=== PATIENT | female | born 1930 | race Caucasian/White ===

== ENCOUNTER 2016-06-03 11:42 | Inpatient (IN) | payer MEDICARE, BC ==
[~2016-06-03] VITALS: Ht 165.1 cm; Wt 68.9 kg
[~2016-06-03 11:42] MED LIST: CALC500T7 PO; CEPH500C2 PO; CHOL400T PO; ENOX40DI SQ; GABA-338 PO; HYDR-4072 PO; HYDR2TAB56 PO; HYDR2TAB7 PO; INSU100V SQ; LISI10TA7 PO; METF500T4 PO; METO10TA3 PO; OMEP40CA52 PO; TRAM50TA4 PO
--- OUTSIDE RECORDS SUMMARY | 2016-06-03 11:51 | XMS REPORT | Continuity of Care Document ---
Author Author [facility] Organization [facility] Address Unknown Phone Unavailable Support Name Relationship Address Phone KELLIE PATEL Caregiver [address] [place] [address] Unavailable BHAVNA MCALLISTER MD Caregiver [address] [place] [address] Unavailable BHAVNA MCALLISTER MD Caregiver [address] [place] [address] Unavailable ELGIN ROBERT (DPOA) Next Of Kin [address] [place] [address] Insurance Providers Guarantor Toro Robert Address [address] [place] [address] Email DENIED 05-18-16 Payer [employer] Plan 65 Policy Number [id number] Subscriber's Name Toro Robert Relationship 18 Self Group Number [id number] Payer Medicare Policy Number [id number] Subscriber's Name Toro Robert Relationship 18 Self Advance Directives Directive Response Recorded Date/Time Ordered Resuscitation Status Full Code 05/18/16 6:03pm Resuscitation Documents on File No 05/18/16 6:27pm DPOA for Healthcare Only Y Son 05/19/16 3:54pm Living Will Yes 05/18/16 6:27pm Problems Active Problems Medical Problem Onset Date Status Allergic rhinitis Unknown Anemia Unknown Acute Basal cell carcinoma Unknown Chronic Cardiac dysrhythmia Unknown Chronic Chronic kidney disease Unknown Chronic pain Unknown Chronic DJD (degenerative joint disease) Unknown Chronic Debility Unknown Acute Diabetes mellitus ~05/2016 Chronic Displaced fracture of right femoral neck Unknown Resolved GERD (gastroesophageal reflux disease) Unknown Chronic HTN (hypertension) Unknown Chronic Hypercholesteremia Unknown Lumbar disc herniation Unknown Chronic Osteopenia Unknown Chronic Peptic ulcer disease Unknown Chronic Pseudoarthrosis Unknown Chronic UTI (urinary tract infection) Unknown Resolved Urinary retention Unknown Chronic Past Problems Medical Problem Onset Date Ankle pain Unknown Fall Unknown Hip pain Unknown Medications Current Home Medications Medication Dose Units Route Directions Days Qty Instructions Start Date Calcium Carbonate (Tums) 200 Mg Tab.chew 500 Mg Oral Four Times Daily as needed for Heartburn 30 05/18/16 Cephalexin 500 Mg Capsule 500 Mg Oral Q8h @ 0100/0900/1700 for Uti 1 Days 3 Capsule 05/18/16 Cholecalciferol (Delta D3) 400 Unit Tablet 400 Unit Oral Three Times A Day for Hip Fracture 28 Tablet 05/18/16 Enoxaparin Sodium (Lovenox) 40 Mg/0.4 Ml Inj 40 Mg Sub-Q Every 24 Hours for Dvt Prophylaxis 28 Days 05/18/16 Gabapentin 300 Mg Capsule 300 Mg Oral Three Times A Day 05/14/16 Hydrocodone/Acetaminophen (Hydrocodon-Acetaminoph 7.5-325) 7.5-325 Tablet 1-2 Tab Oral Every 6 Hours as needed for Pain 28 Tablet 05/18/16 Hydromorphone Hcl 2 Mg Tablet 2 Mg Oral Daily 05/14/16 Hydromorphone Hcl (Dilaudid) 2 Mg Tablet 4 Mg Oral Bedtime Insulin Lispro (Humalog) 100 Unit/Ml Inj 0 Unit Sub-Q Sliding Scale as needed for Hyperglycemia 21 05/18/16 Lisinopril 10 Mg Tablet 10 Mg Oral Daily 05/14/16 Metformin Hcl 500 Mg Tablet 500 Mg Oral Give With Breakfast 30 Days 30 Tablet Take one tablet, by mouth, one time a day with breakfast. 05/18/16 Metoclopramide Hcl 10 Mg Tablet 10 Mg Oral Twice A Day BEFORE LUNCH & SUPPER 05/14/16 Omeprazole 40 Mg Capsule.dr [place] Cap Oral Daily 05/15/16 Tramadol Hcl 50 Mg Tablet 50 Mg Oral Q6h/0300,0900,1500,2100 as needed for Pain 05/14/16 Past Home Medications Medication Directions Ordered Status Ibuprofen 200 Mg Tablet, 2 Tab Oral Every 4 Hours as needed for Pain Discontinued Social History Social History Problem Response Recorded Date/Time Onset Date Status Reason for Hospitalization femur fracture 05/20/2016 1:18pm Not Applicable Not Applicable Hx Alcohol Use No 05/14/2016 10:37pm Not Applicable Not Applicable Has the pt used tobacco in the last 12 months No 05/18/2016 6:34pm Not Applicable Not Applicable Query Response Start Date Stop Date Smoking Status Never smoker Hospital Discharge Instructions Instructions: Care Instructions: Reason for Hospitalization: femur fracture I was in the hospital because (patient own words): Fell, had surgery Discharge Diet: ada Discharge Activity: bed rest Follow Up Appointments: going to outpatient. Pending Lab / Results: No Pending Lab Patient Instructions: going to outpatient surgery care for elevated troponin Wound/Incision Care: na Durable Medical Equipment: na Pain Management/Treatment: dilaudid and ultram. Expected Signs/Symptoms: to be followed by hospitalist. Notify Physician If: na During Business Hours:: Please call the physician's office at After Business Hours:: Please call [phone] and have the lidding machine operator page the physician. Condition at time of discharge: Fair Plan of Care Discharge Date 05/20/16 1:28pm Disposition 02 TO [facility] Prescriptions See Medication Section Care Plan and Goals See Discharge Instructions Section Functional Status Query Response Date Recorded Mobility Status Ambulatory w/assist May 20, 2016 1:18pm Assistive Devices miguelina walker May 20, 2016 1:18pm Activity Limitations Weakness Pain May 20, 2016 1:18pm Feeding Ability Independent May 20, 2016 1:18pm Toileting Ability Assist May 18, 2016 4:20pm Grooming Ability Assist May 20, 2016 1:18pm Dressing Ability Assist May 20, 2016 1:18pm Driving Ability Dependent May 20, 2016 1:18pm Housework Ability Dependent May 20, 2016 1:18pm Meal Preparation Ability Dependent May 20, 2016 1:18pm Stair Climbing Ability Dependent May 20, 2016 1:18pm Ability to complete ADL's impeded by Impaired Mobility May 20, 2016 1:18pm Cognitive/Perceptual Impairments None May 20, 2016 1:18pm Preferred Method of Learning Reading Listening May 18, 2016 4:20pm Allergies, Adverse Reactions, Alerts Allergen Type Severity Reaction Status Last Updated Sulfa (Sulfonamide Antibiotics) Allergy Unknown Active 05/14/16 Iodine Allergy Unknown Active 05/14/16 Morphine Allergy Unknown Active 05/14/16 Clindamycin Allergy Intermediate RASH Active 05/18/16 Clavulanate Allergy Intermediate DIZZINESS Active 05/17/16 Amoxicillin Adverse Reaction Intermediate PALPITATION Active 05/17/16 Immunizations Query Response on File Recorded Date/Time Hx Influenza Vaccination No 05/18/16 6:34pm Hx Pneumococcal Vaccination Y 2016 05/18/16 6:34pm Hx Influenza Vaccination No 05/18/16 6:34pm Vital Signs Acute Vital Signs Vital Response Date/Time Temperature (Fahrenheit) 98.3 deg F (96.8 - 99.1) 05/20/2016 7:10am Temperature (Calculated Celsius) 36.98104 degrees C (36.0 - 37.3) 05/20/2016 7:10am Temperature Source Oral 05/18/2016 4:04pm Pulse Rate (adult) 104 bpm (60 - 100) 05/20/2016 10:15am Respiratory Rate 18 breaths/min (10 - 20) 05/20/2016 10:15am O2 Sat by Pulse Oximetry 90 % (90 - 100) 05/20/2016 7:10am Oxygen Delivery Method Room Air 05/18/2016 4:04pm Oxygen Delivery Method Room Air 05/20/2016 7:10am Oxygen Flow Rate 1.00 L/min 05/18/2016 7:45am Blood Pressure 126/66 mm Hg 05/20/2016 7:10am Blood Pressure Source Automatic Cuff 05/20/2016 7:10am Height (Feet) 5 feet 05/20/2016 12:26pm Height (Inches) 5.00 inches 05/20/2016 12:26pm Weight (Kilograms) 78.300 kg 05/18/2016 4:20pm Body Mass Index (BMI) 28.7 05/18/2016 4:20pm Results Laboratory Results Test Name Result Units Flags Reference Collection Date/Time Result Date/ Time Comments Neutrophils % (Manual) 87.0 % H 33-66 05/16/2016 4:09am 05/16/2016 6: 23am Lymphocytes % (Manual) 13.0 % L 23-45 05/16/2016 4:09am 05/16/2016 6: 23am Absolute Neutrophils (Manual) 9.7 T/MM3 H 1.8-7.7 05/16/2016 4:09am 07/2016 6:23am Lymphocytes # (Manual) 1.4 T/MM3 1-4.8 05/16/2016 4:09am 05/16/2016 6: 23am Red Cell Morphology Comment NORMAL 05/16/2016 4:09am 05/16/2016 6: 23am HD-Aab-X-Type Natriuretic Peptide 762 PG/ML H 0-175 05/14/2016 8:33pm 9:54pm Rule in cut points: <50 years old=450; 50-75 years old=900; >75 years old=1800; When utilizing ProBNP rule-in cut points, adjustment for impaired renal function is typically not required. Thyroid Stimulating Hormone (TSH) 5.55 MIU/L H 0.47-4.68 05/16/2016 4: 09am 05/16/2016 5:52am Hemoglobin A1c 8.3 % H 6.1-7.9 05/15/2016 10:31am 05/15/2016 10:56am < 6.0 NON-DIABETIC RANGE 6.1-7.9 [employer] TARGET RANGE >8.0 ACTION SUGGESTED Urine Collection Type CLEANCATCH-MIDSTREAM 05/14/2016 10:57pm 05/14 11:01pm Urine Color YELLOW YELLOW 05/14/2016 10:57pm 05/14/2016 11:01pm Urine Turbidity SL CLOUDY CLEAR 05/14/2016 10:57pm 05/14/2016 11: 01pm Urine Specific [place] 1.010 L 1.015-1.025 05/14/2016 10:57pm 2016 11:01pm Urine pH 6.5 5.0-8.0 05/14/2016 10:57pm 05/14/2016 11:01pm Urine Leukocyte Esterase 3+ A NEGATIVE 05/14/2016 10:57pm 05/14/2016 11:01pm Urine Nitrite NEGATIVE NEGATIVE 05/14/2016 10:57pm 05/14/2016 11: 01pm Urine Protein NEGATIVE NEGATIVE 05/14/2016 10:57pm 05/14/2016 11: 01pm Urine Glucose (UA) NEGATIVE NEGATIVE 05/14/2016 10:57pm 05/14/2016 11 :01pm Urine Ketones NEGATIVE NEGATIVE 05/14/2016 10:57pm 05/14/2016 11: 01pm Urine Urobilinogen 0.2 EU/DL NORMAL 05/14/2016 10:57pm 05/14/2016 11: 01pm Urine Bilirubin NEGATIVE NEGATIVE 05/14/2016 10:57pm 05/14/2016 11: 01pm Urine Blood TRACE-INTACT A NEGATIVE 05/14/2016 10:57pm 05/14/2016 11: 01pm Urine WBC 30-50 /HPF H 0-5 05/14/2016 10:57pm 05/14/2016 11:09pm Urine WBC Clumps FEW 05/14/2016 10:57pm 05/14/2016 11:09pm Urine RBC 1-3 /HPF 0-3 05/14/2016 10:57pm 05/14/2016 11:09pm Urine Squamous Epithelial Cells 10-20 05/14/2016 10:57pm 2016 11:09pm Urine Bacteria 3+ H NEGATIVE 05/14/2016 10:57pm 05/14/2016 11:09pm Urine Amorphous Urates MANY 05/14/2016 10:57pm 05/14/2016 11:09pm Urine Culture Indicated CULT REFLEXED &SETUP 05/14/2016 10:57pm 05/2016 11:09pm White Blood Count 10.9 T/MM3 4.5-11.0 05/20/2016 12:30pm 05/20/2016 12: 49pm Red Blood Count 3.56 M/MM3 L 4.00-5.20 05/20/2016 12:30pm 05/20/2016 12: 49pm Hemoglobin 9.9 GM/DL D L 12-16 05/20/2016 12:30pm 05/20/2016 12:49pm Hematocrit 33.1 % L 36-46 05/20/2016 12:30pm 05/20/2016 12:49pm Mean Corpuscular Volume 93.0 UM3 80-100 05/20/2016 12:30pm 05/20/2016 12:49pm Mean Corpuscular Hemoglobin 27.8 UUG 26-34 05/20/2016 12:30pm 2016 12:49pm Mean Corpuscular Hemoglobin Concent 29.9 GM/DL L 31-37 05/20/2016 12: 30pm 05/20/2016 12:49pm RDW Standard Deviation 48.4 FL 36.9-50.2 05/20/2016 12:30pm 05/20/2016 12:49pm Platelet Count 188 T/MM3 D 130-400 05/20/2016 12:30pm 05/20/2016 12:49pm Mean Platelet Volume 13.1 UM3 H 9.4-12.4 05/20/2016 12:30pm 05/20/2016 12:49pm Neutrophils (%) (Auto) 77.4 % H 33-66 05/20/2016 12:30pm 05/20/2016 12: 49pm Lymphocytes (%) (Auto) 12.4 % L 23-45 05/20/2016 12:30pm 05/20/2016 12: 49pm Monocytes (%) (Auto) 6.0 % 0-9.0 05/20/2016 12:30pm 05/20/2016 12:49pm Eosinophils (%) (Auto) 3.5 % 0-4 05/20/2016 12:30pm 05/20/2016 12:49pm Basophils (%) (Auto) 0.5 % 0-2 05/20/2016 12:30pm 05/20/2016 12:49pm Immature Granulocyte % (Auto) 0.2 % 0.0-0.5 05/20/2016 12:30pm 2016 12:49pm Absolute Neutrophils (auto) 8.5 T/MM3 H 1.8-7.7 05/20/2016 12:30pm 05/20 12:49pm Absolute Lymphocytes (auto) 1.4 T/MM3 1-4.8 05/20/2016 12:30pm 2016 12:49pm Absolute Monocytes (auto) 0.7 T/MM3 0-0.8 05/20/2016 12:30pm 2016 12:49pm Absolute Eosinophils (auto) 0.4 T/MM3 0-0.5 05/20/2016 12:30pm 2016 12:49pm Absolute Basophils (auto) 0.1 T/MM3 0-0.2 05/20/2016 12:30pm 2016 12:49pm Absolute Immature Granulocyte (auto 0.02 T/MM3 0.00-0.03 05/20/2016 12: 30pm 05/20/2016 12:49pm Prothromb Time International Ratio 1.13 H 0.76-1.04 05/20/2016 10:36am 05/20/2016 12:28pm THERAPUTIC RANGE=2.00-3.00 FOR ANTI-THROMBOSIS THERAPUTIC RANGE=2.50-3.50 FOR IMPLANTED VALVE Icterus Index < 2 0-7 05/20/2016 10:36am 05/20/2016 12:34pm Chemistry Specimen Hemolysis < 15 0-25 05/20/2016 12:30pm 05/20/2016 1:08pm 0-25: Specimen Exhibited No Hemolysis. Turbidity < 20 0-20 05/20/2016 10:36am 05/20/2016 12:34pm Sodium Level 137 MEQ/L 134-144 05/20/2016 10:3605/20/2016 12:34pm Potassium Level 3.6 MEQ/L 3.6-5 05/20/2016 10:3605/20/2016 12:34pm Chloride Level 99 MEQ/L 98-107 05/20/2016 10:3605/20/2016 12:34pm Carbon Dioxide Level 27 MEQ/L 22-30 05/20/2016 10:3605/20/2016 12: 34pm Anion Gap 11 MEQ/L 5-15 05/20/2016 10:3605/20/2016 12:34pm Blood Urea Nitrogen 14.0 MG/DL 7-17 05/20/2016 10:3605/20/2016 12: 34pm Creatinine 0.8 MG/DL 0.7-1.2 05/20/2016 10:3605/20/2016 12:34pm BUN/Creatinine Ratio 18 RATIO 6-26 05/20/2016 10:3605/20/2016 12: 34pm Glomerular Filtration Rate Calc 69 05/20/2016 10:3605/20/2016 12 :34pm Glucose Level 172 MG/DL H 65-110 05/20/2016 10:3605/20/2016 12:34pm Calculated Osmolality 269 MOSM/KG 261-280 05/20/2016 10:362016 12:34pm Calcium Level 8.8 MG/DL 8.4-10.2 05/20/2016 10:3605/20/2016 12:34pm Total Bilirubin 0.50 MG/DL 0.20-1.30 05/20/2016 10:3605/20/2016 12: 34pm Alkaline Phosphatase 112 U/L 38-126 05/20/2016 10:3605/20/2016 12: 34pm Total Protein 5.7 G/DL L 6.3-8.2 05/20/2016 10:3605/20/2016 12:34pm Albumin 3.1 G/DL L 3.5-5.0 05/20/2016 10:3605/20/2016 12:34pm Globulin 2.6 G/DL 2.4-3.6 05/20/2016 10:3605/20/2016 12:34pm Albumin/Globulin Ratio 1.2 RATIO 1.1-2.2 05/20/2016 10:36am 05/20/2016 12:34pm Aspartate Amino Transf (AST/SGOT) 48 U/L H 14-36 05/20/2016 10:36am 11/2016 12:34pm Alanine Aminotransferase (ALT/SGPT) 25 U/L 9-52 05/20/2016 10:36am 11/2016 12:34pm Troponin I 0.189 ng/ml H 0-0.12 05/20/2016 12:30pm 05/20/2016 1:08pm Troponin values greater than 0.120 ng/ml are considered a critical value. Troponin values with a difference of 55% increase from orginal troponin value represent a true biological DELTA value. (%increase Calc=Orginal Troponin value, divided by subsequent Troponin value, multiplied by 100) Glucometer 168 mg/dL H 65-110 05/20/2016 11:16am 05/20/2016 11:24am Microbiology Results Procedure Source Organism/Result Collection Date/Time Result Date/Time Result Status Urine Culture Urine, Clean Catch-Midstream DIPHTHEROID BACILLUS 05/14/2016 11:10pm 05/17/2016 7:29am Final GRAM POSITIVE CESARIO 05/14/2016 11:10pm 05/17/2016 7:29am Final Name: TORO ROBERT Unit #: [id number] : 1930 Sex: F DISCHARGE SUMMARY Admit Date: 05/18/16 Report #: [id number] [facility] General Date Date DATE: 05/20/16 TIME: 13:12 Attending Physician Bhavna Mcallister MD Admitting Physician Bhavna Mcallister MD Consulting Physician Rocky Lopez MD Admitting Diagnosis femur fracture. Discharge Diagnosis elevated troponin Laboratory Laboratory Tests Test 05/19/16 06:14 05/19/16 07:16 05/19/16 10:53 05/19/16 17:34 Glucometer 178mg/dL (65-110) 190mg/dL (65-110) 147mg/dL (65-110) White Blood Count 9.2T/MM3 (4.5-11.0) Red Blood Count 3.26M/MM3 (4.00-5.20) Hemoglobin 8.9GM/DL (12-16) Hematocrit 30.1% (36-46) Mean Corpuscular Volume 92.3UM3 (80-100) Mean Corpuscular Hemoglobin 27.3UUG (26-34) Mean Corpuscular Hemoglobin Concent 29.6GM/DL (31-37) RDW Standard Deviation 46.9FL (36.9-50.2) Platelet Count 139T/MM3 (130-400) Mean Platelet Volume 12.3UM3 (9.4-12.4) Immature Granulocyte % (Auto) 0.1% (0.0-0.5) Neutrophils (%) (Auto) 74.0% (33-66) Lymphocytes (%) (Auto) 13.2% (23-45) Monocytes (%) (Auto) 8.9% (0-9.0) Eosinophils (%) (Auto) 3.4% (0-4) Basophils (%) (Auto) 0.4% (0-2) Absolute Immature Granulocyte (auto 0.01T/MM3 (0.00-0.03) Absolute Neutrophils (auto) 6.8T/MM3 (1.8-7.7) Absolute Lymphocytes (auto) 1.2T/MM3 (1-4.8) Absolute Monocytes (auto) 0.8T/MM3 (0-0.8) Absolute Eosinophils (auto) 0.3T/MM3 (0-0.5) Absolute Basophils (auto) 0.0T/MM3 (0-0.2) Turbidity < 20 (0-20) Sodium Level 138MEQ/L (134-144) Potassium Level 3.7MEQ/L (3.6-5) Chloride Level 105MEQ/L (98-107) Carbon Dioxide Level 27MEQ/L (22-30) Anion Gap 6MEQ/L (5-15) Blood Urea Nitrogen 12.0MG/DL (7-17) Creatinine 0.8MG/DL (0.7-1.2) Glomerular Filtration Rate Calc 69 BUN/Creatinine Ratio 15RATIO (6-26) Glucose Level 154MG/DL (65-110) Calculated Osmolality 269MOSM/KG (261-280) Calcium Level 8.8MG/DL (8.4-10.2) Icterus Index < 2 (0-7) Chemistry Specimen Hemolysis < 15 (0-25) Test 05/19/16 21:49 05/20/16 05:44 05/20/16 10:36 05/20/16 11:16 Glucometer 236mg/dL (65-110) 154mg/dL (65-110) 168mg/dL (65-110) Prothromb Time International Ratio 1.13 (0.76-1.04) Turbidity < 20 (0-20) Sodium Level 137MEQ/L (134-144) Potassium Level 3.6MEQ/L (3.6-5) Chloride Level 99MEQ/L (98-107) Carbon Dioxide Level 27MEQ/L (22-30) Anion Gap 11MEQ/L (5-15) Blood Urea Nitrogen 14.0MG/DL (7-17) Creatinine 0.8MG/DL (0.7-1.2) Glomerular Filtration Rate Calc 69 BUN/Creatinine Ratio 18RATIO (6-26) Glucose Level 172MG/DL (65-110) Calculated Osmolality 269MOSM/KG (261-280) Calcium Level 8.8MG/DL (8.4-10.2) Total Bilirubin 0.50MG/DL (0.20-1.30) Icterus Index < 2 (0-7) Aspartate Amino Transf (AST/SGOT) 48U/L (14-36) Alanine Aminotransferase (ALT/SGPT) 25U/L (9-52) Alkaline Phosphatase 112U/L (38-126) Troponin I 0.188ng/ml (0-0.12) Total Protein 5.7G/DL (6.3-8.2) Albumin 3.1G/DL (3.5-5.0) Globulin 2.6G/DL (2.4-3.6) Albumin/Globulin Ratio 1.2RATIO (1.1-2.2) Chemistry Specimen Hemolysis < 15 (0-25) Test 05/20/16 12:30 White Blood Count 10.9T/MM3 (4.5-11.0) Red Blood Count 3.56M/MM3 (4.00-5.20) Hemoglobin 9.9GM/DL (12-16) Hematocrit 33.1% (36-46) Mean Corpuscular Volume 93.0UM3 (80-100) Mean Corpuscular Hemoglobin 27.8UUG (26-34) Mean Corpuscular Hemoglobin Concent 29.9GM/DL (31-37) RDW Standard Deviation 48.4FL (36.9-50.2) Platelet Count 188T/MM3 (130-400) Mean Platelet Volume 13.1UM3 (9.4-12.4) Immature Granulocyte % (Auto) 0.2% (0.0-0.5) Neutrophils (%) (Auto) 77.4% (33-66) Lymphocytes (%) (Auto) 12.4% (23-45) Monocytes (%) (Auto) 6.0% (0-9.0) Eosinophils (%) (Auto) 3.5% (0-4) Basophils (%) (Auto) 0.5% (0-2) Absolute Immature Granulocyte (auto 0.02T/MM3 (0.00-0.03) Absolute Neutrophils (auto) 8.5T/MM3 (1.8-7.7) Absolute Lymphocytes (auto) 1.4T/MM3 (1-4.8) Absolute Monocytes (auto) 0.7T/MM3 (0-0.8) Absolute Eosinophils (auto) 0.4T/MM3 (0-0.5) Absolute Basophils (auto) 0.1T/MM3 (0-0.2) Troponin I 0.189ng/ml (0-0.12) Chemistry Specimen Hemolysis < 15 (0-25) History of Present Illness 85-year-old female presents to IRU with right femur fracture. Patient was admitted on May 15 for surgical repair after fall. Once in the hospital, she was diagnosed with UTI as well as newly diagnosed diabetes type 2. While in the hospital she's been very cooperative with treating her diabetes and educating herself about it. She is currently watching diet and taking oral medications as well as on a sliding scale. Treated for the UTI and is currently on oral Keflex. Patient has worked well with physical therapy, is determined to return to preadmitted status , and be independent. Hospital Course Admitted to IRU for strengthening post femur fx. However, she has had indigestion and abd pain despite antacid and reglan. Troponin drawn and returned elevated. Cardiology recommending urgent heart cath based on concurrent ekg changes. Problems: (1) UTI (urinary tract infection) Status: Resolved (2) Displaced fracture of right femoral neck Status: Resolved DVT Prophylaxis: SCD'S Code Status Full Code Home Meds Active Scripts Metformin HCl (Metformin HCl) 500 Mg Tablet, 500 MG PO WB for 30 Days, #30 TAB Take one tablet, by mouth, one time a day with breakfast. Prov:RAMOS PERSON MD 05/18/16 Insulin Lispro (Humalog) 100 Unit/Ml Inj, 0 UNIT SQ SS Y for hyperglycemia, #21 Prov:RAMOS PERSON MD 05/18/16 Cholecalciferol (Delta D3) 400 Unit Tablet, 400 UNIT PO TID for hip fracture, # 28 TAB Prov:RAMOS PERSON MD 05/18/16 Calcium Carbonate (Tums) 200 Mg Tab.chew, 500 MG PO QID Y for heartburn, #30 Prov:RAMOS PERSON MD 05/18/16 Hydrocodone/Acetaminophen (Hydrocodon-Acetaminoph 7.5-325) 7.5-325 Tablet, 1-2 TAB PO Q6H Y for PAIN, #28 TAB Prov:RAMOS PERSON MD 05/18/16 Enoxaparin Sodium (Lovenox) 40 Mg/0.4 Ml Inj, 40 MG SQ Q24H for DVT prophylaxis for 28 Days Prov:RAMOS PERSON MD 05/18/16 Cephalexin (Cephalexin) 500 Mg Capsule, 500 MG PO Q8HR for UTI for 1 Day, #3 CAP Prov:RAMOS PERSON MD 05/18/16 Reported Medications Omeprazole (Omeprazole) 40 Mg Capsule.dr, 1 CAP PO DAILY, CAP 05/15/16 Tramadol HCl (Tramadol HCl) 50 Mg Tablet, 50 MG PO Q6HR Y for PAIN 05/14/16 Gabapentin (Gabapentin) 300 Mg Capsule, 300 MG PO TID 05/14/16 Metoclopramide HCl (Metoclopramide HCl) 10 Mg Tablet, 10 MG PO BID BEFORE LUNCH & SUPPER 05/14/16 Lisinopril (Lisinopril) 10 Mg Tablet, 10 MG PO DAILY 05/14/16 Hydromorphone HCl (Dilaudid) 2 Mg Tablet, 4 MG PO HS 05/14/16 Hydromorphone HCl (Hydromorphone HCl) 2 Mg Tablet, 2 MG PO DAILY 05/14/16 Discontinued Reported Medications Ibuprofen (Ibuprofen) 200 Mg Tablet, 2 TAB PO Q4H Y for PAIN 05/14/16 Face to Face Encounter I met with patient on the day of dismissal and discussed follow up appointments , medications, and safety plan. Discharge Disposition Stable. To laborer salvage. BHAVNA MCALLISTER MD May 20, 2016 13:15 Procedures No known history of procedures. Encounters Encounter Location Arrival/Admit Date Discharge/Depart Date Attending Provider Discharged Inpatient [facility] 05/18/16 4:20pm 05/20/16 1:28pm BHAVNA MCALLISTER MD Discharged Inpatient [facility] 05/15/16 5:04pm 05/18/16 4:22pm RAMOS PERSON MD
--- OUTSIDE RECORDS SUMMARY | 2016-06-03 11:55 | XMS REPORT | Continuity of Care Document ---
Author Author [facility] Organization [facility] Address Unknown Phone Unavailable Support Name Relationship Address Phone BERNIE OLMOS MD Caregiver [address] [place] [place] [address] Unavailable KELLIE PATEL Caregiver [address] [place] [address] Unavailable ELGIN ROBERT (DPOA) Next Of Kin [address] [id number] Insurance Providers Guarantor Toro Robert Address [address] [place] [address] Email DENIED 05-18-16 Payer [employer] 65 Policy Number [id number] Subscriber's Name Toro Robert Relationship 18 Self Group Number [id number] Payer Medicare Policy Number [id number] Subscriber's Name Toro Robert Relationship 18 Self Advance Directives Directive Response Recorded Date/Time Ordered Resuscitation Status Full Code 05/20/16 1:36pm Resuscitation Documents on File No 05/20/16 4:28pm DPOA for Healthcare Only Yes 05/20/16 4:28pm Living Will Yes 05/20/16 4:28pm Problems Active Problems Medical Problem Onset Date [...] Date/Time Onset Date Status Reason for Hospitalization heart cath 05/20/2016 3:08pm Not Applicable Not Applicable Chewing Tobacco Status No 05/20/2016 4:23pm Not Applicable Not Applicable Hx Substance Use No 05/20/2016 4:23pm Not Applicable Not Applicable Hx Alcohol Use No 05/20/2016 4:23pm Not Applicable Not Applicable Has the pt used tobacco in the last 12 months No 05/20/2016 4:23pm Not Applicable Not Applicable Query Response Start Date Stop Date Smoking Status Never smoker Hospital Discharge Instructions Instructions: Care Instructions: I was in the hospital because (patient own words): HEART CATHETERIZATION Discharge Diet: NPO Discharge Activity: bedrest Follow Up Appointments: NA Pending Lab / Results: No Pending Lab Expected Signs/Symptoms: NA Notify Physician If: NA During Business Hours:: Please call the physician's office at [phone] After Business Hours:: Please call [phone] and have the pinking sewing machine operator page the physician. Pain Management/Treatment: NA Pain Scale Utilized to Educate Patient: 0-10 Pain Scale Wound/Incision Care: NA Condition at time of discharge: Good Plan of Care Discharge Date 05/20/16 6:40pm Instructions/Education Provided [facility] Heart Cath Prescriptions See Medication Section Functional Status Query Response Date Recorded Mobility Status Ambulatory w/assist May 20, 2016 2:30pm Assistive Devices NIKKI- WALKER May 20, 2016 2:30pm Activity Limitations Weakness Fatigue Pain May 20, 2016 2:30pm Feeding Ability Assist May 20, 2016 2:30pm Toileting Ability Assist May 20, 2016 2:30pm Grooming Ability Assist May 20, 2016 2:30pm Dressing Ability Assist May 20, 2016 2:30pm Driving Ability Dependent May 20, 2016 2:30pm Housework Ability Assist May 20, 2016 2:30pm Meal Preparation Ability Assist May 20, 2016 2:30pm Stair Climbing Ability Assist May 20, 2016 2:30pm Ability to complete ADL's impeded by Impaired Mobility May 20, 2016 4:28pm Cognitive/Perceptual Impairments Impaired vision May 20, 2016 2:30pm Visual Assistive Devices Glasses May 20, 2016 2:30pm Allergies, Adverse Reactions, Alerts Allergen Type Severity Reaction Status Last Updated Sulfa (Sulfonamide Antibiotics) Allergy Unknown Active 05/14/16 Iodine Allergy Unknown Active 05/14/16 Morphine Allergy Unknown Active 05/14/16 Clindamycin Allergy Intermediate RASH Active 05/18/16 Clavulanate Allergy Intermediate DIZZINESS Active 05/17/16 Amoxicillin Adverse Reaction Intermediate PALPITATION Active 05/17/16 Immunizations Query Response on File Recorded Date/Time Hx Influenza Vaccination No 05/20/16 4:23pm Hx Pneumococcal Vaccination Y 2016 05/20/16 4:23pm Hx Influenza Vaccination No 05/20/16 4:23pm Vital Signs Acute Vital Signs Vital Response Date/Time Temperature (Fahrenheit) 97.6 deg F (96.8 - 99.1) 05/20/2016 2:30pm Temperature (Calculated Celsius) 36.12477 degrees C (36.0 - 37.3) 05/20/2016 2:30pm Temperature Source Oral 05/20/2016 2:30pm Pulse Rate (adult) 99 bpm (60 - 100) 05/20/2016 5:30pm Respiratory Rate 18 breaths/min (10 - 20) 05/20/2016 5:30pm O2 Sat by Pulse Oximetry 96 % (90 - 100) 05/20/2016 5:30pm Oxygen Delivery Method Room Air 05/20/2016 5:30pm Oxygen Delivery Method Room Air 05/20/2016 7:10am Oxygen Flow Rate 1.00 L/min 05/20/2016 2:46pm Blood Pressure 158/74 mm Hg 05/20/2016 6:30pm Blood Pressure Source Automatic Cuff 05/20/2016 6:30pm Height (Feet) 5 feet 05/20/2016 4:27pm Height (Inches) 5.00 inches 05/20/2016 4:27pm Weight (Kilograms) 77.700 kg 05/20/2016 4:27pm Body Mass Index (BMI) 28.5 05/20/2016 4:27pm Results Laboratory Results Test Name Result Units [...] Comment NORMAL 05/16/2016 4:09am 05/16/2016 6: 23am LD-Znd-S-Type Natriuretic Peptide 762 PG/ML H 0-175 05/14/2016 [...] 05/15/2016 10:56am < 6.0 NON-DIABETIC RANGE 6.1-7.9 [facility] TARGET RANGE >8.0 ACTION SUGGESTED Urine Collection Type CLEANCATCH-MIDSTREAM 05/14/2016 10:57pm 05/14 11:01pm Urine Color YELLOW YELLOW 05/14/2016 10:57pm 05/14/2016 11:01pm Urine Turbidity SL CLOUDY CLEAR 05/14/2016 10:57pm 05/14/2016 11: 01pm Urine Specific [place] 1.010 L 1.015-1.025 05/14/2016 10:57pm 2016 11:01pm [...] subsequent Troponin value, multiplied by 100) Glucometer 160 mg/dL H 65-110 05/20/2016 5:48pm 05/20/2016 6:48pm Microbiology Results Procedure Source Organism/Result Collection Date/Time Result Date/Time Result Status Urine Culture Urine, Clean Catch-Midstream DIPHTHEROID BACILLUS 05/14/2016 11:10pm 05/17/2016 7:29am Final GRAM POSITIVE CESARIO 05/14/2016 11:10pm 05/17/2016 7:29am Final Procedures No known history of procedures. Encounters Encounter Location Arrival/Admit Date Discharge/Depart Date Attending Provider Departed Clinic [facility] 05/20/16 1:29pm 05/20/16 6:40pm BERNIE OLMOS MD Discharged Inpatient [facility] 05/18/16 4:20pm 05/20/16 1:28pm BHAVNA MCALLISTER MD Discharged Inpatient [facility] 05/15/16 5:04pm 05/18/16 4:22pm RAMOS PERSON MD
--- NOTE | 2016-06-03 12:10 | NUR ---
Admit A 85 year old female was admitted to room 173 from [facility] via private car. She came to the unit with her son and staff via wheelchair, she transferred with the assist of 1, a miguelina-walker, and gait belt. Has significant bruising noted to her abdomen, pt reports that it is due to the shots she was receiving. Incision to the sternum in CDI, clear dressing in place, also dressing to the epigastric area is CDI. She has a Mepilex to the Rt hip that is currently CDI.
[2016-06-03 12:30] VITALS: PULSE 77; RESP 18
[2016-06-03] MEDS ORDERED: ATOR40TA64 PO (13:27)
[2016-06-03] MEDS ORDERED: AMIO200T2 PO (13:27)
[2016-06-03] MEDS ORDERED: METO25TA6 PO (13:27)
[2016-06-03] MEDS ORDERED: FERR-70 PO (13:27)
[2016-06-03] MEDS ORDERED: BUME1TAB17 PO (13:28)
[2016-06-03] MEDS ORDERED: POLY17PO6 PO (13:28)
[2016-06-03] MEDS ORDERED: ACET-2321 PO (13:28)
[2016-06-03] MEDS ORDERED: HYDR2TAB56 PO (13:28)
[2016-06-03] MEDS ORDERED: TYLENOL RECTALLY (13:28)
[2016-06-03] MEDS ORDERED: ASPI81TA2 PO (13:28)
[2016-06-03] MEDS ORDERED: POTA-81 PO (13:28)
[2016-06-03] MEDS ORDERED: DOCU-175 PO (13:28)
[2016-06-03] MEDS ORDERED: ASCO500T10 PO (13:28)
[2016-06-03 13:33] VITALS: Ht 165.1 cm; Wt 68.9 kg
[2016-06-03 14:28] VITALS: BP 144/71; PULSE 77; RESP 18; TEMP 98; O2SAT 92
[2016-06-03] MEDS ORDERED: PRN ORDERS MC (14:30)
[2016-06-03] MEDS: HYDROMORPHONE 2 MG TABLET PO PRN ×2 (15:03→19:50)
[2016-06-03] MEDS ORDERED: MAG-AL + SIM LIQUID 30 ML UDC PO PRN (15:30)
--- NOTE | 2016-06-03 16:03 | CONSPD ---
KRISTY SARABIA V BAND CUTTING MACHINE OPERATOR 06/03/16 1547: Consultation Info Date DATE: 06/03/16 TIME: 15:36 Date of Consultation: Jun 03, 2016 Attending Physician: Joce Reason for Consultation: medical management HPI - Adult Date DATE: 06/03/16 TIME: 15:36 General Chief Complaint: status post CABG, right hip arthroplasty History of Present Illness Talisha is a pleasant 85-year-old female who is known to the hospitalist services from recent admissions. Unfortunately, she suffered a right femoral neck fracture on 05/15/16 and underwent a right hemo-arthroplasty by Dr. Champagne on . Postoperatively, she was admitted to the inpatient rehabilitation unit for aggressive therapy and strengthening, however, on 05/20/16 she developed indigestion and was found to an elevated troponin with EKG changes. She was then taken to the Code Machine Operator under the care of Dr. Lopez and found to have multiple vessel coronary artery disease. She was then transferred for [facility] for further cardiac evaluation. She underwent a CABG on 05/20/16 and tolerated it well. She continues to have generalized weakness accompanied with right hip pain secondary to her recent hip surgery. She was accepted to the inpatient rehabilitation unit for ongoing therapy, strengthening and improve function. She is seen this afternoon. On arrival to [facility]. She is resting in bed comfortably and is alert and oriented. She verbalizes feeling generally fatigued and tired. Does report having some mild discomfort in the right hip, however, nothing that is intolerable. She otherwise has complaints including shortness of breath, dizziness or chest pain. Reports her bowels are moving regularly since surgery. Denies dysuria. Past Medical History Past Medical History CAD DM- Hemoglobin A1c on 05/15/16 was 8.3% History of atrial fibrillation Hypertension Hyperlipidemia Chronic kidney disease GERD Osteoarthritis Surgical History Patient's Surgical History: CABG- 05/20/16- Dr Lopez Right hip hemiarthroplasty 05/16/16 - Dr. Champagne Lumbar laminectomy with decompression of nerve roots, including partial facetectomy, foraminotomy and excision of herniated intravertebral disc, 2014 - Dr. Ruiz Hx of epidural injections. Revision total elbow with bone grafting 07/19/13 Total elbow, 08/24/12 In all, she's had 7 surgeries on her right arm Hernia repair 1993 Appendectomy Bilateral cataracts Cholecystectomy Hysterectomy, 1993 ORIF right humerus Current Medications Home Meds Reported Medications Ascorbic Acid (Ascorbic Acid) 500 Mg Tablet, 1 TAB PO DAILY, TAB 06/03/16 Polyethylene Glycol 3350 (Miralax) 17 Gm Powd.pack, 17 G PO BID, Take 17 Grams (1 capful), by mouth, once a day. 06/03/16 Docusate Sodium (Docusate Sodium) 100 Mg Capsule, 1 CAP PO BID, CAP 06/03/16 Bumetanide (Bumetanide) 1 Mg Tablet, 1 TAB PO BID for 4 Days, #8 TAB 06/03/16 Potassium Chloride (Potassium Chloride) 20 Meq Tablet.er, 20 MEQ PO BIDWM, TAB Take 1 tablet, by mouth, two times a day with meals. 06/03/16 [tylenol supp] No Conflict Check, 650 MG RECTALLY Q4HPRN 06/03/16 Acetaminophen (Tylenol) 325 Mg Tablet, 2 TAB PO Q4HPRN, 06/03/16 Hydromorphone HCl (Dilaudid) 2 Mg Tablet, 1 MG PO [id number], 06/03/16 Aspirin (Aspirin) 81 Mg Tab.chew, 1 TAB PO DAILY, TAB 06/03/16 Metoprolol Tartrate (Metoprolol Tartrate) 25 Mg Tablet, 25 MG PO BID, TAB Take 1 tab, by mouth, two time a day with meals. 06/03/16 Atorvastatin Calcium (Atorvastatin Calcium) 40 Mg Tablet, 1 TAB PO HS, TAB 06/03/16 Amiodarone HCl (Amiodarone HCl) 200 Mg Tablet, 200 MG PO BID, TAB 06/03/16 Ferrous Sulfate (Ferrous Sulfate) 325 Mg Tablet, 1 TAB PO TIDWM, TAB BEST WITH FOOD. 06/03/16 Omeprazole (Omeprazole) 40 Mg Capsule.dr, 1 CAP PO DAILY, CAP 05/15/16 Tramadol HCl (Tramadol HCl) 50 Mg Tablet, 50 MG PO Q6HR Y for PAIN 05/14/16 Gabapentin (Gabapentin) 300 Mg Capsule, 300 MG PO HS 05/14/16 Metoclopramide HCl (Metoclopramide HCl) 10 Mg Tablet, 10 MG PO DAILY 05/14/16 Allergies: Coded Allergies: clavulanic acid (Verified Allergy, Intermediate, DIZZINESS, 05/17/16) clindamycin (Verified Allergy, Intermediate, RASH, 05/18/16) Sulfa (Sulfonamide Antibiotics) (Verified Allergy, Unknown, 05/14/16) iodine (Verified Allergy, Unknown, 05/14/16) morphine (Verified Allergy, Unknown, 05/14/16) amoxicillin (Verified Adverse Reaction, Intermediate, PALPITATION, 05/17/16) Family History Family History: Mother of a stroke, father of a heart attack Social History Smoking Status: Never smoker Does patient use chewing tobac: No Second Hand Exposure: No Substance Use Type: does not use Marital Status: Housing: house Household Members: children Current Occupational Status: retired Social History Comments PCP Dr Vish Oviedo Review of Systems Constitutional: REPORTS: fatigue, weakness (generalized) Musculoskeletal General: pain (Right hip) All Other Systems All Other Systems: Reviewed (remainder of 10-point ROS Neg.) Physical Exam General General Nourishment: well nourished, well developed Height (Feet): 5 Height (Inches): 5.00 Eyes Brief: FOUND: EOMI, PERRL Respiratory Brief: FOUND: clear all anaya, equal bilaterally Cardiovascular (brief) Cardiac Brief: FOUND: regular rate, regular rhythm Abdomen (brief) Abdominal Brief: FOUND: BS normo active x4, soft, NOT FOUND: distended, tender Musculoskeletal (brief) Musculoskeletal Brief: FOUND: tenderness (right hip pain) Comments small amount of oozing from right hip wound this morning. Dressing was changed. No further bleeding Integumentary (brief) Integumentary Brief: FOUND: dry, pink, warm Neurologic (brief) Neurological Brief: FOUND: cranial 2-12 intact Neurologic RN Documented GCS Eye Opening: Verbal: Motor: Total: Psychiatric (brief) FOUND: alert, attentive, normal affect, oriented Impression/Recommendation Problems: (1) S/P CABG (coronary artery bypass graft) Status: Acute Assessment & Plan: 05/20/16- Dr Lopez (2) Status post hip surgery Status: Acute Assessment & Plan: 05/16/16- Dr Champagne- right Brock-arthroplasty (3) Chronic kidney disease Status: Chronic (4) Diabetes mellitus Onset Date: ~ 05/2016 Status: Chronic (5) HTN (hypertension) Status: Chronic (6) History of atrial fibrillation Status: Chronic (7) Hypercholesteremia Status: Chronic (8) Peptic ulcer disease Status: Chronic (9) Pseudoarthrosis Status: Chronic (10) Basal cell carcinoma Status: Chronic (11) Allergic rhinitis Status: Chronic (12) GERD (gastroesophageal reflux disease) Status: Chronic Recommendation Agree with admission to IRU for postop strengthening, given that patient has underwent 2 major surgeries over the last several weeks. Encourage with with PT/OT for increased function. Recommend checking CBC and BMP tomorrow to follow postoperative hemoglobin, electrolytes and renal function. Continue Amiodarone 200mg BID as well as Lopressor 25 mg BID for cardiac rate control. Will monitor Accu-Cheks, Hemoglobin A1c on 05/15/16 was 8.3%. Patient was not discharged on any glycemic medications. Will discuss this further with Dr. Hobson. Monitor right hip incision for any bleeding, erythema or drainage. Nursing staff did report they change the dressing this morning as it had some small amount of oozing present. If there is any further orthopedic concern could consider consult seen Dr. Champagne Tramadol and oral Dilaudid as needed for pain control. Continue with scheduled Colace twice a day, milk of magnesia as needed for ongoing postoperative bowel motivation SCDs to bilateral lower extremity for DVT prophylaxis. The hospitalist service will continue to follow patient medical manage her existing comorbidities. At time of discharge her medical care will return to her primary care provider, BERNA Salazar MD 06/03/16 1907: Past Medical History Current Medications Home Meds Reported Medications Ascorbic Acid (Ascorbic Acid) 500 Mg Tablet, 1 TAB PO DAILY, TAB 06/03/16 Polyethylene Glycol 3350 (Miralax) 17 Gm Powd.pack, 17 G PO BID, Take 17 Grams (1 capful), by mouth, once a day. 06/03/16 Docusate Sodium (Docusate Sodium) 100 Mg Capsule, 1 CAP PO BID, CAP 06/03/16 Bumetanide (Bumetanide) 1 Mg Tablet, 1 TAB PO BID for 4 Days, #8 TAB 06/03/16 Potassium Chloride (Potassium Chloride) 20 Meq Tablet.er, 20 MEQ PO BIDWM, TAB Take 1 tablet, by mouth, two times a day with meals. 06/03/16 [tylenol supp] No Conflict Check, 650 MG RECTALLY Q4HPRN 06/03/16 Acetaminophen (Tylenol) 325 Mg Tablet, 2 TAB PO Q4HPRN, 06/03/16 Hydromorphone HCl (Dilaudid) 2 Mg Tablet, 1 MG PO [id number], 06/03/16 Aspirin (Aspirin) 81 Mg Tab.chew, 1 TAB PO DAILY, TAB 06/03/16 Metoprolol Tartrate (Metoprolol Tartrate) 25 Mg Tablet, 25 MG PO BID, TAB Take 1 tab, by mouth, two time a day with meals. 06/03/16 Atorvastatin Calcium (Atorvastatin Calcium) 40 Mg Tablet, 1 TAB PO HS, TAB 06/03/16 Amiodarone HCl (Amiodarone HCl) 200 Mg Tablet, 200 MG PO BID, TAB 06/03/16 Ferrous Sulfate (Ferrous Sulfate) 325 Mg Tablet, 1 TAB PO TIDWM, TAB BEST WITH FOOD. 06/03/16 Omeprazole (Omeprazole) 40 Mg Capsule.dr, 1 CAP PO DAILY, CAP 05/15/16 Tramadol HCl (Tramadol HCl) 50 Mg Tablet, 50 MG PO Q6HR Y for PAIN 05/14/16 Gabapentin (Gabapentin) 300 Mg Capsule, 300 MG PO HS 05/14/16 Metoclopramide HCl (Metoclopramide HCl) 10 Mg Tablet, 10 MG PO DAILY 05/14/16 Allergies: Coded Allergies: clavulanic acid (Verified Allergy, Intermediate, DIZZINESS, 05/17/16) clindamycin (Verified Allergy, Intermediate, RASH, 05/18/16) Sulfa (Sulfonamide Antibiotics) (Verified Allergy, Unknown, 05/14/16) iodine (Verified Allergy, Unknown, 05/14/16) morphine (Verified Allergy, Unknown, 05/14/16) amoxicillin (Verified Adverse Reaction, Intermediate, PALPITATION, 05/17/16) Impression/Recommendation Impression 06/03/2016-I reviewed this chart, the patient history, and the BAND CUTTING MACHINE OPERATOR's/PA's documented findings as above. We discussed and formulated the assessment and plan as above with the additions below.-Dr. Hobson The patient was seen this evening in her room. She states she is feeling okay. She does have some nausea and has had this for a couple of weeks. She denies any vomiting. She also has chronic back pain and has had back surgery in the past. Her back is hurting her more now. She also has chronic shoulder pain from a shoulder injury. Patient is urinating without difficulties. She's having normal bowel movements. On exam the patient is alert and oriented and in no acute distress. HEENT reveals sclerae to be anicteric and oropharynx is moist. Chest is clear to auscultation. Cardiovascular reveals regular rate and rhythm. Abdomen is soft and nontender. Extremities are free of edema. Regarding nausea, will discontinue 10 mg Reglan every morning and start Reglan 5 mg by mouth before meals meals and daily at bedtime. Will also give Zofran when necessary for nausea. Recheck CBC and basic metabolic profile tomorrow. She has some hypertension today and we will continue to monitor and may need to adjust medications. KRISTY SARABIA APRN Jun 03, 2016 15:47 BERNA HOBSON MD Jun 03, 2016 19:07
[2016-06-03 16:12] VITALS: PULSE 78; RESP 18; O2SAT 98
[2016-06-03 16:57] VITALS: BP 159/78; PULSE 74; RESP 18; TEMP 97.8; O2SAT 97
[2016-06-03] MEDS: FERROUS SULFATE 324 MG TABLET PO SCH (17:07)
[2016-06-03] MEDS: POTASSIUM CHLORIDE 20 MEQ TABLET PO SCH (17:07)
[2016-06-03] MEDS: TRAMADOL 50 MG TABLET PO PRN ×2 (17:07→23:12)
[2016-06-03] MEDS ORDERED: GLUCOSE ORAL GEL 40% 37.5 G TUBE PO PRN (18:15)
[2016-06-03] MEDS ORDERED: DEXTROSE 50% SYRINGE 50ml (Eq. 1 AMP) IV PRN (18:15)
[2016-06-03] MEDS: ONDANSETRON ODT 4 MG TAB PO PRN (19:03)
--- NOTE | 2016-06-03 19:45 | NUR ---
Shift Summary Pt is resting in bed at this time. She is alert and oriented to person, place, and time. Ambulates well with the miguelina-walker, assist of 1, and gait belt. She has been continent this shift, able to manage her hygiene cares, minimal assist with clothing needed. She has been hurting this shift, received Dilaudid 2mg at 1503 and Tramadol 50mg at 1707. Also has been having some indigestion, which Dr. Hobson was made aware of, she reports that it is not like before. Received Maalox 30ml at 1529 and Zofran ODT at 1903. Pt had her BGM checked before dinner which was 164 as a PRN standing order. Dressing to her Rt hip was changed due to it being saturated. When in bed or the chair the alarm is in use and call light is within reach.
[2016-06-03] MEDS ORDERED: DOCUSATE SODIUM 100 MG CAPSULE PO SCH (21:00)
[2016-06-03] MEDS: ACETAMINOPHEN 325 MG TABLET PO PRN (21:39)
[2016-06-03] MEDS: INSULIN LISPRO 100 UNIT/ML SQ PRN (21:40)
[2016-06-03] MEDS: GABAPENTIN 300 MG CAPSULE PO SCH (21:40)
[2016-06-03] MEDS: BUMETANIDE 1 MG TABLET PO SCH (21:40)
[2016-06-03] MEDS: ATORVASTATIN 40 MG TABLET PO SCH (21:40)
[2016-06-03] MEDS: AMIODARONE 200 MG TABLET PO SCH (21:41)
[2016-06-03] MEDS: POLYETHYL.GLYCOL 3350 PACKET 17gm PO SCH (21:41)
[2016-06-03] MEDS: METOCLOPRAMIDE 5mg TABLET PO SCH (21:41)
[2016-06-03] MEDS: DOCUSATE SODIUM 100 MG CAPSULE PO SCH (21:41)
[2016-06-03 23:31] VITALS: PULSE 74; RESP 18
[2016-06-04 00:12] VITALS: BP 149/65; PULSE 68; RESP 12; TEMP 97.4; O2SAT 97
--- NOTE | 2016-06-04 01:32 | NUR ---
Chart Check 24 hour chart check completed
--- NOTE | 2016-06-04 03:09 | NUR ---
status Patient is alert and oriented times three, pleasant and cooperative. She has had frequency of urine tonight but denies any pain with urination. Patient has complained of pain to her back, and had Dilaudid, Ultram and Tylenol all between 1900 and 0000. She slept well after that, and when up to the bathroom did not complain of pain and did not ask for pain medication. She requires moderate assist going from laying to sitting, is able to stand and walk on her own with Brock walker, and needs assist with pulling her pants up and down. She requires assist with getting her legs back into bed. Her dressings are dry and intact. She is currently in bed with side rails up times two, call light within reach and the bed alarm on.
[2016-06-04] MEDS: OMEPRAZOLE 20 MG CAPSULE PO SCH (04:45)
[2016-06-04] MEDS: HYDROMORPHONE 2 MG TABLET PO PRN ×3 (04:45→19:03)
[2016-06-04 05:38] LABS: HCT - HEMATOCRIT 35.5 % (36-46); MEAN CORPUSCULAR HGB 28.8 UUG (26-34); MEAN CORPUSCULAR VOLUME 92.9 UM3 (80-100); MEAN PLATELET VOLUME 11.7 UM3 (9.4-12.4); RED BLOOD COUNT 3.82 M/MM3 (4.00-5.20); WBC - WHITE BLOOD COUNT 16.3 T/MM3 (4.5-11.0)
[2016-06-04 05:48] LABS: ANION GAP 9 MEQ/L (5-15); BUN/CREATININE RATIO 18 RATIO (6-26); CALCIUM 8.7 MG/DL (8.4-10.2); CHLORIDE 92 MEQ/L (98-107); CO2 - CARBON DIOXIDE 35 MEQ/L (22-30); CREATININE 1.2 MG/DL (0.7-1.2); GLOMERULAR FILTRATION RATE 43; GLUCOSE 118 MG/DL (65-110); POTASSIUM 4.1 MEQ/L (3.6-5); SODIUM 136 MEQ/L (134-144)
--- NOTE | 2016-06-04 06:20 | NUR ---
Summary Pt reported pain again about 0545 to her back rating it at 6/10. Dilated 2 mg given. She is resting quietly in bed.
[2016-06-04 06:47] LABS: ANISOCYTOSIS 1+; LYMPHOCYTES # (MANUAL) 3.1 T/MM3 (1-4.8); MONOCYTES # (MANUAL) 1.3 T/MM3 (0-0.8); NEUTROPHILS #(MANUAL)-ABSOLUTE 10.9 T/MM3 (1.8-7.7); POIKILOCYTOSIS 1+; TOTAL CELLS COUNTED 100 %
[2016-06-04 08:00] VITALS: BP 148/79; PULSE 93; RESP 20; TEMP 98.1; O2SAT 93
[2016-06-04] MEDS: METOCLOPRAMIDE 5mg TABLET PO SCH ×4 (08:52→20:21)
[2016-06-04] MEDS: ASPIRIN 81 MG CHEWABLE TABLET PO SCH (08:52)
[2016-06-04] MEDS: FERROUS SULFATE 324 MG TABLET PO SCH ×3 (08:53→17:22)
[2016-06-04] MEDS: AMIODARONE 200 MG TABLET PO SCH ×2 (08:53→20:21)
[2016-06-04] MEDS: DOCUSATE SODIUM 100 MG CAPSULE PO SCH ×2 (08:53→20:21)
[2016-06-04] MEDS: ASCORBIC ACID 500 MG TABLET PO SCH (08:53)
[2016-06-04] MEDS: POTASSIUM CHLORIDE 20 MEQ TABLET PO SCH ×2 (08:54→17:23)
[2016-06-04] MEDS: POLYETHYL.GLYCOL 3350 PACKET 17gm PO SCH ×2 (08:54→20:22)
[2016-06-04] MEDS: BUMETANIDE 1 MG TABLET PO SCH ×2 (08:54→20:22)
[2016-06-04] MEDS: TRAMADOL 50 MG TABLET PO PRN ×3 (09:04→22:02)
--- NOTE | 2016-06-04 10:40 | PNPDOC ---
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 Did evaluate her right hip, and she is noted to have bleeding on the dressing that was changed yesterday afternoon. She does complain of having some mild hip discomfort and back discomfort. Fasting glucose 118. BP 148/79. Objective Vital Signs Vital signs Vital Signs Date Time Temp Pulse Resp B/P Pulse Ox O2 Delivery O2 Flow Rate FiO2 06/04/16 08:00 98.1 93 20 148/79 93 Room Air Height (Feet): 5 Height (Inches): 5.00 Weight (Kilograms): 76.700 General General Appearance: Alert, Orientated x 3, Cooperative, No Acute Distress Eyes (Brief) Eyes: FOUND: EOMI ENMT (Brief) ENMT: FOUND: mucosa moist, normal dentition, NOT FOUND: pharnyx erythema Neck (Brief) Neck: FOUND: midline, NOT FOUND: adenopathy, carotid bruits, tracheal deviation Respiratory (Brief) Respiratory: FOUND: clear all anaya, equal bilaterally, NOT FOUND: wheezes Cardiovascular (Brief) Cardiac: FOUND: regular rate, regular rhythm, NOT FOUND: murmur, pedal edema Capillary Refill: <2 sec Abdomen (Brief) Abdominal: FOUND: BS normo active x4, soft, NOT FOUND: distended, tender Lymphatic (Brief) Lymphatic: NOT FOUND: adenopathy Musculoskeletal (Brief) Musculoskeletal: NOT FOUND: tenderness Integumentary (Brief) Integumentary: FOUND: dry, pink, warm Neurologic (Brief) Neurological: FOUND: cranial 2-12 intact Psychiatric (Brief) Psychiatric: FOUND: alert, attentive, normal affect, oriented Laboratory Laboratory Laboratory Tests 06/04/16 04:46 Laboratory Tests 06/04/16 04:46 Assessment & Plan Problems: (1) S/P CABG (coronary artery bypass graft) Status: Acute Assessment & Plan: 05/20/16- Dr Lopez (2) Status post hip surgery Status: Acute Assessment & Plan: 05/16/16- Dr Champagne- right Brock-arthroplasty (3) Chronic kidney disease Status: Chronic (4) Diabetes mellitus Onset Date: ~ 05/2016 Status: Chronic (5) HTN (hypertension) Status: Chronic (6) History of atrial fibrillation Status: Chronic (7) Hypercholesteremia Status: Chronic (8) Peptic ulcer disease Status: Chronic (9) Pseudoarthrosis Status: Chronic (10) Basal cell carcinoma Status: Chronic (11) Allergic rhinitis Status: Chronic (12) GERD (gastroesophageal reflux disease) Status: Chronic Plan/Intensity of Service 06/04/16 Spoke with Ayde Hughes with Dr. Lopez regarding patient's recent CABG procedure and ongoing treatment recommendations. She does recommend patient be on anticoagulation as she did have A-fib postoperatively. She would prefer Eliquis if not contraindicated. Given mild oozing from right hip incision will consult Dr Champagne for orthopedic evaluation of incision prior to starting anticoagulation. Patient does need postop anticoagulation for 30 days from right hemiarthroplasty performed on 05/16/16. Patient did have a right groin hematoma post heart catheter that was evaluated while at [place]. Overall this is improving. Continue with amiodarone given recent atrial fibrillation. She was noted to have elevated white count at 16.3. Will check a UA to rule out infection. Bumex 1 mg BID for ongoing diuresis. SCDs to bilateral lower extremity for DVT prophylaxis Oral Dilaudid and Ultram for pain control Scheduled MiraLAX and Colace twice a day for ongoing bowel motivation. Encourage work with PT/OT for ongoing strengthening Will discuss case with attending Dr Hobson Code Status Full Code Hospital Course Summary Disclaimer The hospital course summary below is not to be considered part of the above Progress Note. Hospital Course Summary 06/04/16 Spoke with Ayde Hughes with Dr. Lopez regarding patient's recent CABG procedure and ongoing treatment recommendations. She does recommend patient be on anticoagulation as she did have A-fib postoperatively. She would prefer Eliquis if not contraindicated. Given mild oozing from right hip incision will consult Dr Champagne for orthopedic evaluation of incision prior to starting anticoagulation. Patient does need postop anticoagulation for 30 days from right hemiarthroplasty performed on 05/16/16. Patient did have a right groin hematoma post heart catheter that was evaluated while at [place]. Overall this is improving. Continue with amiodarone given recent atrial fibrillation. She was noted to have elevated white count at 16.3. Will check a UA to rule out infection. Bumex 1 mg BID for ongoing diuresis. Oral Dilaudid and Ultram for pain control Continue SCDs to bilateral lower external for DVT prophylaxis Scheduled MiraLAX and Colace twice a day for ongoing bowel motivation. Encourage work with PT/OT for ongoing strengthening Will discuss case with attending BERNA Jones MD 06/04/16 1723: Assessment & Plan Assessment 06/04/2016-Dr. Hobson I discussed the patient with my nurse practitioner Analia. Dr. Champagne evaluate the patient this afternoon and then Dr. Champagne and I discussed the patient with Dr. Lopez. Patient continues to have some oozing from her hip wound. Her surgery was on 05/16/2016. She developed a hematoma after her cardiac surgery. After discussion, we decided to keep her on aspirin only for DVT prophylaxis at this time. If she should go into atrial fibrillation, may need to reconsider full anticoagulation. Once her bleeding has resolved, could consider full anticoagulation at that time as well. ANALIA SARABIA APRN Jun 04, 2016 10:31 BERNA HOBSON MD Jun 04, 2016 17:23
[2016-06-04] MEDS: INSULIN LISPRO 100 UNIT/ML SQ PRN ×2 (11:05→20:55)
--- NOTE | 2016-06-04 11:11 | NUR ---
BGM PT bgm pp was 179, so gave 2 units of insulin humalog sliding scale.
--- NOTE | 2016-06-04 11:20 | HPPDOC ---
HPI Date DATE: 06/04/16 TIME: 11:07 General Chief Complaint: status post CABG, right hip arthroplasty History of Present Illness 85 yo female admitted to IRU for strengthening post Femur fx with orif and subsequentMI with 5 vessel CABG. Pt was admitted initially to IRU on 05/20/16 s/ p ORIF of femur fx. She c/o mid epigastric pain and indigestion which tums and PPI were not covering. Labs drawn and elevated troponin noted with ST depression on EKG. Taken to [facility] and severe 5 vessel dz discovered. Pt then transferred to [facility] for CABG x 5. She has recovered well, except for development of Afib. She is being admitted to IRU for strengthening and safety awareness with Hip fx and CABG surgery. She is eager to return to home if possible and is committed to at least 3 hours of PT and OT daily. Past Medical History Past Medical History CAD DM- Hemoglobin A1c on 05/15/16 was 8.3% History of atrial fibrillation Hypertension Hyperlipidemia Chronic kidney disease GERD Osteoarthritis Surgical History Patient's Surgical History: CABG- 05/20/16- Dr Lopez Right hip hemiarthroplasty 05/16/16 - Dr. Champagne Lumbar laminectomy with decompression of nerve roots, including partial facetectomy, foraminotomy and excision of herniated intravertebral disc, 2014 - Dr. Ruiz Hx of epidural injections. Revision total elbow with bone grafting 07/19/13 Total elbow, 08/24/12 In all, she's had 7 surgeries on her right arm Hernia repair 1993 Appendectomy Bilateral cataracts Cholecystectomy Hysterectomy, 1993 ORIF right humerus Current Medications Home Meds Reported Medications Ascorbic Acid (Ascorbic Acid) 500 Mg Tablet, 1 TAB PO DAILY, TAB 06/03/16 Polyethylene Glycol 3350 (Miralax) 17 Gm Powd.pack, 17 G PO BID, Take 17 Grams (1 capful), by mouth, once a day. 06/03/16 Docusate Sodium (Docusate Sodium) 100 Mg Capsule, 1 CAP PO BID, CAP 06/03/16 Bumetanide (Bumetanide) 1 Mg Tablet, 1 TAB PO BID for 4 Days, #8 TAB 06/03/16 Potassium Chloride (Potassium Chloride) 20 Meq Tablet.er, 20 MEQ PO BIDWM, TAB Take 1 tablet, by mouth, two times a day with meals. 06/03/16 [tylenol supp] No Conflict Check, 650 MG RECTALLY Q4HPRN 06/03/16 Acetaminophen (Tylenol) 325 Mg Tablet, 2 TAB PO Q4HPRN, 06/03/16 Hydromorphone HCl (Dilaudid) 2 Mg Tablet, 1 MG PO [id number], 06/03/16 Aspirin (Aspirin) 81 Mg Tab.chew, 1 TAB PO DAILY, TAB 06/03/16 Metoprolol Tartrate (Metoprolol Tartrate) 25 Mg Tablet, 25 MG PO BID, TAB Take 1 tab, by mouth, two time a day with meals. 06/03/16 Atorvastatin Calcium (Atorvastatin Calcium) 40 Mg Tablet, 1 TAB PO HS, TAB 06/03/16 Amiodarone HCl (Amiodarone HCl) 200 Mg Tablet, 200 MG PO BID, TAB 06/03/16 Ferrous Sulfate (Ferrous Sulfate) 325 Mg Tablet, 1 TAB PO TIDWM, TAB BEST WITH FOOD. 06/03/16 Omeprazole (Omeprazole) 40 Mg Capsule.dr, 1 CAP PO DAILY, CAP 05/15/16 Tramadol HCl (Tramadol HCl) 50 Mg Tablet, 50 MG PO Q6HR Y for PAIN 05/14/16 Gabapentin (Gabapentin) 300 Mg Capsule, 300 MG PO HS 05/14/16 Metoclopramide HCl (Metoclopramide HCl) 10 Mg Tablet, 10 MG PO DAILY 05/14/16 Allergies: Coded Allergies: clavulanic acid (Verified Allergy, Intermediate, DIZZINESS, 05/17/16) clindamycin (Verified Allergy, Intermediate, RASH, 05/18/16) Egg. (Verified Allergy, Unknown, 06/03/16) Sulfa (Sulfonamide Antibiotics) (Verified Allergy, Unknown, 05/14/16) iodine (Verified Allergy, Unknown, 05/14/16) morphine (Verified Allergy, Unknown, 05/14/16) amoxicillin (Verified Adverse Reaction, Intermediate, PALPITATION, 05/17/16) Family History Family History: Mother of a stroke, father of a heart attack Social History Smoking Status: Never smoker Does patient use chewing tobac: No Second Hand Exposure: No Substance Use Type: does not use Marital Status: Housing: house Household Members: children Current Occupational Status: retired Advance Directives: Yes DPOA for Healthcare Only Review of Systems Constitutional: REPORTS: fatigue, weakness, weight loss Cardiovascular Vascular: intermittent claudication GI Upper Abdomen: heartburn/indigestion, nausea Musculoskeletal General: see HPI Physical Exam General General Nourishment: well nourished, well developed, adult General Body Habitus: well groomed Vital Signs Vital Signs Date Time Temp Pulse Resp B/P Pulse Ox O2 Delivery O2 Flow Rate FiO2 06/04/16 08:00 98.1 93 20 148/79 93 Room Air Height (Feet): 5 Height (Inches): 5.00 Eyes Brief: FOUND: EOMI, PERRL Neck Brief: NOT FOUND: adenopathy, carotid bruits, thyromegaly Respiratory Brief: FOUND: clear all anaya, equal bilaterally, NOT FOUND: rales Cardiovascular (brief) Cardiac Brief: FOUND: regular rate, regular rhythm Comments irr irr from afib not noted on exam Abdomen (brief) Abdominal Brief: FOUND: BS normo active x4, soft, NOT FOUND: tender Musculoskeletal (brief) Comments right leg generalized weakness. incision rebandaged and clean. Integumentary (brief) Integumentary Brief: FOUND: pink, warm Neurologic (brief) Neurological Brief: FOUND: DTR 2/4 all extremities, cranial 2-12 intact, motor , sensory Neurologic RN Documented GCS Eye Opening: Verbal: Motor: Total: Psychiatric (brief) FOUND: alert, oriented Laboratory Laboratory Tests Test 06/03/16 17:00 06/03/16 20:49 06/04/16 04:46 06/04/16 05:55 Glucometer 164mg/dL 160mg/dL 131mg/dL White Blood Count 16.3T/MM3 Red Blood Count 3.82M/MM3 Hemoglobin 11.0GM/DL Hematocrit 35.5% Mean Corpuscular Volume 92.9UM3 Mean Corpuscular Hemoglobin 28.8UUG Mean Corpuscular Hemoglobin Concent 31.0GM/DL RDW Standard Deviation 53.9FL Platelet Count 366T/MM3 Mean Platelet Volume 11.7UM3 Immature Granulocyte % (Auto) % Neutrophils (%) (Auto) % Lymphocytes (%) (Auto) % Monocytes (%) (Auto) % Eosinophils (%) (Auto) % Basophils (%) (Auto) % Absolute Immature Granulocyte (auto T/MM3 Absolute Neutrophils (auto) T/MM3 Absolute Lymphocytes (auto) T/MM3 Absolute Monocytes (auto) T/MM3 Absolute Eosinophils (auto) T/MM3 Absolute Basophils (auto) T/MM3 Neutrophils % (Manual) 67.0% Lymphocytes % (Manual) 19.0% Monocytes % (Manual) 8.0% Eosinophils % (Manual) 6.0% Absolute Neutrophils (Manual) 10.9T/MM3 Lymphocytes # (Manual) 3.1T/MM3 Monocytes # (Manual) 1.3T/MM3 Eosinophils # (Manual) 1.0T/MM3 Poikilocytosis 1+ Anisocytosis 1+ Red Cell Morphology Comment Abnormal Turbidity < 20 Sodium Level 136MEQ/L Potassium Level 4.1MEQ/L Chloride Level 92MEQ/L Carbon Dioxide Level 35MEQ/L Anion Gap 9MEQ/L Blood Urea Nitrogen 21.0MG/DL Creatinine 1.2MG/DL Glomerular Filtration Rate Calc 43 BUN/Creatinine Ratio 18RATIO Glucose Level 118MG/DL Calculated Osmolality 266MOSM/KG Calcium Level 8.7MG/DL Icterus Index < 2 Chemistry Specimen Hemolysis < 15 Test 06/04/16 10:08 Glucometer 211mg/dL Concerns For Adverse Events Significant medical issues including CAD, s/p cabg x 5, orif right hip, afib all contribute to potentiate complications during rehab. Pt will require inpatient supervision during this time. Assessment & Plan Problems: (1) Myopathic disease or syndrome Status: Acute Assessment & Plan: PT and OT to create plan of care. (2) Neuropathy Status: Chronic Assessment & Plan: PT and OT to create a plan of care. (3) Debility Status: Acute Assessment & Plan: PT and OT care. (4) HTN (hypertension) Status: Chronic Assessment & Plan: medical management (5) S/P CABG (coronary artery bypass graft) Status: Acute Assessment & Plan: cardiology to follow. (6) Status post hip surgery Status: Acute Assessment & Plan: Ortho to follow prn, otherwise care per PT and OT (7) Diabetes mellitus Onset Date: ~ 05/2016 Status: Chronic Assessment & Plan: medical management (8) History of atrial fibrillation Status: Chronic Assessment & Plan: medical/cardiology management (9) Chronic kidney disease Status: Chronic DVT Prophylaxis: SCD'S Code Status Full Code Interventions to Obtain Goals PT Treatment Plan: Therapeutic Exercise, Gait Training, Functional Activities , Patient/Family Education, Balance/Proprioception OT Treatment Plan: ADL's (basic care), Ther. Exercise for ADL's, UE Functional Training, Balance Training, Pt./Family Education, IADL's Hospital Course Summary Disclaimer The hospital course summary below is not to be considered part of the above Progress Note. Hospital Course Summary 06/04/16 Spoke with Ayde Hughes with Dr. Lopez regarding patient's recent CABG procedure and ongoing treatment recommendations. She does recommend patient be on anticoagulation as she did have A-fib postoperatively. She would prefer Eliquis if not contraindicated. Given mild oozing from right hip incision will consult Dr Champagne for orthopedic evaluation of incision prior to starting anticoagulation. Patient does need postop anticoagulation for 30 days from right hemiarthroplasty performed on 05/16/16. Patient did have a right groin hematoma post heart catheter that was evaluated while at [facility]. Overall this is improving. Continue with amiodarone given recent atrial fibrillation. She was noted to have elevated white count at 16.3. Will check a UA to rule out infection. Bumex 1 mg BID for ongoing diuresis. Oral Dilaudid and Ultram for pain control Continue SCDs to bilateral lower external for DVT prophylaxis Scheduled MiraLAX and Colace twice a day for ongoing bowel motivation. Encourage work with PT/OT for ongoing strengthening Will discuss case with attending BHAVNA Combs MD Jun 04, 2016 11:11
--- NOTE | 2016-06-04 11:22 | IRU24PDOC ---
24 Hour Post Admission Eval Relevant Changes I have reviewed the patient's information and concur with the finding and results of the pre-admission screen. Certification I certify the patient for rehabilitation. Patient Condition Prior Medical Conditions: (1) Myopathic disease or syndrome Status: Acute Additional Information: PT and OT to create plan of care. (2) Neuropathy Status: Chronic Additional Information: PT and OT to create a plan of care. (3) Debility Status: Acute Additional Information: PT and OT care. (4) HTN (hypertension) Status: Chronic Additional Information: medical management (5) S/P CABG (coronary artery bypass graft) Status: Acute Additional Information: cardiology to follow. 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 (2) Neuropathy Status: Chronic Additional Information: PT and OT to create a plan of care. (3) Debility Status: Acute Additional Information: PT and OT care. (4) HTN (hypertension) Status: Chronic Additional Information: medical management (5) S/P CABG (coronary artery bypass graft) Status: Acute Additional Information: cardiology to follow. (6) Status post hip surgery Status: Acute Additional Information: Ortho to follow prn, otherwise care per PT and OT (7) Diabetes mellitus Onset Date: ~ 05/2016 Status: Chronic Additional Information: medical management (8) History of atrial fibrillation Status: Chronic Additional Information: medical/cardiology management (9) Chronic kidney disease Status: Chronic Prior Functional Condition Lives With: son Residence Type: Private home/apartment Assistive Devices: No Assistive Device Prior Functional Status: Indep. at home or school Current Functional Status Failed Alternative Therapy Tri: Arrived from acute care Patient Requirements * Patient has been determined to have significant functional limitations requiring at least two therapy disciplines. * Rehabilitation medical practitioner will provide admission approval, assessment and oversight and program coordination at least daily. * Intensive rehabilitative nursing services on site and available 24 hours a day. * The treatment plan will be developed within 24 hours of admission. * Interdisciplinary and goal oriented treatment by professional nursing, forensic social worker, and rehabilitation therapist. * Interdisciplinary team meeting weekly inclusive of ongoing comprehensive discharge planning. First team meeting by day seven. Weekly meetings to follow. * Rehab Physician is the team meeting leader. * Pharmacy and diagnostic services will be available. * Ongoing comprehensive rehab program with at least 2 disciplines and greater than or equal to 3 hours a day, 5 days a week. Physical Therapy Minutes: 90 Occupational Therapy Minutes: 90 Therapy The patient is to receive therapy at least 5 days a week. Current Functional Status: Using assistive device PT Treatment Plan: Therapeutic Exercise, Gait Training, Functional Activities , Patient/Family Education, Balance/Proprioception Treatment Plan Frequency: five times per week Treatment Plan Duration: two weeks Plan of Care Comment: 6x/wk for 1st wk; 5x/wk for 2nd and 3rd wks. OT Treatment Plan: ADL's (basic care), Ther. Exercise for ADL's, UE Functional Training, Balance Training, Pt./Family Education, IADL's OT Treatment Plan Frequency: five times per week OT Treatment Plan Duration: three weeks ROM Comment: R LE knee ext limited d/t pain L LE WNL See OT for UEs. Muscle Weakness Location: Left Lower Extremity, Right Lower Extremity Complication/Comorbidities Patient Complication Risk: (1) Myopathic disease or syndrome Status: Acute Comments: PT and OT to create plan of care. (2) Neuropathy Status: Chronic Comments: PT and OT to create a plan of care. (3) Debility Status: Acute Comments: PT and OT care. (4) HTN (hypertension) Status: Chronic Comments: medical management (5) S/P CABG (coronary artery bypass graft) Status: Acute Comments: cardiology to follow. (6) Status post hip surgery Status: Acute Comments: Ortho to follow prn, otherwise care per PT and OT (7) Diabetes mellitus Onset Date: ~ 05/2016 Status: Chronic Comments: medical management (8) History of atrial fibrillation Status: Chronic Comments: medical/cardiology management (9) Chronic kidney disease Status: Chronic Impact on Functional Outcomes Requires close medical supervision during Pt and OT, may return to preinjury function. Barriers to Discharge: weakness, endurance, balance, pain control, medical stability Plan to Avoid Complications Plan to Avoid Complications The patient cannot receive this care in a lesser intensive setting such as Assisted or Outpatient Therapy due to the patient requiring the following including medical supervision of CAD with recent CABGx5, afib, DM. The patient requires oversight by a rehabilitation physician to manage their rehabilitation treatment plan and the multidisciplinary approach to care that can only be provided in an IRF and requires a multidisciplinary approach to care , provided by professional PTs, OTs, STs, dieticians, RTs, rehabilitation nurses and is not available in lesser levels of care. The frequency and duration for therapy, as recommended by the professional Rehabilitation therapists, meet the patient's initial rehabilitation treatment plan needs and will be further evaluated on a weekly basis for progress and/or changes needed. BHAVNA MCALLISTER MD Jun 04, 2016 11:22
--- NOTE | 2016-06-04 12:12 | NUR ---
JAYA THIS WORKER, ALONG WITH NICOLETTE, MET WITH PT. PT WAS IN CHAIR WITH PT. THIS WORKER INTRODUCED SELF AND ROLE OF CASE MANAGEMENT. THIS WORKER INQUIRED ABOUT PLANS AFTER DISCHARGE, PT STATED SHE PLANS ON RETURNING HOME. PT LIVES WITH SON IN [place] CURRENTLY, HE WORKS DURING THE DAY. PT GAVE PERMISSION FOR THIS WORKER TO CALL SON AFTER D/C. PT INQUIRED ABOUT HOME HEALTH AFTER DISCHARGE AND WAS AGREEABLE TO THIS, IF NEEDED. PT DOES NOT HAVE ANY DME AT THE MOMENT, STATED SHE WOULD LIKE A [facility]. THIS WORKER GAVE PT HER CONTACT INFORMATION AND PT WAS ENCOURAGED TO CALL WITH ANY QUESTIONS/NEEDS. Addendum: 06/04/16 at 1220 by MARTHA THORNTON Amended: Links added.
--- NOTE | 2016-06-04 12:25 | NUR ---
JAYA BALTAZAR SCORE IS 10. Addendum: 06/04/16 at 1225 by MARTHA THORNTON Amended: Links added.
[2016-06-04 12:58] VITALS: PULSE 93; RESP 20
--- NOTE | 2016-06-04 13:54 | CONSPD ---
Consultation Info Date DATE: 06/04/16 TIME: 12:53 Attending Physician Romy Champagne MD Reason for Consultation: Right hip incsion draining blood Impression/Recommendation Impression/Recommendation: (1) S/P CABG (coronary artery bypass graft) Status: Acute (2) Status post hip surgery Status: Acute Recommendation: Dr. Champagne completed a right hip endoprosthesis on 05/16/16 Ortho would typically recommend a 30 day course of anticoagulants for DVT prevention I have discussed the situation with Dr. Champagne given the patient's recent cardiac surgery and her oozing wound. Dr. Champagne will provide further direction once he has discussed the situation with Dr. Lopez. Continue with dressing changes as need and unload the surgical area. Presently , suspicion for post op infection is low. We will continue to monitor. Ortho HPI HPI Elements HPI This is an 85 year old female who is a patient of Dr. Champagne's . Mrs. Robert underwent and endoprosthesis on 05/16/16 for treatment of a femoral neck fracture. She was then transferred to IRU. In IRU she developed "heartburn" which cardiology was consulted to work up. She underwent a heart cath by Dr. Lopez who recommended she be shipped urgently to [place] for a CABG. She is now recovering post CABG in [facility] IRU. The hospital service noted that her hip incision was oozing and thus Orthopaedics was consulted for further evaluation. She is presently only taking an Aspirin as an anticoagulant. Analia Martinez, CHRONIC DISEASE MANAGER, has been discussing the need for other types of anticoagulation given her cardiac history. Eliquis has been recommended via the Cardiology services CHRONIC DISEASE MANAGER. Review of Systems Constitutional: REPORTS: fatigue, weakness, weight loss, DENIES: chills, fever Cardiovascular DENIES: chest pain Vascular: intermittent claudication, DENIES: pallor of an extremity GI Upper Abdomen: heartburn/indigestion, nausea General: DENIES: dysuria, hematuria, urgency Musculoskeletal General: see HPI Integumentary Skin: DENIES: infections, ulcers Neurological General: DENIES: tingling All Other Systems Reviewed (remainder of 10-point ROS Neg.) Past Medical History Adult Problem List Updates CAD DM- Hemoglobin A1c on 05/15/16 was 8.3% History of atrial fibrillation Hypertension Hyperlipidemia Chronic kidney disease GERD Osteoarthritis Surgical History Patient's Surgical History: CABG- 05/20/16- Dr Lopez Right hip hemiarthroplasty 05/16/16 - Dr. Champagne Lumbar laminectomy with decompression of nerve roots, including partial facetectomy, foraminotomy and excision of herniated intravertebral disc, 2014 - Dr. Ruiz Hx of epidural injections. Revision total elbow with bone grafting 07/19/13 Total elbow, 08/24/12 In all, she's had 7 surgeries on her right arm Hernia repair 1993 Appendectomy Bilateral cataracts Cholecystectomy Hysterectomy, 1993 ORIF right humerus Current Medications Acetaminophen (Tylenol) 325 Mg Tablet, 2 TAB PO Q4HPRN, (Reported) Last Taken: Unknown Dose on Unknown Date & Time Amiodarone HCl (Amiodarone HCl) 200 Mg Tablet, 200 MG PO BID, (Reported) Last Taken: Unknown Dose on Unknown Date & Time Ascorbic Acid (Ascorbic Acid ) 500 Mg Tablet, 1 TAB PO DAILY, (Reported) Last Taken: Unknown Dose on Unknown Date & Time Aspirin (Aspirin) 81 Mg Tab.chew, 1 TAB PO DAILY, (Reported) Last Taken: Unknown Dose on Unknown Date & Time Atorvastatin Calcium ( Atorvastatin Calcium) 40 Mg Tablet, 1 TAB PO HS, (Reported) Last Taken: Unknown Dose on Unknown Date & Time Bumetanide (Bumetanide) 1 Mg Tablet, 1 TAB PO BID, (Reported) Last Taken: Unknown Dose on Unknown Date & Time Docusate Sodium (Docusate Sodium) 100 Mg Capsule, 1 CAP PO BID, (Reported) Last Taken: Unknown Dose on Unknown Date & Time Ferrous Sulfate (Ferrous Sulfate) 325 Mg Tablet, 1 TAB PO TIDWM, (Reported) BEST WITH FOOD. Last Taken: Unknown Dose on Unknown Date & Time Gabapentin (Gabapentin) 300 Mg Capsule, 300 MG PO HS, (Reported) Last Taken: Unknown Dose on Unknown Date & Time Hydromorphone HCl (Dilaudid ) 2 Mg Tablet, 1 MG PO [id number], (Reported) Last Taken: Unknown Dose on Unknown Date & Time Metoclopramide HCl ( Metoclopramide HCl) 10 Mg Tablet, 10 MG PO DAILY, (Reported) Last Taken: Unknown Dose on Unknown Date & Time Metoprolol Tartrate ( Metoprolol Tartrate) 25 Mg Tablet, 25 MG PO BID, (Reported) Take 1 tab, by mouth, two time a day with meals. Last Taken: Unknown Dose on Unknown Date & Time Omeprazole (Omeprazole) 40 Mg Capsule.dr, 1 CAP PO DAILY, (Reported) Last Taken: Unknown Dose on Unknown Date & Time Polyethylene Glycol 3350 ( Miralax) 17 Gm Powd.pack, 17 G PO BID, (Reported) Take 17 Grams (1 capful), by mouth, once a day. Last Taken: Unknown Dose on Unknown Date & Time Potassium Chloride ( Potassium Chloride) 20 Meq Tablet.er, 20 MEQ PO BIDWM, (Reported) Take 1 tablet, by mouth, two times a day with meals. Last Taken: Unknown Dose on Unknown Date & Time Tramadol HCl (Tramadol HCl) 50 Mg Tablet, 50 MG PO Q6HR PRN for PAIN, (Reported) Last Taken: Unknown Dose on Unknown Date & Time [tylenol supp] , 650 MG RECTALLY Q4HPRN, (Reported) Last Taken: Unknown Dose on Unknown Date & Time Allergies Allergies: Coded Allergies: clavulanic acid (Verified Allergy, Intermediate, DIZZINESS, 05/17/16) clindamycin (Verified Allergy, Intermediate, RASH, 05/18/16) Egg. (Verified Allergy, Unknown, 06/03/16) Sulfa (Sulfonamide Antibiotics) (Verified Allergy, Unknown, 05/14/16) iodine (Verified Allergy, Unknown, 05/14/16) morphine (Verified Allergy, Unknown, 05/14/16) amoxicillin (Verified Adverse Reaction, Intermediate, PALPITATION, 05/17/16) Family History Family History: Mother of a stroke, father of a heart attack Vaccines 2015 2015 Social History Smoking Status: Never smoker Does patient use chewing tobac: No Second Hand Exposure: No Substance Use Type: does not use Marital Status: Housing: house Household Members: children Current Occupational Status: retired Advance Directives: Yes DPOA for Healthcare Only Physical Exam General General: well nourished, well developed, no acute distress Respiratory FOUND non-labored Cardiovascular FOUND pedal pulses intact Capillary Refill: <2 sec Musculoskeletal Musculoskeletal Brief: Not FOUND: deformity, tenderness Integumentary Integumentary Comments incision is approximated. Palpation of the surrounding soft tissue can expel small amounts of dark, almost coagulated blood. Neurologic FOUND intact to light touch, FOUND no deficits Psychiatric FOUND normal affect Laboratory Laboratory Tests Test 06/03/16 17:00 2/22/17 20:49 06/04/16 04:46 06/04/16 05:55 Glucometer 164mg/dL 160mg/dL 131mg/dL White Blood Count 16.3T/MM3 Red Blood Count 3.82M/MM3 Hemoglobin 11.0GM/DL Hematocrit 35.5% Mean Corpuscular Volume 92.9UM3 Mean Corpuscular Hemoglobin 28.8UUG Mean Corpuscular Hemoglobin Concent 31.0GM/DL RDW Standard Deviation 53.9FL Platelet Count 366T/MM3 Mean Platelet Volume 11.7UM3 Immature Granulocyte % (Auto) % Neutrophils (%) (Auto) % Lymphocytes (%) (Auto) % Monocytes (%) (Auto) % Eosinophils (%) (Auto) % Basophils (%) (Auto) % Absolute Immature Granulocyte (auto T/MM3 Absolute Neutrophils (auto) T/MM3 Absolute Lymphocytes (auto) T/MM3 Absolute Monocytes (auto) T/MM3 Absolute Eosinophils (auto) T/MM3 Absolute Basophils (auto) T/MM3 Neutrophils % (Manual) 67.0% Lymphocytes % (Manual) 19.0% Monocytes % (Manual) 8.0% Eosinophils % (Manual) 6.0% Absolute Neutrophils (Manual) 10.9T/MM3 Lymphocytes # (Manual) 3.1T/MM3 Monocytes # (Manual) 1.3T/MM3 Eosinophils # (Manual) 1.0T/MM3 Poikilocytosis 1+ Anisocytosis 1+ Red Cell Morphology Comment Abnormal Turbidity < 20 Sodium Level 136MEQ/L Potassium Level 4.1MEQ/L Chloride Level 92MEQ/L Carbon Dioxide Level 35MEQ/L Anion Gap 9MEQ/L Blood Urea Nitrogen 21.0MG/DL Creatinine 1.2MG/DL Glomerular Filtration Rate Calc 43 BUN/Creatinine Ratio 18RATIO Glucose Level 118MG/DL Calculated Osmolality 266MOSM/KG Calcium Level 8.7MG/DL Icterus Index < 2 Chemistry Specimen Hemolysis < 15 Test 06/04/16 10:08 Glucometer 211mg/dL ELGIN TALBOT Jun 04, 2016 12:57
--- NOTE | 2016-06-04 14:42 | NUR ---
STATUS PT IN [facility] TODAY, COMPLIANT WITH ALL CARES AND WORKED WELL WITH THERAPY, WALKING WITH FOUR LEGGED ONE SIDE CANE AND GAIT BELT, HAS HAD ONE BM TODAY. CALLS WHEN NEEDS CARES. HAS HAD A PAIN LEVEL OF 6 ALL DAY, BUT IS CONTROLLED WITH MEDICATIONS. TAKES MEDS WHOLE, ONLY NEW ORDER FOR TODAY IS URINE SAMPLE.
--- NOTE | 2016-06-04 15:00 | NUR ---
Received report Patient is up walking with therapy with walker.
--- NOTE | 2016-06-04 15:20 | NUR ---
Pain Tramadol 50mg admin for pain 6/10 to back, legs, hips and shoulders.
[2016-06-04 16:00] VITALS: BP 124/62; PULSE 77; RESP 18; TEMP 97.9; O2SAT 98
--- NOTE | 2016-06-04 17:00 | NUR ---
UA collected Patient voids in [facility]. Specimen sent to lab.
--- NOTE | 2016-06-04 18:45 | NUR ---
EOS patient is laying in bed in no apparent distress. Patient has going to the bathroom multiple times. Calls every time. Steady gait noted with supervision.
[2016-06-04 18:57] LABS: BLOOD, URINE NEGATIVE (NEGATIVE); COLOR,URINE YELLOW (YELLOW); LEUKOCYTE ESTERASE ,URINE 1+ (NEGATIVE); NITRITE,URINE NEGATIVE (NEGATIVE); UROBILINOGEN,URINE 0.2 EU/DL (NORMAL)
[2016-06-04 19:13] LABS: BACTERIA,URINE 1+ (NEGATIVE); RBC,URINE 0-1 /HPF (0-3); WBC,URINE 0-1 /HPF (0-5)
[2016-06-04 19:14] LABS: MUCUS,URINE PRESENT
[2016-06-04] MEDS: GABAPENTIN 300 MG CAPSULE PO SCH (20:21)
[2016-06-04] MEDS: ATORVASTATIN 40 MG TABLET PO SCH (20:21)
[2016-06-04 21:15] VITALS: PULSE 81; RESP 16
[2016-06-05] VITALS: BP 136/56; PULSE 81; RESP 16; TEMP 98.1; O2SAT 96
[2016-06-05] MEDS: TRAMADOL 50 MG TABLET PO PRN ×3 (04:28→21:02)
[2016-06-05] MEDS: OMEPRAZOLE 20 MG CAPSULE PO SCH (06:13)
[2016-06-05] MEDS: METOCLOPRAMIDE 5mg TABLET PO SCH ×4 (06:13→21:02)
--- NOTE | 2016-06-05 06:41 | NUR ---
SHIFT SUMMARY Patient was up to use bathroom during this shift approximately every hour. She was able to void most of those times, but a couple of times, could not go. She does have a dose of Bumex at HS. Pharmacy will adjust interactive media director time for this med. Was continent at all times. SCDs on when in bed. Used hemiwalker when ambulating.
[2016-06-05 07:49] VITALS: BP 140/63; PULSE 81; RESP 12; TEMP 98.2; O2SAT 94
--- NOTE | 2016-06-05 08:20 | PDORTHOPN ---
Subjective Date DATE: 06/05/16 TIME: 08:16 Subjective No new complaints this morning. She was up multiple times last night to use the restroom. Objective Vital Signs Vital signs Vital Signs 06/04/16 06/05/16 06/05/16 21:15 00:00 07:49 Temp 98.1 98.2 Pulse 81 81 81 Resp 16 16 12 B/P 136/56 140/63 Pulse Ox 96 94 O2 Delivery Room Air Room Air Height (Feet): 5 Height (Inches): 5.00 Weight (Kilograms): 76.700 General General Appearance: No Acute Distress Respiratory (Brief) Respiratory Brief: FOUND: non-labored Cardiovascular (Brief) Cardiac: FOUND: calf easily compressible, calf soft, nontender, pedal pulses intact Musculoskeletal (Brief) Musculoskeletal Brief: Not FOUND: deformity, tenderness Surgical Site Incision: FOUND: Mepilex dressing intact, bloody drainage present Laboratory Laboratory Laboratory Tests 06/04/16 04:46 Laboratory Tests 06/04/16 04:46 Assessment & Plan Problems: (1) S/P CABG (coronary artery bypass graft) Status: Acute (2) Status post hip surgery Status: Acute Assessment & Plan: I had a few tl yesterday. Also discussed anticoagulation with Dr. Joce Hager. We decided to continue the aspirin only. When the training stops then they can continue other blood thinners for anticoagulation for her atrial fibrillation. The small amount of bloody drainage that she does have does not appear to be associated with any Deep infection but rather a superficial hematoma. The blood is very dark with no signs of erythema or foul odor. Hospital Course Summary Disclaimer The visit summary below is not to be considered part of the above Progress Note. Hospital Course 06/04/16 Spoke with Ayde Hughes with Dr. Lopez regarding patient's recent CABG procedure and ongoing treatment recommendations. She does recommend patient be on anticoagulation as she did have A-fib postoperatively. She would prefer Eliquis if not contraindicated. Given mild oozing from right hip incision will consult Dr Champagne for orthopedic evaluation of incision prior to starting anticoagulation. Patient does need postop anticoagulation for 30 days from right hemiarthroplasty performed on 05/16/16. Patient did have a right groin hematoma post heart catheter that was evaluated while at [place]. Overall this is improving. Continue with amiodarone given recent atrial fibrillation. She was noted to have elevated white count at 16.3. Will check a UA to rule out infection. Bumex 1 mg BID for ongoing diuresis. Oral Dilaudid and Ultram for pain control Continue SCDs to bilateral lower external for DVT prophylaxis Scheduled MiraLAX and Colace twice a day for ongoing bowel motivation. Encourage work with PT/OT for ongoing strengthening Will discuss case with attending ANNE Tejada MD Jun 05, 2016 08:19
[2016-06-05] MEDS: DOCUSATE SODIUM 100 MG CAPSULE PO SCH ×2 (08:40→21:03)
[2016-06-05] MEDS: ASCORBIC ACID 500 MG TABLET PO SCH (08:40)
[2016-06-05] MEDS: AMIODARONE 200 MG TABLET PO SCH ×2 (08:41→21:03)
[2016-06-05] MEDS: ASPIRIN 81 MG CHEWABLE TABLET PO SCH (08:42)
[2016-06-05] MEDS: BUMETANIDE 1 MG TABLET PO SCH ×2 (08:42→16:34)
[2016-06-05] MEDS: FERROUS SULFATE 324 MG TABLET PO SCH ×3 (08:42→16:34)
[2016-06-05] MEDS: POTASSIUM CHLORIDE 20 MEQ TABLET PO SCH ×2 (08:42→16:34)
[2016-06-05] MEDS: POLYETHYL.GLYCOL 3350 PACKET 17gm PO SCH ×2 (08:43→21:00)
--- NOTE | 2016-06-05 09:47 | DI ---
Indication: ITS.REASON: post op PROCEDURE: HIP RIGHT 2 VIEW: Encounter: Initial Comparison: May 16, 2016 Findings: Postoperative changes of right femoral head replacement are again seen. Prosthesis appears stable. No evidence of hardware failure or acute fracture. Impression: Stable appearance of the right femoral head prosthesis. .
[2016-06-05] MEDS: INSULIN LISPRO 100 UNIT/ML SQ PRN (10:25)
--- NOTE | 2016-06-05 10:31 | NUR ---
BGM BGM reading of 270, low sliding scale for 3u of Humalog given.
[2016-06-05 10:32] VITALS: PULSE 81; RESP 12
--- NOTE | 2016-06-05 11:23 | NUR ---
status pt remains stable, compliant with all cares today, scds on in bed, takes all meds whole, continues to state that her back and hip are continuing to be sore- possibly from the bed. she is doing well walking with gait belt/one assist/ miguelina walker, she has had less frequent bathroom trips this morning as hourly shift manager noted she had been there many times overnight.
[2016-06-05 12:03] VITALS: PULSE 81; RESP 12
[2016-06-05] MEDS: HYDROMORPHONE 2 MG TABLET PO PRN ×3 (12:17→22:30)
--- NOTE | 2016-06-05 12:46 | NUR ---
dr astorga was working with pt this am and dr astorga entered as we were changing the bandage after bathroom use. he noted the blood oozing and feels it is just some pooling that is trying to drain, so he will keep an eye on it and will reevaluate if it needs to be surgically revisited. getting a bloody spot about quarter in size each time. did a second dressing change again @ 12:45 due to continued drainage and bottom of dressing wanting to roll.
--- NOTE | 2016-06-05 12:50 | NUR ---
prn prep h asked natalee about adding prep h for hemorrhoids, she advised bid prn.
[2016-06-05 16:00] VITALS: BP 131/71; PULSE 80; RESP 18; TEMP 97.7; O2SAT 96
--- NOTE | 2016-06-05 16:54 | PNPDOC ---
Subjective Date DATE: 06/05/16 TIME: 16:44 Subjective Talisha is seen this afternoon. She complains of having some lower back discomfort and right hip pain. She reports back pain has been since her hip surgery and hip is more painful today as several more tl were added to hip incision yesterday by Dr Champagne. BP 140/63. Bowels are moving. No further concerns by patient. Objective Vital Signs Vital signs Vital Signs Date Time Temp Pulse Resp B/P Pulse Ox O2 Delivery O2 Flow Rate FiO2 06/05/16 12:03 81 12 06/05/16 07:49 98.2 140/63 94 Room Air Height (Feet): 5 Height (Inches): 5.00 Weight (Kilograms): 76.700 General General Appearance: Alert, Orientated x 3, Cooperative, No Acute Distress Eyes (Brief) Eyes: FOUND: EOMI ENMT (Brief) ENMT: FOUND: mucosa moist, normal dentition, NOT FOUND: pharnyx erythema Neck (Brief) Neck: FOUND: midline, NOT FOUND: adenopathy, carotid bruits, tracheal deviation Respiratory (Brief) Respiratory: FOUND: clear all anaya, equal bilaterally, NOT FOUND: wheezes Cardiovascular (Brief) Cardiac: FOUND: regular rate, regular rhythm, NOT FOUND: murmur, pedal edema Capillary Refill: <2 sec Abdomen (Brief) Abdominal: FOUND: BS normo active x4, soft, NOT FOUND: distended, tender Lymphatic (Brief) Lymphatic: NOT FOUND: adenopathy Musculoskeletal (Brief) Musculoskeletal: FOUND: tenderness (right hip, lumbar back) Integumentary (Brief) Integumentary: FOUND: dry, pink, warm Neurologic (Brief) Neurological: FOUND: cranial 2-12 intact Psychiatric (Brief) Psychiatric: FOUND: alert, attentive, normal affect, oriented Laboratory Laboratory Laboratory Tests 06/04/16 04:46 Laboratory Tests 06/04/16 04:46 Assessment & Plan Problems: (1) S/P CABG (coronary artery bypass graft) Status: Acute Assessment & Plan: 05/20/16- Dr Lopez (2) Status post hip surgery Status: Acute Assessment & Plan: 05/16/16- Dr Champagne- right Brock-arthroplasty (3) Chronic kidney disease Status: Chronic (4) Diabetes mellitus Onset Date: ~ 05/2016 Status: Chronic (5) HTN (hypertension) Status: Chronic (6) History of atrial fibrillation Status: Chronic (7) Hypercholesteremia Status: Chronic (8) Peptic ulcer disease Status: Chronic (9) Pseudoarthrosis Status: Chronic (10) Basal cell carcinoma Status: Chronic (11) Allergic rhinitis Status: Chronic (12) GERD (gastroesophageal reflux disease) Status: Chronic Plan/Intensity of Service 06/05/16 Continue to monitor right hip dressing for oozing. Several more tl were placed by Dr Champagne Continue on ASA only at this time, Case discussed with Dr Lopez yesterday . Continue to monitor blood sugars. Fasting sugar this morning was 146. Will increase sliding scale to medium range dosing and continue to follow. Will recheck CBC and BMP tomorrow morning to follow leukocytosis Code Status Full Code Hospital Course Summary Disclaimer The hospital course summary below is not to be considered part of the above Progress Note. Hospital Course Summary 06/04/16 Spoke with Ayde Hughes with Dr. Lopez regarding patient's recent CABG procedure and ongoing treatment recommendations. She does recommend patient be on anticoagulation as she did have A-fib postoperatively. She would prefer Eliquis if not contraindicated. Given mild oozing from right hip incision will consult Dr Champagne for orthopedic evaluation of incision prior to starting anticoagulation. Patient does need postop anticoagulation for 30 days from right hemiarthroplasty performed on 05/16/16. Patient did have a right groin hematoma post heart catheter that was evaluated while at [place]. Overall this is improving. Continue with amiodarone given recent atrial fibrillation. She was noted to have elevated white count at 16.3. Will check a UA to rule out infection. Bumex 1 mg BID for ongoing diuresis. Oral Dilaudid and Ultram for pain control Continue SCDs to bilateral lower external for DVT prophylaxis Scheduled MiraLAX and Colace twice a day for ongoing bowel motivation. Encourage work with PT/OT for ongoing strengthening Will discuss case with attending Dr Hobson 06/05/16 Continue to monitor right hip dressing for oozing. Several more tl were placed by Dr Champagne Continue on ASA only at this time, Case discussed with Dr Lopez yesterday . Continue to monitor blood sugars. Fasting sugar this morning was 146. Will increase sliding scale to medium range dosing and continue to follow. Will recheck CBC and BMP tomorrow morning to follow leukocytosis [place],KRISTY V [employer]ORER WHARF Jun 05, 2016 16:47
--- NOTE | 2016-06-05 19:33 | NUR ---
Status Pt is resting in the recliner. Ambulates well with assist of 1, gait belt, and miguelina walker. Has been continent this evening, needed minimal assist with her pants, able to manage cares. Ate well for dinner, took the wheelchair to the dining room, needed assist with her tray. Received Dilaudid 2mg at 1620 for 6/10 to the lower back, reports that it feels better with the pain medication. When in bed or the chair the alarm is in use and call light is within reach.
[2016-06-05] MEDS: ACETAMINOPHEN 325 MG TABLET PO PRN (19:48)
[2016-06-05] MEDS: ATORVASTATIN 40 MG TABLET PO SCH (21:02)
[2016-06-05] MEDS: GABAPENTIN 300 MG CAPSULE PO SCH (21:03)
[2016-06-05 21:45] VITALS: PULSE 79; RESP 16
--- NOTE | 2016-06-05 23:00 | NUR ---
АННА TEXT/DR NOTIFICATION Telehospitalist contacted re: frequency/nocturia for patient. Has been up 6 times in 4 hours. New order for UA entered by physician.
[2016-06-06 00:51] VITALS: BP 138/69; PULSE 79; RESP 16; TEMP 97.8; O2SAT 91
--- NOTE | 2016-06-06 04:24 | NUR ---
CHART CHECK 24hr chart check completed
[2016-06-06 04:29] LABS: BLOOD, URINE NEGATIVE (NEGATIVE); COLOR,URINE YELLOW (YELLOW); LEUKOCYTE ESTERASE ,URINE NEGATIVE (NEGATIVE); NITRITE,URINE NEGATIVE (NEGATIVE); UROBILINOGEN,URINE 0.2 EU/DL (NORMAL)
[2016-06-06 05:35] LABS: HCT - HEMATOCRIT 35.7 % (36-46); HGB - HEMOGLOBIN 10.8 GM/DL (12-16); MEAN CORPUSCULAR HGB 28.6 UUG (26-34); MEAN CORPUSCULAR HGB CONC(MCHC 30.3 GM/DL (31-37); MEAN CORPUSCULAR VOLUME 94.7 UM3 (80-100); MEAN PLATELET VOLUME 11.2 UM3 (9.4-12.4); RED BLOOD COUNT 3.77 M/MM3 (4.00-5.20); WBC - WHITE BLOOD COUNT 16.3 T/MM3 (4.5-11.0)
[2016-06-06 05:50] LABS: ANION GAP 8 MEQ/L (5-15); BUN/CREATININE RATIO 19 RATIO (6-26); CALCIUM 8.7 MG/DL (8.4-10.2); CHLORIDE 93 MEQ/L (98-107); CO2 - CARBON DIOXIDE 35 MEQ/L (22-30); CREATININE 1.2 MG/DL (0.7-1.2); GLOMERULAR FILTRATION RATE 43; GLUCOSE 139 MG/DL (65-110); POTASSIUM 4.2 MEQ/L (3.6-5); SODIUM 136 MEQ/L (134-144)
--- NOTE | 2016-06-06 06:02 | PDIRUOPC ---
Overall Plan of Care Date DATE: 06/06/16 TIME: 05:55 Relevant Changes Relevant Changes: No I have reviewed the patient's information and concur with the finding and results of the pre-admission screen. Certification I certify the patient for rehabilitation. 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 (2) Neuropathy Status: Chronic Additional Information: PT and OT to create a plan of care. (3) Debility Status: Acute Additional Information: PT and OT care. (4) HTN (hypertension) Status: Chronic Additional Information: medical management (5) S/P CABG (coronary artery bypass graft) Status: Acute Additional Information: cardiology to follow. 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 (2) Neuropathy Status: Chronic Additional Information: PT and OT to create a plan of care. (3) Debility Status: Acute Additional Information: PT and OT care. (4) HTN (hypertension) Status: Chronic Additional Information: medical management (5) S/P CABG (coronary artery bypass graft) Status: Acute Additional Information: cardiology to follow. (6) Status post hip surgery Status: Acute Additional Information: Ortho to follow prn, otherwise care per PT and OT (7) Diabetes mellitus Onset Date: ~ 05/2016 Status: Chronic Additional Information: medical management (8) History of atrial fibrillation Status: Chronic Additional Information: medical/cardiology management (9) Chronic kidney disease Status: Chronic Medical Prognosis Fair IRF Tx That Should Address Dx: (1) Displaced fracture of right femoral neck (2) Myopathic disease or syndrome Dx Requiring Medical FU: (1) S/P CABG (coronary artery bypass graft) (2) History of atrial fibrillation Vital Signs Vital Signs Date Time Temp Pulse Resp B/P Pulse Ox O2 Delivery O2 Flow Rate FiO2 06/06/16 00:51 97.8 79 16 138/69 91 Room Air Laboratory Laboratory Tests Test 06/04/16 10:08 06/04/16 14:46 06/04/16 18:09 06/04/16 20:47 Glucometer 211mg/dL 143mg/dL 203mg/dL Urine Collection Type Voided-not cc-midstr Urine Color Yellow Urine Turbidity Clear Urine pH 6.5 Urine Specific Unity 1.010 Urine Protein Negative Urine Glucose (UA) Negative Urine Ketones Negative Urine Blood Negative Urine Nitrite Negative Urine Bilirubin Negative Urine Urobilinogen 0.2EU/DL Urine Leukocyte Esterase 1+ Urine RBC 0-1/HPF Urine WBC 0-1/HPF Urine Squamous Epithelial Cells 5-10 Urine Bacteria 1+ Urine Mucus Present Urine Culture Indicated Cult not indicated Test 06/05/16 06:19 06/05/16 10:16 06/05/16 14:19 06/05/16 20:25 Glucometer 146mg/dL 270mg/dL 138mg/dL 143mg/dL Test 06/06/16 02:01 06/06/16 05:21 Urine Collection Type Voided-not cc-midstr Urine Color Yellow Urine Turbidity Clear Urine pH 7.0 Urine Specific Unity <=1.005 Urine Protein Negative Urine Glucose (UA) Negative Urine Ketones Negative Urine Blood Negative Urine Nitrite Negative Urine Bilirubin Negative Urine Urobilinogen 0.2EU/DL Urine Leukocyte Esterase Negative Urinalysis Comment Microscopic not ind. White Blood Count 16.3T/MM3 Red Blood Count 3.77M/MM3 Hemoglobin 10.8GM/DL Hematocrit 35.7% Mean Corpuscular Volume 94.7UM3 Mean Corpuscular Hemoglobin 28.6UUG Mean Corpuscular Hemoglobin Concent 30.3GM/DL RDW Standard Deviation 55.3FL Platelet Count 322T/MM3 Mean Platelet Volume 11.2UM3 Immature Granulocyte % (Auto) % Neutrophils (%) (Auto) % Lymphocytes (%) (Auto) % Monocytes (%) (Auto) % Eosinophils (%) (Auto) % Basophils (%) (Auto) % Absolute Immature Granulocyte (auto T/MM3 Absolute Neutrophils (auto) T/MM3 Absolute Lymphocytes (auto) T/MM3 Absolute Monocytes (auto) T/MM3 Absolute Eosinophils (auto) T/MM3 Absolute Basophils (auto) T/MM3 Turbidity < 20 Sodium Level 136MEQ/L Potassium Level 4.2MEQ/L Chloride Level 93MEQ/L Carbon Dioxide Level 35MEQ/L Anion Gap 8MEQ/L Blood Urea Nitrogen 23.0MG/DL Creatinine 1.2MG/DL Glomerular Filtration Rate Calc 43 BUN/Creatinine Ratio 19RATIO Glucose Level 139MG/DL Calculated Osmolality 268MOSM/KG Calcium Level 8.7MG/DL Icterus Index < 2 Chemistry Specimen Hemolysis < 15 Anticipated Interventions The patient requires inpatient IRF care for PT, OT, and/or ST for residuals remaining from [] resulting in muscular weakness and strength deficits. ROM Deficit: Right Lower Extremity FIM Scores Ambulation Distance: 36 Ambulation Ability: 1 Total Assistance Ambulation Assistance Needed: 1 Person Walk FIM Score Reason: 04/18 A d/t distance requriing 08/16 A Wheelchair Propulsion Ability: 1 Total Assistance Wheelchair FIM Score Reason: 04/18 A d/t distance Stairs: 1 Total Assistance Stair Assistance Needed: 1 Person Number of Stairs: 1 Reason for Stair FIM: 04/18 A d/t number of steps 4/7 CGA Eating Ability-FIM: 5 Supervision/Setup Grooming Ability: 5 Supervision/Setup Bathing Ability: 3 Moderate Assistance Upper Body Dressing Ability: 4 Minimal Assistance Lower Body Dressing Ability: 4 Minimal Assistance Toileting Ability: 4 Minimal Assistance Toileting Assistance Needed: 1 Person Bed Transfer Ability: 4 Minimal Assistance Bed Transfer Assistance Needed: 1 Person Bed FIM Score Reason: Pt refused. Chair Transfer Ability: 5 Supervision/Setup Chair Transfer Assistance Need: 1 Person Overall Wheelchair Transfer Ab: 5 Supervision/Setup Overall Toilet / Commode Trans: 5 Supervision/Setup Toilet / Commode Transfer Assi: 1 Person Comprehension Ability: 6 Modified Struthers Social Interaction: 7+ Complete Struthers Problem Solvin Supervision/Setup Expression Ability: 7+ Complete Struthers Memory: 6 Modified Struthers Current Functional Status Failed Alternative Therapy: Arrived from acute care Patient Requires * Patient has been determined to have significant functional limitations requiring at least two therapy disciplines. * Rehabilitation medical practitioner will provide admission approval, assessment and oversight and program coordination at least daily. * Intensive rehabilitative nursing services on site and available 24 hours a day. * The treatment plan will be developed within 24 hours of admission. * Interdisciplinary and goal oriented treatment by professional nursing, social director, and rehabilitation therapist. * Interdisciplinary team meeting weekly inclusive of ongoing comprehensive discharge planning. First team meeting by day seven. Weekly meetings to follow. * Rehab Physician is the team meeting leader. * Pharmacy and diagnostic services will be available. * Ongoing comprehensive rehab program with at least 2 disciplines and greater than or equal to 3 hours a day, 5 days a week. Physical Therapy Minutes: 90 Occupational Therapy Minutes: 90 Therapy The patient is to receive therapy at least 5 days a week. PT Treatment Plan: Therapeutic Exercise, Gait Training, Functional Activities , Patient/Family Education, Balance/Proprioception Treatment Plan Frequency: five times per week Treatment Plan Duration: two weeks Plan of Care Comment: 6x/wk for 1st wk; 5x/wk for 2nd and 3rd wks. OT Treatment Plan: ADL's (basic care), Ther. Exercise for ADL's, UE Functional Training, Balance Training, Pt./Family Education, IADL's OT Treatment Plan Frequency: five times per week OT Treatment Plan Duration: three weeks Anticapted LOS/Outcomes Anticipated Functional Outcome delayed improvement due to weakness and post cabg. Anticipated DC Destination: Home Health Service Home Safety Plan The patient will be provided with the development of a Home Safety Plan for return to a home or home-like environment and to ensure safety post discharge. 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 (2) Neuropathy Status: Chronic Comments: PT and OT to create a plan of care. (3) Debility Status: Acute Comments: PT and OT care. (4) HTN (hypertension) Status: Chronic Comments: medical management (5) S/P CABG (coronary artery bypass graft) Status: Acute Comments: cardiology to follow. (6) Status post hip surgery Status: Acute Comments: Ortho to follow prn, otherwise care per PT and OT (7) Diabetes mellitus Onset Date: ~ 05/2016 Status: Chronic Comments: medical management (8) History of atrial fibrillation Status: Chronic Comments: medical/cardiology management (9) Chronic kidney disease Status: Chronic Other Contributing Factors: Plan to Avoid Complications Barriers to Attaining Goals: weakness, balance, endurance, medical limitation Plan to Avoid Complications The patient cannot receive this care in a lesser intensive setting such as Long-Term or Outpatient Therapy due to the patient requiring the following care post CABG and afib. The patient requires oversight by a rehabilitation physician to manage their rehabilitation treatment plan and the multidisciplinary approach to care that can only be provided in an IRF and requires a multidisciplinary approach to care , provided by professional PTs, OTs, STs, dieticians, RTs, rehabilitation nurses and is not available in lesser levels of care. The frequency and duration for therapy, as recommended by the professional Rehabilitation therapists, meet the patient's initial rehabilitation treatment plan needs and will be further evaluated on a weekly basis for progress and/or changes needed. BHAVNA MCALLISTER MD Jun 06, 2016 05:58
--- NOTE | 2016-06-06 06:04 | NUR ---
SHIFT SUMMARY Talisha has been up numerous times to use bathroom - not always able to void. UA checked during night was clear. She was able to do bed and toilet transfers with Supervision. Performed own armand care. Required min assist for toilet clothing management. PRN pain meds to manage pain she rates at a 6. Chest incision RAYMUNDO. Hip incision was seen by Dr. Champagne yesterday and is draining some but he is not concerned about infection at this time. Some tl remain in incision and dressing has small amount of dark blood. Patient reports back pain is worse than any other pain she has. She feels she has a knot. Therapy worked on it for her yesterday with some relief.
[2016-06-06 06:07] LABS: ANISOCYTOSIS 1+; EOSINOPHILS # (MANUAL) 0.5 T/MM3 (0-0.5); LYMPHOCYTES # (MANUAL) 2.4 T/MM3 (1-4.8); MONOCYTES # (MANUAL) 1.6 T/MM3 (0-0.8); NEUTROPHILS #(MANUAL)-ABSOLUTE 11.7 T/MM3 (1.8-7.7); POIKILOCYTOSIS 1+; TOTAL CELLS COUNTED 100 %
[2016-06-06] MEDS: METOCLOPRAMIDE 5mg TABLET PO SCH ×4 (06:17→20:42)
[2016-06-06] MEDS: OMEPRAZOLE 20 MG CAPSULE PO SCH (06:17)
[2016-06-06 08:00] VITALS: BP 134/88; PULSE 120; RESP 20; TEMP 98.8; O2SAT 90
[2016-06-06 08:15] VITALS: PULSE 120; RESP 20
[2016-06-06] MEDS: ASPIRIN 81 MG CHEWABLE TABLET PO SCH (08:47)
[2016-06-06] MEDS: FERROUS SULFATE 324 MG TABLET PO SCH ×3 (08:47→17:37)
[2016-06-06] MEDS: BUMETANIDE 1 MG TABLET PO SCH ×2 (08:47→17:37)
[2016-06-06] MEDS: POTASSIUM CHLORIDE 20 MEQ TABLET PO SCH ×2 (08:47→17:36)
[2016-06-06] MEDS: AMIODARONE 200 MG TABLET PO SCH ×2 (08:48→20:42)
[2016-06-06] MEDS: ASCORBIC ACID 500 MG TABLET PO SCH (08:48)
[2016-06-06] MEDS: DOCUSATE SODIUM 100 MG CAPSULE PO SCH ×2 (08:48→20:42)
[2016-06-06] MEDS: POLYETHYL.GLYCOL 3350 PACKET 17gm PO SCH ×2 (08:48→20:42)
[2016-06-06] MEDS: HYDROMORPHONE 2 MG TABLET PO PRN ×3 (09:58→22:10)
[2016-06-06] MEDS: INSULIN LISPRO 100 UNIT/ML SQ PRN ×2 (10:42→22:07)
--- NOTE | 2016-06-06 10:45 | PDORTHOPN ---
Subjective Date DATE: 06/06/16 TIME: 10:39 Subjective No new complaints this morning. Her pain levels have been stable and not increasing. She doesn't want more tl placed in the incision. Denies fever or chills. HR did go up to 120 this AM before AM meds were given. Objective Vital Signs Vital signs Vital Signs 06/06/16 06/06/16 00:51 08:00 Temp 97.8 98.8 Pulse 79 120 Resp 16 20 B/P 138/69 134/88 Pulse Ox 91 90 O2 Delivery Room Air Room Air Height (Feet): 5 Height (Inches): 5.00 Weight (Kilograms): 76.700 General General Appearance: Alert, Cooperative, No Acute Distress Respiratory (Brief) Respiratory Brief: FOUND: non-labored Cardiovascular (Brief) Cardiac: FOUND: calf easily compressible, calf soft, nontender, pedal pulses intact Musculoskeletal (Brief) Musculoskeletal Brief: Not FOUND: deformity, tenderness Surgical Site Incision: FOUND: Mepilex dressing intact, bloody drainage present (A dark bloody spot the size of a half-dollar was on the Mepilex dressing this AM.), intact, tl present Wound Drainage: FOUND: minimal amount, sanguinous Integumentary (Brief) Integumentary Brief: FOUND brusing (Minimal ), NOT FOUND erythemia Neurologic (Brief) Neurological Brief: FOUND: extremities w/o deficits, neuro intact Psychiatric (Brief) Psychiatric Brief: FOUND: alert, no acute distress Laboratory Laboratory Laboratory Tests 06/06/16 05:21 Laboratory Tests 06/06/16 05:21 Radiology Xrays of the pelvis from 06/05/16 show stable appearance of the miguelina- arthroplasty. Assessment & Plan Problems: (1) S/P CABG (coronary artery bypass graft) Status: Acute (2) Status post hip surgery Status: Acute Assessment & Plan: The small amount of bloody drainage that she does have does not appear to be associated with any Deep infection but rather a superficial hematoma. Her WBC is elevated but stable and she is Afebrile. The blood is very dark with no signs of erythema or foul odor. Pain levels are stable and not increasing. Will continue to monitor for now. Consider washing the surgical site out if drainage does not subside or if any signs of infection begin. Hospital Course Summary Disclaimer The visit summary below is not to be considered part of the above Progress Note. Hospital Course 06/04/16 Spoke with Ayde Hughes with Dr. Lopez regarding patient's recent CABG procedure and ongoing treatment recommendations. She does recommend patient be on anticoagulation as she did have A-fib postoperatively. She would prefer Eliquis if not contraindicated. Given mild oozing from right hip incision will consult Dr Champagne for orthopedic evaluation of incision prior to starting anticoagulation. Patient does need postop anticoagulation for 30 days from right hemiarthroplasty performed on 05/16/16. Patient did have a right groin hematoma post heart catheter that was evaluated while at [place]. Overall this is improving. Continue with amiodarone given recent atrial fibrillation. She was noted to have elevated white count at 16.3. Will check a UA to rule out infection. Bumex 1 mg BID for ongoing diuresis. Oral Dilaudid and Ultram for pain control Continue SCDs to bilateral lower external for DVT prophylaxis Scheduled MiraLAX and Colace twice a day for ongoing bowel motivation. Encourage work with PT/OT for ongoing strengthening Will discuss case with attending Dr Hobson 06/05/16 Continue to monitor right hip dressing for oozing. Several more tl were placed by Dr Champagne Continue on ASA only at this time, Case discussed with Dr Lopez yesterday . Continue to monitor blood sugars. Fasting sugar this morning was 146. Will increase sliding scale to medium range dosing and continue to follow. Will recheck CBC and BMP tomorrow morning to follow leukocytosis MARY GRANGER Jun 06, 2016 10:42
[2016-06-06] MEDS: TRAMADOL 50 MG TABLET PO PRN ×2 (12:05→18:47)
[2016-06-06 16:51] VITALS: BP 151/69; PULSE 75; RESP 16; TEMP 97.8; O2SAT 94
[2016-06-06] MEDS: ACETAMINOPHEN 325 MG TABLET PO PRN (17:41)
--- NOTE | 2016-06-06 19:50 | NUR ---
SHIFT SUMMARY PT HAS BEEN OUT TO DINING ROOM FOR ALL MEALS. PT AMBULATES WITH A NIKKI WALKER, AND GAIT BELT. PT HAS COMPLAINED OF BACK PAIN TODAY RAGING FROM A 5-8/10. MARY YUAN ASSESSED RIGHT HIP INCISION AND CHANGED DRESSING TO A TELFA, 4X4, AND TWO TEGADERM DRESSINGS TO COVER ALL OF INCISION. HE ALSO REMOVED ONE STAPLE THAT WAS ALREADY COMING OFF. MARY TALKED WITH PT ABOUT HOW IF THE INCISION CONTINUES TO BLEED THEY MAY CONSIDER GOING BACK TO SURGERY TO CLEAN IT OUT. PT IS RESTING IN BED.
[2016-06-06] MEDS: GABAPENTIN 300 MG CAPSULE PO SCH (20:42)
[2016-06-06] MEDS: ATORVASTATIN 40 MG TABLET PO SCH (20:42)
[2016-06-06 22:16] VITALS: PULSE 76; RESP 18
--- NOTE | 2016-06-06 22:36 | NUR ---
STATUS Talisha has had PRN hemorrhoid oint. Also PRN Dilaudid for her pain. Continues to need to void every hour or so. UA Clear. Denies pain. At times, cannot empty any urine. States she feels the urge to go that often. Is on Bumex twice daily. Required 2 u sliding scale insulin at HS. Declined oral care tonight. States she is "too lazy" and that "all my teeth will just fall out". Oriented x 3. Able to take all meds whole 1-2 at a time with water. She took all laxatives tonight.
[2016-06-07] MEDS: TRAMADOL 50 MG TABLET PO PRN ×3 (00:44→23:39)
[2016-06-07 01:37] VITALS: BP 134/69; PULSE 76; RESP 18; TEMP 97.8; O2SAT 94
[2016-06-07] MEDS: HYDROMORPHONE 2 MG TABLET PO PRN ×4 (02:45→19:39)
--- NOTE | 2016-06-07 05:37 | NUR ---
CHART CHECK 24hr chart check completed.
[2016-06-07] MEDS: METOCLOPRAMIDE 5mg TABLET PO SCH ×4 (05:58→21:15)
[2016-06-07] MEDS: OMEPRAZOLE 20 MG CAPSULE PO SCH (05:59)
--- NOTE | 2016-06-07 06:42 | NUR ---
SHIFT SUMMARY Talisha slept in between trips to the bathroom - roughly every hour. She voided most times, but sometimes was unable to void. Hip incision dressing is intact and has small amount drainage. Required min assist for armand care after trip to bathroom. She had not cleaned her self well and had some stool smears on her pullup. Required PRN med for her hemorrhoids, as well as pain meds as often as she could have them. She asked hourly when she could have more pain meds. When she did take them, she reported pain consistently between 5-7.
[2016-06-07 08:00] VITALS: BP 128/64; PULSE 118; PULSE 80; RESP 18; TEMP 97.6; O2SAT 88; O2SAT 93
[2016-06-07] MEDS: ASPIRIN 81 MG CHEWABLE TABLET PO SCH (08:14)
[2016-06-07] MEDS: DOCUSATE SODIUM 100 MG CAPSULE PO SCH ×2 (08:14→21:15)
[2016-06-07] MEDS: FERROUS SULFATE 324 MG TABLET PO SCH ×3 (08:14→17:53)
[2016-06-07] MEDS: AMIODARONE 200 MG TABLET PO SCH ×2 (08:15→21:16)
[2016-06-07] MEDS: POTASSIUM CHLORIDE 20 MEQ TABLET PO SCH ×2 (08:15→17:53)
[2016-06-07] MEDS: POLYETHYL.GLYCOL 3350 PACKET 17gm PO SCH ×2 (08:15→21:00)
[2016-06-07] MEDS: ASCORBIC ACID 500 MG TABLET PO SCH (08:15)
[2016-06-07] MEDS: BUMETANIDE 1 MG TABLET PO SCH ×2 (08:15→17:52)
[2016-06-07] MEDS: INSULIN LISPRO 100 UNIT/ML SQ PRN ×3 (10:40→22:04)
--- NOTE | 2016-06-07 11:28 | NUR ---
MARY YUAN CAM AND ASSESSED PT'S RIGHT HIP INCISION. ORDERED PT TO BE NPO AFTER MIDNIGHT SO THAT DR. VALDEZ CAN DECIDE IN THE MORNING ABOUT TAKING PT BACK TO SURGERY TO CLEAN OUT THE WOUND TO HELP STOP THE BLEEDING. KRISTY SARABIA APRN WAS CALLED TO UPDATE ON ORTHO'S PLAN. [facility]NE[facility] DID NOT ANSWER PHONE. A BRIEF MESSAGE ASKING TO BE CALLED BACK WAS LEFT. AT THIS TIME HAVE NOT HEARD FROM CORNE[facility].
--- NOTE | 2016-06-07 12:57 | PDORTHOPN ---
Subjective Date DATE: 06/07/16 TIME: 12:52 Subjective No new complaints this morning. Her pain levels have been stable. She doesn't want more tl placed in the incision. Denies fever or chills. Nursing changed the dressing once yesterday and it is bloody again this AM. Objective Vital Signs Vital signs Vital Signs 06/07/16 06/07/16 06/07/16 01:37 08:00 08:00 Temp 97.8 97.6 Pulse 76 80 80 Resp 18 18 B/P 134/69 128/64 Pulse Ox 94 93 O2 Delivery Room Air Room Air Height (Feet): 5 Height (Inches): 5.00 Weight (Kilograms): 76.700 General General Appearance: Alert, Cooperative, No Acute Distress Respiratory (Brief) Respiratory Brief: FOUND: non-labored Cardiovascular (Brief) Cardiac: FOUND: calf easily compressible, calf soft, nontender, pedal pulses intact Musculoskeletal (Brief) Musculoskeletal Brief: Not FOUND: deformity, tenderness Surgical Site Incision: FOUND: Mepilex dressing intact, bloody drainage present, intact, tl present Wound Drainage: FOUND: minimal amount, sanguinous Integumentary (Brief) Integumentary Brief: FOUND brusing (Minimal ), NOT FOUND erythemia Neurologic (Brief) Neurological Brief: FOUND: extremities w/o deficits, neuro intact Psychiatric (Brief) Psychiatric Brief: FOUND: alert, no acute distress Laboratory Laboratory Laboratory Tests 06/06/16 05:21 Laboratory Tests 06/06/16 05:21 Assessment & Plan Problems: (1) S/P CABG (coronary artery bypass graft) Status: Acute (2) Status post hip surgery Status: Acute Assessment & Plan: Continues to have dark bloody drainage. The blood is very dark with no signs of erythema or foul odor. Pain levels are stable and not increasing. Will continue to monitor for now. NPO after midnight and I will have Dr Champagne look at her tomorrow to consider surgically washing out the wound / hematoma. Hospital Course Summary Disclaimer The visit summary below is not to be considered part of the above Progress Note. Hospital Course 06/04/16 Spoke with Ayde Hughes with Dr. Lopez regarding patient's recent CABG procedure and ongoing treatment recommendations. She does recommend patient be on anticoagulation as she did have A-fib postoperatively. She would prefer Eliquis if not contraindicated. Given mild oozing from right hip incision will consult Dr Champagne for orthopedic evaluation of incision prior to starting anticoagulation. Patient does need postop anticoagulation for 30 days from right hemiarthroplasty performed on 05/16/16. Patient did have a right groin hematoma post heart catheter that was evaluated while at [place]. Overall this is improving. Continue with amiodarone given recent atrial fibrillation. She was noted to have elevated white count at 16.3. Will check a UA to rule out infection. Bumex 1 mg BID for ongoing diuresis. Oral Dilaudid and Ultram for pain control Continue SCDs to bilateral lower external for DVT prophylaxis Scheduled MiraLAX and Colace twice a day for ongoing bowel motivation. Encourage work with PT/OT for ongoing strengthening Will discuss case with attending Dr Hobson 06/05/16 Continue to monitor right hip dressing for oozing. Several more tl were placed by Dr Champagne Continue on ASA only at this time, Case discussed with Dr Lopez yesterday . Continue to monitor blood sugars. Fasting sugar this morning was 146. Will increase sliding scale to medium range dosing and continue to follow. Will recheck CBC and BMP tomorrow morning to follow leukocytosis MARY GRANGER Jun 07, 2016 12:57
[2016-06-07] MEDS: LIDOCAINE 5% PATCH TOP SCH (13:05)
[2016-06-07 16:48] VITALS: BP 140/69; PULSE 77; RESP 16; TEMP 98.3; O2SAT 92
--- NOTE | 2016-06-07 19:13 | NUR ---
SHIFT SUMMARY PT HAS BEEN OUT TO DINING ROOM FOR ALL MEALS. PT AMBULATES WITH NIKKI WALKER AND GAIT BELT. PT HAS COMPLAINED OF BACK PAIN AT A 5-6/10 TODAY. KRISTY SARABIA APRN ORDERED A LIDODERM PATCH. PT DOESN'T KNOW IF THIS HAS HELPED OR NOT. PT IS CURRENTLY RESTING IN BED.
[2016-06-07 19:30] VITALS: BP 132/65; PULSE 81; RESP 18; TEMP 98.3; O2SAT 98
--- NOTE | 2016-06-07 20:44 | PNPDOC ---
IRU Subjective Date DATE: 06/07/16 TIME: 20:41 Subjective Increased pain in hip. Has had hematoma develop, is being reviewed for surgery tomorrow morning to debride IRU Objective Vital Signs Vital signs Vital Signs Date Time Temp Pulse Resp B/P Pulse Ox O2 Delivery O2 Flow Rate FiO2 06/07/16 16:48 98.3 77 16 140/69 92 Room Air Height (Feet): 5 Height (Inches): 5.00 Weight (Kilograms): 76.700 General General Appearance: Alert, Orientated x 2 Respiratory (Brief) Respiratory: FOUND: clear all anaya, equal bilaterally, NOT FOUND: rales Cardiovascular (Brief) Cardiac: FOUND: pedal edema (1+), regular rate, regular rhythm Capillary Refill: <2 sec Musculoskeletal (Brief) Comments Nursing changing bandages on hip. Swollen and tender to touch. Laboratory Laboratory Laboratory Tests Test 06/06/16 02:01 06/06/16 05:21 06/06/16 10:36 06/06/16 14:22 Urine Collection Type Voided-not cc-midstr Urine Color Yellow Urine Turbidity Clear Urine pH 7.0 Urine Specific [place] <=1.005 Urine Protein Negative Urine Glucose (UA) Negative Urine Ketones Negative Urine Blood Negative Urine Nitrite Negative Urine Bilirubin Negative Urine Urobilinogen 0.2EU/DL Urine Leukocyte Esterase Negative Urinalysis Comment Microscopic not ind. White Blood Count 16.3T/MM3 Red Blood Count 3.77M/MM3 Hemoglobin 10.8GM/DL Hematocrit 35.7% Mean Corpuscular Volume 94.7UM3 Mean Corpuscular Hemoglobin 28.6UUG Mean Corpuscular Hemoglobin Concent 30.3GM/DL RDW Standard Deviation 55.3FL Platelet Count 322T/MM3 Mean Platelet Volume 11.2UM3 Immature Granulocyte % (Auto) % Neutrophils (%) (Auto) % Lymphocytes (%) (Auto) % Monocytes (%) (Auto) % Eosinophils (%) (Auto) % Basophils (%) (Auto) % Absolute Immature Granulocyte (auto T/MM3 Absolute Neutrophils (auto) T/MM3 Absolute Lymphocytes (auto) T/MM3 Absolute Monocytes (auto) T/MM3 Absolute Eosinophils (auto) T/MM3 Absolute Basophils (auto) T/MM3 Neutrophils % (Manual) 72.0% Lymphocytes % (Manual) 15.0% Monocytes % (Manual) 10.0% Eosinophils % (Manual) 3.0% Absolute Neutrophils (Manual) 11.7T/MM3 Lymphocytes # (Manual) 2.4T/MM3 Monocytes # (Manual) 1.6T/MM3 Eosinophils # (Manual) 0.5T/MM3 Poikilocytosis 1+ Anisocytosis 1+ Red Cell Morphology Comment Abnormal Turbidity < 20 Sodium Level 136MEQ/L Potassium Level 4.2MEQ/L Chloride Level 93MEQ/L Carbon Dioxide Level 35MEQ/L Anion Gap 8MEQ/L Blood Urea Nitrogen 23.0MG/DL Creatinine 1.2MG/DL Glomerular Filtration Rate Calc 43 BUN/Creatinine Ratio 19RATIO Glucose Level 139MG/DL Glucometer 124mg/dL 287mg/dL 113mg/dL Calculated Osmolality 268MOSM/KG Calcium Level 8.7MG/DL Icterus Index < 2 Chemistry Specimen Hemolysis < 15 Test 06/06/16 22:01 06/07/16 05:58 06/07/16 10:28 06/07/16 14:21 Glucometer 156mg/dL 137mg/dL 221mg/dL 154mg/dL Assessment & Plan Problems: (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 Continue with current plan after debridement (2) Neuropathy Status: Chronic Assessment & Plan: Continues with pain, has been managed except for pain in hip now. (3) Debility Status: Acute Assessment & Plan: Working with PT and OT (4) HTN (hypertension) Status: Chronic Assessment & Plan: Managed by medical (5) S/P CABG (coronary artery bypass graft) Status: Acute Assessment & Plan: Managed by medical and cardiology (6) Status post hip surgery Status: Acute Assessment & Plan: Hematoma being followed by orthopedics, may go to or tomorrow for debridement (7) Diabetes mellitus Onset Date: ~ 05/2016 Status: Chronic Assessment & Plan: Managed by medical (8) History of atrial fibrillation Status: Chronic (9) Chronic kidney disease Status: Chronic Code Status Full Code Interventions to Obtain Goals PT Treatment Plan: Therapeutic Exercise, Gait Training, Functional Activities , Patient/Family Education, Balance/Proprioception OT Treatment Plan: ADL's (basic care), Ther. Exercise for ADL's, UE Functional Training, Balance Training, Pt./Family Education, IADL's Hospital Course Summary Disclaimer The hospital course summary below is not to be considered part of the above Progress Note. Hospital Course Summary 06/04/16 Spoke with Ayde Hughes with Dr. Lopez regarding patient's recent CABG procedure and ongoing treatment recommendations. She does recommend patient be on anticoagulation as she did have A-fib postoperatively. She would prefer Eliquis if not contraindicated. Given mild oozing from right hip incision will consult Dr Champagne for orthopedic evaluation of incision prior to starting anticoagulation. Patient does need postop anticoagulation for 30 days from right hemiarthroplasty performed on 05/16/16. Patient did have a right groin hematoma post heart catheter that was evaluated while at [place]. Overall this is improving. Continue with amiodarone given recent atrial fibrillation. She was noted to have elevated white count at 16.3. Will check a UA to rule out infection. Bumex 1 mg BID for ongoing diuresis. Oral Dilaudid and Ultram for pain control Continue SCDs to bilateral lower external for DVT prophylaxis Scheduled MiraLAX and Colace twice a day for ongoing bowel motivation. Encourage work with PT/OT for ongoing strengthening Will discuss case with attending Dr Hobson 06/05/16 Continue to monitor right hip dressing for oozing. Several more tl were placed by Dr Champagne Continue on ASA only at this time, Case discussed with Dr Lopez yesterday . Continue to monitor blood sugars. Fasting sugar this morning was 146. Will increase sliding scale to medium range dosing and continue to follow. Will recheck CBC and BMP tomorrow morning to follow leukocytosis BHAVNA MCALLISTER MD Jun 07, 2016 20:43
[2016-06-07] MEDS: ATORVASTATIN 40 MG TABLET PO SCH (21:16)
[2016-06-07] MEDS: LIDOCAINE PATCH REMOVAL TOP SCH (21:16)
[2016-06-07] MEDS: GABAPENTIN 300 MG CAPSULE PO SCH (21:16)
[2016-06-07] MEDS: ACETAMINOPHEN 325 MG TABLET PO PRN (21:17)
[2016-06-07 22:28] VITALS: RESP 18
--- NOTE | 2016-06-07 23:28 | NUR ---
STATUS. PT HAS C/O BACK PAIN THIS EVENING. REC'D DILAUDID 2MG PO AT 1939 FOR 6/10PAIN LEVEL. REC'D TYLENOL 650MG PO AT 2100 FOR C/O 7/10 PAIN LEVEL. LIDOCAINE PATCH IN PLACE TO LOWER MID BACK UNTIL HS. PT TO BE NPO AFTER MIDNIGHT FOR POSSIBLE PROCEDURE TOMORROW. REC'D ORDER FOR DILAUDID 0.5MG IV Q2H PRN FOR USE WHILE NPO.
[2016-06-08] VITALS (15 sets, daily range): BP systolic 113–140; BP diastolic 56–69; PULSE 69–120; RESP 14–20; TEMP 97.5–98.6; O2SAT 91–100
[2016-06-08] MEDS: HYDROMORPHONE 2mg/ml INJECTION IV PRN ×2 (02:32→08:46)
[2016-06-08] MEDS: ONDANSETRON ODT 4 MG TAB PO PRN ×2 (02:34→08:54)
--- NOTE | 2016-06-08 02:40 | NUR ---
PAIN. PT C/O BACK PAIN 08/19, IV DILAUDID 0.5MG GIVEN PER PRN TO RT WRIST IVL. WILL CONTINUE TO MONITOR.
--- NOTE | 2016-06-08 03:28 | NUR ---
Chart Check 24 hour chart check completed
[2016-06-08 05:41] LABS: ANION GAP 9 MEQ/L (5-15); BUN/CREATININE RATIO 26 RATIO (6-26); CALCIUM 8.6 MG/DL (8.4-10.2); CHLORIDE 98 MEQ/L (98-107); CO2 - CARBON DIOXIDE 28 MEQ/L (22-30); CREATININE 1.1 MG/DL (0.7-1.2); GLOMERULAR FILTRATION RATE 47; GLUCOSE 137 MG/DL (65-110); POTASSIUM 4.7 MEQ/L (3.6-5); SODIUM 135 MEQ/L (134-144)
[2016-06-08 05:45] LABS: HCT - HEMATOCRIT 33.6 % (36-46); HGB - HEMOGLOBIN 10.6 GM/DL (12-16); MEAN CORPUSCULAR HGB 29.3 UUG (26-34); MEAN CORPUSCULAR HGB CONC(MCHC 31.5 GM/DL (31-37); MEAN CORPUSCULAR VOLUME 92.8 UM3 (80-100); MEAN PLATELET VOLUME 12.2 UM3 (9.4-12.4); RED BLOOD COUNT 3.62 M/MM3 (4.00-5.20); WBC - WHITE BLOOD COUNT 16.8 T/MM3 (4.5-11.0)
[2016-06-08 06:10] LABS: ANISOCYTOSIS 1+; EOSINOPHILS # (MANUAL) 0.5 T/MM3 (0-0.5); LYMPHOCYTES # (MANUAL) 2.4 T/MM3 (1-4.8); MONOCYTES # (MANUAL) 1.2 T/MM3 (0-0.8); NEUTROPHILS #(MANUAL)-ABSOLUTE 12.8 T/MM3 (1.8-7.7); POIKILOCYTOSIS 1+; TOTAL CELLS COUNTED 100 %
[2016-06-08] MEDS: METOCLOPRAMIDE 5mg TABLET PO SCH ×4 (06:30→21:29)
[2016-06-08] MEDS: OMEPRAZOLE 20 MG CAPSULE PO SCH (06:30)
--- NOTE | 2016-06-08 07:32 | NUR ---
SUMMARY. PT HAS BEEN NPO SINCE [place]. IV DILAUDID GIVEN FOR C/O BACK PAIN 08/19 AT 0235. PT REPORTS " HAS HELPED AND SLEPT SOME". PT CALLS APPROPRIATELY FOR BATHROOM ASSIST. USING HEMIWALKER WITH 1 MIN TO SBA. PT ABLE TO MANAGE CLOTHING AND HYGIENE WITH SBA. PT REFUSED SCDS TONIGHT. C/O RESTLESS WITH BACK PAIN. FASTING BGM 144. RT HIP DRSG WITH DARK RED DRAINAGE INTACT. REPORT GIVEN TO DAY NURSE.
[2016-06-08] MEDS: POTASSIUM CHLORIDE 20 MEQ TABLET PO SCH ×2 (08:00→17:32)
[2016-06-08] MEDS: FERROUS SULFATE 324 MG TABLET PO SCH ×3 (08:00→17:31)
--- NOTE | 2016-06-08 08:03 | PDORTHOPN ---
Subjective Date DATE: 06/08/16 TIME: 07:58 Subjective No new complaints this morning. She continues to have bloody drainage from the incision. No fevers or chills Objective Vital Signs Vital signs Vital Signs 06/07/16 06/08/16 06/08/16 22:28 02:32 03:32 Resp 18 18 16 Height (Feet): 5 Height (Inches): 5.00 Weight (Kilograms): 76.700 General General Appearance: Alert, Cooperative, No Acute Distress Respiratory (Brief) Respiratory Brief: FOUND: non-labored Cardiovascular (Brief) Cardiac: FOUND: calf easily compressible, calf soft, nontender, pedal pulses intact Musculoskeletal (Brief) Musculoskeletal Brief: Not FOUND: deformity, tenderness Surgical Site Incision: FOUND: bloody drainage present, intact, tl present Wound Drainage: FOUND: minimal amount, sanguinous Integumentary (Brief) Integumentary Brief: FOUND brusing (Minimal ), NOT FOUND erythemia Neurologic (Brief) Neurological Brief: FOUND: extremities w/o deficits, neuro intact Psychiatric (Brief) Psychiatric Brief: FOUND: alert, no acute distress Laboratory Laboratory Laboratory Tests 06/08/16 04:31 Laboratory Tests 06/08/16 04:31 Assessment & Plan Problems: (1) S/P CABG (coronary artery bypass graft) Status: Acute (2) Status post hip surgery Status: Acute Assessment & Plan: Continues to have dark bloody drainage. The blood is very dark with no signs of erythema or foul odor. Pain levels are stable and not increasing. Because of the persistent bloody drainage most likely from a retained hematoma I did recommend surgical evacuation of retained hematoma from the right hip surgical site. I reviewed the risks and benefits of surgery and expected postoperative course she agreed this plan. We will plan on surgery today at noon. Hospital Course Summary Disclaimer The visit summary below is not to be considered part of the above Progress Note. Hospital Course 06/04/16 Spoke with Ayde Hughes with Dr. Lopez regarding patient's recent CABG procedure and ongoing treatment recommendations. She does recommend patient be on anticoagulation as she did have A-fib postoperatively. She would prefer Eliquis if not contraindicated. Given mild oozing from right hip incision will consult Dr Champagne for orthopedic evaluation of incision prior to starting anticoagulation. Patient does need postop anticoagulation for 30 days from right hemiarthroplasty performed on 05/16/16. Patient did have a right groin hematoma post heart catheter that was evaluated while at [place]. Overall this is improving. Continue with amiodarone given recent atrial fibrillation. She was noted to have elevated white count at 16.3. Will check a UA to rule out infection. Bumex 1 mg BID for ongoing diuresis. Oral Dilaudid and Ultram for pain control Continue SCDs to bilateral lower external for DVT prophylaxis Scheduled MiraLAX and Colace twice a day for ongoing bowel motivation. Encourage work with PT/OT for ongoing strengthening Will discuss case with attending Dr Hobson 06/05/16 Continue to monitor right hip dressing for oozing. Several more tl were placed by Dr Champagne Continue on ASA only at this time, Case discussed with Dr Lopez yesterday . Continue to monitor blood sugars. Fasting sugar this morning was 146. Will increase sliding scale to medium range dosing and continue to follow. Will recheck CBC and BMP tomorrow morning to follow leukocytosis ANNE CHAMPAGNE MD Jun 08, 2016 08:01
[2016-06-08] MEDS: AMIODARONE 200 MG TABLET PO SCH ×3 (09:00→20:36)
[2016-06-08] MEDS: ASCORBIC ACID 500 MG TABLET PO SCH (09:00)
[2016-06-08] MEDS: DOCUSATE SODIUM 100 MG CAPSULE PO SCH ×2 (09:00→20:37)
[2016-06-08] MEDS: POLYETHYL.GLYCOL 3350 PACKET 17gm PO SCH ×2 (09:00→20:35)
[2016-06-08] MEDS: LIDOCAINE 5% PATCH TOP SCH ×2 (09:00→14:07)
[2016-06-08] MEDS: ASPIRIN 81 MG CHEWABLE TABLET PO SCH (10:55)
[2016-06-08] MEDS: BUMETANIDE 1 MG TABLET PO SCH ×2 (10:55→17:05)
--- NOTE | 2016-06-08 11:20 | NUR ---
TRANSFER Pt assist x 1 with miguelina-walker to cart. PT transferred to pre-op at this time by cart. Report given of last blood glucose. Pt's son here and followed her down to pre-op. Pt in no acute distress. Pt voided prior to leaving.
[2016-06-08] MEDS ORDERED: CEFAZOLIN 2 G in NORMAL SALINE 100 ML IV ONE (11:45)
[2016-06-08] MEDS ORDERED: CEFAZOLIN 1 GRAM INJECTION IV ONE (11:45)
--- NOTE | 2016-06-08 11:49 | PNPDOC ---
IRU Subjective Date DATE: 06/08/16 TIME: 11:37 Subjective Debridement of hip hematoma today by Dr Champagne. Pt is prepared to go. Looking forward to getting back to PT and OT tomorrow. IRU Objective Vital Signs Vital signs Vital Signs Date Time Temp Pulse Resp B/P Pulse Ox O2 Delivery O2 Flow Rate FiO2 06/08/16 09:15 78 18 06/08/16 08:00 97.5 135/63 93 Room Air Height (Feet): 5 Height (Inches): 5.00 Weight (Kilograms): 76.700 General General Appearance: Alert, Orientated x 2 Respiratory (Brief) Respiratory: FOUND: clear all anaya, equal bilaterally, wheezes Cardiovascular (Brief) Cardiac: FOUND: regular rate, regular rhythm Capillary Refill: <2 sec Laboratory Laboratory Laboratory Tests Test 06/06/16 14:22 06/06/16 22:01 06/07/16 05:58 06/07/16 10:28 Glucometer 113mg/dL 156mg/dL 137mg/dL 221mg/dL Test 06/07/16 14:21 06/07/16 21:58 06/08/16 04:31 06/08/16 05:50 Glucometer 154mg/dL 182mg/dL 144mg/dL White Blood Count 16.8T/MM3 Red Blood Count 3.62M/MM3 Hemoglobin 10.6GM/DL Hematocrit 33.6% Mean Corpuscular Volume 92.8UM3 Mean Corpuscular Hemoglobin 29.3UUG Mean Corpuscular Hemoglobin Concent 31.5GM/DL RDW Standard Deviation 55.6FL Platelet Count 257T/MM3 Mean Platelet Volume 12.2UM3 Immature Granulocyte % (Auto) % Neutrophils (%) (Auto) % Lymphocytes (%) (Auto) % Monocytes (%) (Auto) % Eosinophils (%) (Auto) % Basophils (%) (Auto) % Absolute Immature Granulocyte (auto T/MM3 Absolute Neutrophils (auto) T/MM3 Absolute Lymphocytes (auto) T/MM3 Absolute Monocytes (auto) T/MM3 Absolute Eosinophils (auto) T/MM3 Absolute Basophils (auto) T/MM3 Neutrophils % (Manual) 76.0% Lymphocytes % (Manual) 14.0% Monocytes % (Manual) 7.0% Eosinophils % (Manual) 3.0% Absolute Neutrophils (Manual) 12.8T/MM3 Lymphocytes # (Manual) 2.4T/MM3 Monocytes # (Manual) 1.2T/MM3 Eosinophils # (Manual) 0.5T/MM3 Poikilocytosis 1+ Anisocytosis 1+ Red Cell Morphology Comment Abnormal Turbidity < 20 Sodium Level 135MEQ/L Potassium Level 4.7MEQ/L Chloride Level 98MEQ/L Carbon Dioxide Level 28MEQ/L Anion Gap 9MEQ/L Blood Urea Nitrogen 28.0MG/DL Creatinine 1.1MG/DL Glomerular Filtration Rate Calc 47 BUN/Creatinine Ratio 26RATIO Glucose Level 137MG/DL Calculated Osmolality 268MOSM/KG Calcium Level 8.6MG/DL Icterus Index < 2 C-Reactive Protein 64.5MG/L Chemistry Specimen Hemolysis 19 Test 06/08/16 08:03 06/08/16 10:15 Glucometer 147mg/dL Assessment & Plan Problems: (1) Myopathic disease or syndrome Status: Acute Assessment & Plan: To resume PT and OT tomorrow. She is making progress, and I expect she will be even more successful after debridement of hip. (2) Neuropathy Status: Chronic Assessment & Plan: Continue with pt and ot to learn to accommodate. (3) Debility Status: Acute Assessment & Plan: cont with pt and ot. (4) HTN (hypertension) Status: Chronic (5) S/P CABG (coronary artery bypass graft) Status: Acute (6) Status post hip surgery Status: Acute (7) Diabetes mellitus Onset Date: ~ 05/2016 Status: Chronic (8) History of atrial fibrillation Status: Chronic (9) Chronic kidney disease Status: Chronic Code Status Full Code Interventions to Obtain Goals PT Treatment Plan: Therapeutic Exercise, Gait Training, Functional Activities , Patient/Family Education, Balance/Proprioception OT Treatment Plan: ADL's (basic care), Ther. Exercise for ADL's, UE Functional Training, Balance Training, Pt./Family Education, IADL's Hospital Course Summary Disclaimer The hospital course summary below is not to be considered part of the above Progress Note. Hospital Course Summary 06/04/16 Spoke with Ayde Hughes with Dr. Lopez regarding patient's recent CABG procedure and ongoing treatment recommendations. She does recommend patient be on anticoagulation as she did have A-fib postoperatively. She would prefer Eliquis if not contraindicated. Given mild oozing from right hip incision will consult Dr Champagne for orthopedic evaluation of incision prior to starting anticoagulation. Patient does need postop anticoagulation for 30 days from right hemiarthroplasty performed on 05/16/16. Patient did have a right groin hematoma post heart catheter that was evaluated while at [place]. Overall this is improving. Continue with amiodarone given recent atrial fibrillation. She was noted to have elevated white count at 16.3. Will check a UA to rule out infection. Bumex 1 mg BID for ongoing diuresis. Oral Dilaudid and Ultram for pain control Continue SCDs to bilateral lower external for DVT prophylaxis Scheduled MiraLAX and Colace twice a day for ongoing bowel motivation. Encourage work with PT/OT for ongoing strengthening Will discuss case with attending Dr Hobson 06/05/16 Continue to monitor right hip dressing for oozing. Several more tl were placed by Dr Champagne Continue on ASA only at this time, Case discussed with Dr Lopez yesterday . Continue to monitor blood sugars. Fasting sugar this morning was 146. Will increase sliding scale to medium range dosing and continue to follow. Will recheck CBC and BMP tomorrow morning to follow leukocytosis BHAVNA MCALLISTER MD Jun 08, 2016 11:40
--- NOTE | 2016-06-08 11:50 | NUR ---
SURGERY CANCELLED PT IN A-FIB WITH [facility]. PT TO BE RETURNED TO IRU (ROOM #[id number]) UNTIL CARDIAC CLEARANCE CAN BE OBTAINED.
--- NOTE | 2016-06-08 12:00 | NUR ---
RETURN PT returned to room 174 by cart at this time. See notes by pre-op RN. Pt able to stand and move to bed. Pt denies chest pain. Will do post op vitals to make sure Pt is safe. Lisset BLACKWELL notified of Dr. Jessica shepherd. Will continue to monitor.
[2016-06-08] MEDS: NORMAL SALINE 1,000 ML IV PRN (12:10)
[2016-06-08] MEDS: HYDROMORPHONE 2 MG TABLET PO PRN ×3 (12:22→20:23)
--- NOTE | 2016-06-08 12:41 | CONSPD ---
TANYA MONROE [facility] 06/08/16 1229: Consultation Info Date DATE: 06/08/16 TIME: 12:23 Date of Consultation: Jun 08, 2016 Attending Physician: Chidi Mendoza MD Reason for Consultation: AFib RVR HPI - Adult Date DATE: 06/08/16 TIME: 12:23 General Date of Admission Date of Admission: Jun 03, 2016 at 11:42 Chief Complaint: status post CABG, right hip arthroplasty History of Present Illness Talisha is a 85 year old female who is well known to Dr. Olmos who is admitted to IRU for strengthening post Femur fx with ORIF and subsequent RI with 5 vessel CABG. She was admitted initially to IRU on 05/20/16 s/p ORIF of femur fx. She c/o mid epigastric pain and indigestion which tums and PPI were not eliminating. Labs drawn and elevated troponin noted with ST depression on EKG. She was taken to [facility] and severe 5 vessel CAD discovered; she then transferred to [place] for CABG x 5. She has recovered well, except for development of Afib. She is being admitted to IRU for strengthening and safety awareness with Hip fx and CABG surgery. She is eager to return to home if possible and is committed to at least 3 hours of PT and OT daily. She has still been having drainage from her hip incision and Dr. Champagne planned to do an I & D today so she was made NPO and her morning meds were held but Talisha was found to be currently in AFib with RVR. Past Medical History Current Medications Home Meds Reported Medications Ascorbic Acid (Ascorbic Acid) 500 Mg Tablet, 1 TAB PO DAILY, TAB 06/03/16 Polyethylene Glycol 3350 (Miralax) 17 Gm Powd.pack, 17 G PO BID, Take 17 Grams (1 capful), by mouth, once a day. 06/03/16 Docusate Sodium (Docusate Sodium) 100 Mg Capsule, 1 CAP PO BID, CAP 06/03/16 Bumetanide (Bumetanide) 1 Mg Tablet, 1 TAB PO BID for 4 Days, #8 TAB 06/03/16 Potassium Chloride (Potassium Chloride) 20 Meq Tablet.er, 20 MEQ PO BIDWM, TAB Take 1 tablet, by mouth, two times a day with meals. 06/03/16 [tylenol supp] No Conflict Check, 650 MG RECTALLY Q4HPRN 06/03/16 Acetaminophen (Tylenol) 325 Mg Tablet, 2 TAB PO Q4HPRN, 06/03/16 Hydromorphone HCl (Dilaudid) 2 Mg Tablet, 1 MG PO [id number], 06/03/16 Aspirin (Aspirin) 81 Mg Tab.chew, 1 TAB PO DAILY, TAB 06/03/16 Metoprolol Tartrate (Metoprolol Tartrate) 25 Mg Tablet, 25 MG PO BID, TAB Take 1 tab, by mouth, two time a day with meals. 06/03/16 Atorvastatin Calcium (Atorvastatin Calcium) 40 Mg Tablet, 1 TAB PO HS, TAB 06/03/16 Amiodarone HCl (Amiodarone HCl) 200 Mg Tablet, 200 MG PO BID, TAB 06/03/16 Ferrous Sulfate (Ferrous Sulfate) 325 Mg Tablet, 1 TAB PO TIDWM, TAB BEST WITH FOOD. 06/03/16 Omeprazole (Omeprazole) 40 Mg Capsule.dr, 1 CAP PO DAILY, CAP 05/15/16 Tramadol HCl (Tramadol HCl) 50 Mg Tablet, 50 MG PO Q6HR Y for PAIN 05/14/16 Gabapentin (Gabapentin) 300 Mg Capsule, 300 MG PO HS 05/14/16 Metoclopramide HCl (Metoclopramide HCl) 10 Mg Tablet, 10 MG PO DAILY 05/14/16 Allergies: Coded Allergies: clavulanic acid (Verified Allergy, Intermediate, DIZZINESS, 05/17/16) clindamycin (Verified Allergy, Intermediate, RASH, 05/18/16) Egg. (Verified Allergy, Unknown, 06/03/16) Sulfa (Sulfonamide Antibiotics) (Verified Allergy, Unknown, 05/14/16) iodine (Verified Allergy, Unknown, 05/14/16) morphine (Verified Allergy, Unknown, 05/14/16) amoxicillin (Verified Adverse Reaction, Intermediate, PALPITATION and rash , 06/09/16) Vaccines 2015 2015 Social History Smoking Status: Never smoker Does patient use chewing tobac: No Second Hand Exposure: No Substance Use Type: does not use Marital Status: Housing: house Household Members: children Current Occupational Status: retired Advance Directives: Yes DPOA for Healthcare Only Review of Systems Constitutional: DENIES: chills, dizziness, fever, weakness Eyes General: DENIES: pain Vision: DENIES: double vision ENMT Hearing: DENIES: tinnitus Balance: DENIES: vertigo Sinuses: NOT FOUND: rhinorrhea Nose: NOT FOUND: pain Mouth/Throat: DENIES: sore throat Cardiovascular chest pain (incisional at times), DENIES: dyspnea on exertion, murmur Rhythm/Rate: DENIES: irregular beat, palpitations, tachycardia Pulmonary Respiratory: DENIES: cough, sputum GI Upper Abdomen: DENIES: nausea, vomiting Lower Abdomen: DENIES: blood in stool, diarrhea General: DENIES: dysuria Musculoskeletal General: pain (hip) Integumentary Skin: DENIES: rash, sores Neurological General: DENIES: headache, numbness, seizures, syncope, weakness All Other Systems All Other Systems: Reviewed (remainder of 10-point ROS Neg.) Physical Exam General General Nourishment: well nourished, well developed, apparent age Vital Signs Vital Signs Date Time Temp Pulse Resp B/P Pulse Ox O2 Delivery O2 Flow Rate FiO2 06/08/16 11:40 97.5 116 18 140/65 91 Room Air Height (Feet): 5 Height (Inches): 5.00 Telemetry Rhythm: Atrial Fibrillation ENMT Brief: FOUND: mucosa moist Neck Brief: NOT FOUND: JVD, carotid bruits Respiratory Brief: FOUND: clear all anaya, equal bilaterally, NOT FOUND: rales , wheezes Cardiovascular (brief) Cardiac Brief: NOT FOUND: click, gallop, murmur, pedal edema, regular rate, regular rhythm Abdomen (brief) Abdominal Brief: FOUND: BS normo active x4, soft Integumentary (brief) Integumentary Brief: FOUND: dry, pink, warm Neurologic RN Documented GCS Eye Opening: Verbal: Motor: Total: Psychiatric (brief) FOUND: alert, attentive, oriented Laboratory Laboratory Tests Test 06/06/16 14:22 06/06/16 22:01 06/07/16 05:58 06/07/16 10:28 Glucometer 113mg/dL 156mg/dL 137mg/dL 221mg/dL Test 06/07/16 14:21 06/07/16 21:58 06/08/16 04:31 06/08/16 05:50 Glucometer 154mg/dL 182mg/dL 144mg/dL White Blood Count 16.8T/MM3 Red Blood Count 3.62M/MM3 Hemoglobin 10.6GM/DL Hematocrit 33.6% Mean Corpuscular Volume 92.8UM3 Mean Corpuscular Hemoglobin 29.3UUG Mean Corpuscular Hemoglobin Concent 31.5GM/DL RDW Standard Deviation 55.6FL Platelet Count 257T/MM3 Mean Platelet Volume 12.2UM3 Immature Granulocyte % (Auto) % Neutrophils (%) (Auto) % Lymphocytes (%) (Auto) % Monocytes (%) (Auto) % Eosinophils (%) (Auto) % Basophils (%) (Auto) % Absolute Immature Granulocyte (auto T/MM3 Absolute Neutrophils (auto) T/MM3 Absolute Lymphocytes (auto) T/MM3 Absolute Monocytes (auto) T/MM3 Absolute Eosinophils (auto) T/MM3 Absolute Basophils (auto) T/MM3 Neutrophils % (Manual) 76.0% Lymphocytes % (Manual) 14.0% Monocytes % (Manual) 7.0% Eosinophils % (Manual) 3.0% Absolute Neutrophils (Manual) 12.8T/MM3 Lymphocytes # (Manual) 2.4T/MM3 Monocytes # (Manual) 1.2T/MM3 Eosinophils # (Manual) 0.5T/MM3 Poikilocytosis 1+ Anisocytosis 1+ Red Cell Morphology Comment Abnormal Turbidity < 20 Sodium Level 135MEQ/L Potassium Level 4.7MEQ/L Chloride Level 98MEQ/L Carbon Dioxide Level 28MEQ/L Anion Gap 9MEQ/L Blood Urea Nitrogen 28.0MG/DL Creatinine 1.1MG/DL Glomerular Filtration Rate Calc 47 BUN/Creatinine Ratio 26RATIO Glucose Level 137MG/DL Calculated Osmolality 268MOSM/KG Calcium Level 8.6MG/DL Icterus Index < 2 C-Reactive Protein 64.5MG/L Chemistry Specimen Hemolysis 19 Test 06/08/16 08:03 06/08/16 10:15 Glucometer 147mg/dL Laboratory Tests Test 06/06/16 14:22 06/06/16 22:01 06/07/16 05:58 06/07/16 10:28 Glucometer 113mg/dL 156mg/dL 137mg/dL 221mg/dL Test 06/07/16 14:21 06/07/16 21:58 06/08/16 04:31 06/08/16 05:50 Glucometer 154mg/dL 182mg/dL 144mg/dL White Blood Count 16.8T/MM3 Red Blood Count 3.62M/MM3 Hemoglobin 10.6GM/DL Hematocrit 33.6% Mean Corpuscular Volume 92.8UM3 Mean Corpuscular Hemoglobin 29.3UUG Mean Corpuscular Hemoglobin Concent 31.5GM/DL RDW Standard Deviation 55.6FL Platelet Count 257T/MM3 Mean Platelet Volume 12.2UM3 Immature Granulocyte % (Auto) % Neutrophils (%) (Auto) % Lymphocytes (%) (Auto) % Monocytes (%) (Auto) % Eosinophils (%) (Auto) % Basophils (%) (Auto) % Absolute Immature Granulocyte (auto T/MM3 Absolute Neutrophils (auto) T/MM3 Absolute Lymphocytes (auto) T/MM3 Absolute Monocytes (auto) T/MM3 Absolute Eosinophils (auto) T/MM3 Absolute Basophils (auto) T/MM3 Neutrophils % (Manual) 76.0% Lymphocytes % (Manual) 14.0% Monocytes % (Manual) 7.0% Eosinophils % (Manual) 3.0% Absolute Neutrophils (Manual) 12.8T/MM3 Lymphocytes # (Manual) 2.4T/MM3 Monocytes # (Manual) 1.2T/MM3 Eosinophils # (Manual) 0.5T/MM3 Poikilocytosis 1+ Anisocytosis 1+ Red Cell Morphology Comment Abnormal Turbidity < 20 Sodium Level 135MEQ/L Potassium Level 4.7MEQ/L Chloride Level 98MEQ/L Carbon Dioxide Level 28MEQ/L Anion Gap 9MEQ/L Blood Urea Nitrogen 28.0MG/DL Creatinine 1.1MG/DL Glomerular Filtration Rate Calc 47 BUN/Creatinine Ratio 26RATIO Glucose Level 137MG/DL Calculated Osmolality 268MOSM/KG Calcium Level 8.6MG/DL Icterus Index < 2 C-Reactive Protein 64.5MG/L Chemistry Specimen Hemolysis 19 Test 06/08/16 08:03 06/08/16 10:15 Glucometer 147mg/dL Radiology DATE OF EXAM: 06/05/16 ORDERING DOCTOR: ANNE CHAMPAGNE MD TYPE OF EXAM: HIP RIGHT 2 VIEW REASON FOR EXAM: post op Indication: ITS.REASON: post op PROCEDURE: HIP RIGHT 2 VIEW: Encounter: Initial Comparison: May 16, 2016 Findings: Postoperative changes of right femoral head replacement are again seen. Prosthesis appears stable. No evidence of hardware failure or acute fracture. Impression: Stable appearance of the right femoral head prosthesis. Impression/Recommendation Problems: (1) Atrial fibrillation with rapid ventricular response Status: Acute Assessment & Plan: EKG now Give morning meds that were held. (2) CAD (coronary artery disease) Status: Chronic (3) S/P CABG (coronary artery bypass graft) Onset Date: ~ 05/20/2016 Status: Acute (4) HTN (hypertension) Status: Chronic (5) Diabetes mellitus Onset Date: ~ 05/2016 Status: Chronic Recommendation Give medications as ordered. If plan to I&D tomorrow, she is stable from a cardiac standpoint and may have needed I & D. please given beta rachelle and antiarrhythmic with a sip of water as scheduled. Thank you for allowing us to participate in the care of this patient. BERNIE OLMOS MD 06/10/16 6890: Past Medical History Current Medications Home Meds Reported Medications Ascorbic Acid (Ascorbic Acid) 500 Mg Tablet, 1 TAB PO DAILY, TAB 06/03/16 Polyethylene Glycol 3350 (Miralax) 17 Gm Powd.pack, 17 G PO BID, Take 17 Grams (1 capful), by mouth, once a day. 06/03/16 Docusate Sodium (Docusate Sodium) 100 Mg Capsule, 1 CAP PO BID, CAP 06/03/16 Bumetanide (Bumetanide) 1 Mg Tablet, 1 TAB PO BID for 4 Days, #8 TAB 06/03/16 Potassium Chloride (Potassium Chloride) 20 Meq Tablet.er, 20 MEQ PO BIDWM, TAB Take 1 tablet, by mouth, two times a day with meals. 06/03/16 [tylenol supp] No Conflict Check, 650 MG RECTALLY Q4HPRN 06/03/16 Acetaminophen (Tylenol) 325 Mg Tablet, 2 TAB PO Q4HPRN, 06/03/16 Hydromorphone HCl (Dilaudid) 2 Mg Tablet, 1 MG PO [id number], 06/03/16 Aspirin (Aspirin) 81 Mg Tab.chew, 1 TAB PO DAILY, TAB 06/03/16 Metoprolol Tartrate (Metoprolol Tartrate) 25 Mg Tablet, 25 MG PO BID, TAB Take 1 tab, by mouth, two time a day with meals. 06/03/16 Atorvastatin Calcium (Atorvastatin Calcium) 40 Mg Tablet, 1 TAB PO HS, TAB 06/03/16 Amiodarone HCl (Amiodarone HCl) 200 Mg Tablet, 200 MG PO BID, TAB 06/03/16 Ferrous Sulfate (Ferrous Sulfate) 325 Mg Tablet, 1 TAB PO TIDWM, TAB BEST WITH FOOD. 06/03/16 Omeprazole (Omeprazole) 40 Mg Capsule.dr, 1 CAP PO DAILY, CAP 05/15/16 Tramadol HCl (Tramadol HCl) 50 Mg Tablet, 50 MG PO Q6HR Y for PAIN 05/14/16 Gabapentin (Gabapentin) 300 Mg Capsule, 300 MG PO HS 05/14/16 Metoclopramide HCl (Metoclopramide HCl) 10 Mg Tablet, 10 MG PO DAILY 05/14/16 Allergies: Coded Allergies: clavulanic acid (Verified Allergy, Intermediate, DIZZINESS, 05/17/16) clindamycin (Verified Allergy, Intermediate, RASH, 05/18/16) Egg. (Verified Allergy, Unknown, 06/03/16) Sulfa (Sulfonamide Antibiotics) (Verified Allergy, Unknown, 05/14/16) iodine (Verified Allergy, Unknown, 05/14/16) morphine (Verified Allergy, Unknown, 05/14/16) amoxicillin (Verified Adverse Reaction, Intermediate, PALPITATION and rash , 06/09/16) Impression/Recommendation Recommendation After examining the patient I agree with the above assessment. I am involved in the formulation of the patient's plan of care. TANYA MONROE APRN Jun 08, 2016 12:29 BERNIE OLMOS MD Jun 10, 2016 14:58
--- NOTE | 2016-06-08 12:55 | PDIRUTEAM ---
Multidisciplinary Team Meeting Nursing Hx Incontinence: No Bladder Goal: 7+ Complete [place] Mason Y/N: No Bladder Continent or Incontine: Continent Incontinent Product Used: Pull-up Number of Times Incontinent of: 0 Cleaning Ability-Bladder: 5 Supervision/Setup Bladder Incontinence Managemen: 4 Minimal Assistance Bowel Goal: 7+ Complete [place] Colostomy Y/N: No Bowel Incontinent/Continent: Continent Bowel Number of Accidents: 0 Number of times Incontinent of: 0 Cleaning Ability-Bowel: 5 Supervision/Setup Toileting Ability: 5 Supervision/Setup Vital Signs Vital Signs Date Time Temp Pulse Resp B/P Pulse Ox O2 Delivery O2 Flow Rate FiO2 06/08/16 12:25 120 14 139/67 97 Room Air 06/08/16 12:10 98.6 Current Medications Current Medications Medications (Trade) Dose Ordered Sig/Silver Route PRN Reason Start Time Stop Time Status Last Admin Dose Admin Docusate Sodium (Colace) 100 mg BID PO 06/03/16 21:00 06/07/16 21:15 Acetaminophen (Tylenol Regular Strength) 650 mg Q6HR PRN PO PAIN 06/03/16 14:30 06/07/16 21:17 Amiodarone HCl (Pacerone) 200 mg BID PO 06/03/16 21:00 06/07/16 21:16 Ascorbic Acid (VITAMIN C 500 mg Tablet) 500 mg DAILY PO 06/04/16 09:00 06/07/16 08:15 Aspirin (ASA) 81 mg DAILY PO 06/04/16 09:00 06/07/16 08:14 Atorvastatin Calcium (LIPITOR 40 mg) 40 mg HS PO 06/03/16 22:00 06/07/16 21:16 Bumetanide (BUMEX 1 mg TAB) 1 mg BID PO 06/03/16 21:00 06/05/16 06:44 DC 06/04/16 20:22 Ferrous Sulfate (Feosol) 324 mg TIDWM PO 06/03/16 17:30 06/07/16 17:53 Gabapentin (Neurontin) 300 mg HS PO 06/03/16 22:00 06/07/16 21:16 Hydromorphone HCl (Dilaudid) 1-2 Q4HR PRN PO PAIN 06/03/16 14:30 06/08/16 12:22 Metoprolol Tartrate (Lopressor) 25 mg BIDBS PO 06/03/16 17:30 06/07/16 18:04 Omeprazole (Prilosec) 40 mg ACB PO 06/04/16 06:30 06/07/16 05:59 Polyethylene Glycol (Miralax) 17 g BID PO 06/03/16 21:00 06/07/16 08:15 Potassium Chloride (Kdur) 20 meq BIDWM PO 06/03/16 17:30 06/07/16 17:53 Tramadol HCl (Ultram) 50 mg Q6HR PRN PO PAIN 06/03/16 14:30 06/07/16 23:39 Al Hydroxide/Mg Hydroxide (Maalox) 30 ml Q3-4H PRN PO INDIGESTION 06/03/16 15:30 06/03/16 15:29 Insulin Human Lispro (Humalog) SS PRN SQ 06/03/16 18:15 06/05/16 16:54 DC 06/05/16 10:25 Ondansetron HCl (Zofran Odt) 4 mg Q4H PRN PO NAUSEA &/OR VOMITING 06/03/16 18:30 06/08/16 08:54 Metoclopramide HCl (Reglan) 5 mg ACHS PO 06/03/16 22:00 06/08/16 12:24 Bumetanide (BUMEX 1 mg TAB) 1 mg BID. PO 06/05/16 09:00 06/07/16 17:52 Benzocaine (Americaine Hemorr. Oint.) 1 applic BID PRN TOP HEMORRHOIDS 06/05/16 13:00 06/07/16 19:40 Insulin Human Lispro (Humalog) SS PRN SQ 06/05/16 17:00 06/07/16 22:04 Lidocaine (Lidoderm) 1 patch DAILY TOP 06/07/16 12:30 06/07/16 13:05 Lidocaine (Lidoderm Patch Removal) 1 removal 2100 TOP 06/07/16 21:00 06/07/16 21:16 Hydromorphone HCl 0.5 mg 0.5 mg Q2H PRN IV PAIN 06/07/16 21:45 06/08/16 08:46 Sodium Chloride (Normal Saline IV) 1,000 ml @ 0 mls/hr Q0M PRN IV 06/08/16 12:08 06/08/16 12:10 Comments Right hip fx, post op MD on IRU, then cabg x 5. Today to go to OR for debridement of hematoma on hip, but was in RVR when taken to preop this am. Will return and retrytomorrow. Physical Therapy Bed Transfer Ability: 4 Minimal Assistance Bed Transfer Assistance Needed: 1 Person Bed FIM Score Reason: Pt refused. Chair Transfer Ability: 5 Supervision/Setup Chair Transfer Assistance Need: 1 Person Overall Wheelchair Transfer Ab: 5 Supervision/Setup Wheelchair Transfer Assistance: 1 Person Overall Toilet / Commode Trans: 5 Supervision/Setup Ambulation Ability: 2 Maximum Assistance Ambulation Assistance Needed: 2 Persons Walk FIM Score Reason: 08/16 A Ambulation Distance: 90 Comments lacks motivation on walks and transfers. She needs to be encouraged while doing it. Occupational Therapy Grooming Ability: 5 Supervision/Setup Bathing Ability: 3 Moderate Assistance Upper Body Dressing Ability: 4 Minimal Assistance Lower Body Dressing Ability: 4 Minimal Assistance Toileting Assistance Needed: 1 Person Toileting FIM Score Reason: needs min assist getting pants over dressing Comments requires encouragement. Care Plan Condition at time of discharge: Fair IRU Discharge Disposition: Home Health Service Interventions/Goals Pt wants d/c to home, but may not be realistic. On day 5 of 14 Barriers to d/c: strength,motivation,hematoma. BHAVNA MCALLISTER MD Jun 08, 2016 12:53
[2016-06-08] MEDS ORDERED: SEVOFLURANE 250 ML LIQUID IH ONE (14:00)
[2016-06-08] MEDS ORDERED: ROCURONIUM 50mg/5ml INJECTION IV ONE (14:00)
[2016-06-08] MEDS ORDERED: BUPIVACAINE 0.25%/EPI 1:200,000 30ml SDV INJ ONE (14:00)
[2016-06-08] MEDS: TRAMADOL 50 MG TABLET PO PRN ×2 (14:04→22:02)
[2016-06-08] MEDS: ACETAMINOPHEN 325 MG TABLET PO PRN ×2 (14:04→22:02)
--- NOTE | 2016-06-08 14:25 | PNPDOC ---
Subjective Date DATE: 06/08/16 TIME: 14:15 Melany Woodall is seen multiple times throughout the day. She initially was seen with Dr. Champagne early this morning for evaluation of her right hip incision. He continues to have oozing of blood on the dressing. Dr. Champagne recommended taking patient back to surgery to open her incision and drain the known hematoma. When patient got into the preop area. She spontaneously went into atrial fibrillation , RVR, rate in the 130s. This also happened several weeks ago post CABG patient was at [facility]. Patient's only complaint during this time was feeling her heart beating like "palpitations". Objective Vital Signs Vital signs Vital Signs Date Time Temp Pulse Resp B/P Pulse Ox O2 Delivery O2 Flow Rate FiO2 06/08/16 13:42 81 113/56 94 Room Air 06/08/16 12:45 14 06/08/16 12:10 98.6 Telemetry Rhythm: Atrial Fibrillation Height (Feet): 5 Height (Inches): 5.00 Weight (Kilograms): 76.700 General General Appearance: Alert, Orientated x 3, Cooperative, No Acute Distress Eyes (Brief) Eyes: FOUND: EOMI ENMT (Brief) ENMT: FOUND: mucosa moist, normal dentition, NOT FOUND: pharnyx erythema Neck (Brief) Neck: FOUND: midline, NOT FOUND: adenopathy, carotid bruits, tracheal deviation Respiratory (Brief) Respiratory: FOUND: clear all anaya, equal bilaterally, NOT FOUND: wheezes Cardiovascular (Brief) Cardiac: FOUND: regular rate, NOT FOUND: murmur, pedal edema Capillary Refill: <2 sec Comments Tachycardia, atrial fibrillation, rate 110 on re-examination Abdomen (Brief) Abdominal: FOUND: BS normo active x4, soft, NOT FOUND: distended, tender Lymphatic (Brief) Lymphatic: NOT FOUND: adenopathy Musculoskeletal (Brief) Musculoskeletal: NOT FOUND: tenderness Integumentary (Brief) Integumentary: FOUND: dry, pink, warm Neurologic (Brief) Neurological: FOUND: cranial 2-12 intact Psychiatric (Brief) Psychiatric: FOUND: alert, attentive, normal affect, oriented Laboratory Laboratory Laboratory Tests 06/08/16 04:31 Laboratory Tests 06/08/16 04:31 Assessment & Plan Problems: (1) S/P CABG (coronary artery bypass graft) Onset Date: ~ 05/20/2016 Status: Acute Assessment & Plan: 05/20/16- Dr Lopez (2) Status post hip surgery Status: Acute Assessment & Plan: 05/16/16- Dr Champagne- right Brock-arthroplasty (3) Chronic kidney disease Status: Chronic (4) Diabetes mellitus Onset Date: ~ 05/2016 Status: Chronic (5) HTN (hypertension) Status: Chronic (6) History of atrial fibrillation Status: Chronic (7) Hypercholesteremia Status: Chronic (8) Peptic ulcer disease Status: Chronic (9) Pseudoarthrosis Status: Chronic (10) Basal cell carcinoma Status: Chronic (11) Allergic rhinitis Status: Chronic (12) GERD (gastroesophageal reflux disease) Status: Chronic Plan/Intensity of Service 06/08/16 At this time, will recommend holding off on surgical procedure until cardiac rate control has been further evaluated and treated. Consultation was placed to Dr. Lopez for further recommendations. Patient has continued to receive her amiodarone, however, did have her beta rachelle held this morning due to Patient is to be monitored on cardiac telemetry. Current anticoagulation is aspirin. This may need to be discussed further with all providers involved including Dr. Lopez, Dr. Hobson and Dr. Champagne Will reevaluate patient later today, the hope is that she will be able to have her hip procedure tomorrow by Dr. Champagne. Code Status Full Code Hospital Course Summary Disclaimer The hospital course summary below is not to be considered part of the above Progress Note. Hospital Course Summary 06/04/16 Spoke with Ayde Hughes with Dr. Lopez regarding patient's recent CABG procedure and ongoing treatment recommendations. She does recommend patient be on anticoagulation as she did have A-fib postoperatively. She would prefer Eliquis if not contraindicated. Given mild oozing from right hip incision will consult Dr Champagne for orthopedic evaluation of incision prior to starting anticoagulation. Patient does need postop anticoagulation for 30 days from right hemiarthroplasty performed on 05/16/16. Patient did have a right groin hematoma post heart catheter that was evaluated while at [facility]. Overall this is improving. Continue with amiodarone given recent atrial fibrillation. She was noted to have elevated white count at 16.3. Will check a UA to rule out infection. Bumex 1 mg BID for ongoing diuresis. Oral Dilaudid and Ultram for pain control Continue SCDs to bilateral lower external for DVT prophylaxis Scheduled MiraLAX and Colace twice a day for ongoing bowel motivation. Encourage work with PT/OT for ongoing strengthening Will discuss case with attending Dr Hobson 06/05/16 Continue to monitor right hip dressing for oozing. Several more tl were placed by Dr Champagne Continue on ASA only at this time, Case discussed with Dr Lopez yesterday . Continue to monitor blood sugars. Fasting sugar this morning was 146. Will increase sliding scale to medium range dosing and continue to follow. Will recheck CBC and BMP tomorrow morning to follow leukocytosis 06/08/16 At this time, will recommend holding off on surgical procedure until cardiac rate control has been further evaluated and treated. Consultation was placed to Dr. Lopez for further recommendations. Patient has continued to receive her amiodarone, however, did have her beta rachelle held this morning due to Patient is to be monitored on cardiac telemetry. Current anticoagulation is aspirin. This may need to be discussed further with all providers involved including Dr. Lopez, Dr. Hobson and Dr. Champagne Will reevaluate patient later today, the hope is that she will be able to have her hip procedure tomorrow by Dr. Champagne. KRISTY SARABIA APRN Jun 08, 2016 14:22
[2016-06-08] MEDS: INSULIN LISPRO 100 UNIT/ML SQ PRN ×2 (14:27→22:04)
--- NOTE | 2016-06-08 18:17 | NUR ---
SHIFT SUMMARY Pt has been A/O x 3. Pt went to pre-op and back before procedure done, due to a fib with a run of RVR. Once metoprolol and pacerone po pills taken, Pt went back to sinus rhythm. Pt has denied chest pain this whole day. Pt c/o lower back pain before and after event. Pt has been in bed most of the day and did do therapy prior to leaving for pre-op. Pt did ambulate down to dining room and back this evening. Pt remains continent and has low output, Pt encouraged to drink. Pt's vital signs remains stable, see vital sign assessment. Pt in no acute distress. Pt remains to get up with miguelina-walker and assist x 1 and gait belt. Will continue to monitor.
--- NOTE | 2016-06-08 19:23 | NUR ---
Dressing /pain management Pt's dressing saturated with serous drainage. Dressing not actively bleeding when old bandage taken off. Telfa and 4 x 4 guaze applied and 2 tegaderm sites applied on top of that at this time. Oncoming KASSANDRA Sawyer, observed area and helped with dressing as well. Pt still c/o pain in lower back. Pt's pain is best controlled when po dilaudid and po tylenol/ultram are alternated. Pt's pain reached 10/10 after coming back from pre-op due to no pain medication, and po diluadid given. Pt's pain didn't decrease 1 hour after diluadid given, po ultram and tylenol given and Pt's then stated pain came down to 5-6 /10. Will continue to monitor.
[2016-06-08] MEDS: LIDOCAINE PATCH REMOVAL TOP SCH (20:35)
[2016-06-08] MEDS: ATORVASTATIN 40 MG TABLET PO SCH (21:29)
[2016-06-08] MEDS: GABAPENTIN 300 MG CAPSULE PO SCH (21:29)
[2016-06-09] VITALS (27 sets, daily range): BP systolic 114–157; BP diastolic 44–73; PULSE 65–82; RESP 12–75; TEMP 97.5–97.9; O2SAT 90–96
[2016-06-09] MEDS: HYDROMORPHONE 2mg/ml INJECTION IV PRN ×5 (01:07→13:17)
[2016-06-09] MEDS: ONDANSETRON 4mg/2ml INJECTION IV PRN ×2 (04:18→08:30)
--- NOTE | 2016-06-09 05:52 | NUR ---
Summary Pt has been up to the bathroom several times in the night, sometimes with no urine output. She has complaint of back pain managed with Tramadol, Tylenol, and Dilaudid. Pt rated pain 7-8. Pt went NPO at midnight. IV Dilaudid given for pain and pt stated "it helped a lot". Pt rated pain 4/10. Pt complaint of nausea, [place] text order received for IV Zofran. No further nausea noted. Pt sleeping at this time. bed locked, alarm on, no beverage or food in reach per NPO order.
[2016-06-09] MEDS: METOCLOPRAMIDE 5mg TABLET PO SCH ×4 (06:30→20:55)
[2016-06-09] MEDS: OMEPRAZOLE 20 MG CAPSULE PO SCH (06:30)
[2016-06-09] MEDS: FERROUS SULFATE 324 MG TABLET PO SCH ×3 (08:00→17:33)
[2016-06-09] MEDS: POTASSIUM CHLORIDE 20 MEQ TABLET PO SCH ×2 (08:00→17:33)
[2016-06-09] MEDS: POLYETHYL.GLYCOL 3350 PACKET 17gm PO SCH ×2 (09:00→20:55)
[2016-06-09] MEDS: DOCUSATE SODIUM 100 MG CAPSULE PO SCH ×2 (09:00→20:54)
[2016-06-09] MEDS: BUMETANIDE 1 MG TABLET PO SCH ×2 (09:00→17:33)
--- NOTE | 2016-06-09 09:23 | PNPDOC ---
AUSTYN BUTLER MAINTENANCE PAINTER APPRENTICE 06/09/16 0919: Subjective Date DATE: 06/09/16 TIME: 09:15 Subjective Talisha is feeling nauseated this morning, and she believes it is because she hasn't been able to eat. She had a small bowel movement this morning. She is going to have surgery this afternoon to drain the hematoma on her hip. She denies any further palpitations, chest pain or difficulty breathing. She has been in sinus rhythm. She admits that she has been feeling a little bit down, after considering all of her recent health setbacks, but she is motivated to work with therapy and return home. Objective Vital Signs Vital signs Vital Signs Date Time Temp Pulse Resp B/P Pulse Ox O2 Delivery O2 Flow Rate FiO2 06/09/16 08:14 97.9 77 18 128/63 92 Room Air Telemetry Rhythm: Atrial Fibrillation Height (Feet): 5 Height (Inches): 5.00 Weight (Kilograms): 76.700 General General Appearance: Alert, Orientated x 3, Well Nourished, Well Developed, No Acute Distress Eyes (Brief) Eyes: FOUND: PERRL, NOT FOUND: scleral icterus ENMT (Brief) ENMT: FOUND: mucosa moist, NOT FOUND: pharnyx erythema Respiratory (Brief) Respiratory: FOUND: clear all anaya, equal bilaterally Cardiovascular (Brief) Cardiac: FOUND: other (sternal incision healing well), regular rate, regular rhythm Abdomen (Brief) Abdominal: FOUND: BS normo active x4 (hypoactive bowel sounds), soft, NOT FOUND : distended, tender Extremities (Brief) Extremity : Side: Bilateral Extremity: leg Extremity Finding: NOT FOUND: deformity, edema Musculoskeletal (Brief) Musculoskeletal: NOT FOUND: tenderness (calves are soft and nontender) Integumentary (Brief) Integumentary: FOUND: dry, pink, warm Psychiatric (Brief) Psychiatric: FOUND: alert, attentive, normal affect, oriented Laboratory Laboratory Laboratory Tests 06/08/16 04:31 Laboratory Tests 06/08/16 04:31 Assessment & Plan Problems: (1) S/P CABG (coronary artery bypass graft) Onset Date: ~ 05/20/2016 Status: Acute (2) Status post hip surgery Status: Acute Assessment & Plan: 05/16/16- Dr Champagne- right Brock-arthroplasty (3) Chronic kidney disease Status: Chronic (4) Diabetes mellitus Onset Date: ~ 05/2016 Status: Chronic Qualifiers: Diabetes mellitus type: type 2 (5) HTN (hypertension) Status: Chronic (6) History of atrial fibrillation Status: Chronic (7) Hypercholesteremia Status: Chronic (8) Peptic ulcer disease Status: Chronic (9) Pseudoarthrosis Status: Chronic (10) Basal cell carcinoma Status: Chronic (11) Allergic rhinitis Status: Chronic (12) GERD (gastroesophageal reflux disease) Status: Chronic Plan/Intensity of Service I spoke with Dr. Lopez - pt is in sinus rhythm and has been cleared for surgery. I spoke with Dr. Champagne and updated him as well. Will need to discuss anticoagulation postop. Dr. Champagne prefers nothing stronger than ASA if possible; if needs anticoagulation would like to wait a week before starting, again if possible. However, he understands that if anticoagulation is necessary he would not argue it. Patient is complaining of nausea this morning - Zofran as needed. Repeat labs in am - pt has had leukocytosis. Encouraged pt to set small, achievable goals and let us know if she becomes too depressed. Code Status Full Code Hospital Course Summary Disclaimer The hospital course summary below is not to be considered part of the above Progress Note. Hospital Course Summary 06/04/16 Spoke with Austyn Hughes with Dr. Lopez regarding patient's recent CABG procedure and ongoing treatment recommendations. She does recommend patient be on anticoagulation as she did have A-fib postoperatively. She would prefer Eliquis if not contraindicated. Given mild oozing from right hip incision will consult Dr Champagne for orthopedic evaluation of incision prior to starting anticoagulation. Patient does need postop anticoagulation for 30 days from right hemiarthroplasty performed on 05/16/16. Patient did have a right groin hematoma post heart catheter that was evaluated while at [place]. Overall this is improving. Continue with amiodarone given recent atrial fibrillation. She was noted to have elevated white count at 16.3. Will check a UA to rule out infection. Bumex 1 mg BID for ongoing diuresis. Oral Dilaudid and Ultram for pain control Continue SCDs to bilateral lower external for DVT prophylaxis Scheduled MiraLAX and Colace twice a day for ongoing bowel motivation. Encourage work with PT/OT for ongoing strengthening Will discuss case with attending Dr Hobson 06/05/16 Continue to monitor right hip dressing for oozing. Several more tl were placed by Dr Champagne Continue on ASA only at this time, Case discussed with Dr Lopez yesterday . Continue to monitor blood sugars. Fasting sugar this morning was 146. Will increase sliding scale to medium range dosing and continue to follow. Will recheck CBC and BMP tomorrow morning to follow leukocytosis 06/08/16 At this time, will recommend holding off on surgical procedure until cardiac rate control has been further evaluated and treated. Consultation was placed to Dr. Lopez for further recommendations. Patient has continued to receive her amiodarone, however, did have her beta rachelle held this morning due to Patient is to be monitored on cardiac telemetry. Current anticoagulation is aspirin. This may need to be discussed further with all providers involved including Dr. Lopez, Dr. Hobson and Dr. Champagne Will reevaluate patient later today, the hope is that she will be able to have her hip procedure tomorrow by Dr. Champagne. 06/09/[address] Lopez - pt is in sinus rhythm and has been cleared for surgery. I spoke with Dr. Champagne and updated him as well. Will need to discuss anticoagulation postop. Dr. Champagne prefers nothing stronger than ASA if possible; if needs anticoagulation would like to wait a week before starting, again if possible. However, he understands that if anticoagulation is necessary he would not argue it. Patient is complaining of nausea this morning - Zofran as needed. Repeat labs in am - pt has had leukocytosis. Encouraged pt to set small, achievable goals and let us know if she becomes too depressed. BERNA HOBSON MD 06/09/162009: Assessment & Plan Assessment 06/09/2016-I reviewed this chart, the patient history, and the MAINTENANCE PAINTER APPRENTICE's/PA's documented findings as above. We discussed and formulated the assessment and plan as above with the additions below.-Dr. Hobson Patient states she's feeling okay this evening. She has no chest pain or shortness of breath. No lightheadedness. She was able to eat this afternoon and evening without difficulties. She has some mild postop hip pain. On exam she is alert and oriented and in no acute distress. Chest is clear to auscultation. Cardiovascular reveals a regular rate and rhythm. Abdomen is soft and nontender. These reveal no edema. Continue with current treatment. Dr. Champagne's note was reviewed and I agree with aspirin for DVT prophylaxis and for A. fib/coronary artery disease at this time considering her recent hematoma formation. AUSTYN BUTLER APRN Jun 09, 2016 09:19 BERNA HOBSON MD Jun 09, 2016 20:10
--- NOTE | 2016-06-09 10:33 | NUR ---
Surgery Pt. sent to surgery via wheelchair at this time. VS's stable. BGM noted to be 145. Pt. reports no history of sleep apnea. Briefs are off. Pt. does not have any dentures, glasses, or hearing aids. No jewelry is present. Right hip dressing has been noted to be C/D/I all morning. Brief report given to surgery staff that came to get pt. Chart sent with pt.
--- NOTE | 2016-06-09 10:45 | NUR ---
Pre-Op Antibiotic Message received from Dr Champagne regarding pre-op antibiotic. Dr Champagne wanting pharmacy to recommend antibiotic due to patient's numerous antibiotic allergies. Aliyah notified. States had Cefazolin and Cephalexin during previous admission. Patient denies any reaction to medications given during this time. Ancef 2 gm IV ordered.
[2016-06-09] MEDS: NORMAL SALINE 1,000 ML IV PRN (10:54)
--- NOTE | 2016-06-09 10:54 | ANESPREOP ---
Anesthesia Record Date and Time DATE: 06/09/16 TIME: 10:47 Pre-Op Diagnosis Right Hip hematoma Proposed Surgical Procedure I and D Right Hip NPO since: MN Allergies: Coded Allergies: clavulanic acid (Verified Allergy, Intermediate, DIZZINESS, 05/17/16) clindamycin (Verified Allergy, Intermediate, RASH, 05/18/16) Egg. (Verified Allergy, Unknown, 06/03/16) Sulfa (Sulfonamide Antibiotics) (Verified Allergy, Unknown, 05/14/16) iodine (Verified Allergy, Unknown, 05/14/16) morphine (Verified Allergy, Unknown, 05/14/16) amoxicillin (Verified Adverse Reaction, Intermediate, PALPITATION, 05/17/16) Ht/Wt/BMI Height: 5 ' 5.00 " Weight: 76.700 kg BMI: 28.1 kg/m2 Vital Signs Date Time Temp Pulse Resp B/P Pulse Ox O2 Delivery O2 Flow Rate FiO2 06/09/16 08:30 77 18 06/09/16 08:14 97.9 128/63 92 Room Air Medications Inpatient Medications Current Medications Medications (Trade) Dose Ordered Sig/Silver Start Time Stop Time Status Last Admin Dose Admin Docusate Sodium (Colace) 100 mg BID 06/03/16 21:00 06/08/16 20:37 100 MG Miscellaneous Medication (May use PRN orders) 1 PRN PRN 06/03/16 14:30 Acetaminophen (Tylenol Regular Strength) 650 mg Q6HR PRN 06/03/16 14:30 06/08/16 22:02 650 MG Amiodarone HCl (Pacerone) 200 mg BID 06/03/16 21:00 06/08/16 20:36 200 MG Ascorbic Acid (VITAMIN C 500 mg Tablet) 500 mg DAILY 06/04/16 09:00 06/07/16 08:15 500 MG Aspirin (ASA) 81 mg DAILY 06/04/16 09:00 06/07/16 08:14 81 MG Atorvastatin Calcium (LIPITOR 40 mg) 40 mg HS 06/03/16 22:00 06/08/16 21:29 40 MG Bumetanide (BUMEX 1 mg TAB) 1 mg BID 06/03/16 21:00 06/05/16 06:44 DC 06/04/16 20:22 1 MG Docusate Sodium (Colace) 100 mg BID 06/03/16 21:00 06/03/16 21:00 DC Ferrous Sulfate (Feosol) 324 mg TIDWM 06/03/16 17:30 06/08/16 17:31 324 MG Gabapentin (Neurontin) 300 mg HS 06/03/16 22:00 06/08/16 21:29 300 MG Hydromorphone HCl (Dilaudid) 1-2 Q4HR PRN 06/03/16 14:30 06/08/16 20:23 2 MG Metoclopramide HCl (Reglan) 10 mg 07 06/04/16 07:00 06/04/16 07:00 DC Metoprolol Tartrate (Lopressor) 25 mg BIDBS 06/03/16 17:30 06/09/16 08:30 25 MG Omeprazole (Prilosec) 40 mg ACB 06/04/16 06:30 06/07/16 05:59 40 MG Polyethylene Glycol (Miralax) 17 g BID 06/03/16 21:00 06/07/16 08:15 17 G Potassium Chloride (Kdur) 20 meq BIDWM 06/03/16 17:30 06/08/16 17:32 20 MEQ Tramadol HCl (Ultram) 50 mg Q6HR PRN 06/03/16 14:30 06/08/16 22:02 50 MG Al Hydroxide/Mg Hydroxide (Maalox) 30 ml Q3-4H PRN 06/03/16 15:30 06/03/16 15:29 30 ML Glucose (Glutose 15) 37.5 g PRN PRN 06/03/16 18:15 Dextrose (D50w) 25 ml PRN PRN 06/03/16 18:15 Insulin Human Lispro (Humalog) SS PRN 06/03/16 18:15 06/05/16 16:54 DC 06/05/16 10:25 3 UNIT Ondansetron HCl (Zofran Odt) 4 mg Q4H PRN 06/03/16 18:30 06/08/16 08:54 4 MG Metoclopramide HCl (Reglan) 5 mg ACHS 06/03/16 22:00 06/08/16 21:29 5 MG Bumetanide (BUMEX 1 mg TAB) 1 mg BID. 06/05/16 09:00 06/08/16 17:05 1 MG Benzocaine (Americaine Hemorr. Oint.) 1 applic BID PRN 06/05/16 13:00 06/07/16 19:40 1 APPLIC Insulin Human Lispro (Humalog) SS PRN 06/05/16 17:00 06/08/16 22:04 2 UNIT Lidocaine (Lidoderm) 1 patch DAILY 06/07/16 12:30 06/08/16 14:07 1 PATCH Lidocaine (Lidoderm Patch Removal) 1 removal 2100 06/07/16 21:00 06/08/16 20:35 1 REMOVAL Hydromorphone HCl 0.5 mg 0.5 mg Q2H PRN 06/07/16 21:45 06/09/16 01:07 0.5 MG Sodium Chloride (Normal Saline IV) 1,000 ml @ 0 mls/hr Q0M PRN 06/08/16 12:08 06/08/16 12:10 0 MLS/HR Ondansetron HCl (Zofran) 4 mg Q4H PRN 06/09/16 01:45 06/09/16 08:30 4 MG Acetaminophen (Tylenol) 325 Mg Tablet, 2 TAB PO Q4HPRN, (Reported) Last Taken: on Unknown Date & Time Amiodarone HCl (Amiodarone HCl) 200 Mg Tablet, 200 MG PO BID, (Reported) Last Taken: on Unknown Date & Time Ascorbic Acid (Ascorbic Acid) 500 Mg Tablet, 1 TAB PO DAILY, (Reported) Last Taken: on Unknown Date & Time Aspirin (Aspirin) 81 Mg Tab.chew, 1 TAB PO DAILY, (Reported) Last Taken: on Unknown Date & Time Atorvastatin Calcium (Atorvastatin Calcium) 40 Mg Tablet, 1 TAB PO HS, (Reported) Last Taken: on Unknown Date & Time Bumetanide (Bumetanide) 1 Mg Tablet, 1 TAB PO BID, (Reported) Last Taken: on Unknown Date & Time Docusate Sodium (Docusate Sodium) 100 Mg Capsule, 1 CAP PO BID, (Reported) Last Taken: on Unknown Date & Time Ferrous Sulfate (Ferrous Sulfate) 325 Mg Tablet, 1 TAB PO TIDWM, (Reported) BEST WITH FOOD. Last Taken: on Unknown Date & Time Gabapentin (Gabapentin) 300 Mg Capsule, 300 MG PO HS, (Reported) Last Taken: on Unknown Date & Time Hydromorphone HCl (Dilaudid) 2 Mg Tablet , 1 MG PO [id number], (Reported) Last Taken: on Unknown Date & Time Metoclopramide HCl (Metoclopramide HCl) 10 Mg Tablet, 10 MG PO DAILY, (Reported) Last Taken: on Unknown Date & Time Metoprolol Tartrate (Metoprolol Tartrate ) 25 Mg Tablet, 25 MG PO BID, (Reported) Take 1 tab, by mouth, two time a day with meals. Last Taken: on Unknown Date & Time Omeprazole (Omeprazole) 40 Mg Capsule.dr , 1 CAP PO DAILY, (Reported) Last Taken: on Unknown Date & Time Polyethylene Glycol 3350 (Miralax) 17 Gm Powd.pack, 17 G PO BID, (Reported) Take 17 Grams (1 capful), by mouth, once a day. Last Taken: on Unknown Date & Time Potassium Chloride (Potassium Chloride) 20 Meq Tablet.er, 20 MEQ PO BIDWM, (Reported) Take 1 tablet, by mouth, two times a day with meals. Last Taken: on Unknown Date & Time Tramadol HCl (Tramadol HCl) 50 Mg Tablet , 50 MG PO Q6HR PRN for PAIN, (Reported) Last Taken: on Unknown Date & Time [tylenol supp] , 650 MG RECTALLY Q4HPRN , (Reported) Last Taken: on Unknown Date & Time Currently on Beta Alysa: Yes Beta Alysa Last Taken: 06/09/16 0830 Medical/Surgical History Anesthesia PMH: Reports: *ASHD (S/P CABG X 5 this month, complication of A Fib S/P), *Angina, *Diabetes, *Hypertension, Arthritis, Denies: *[place], Anesthesia Reactions, Asthma, Blood Transfusion Reac, CHF, COPD, CVA/Stroke/TIA, Cancer, Seizures, Sleep Apnea Smoking Status: Never smoker Use Chewing Tobacco?: No Second Hand Exposure: No Substance Use Type: does not use Alcohol Intake: none Past Surgical History Orthopedic Surgeries: Yes - X7 RIGHT ARM/SHOULDER SURGERY, BACK SURGERY, Rt hip hemiarthroplasty Abdominal Surgeries: Yes - GB Genitourinary Surgeries: Cardiac Surgeries: Yes - CABG 05/2016, Heart Cath 05/2016 Endocrine Surgeries: Reproductive Surgeries: Yes - HYSTERECTOMY Neurological Surgeries: Ear Surgeries: Nose Surgeries: Throat Surgeries: Other Surgeries: Yes - X7 RIGHT ARM/SHOULDER SURGERY, BACK SURGERY Anesthesia Adverse Reactions: FOUND none Family Hx of Anesthesia Advers: none Hx of Motion Sickness: No Pertinent Findings Laboratory Tests 06/08/16 04:31 EKG Rhythm: Sinus Rhythm, Bundle Branch Block Physical Exam Respiratory: Bilat breath sounds equal, Lungs clear Cardiovascular: FOUND Regular rate, rhythm, FOUND No murmur Airway Assessment Mallampati Score: IV Overall Assessment: May Be Diff Mask Vent., May Be Diff Intubation ASA: 3 Plan Anesthesia Plan: LMA Discussion Discussed risks/options/alternatives of anesthesia and questions answered. Patient consents. Nursing pain assessment noted. Attestation Statement Prior to the delivery of any anesthetic medication, I examined the patient, developed the plan, obtained the patient's consent and discussed the risk and benefits of the procedure with the patient/guardian. NILA BOYKIN CRNA Jun 09, 2016 10:50
[2016-06-09] MEDS ORDERED: CEFAZOLIN 1 GRAM INJECTION IV ONE (11:00)
[2016-06-09] MEDS: AMIODARONE 200 MG TABLET PO SCH ×2 (11:04→20:53)
[2016-06-09] MEDS ORDERED: VANCOMYCIN 1 GRAM INJECTION IV ONE (11:09)
[2016-06-09] MEDS ORDERED: FENTANYL 100mcg/2ml INJECTION IV ONE (11:09)
[2016-06-09] MEDS ORDERED: LIDOCAINE 1% (10mg/ml) 30ml SDV IJ ONE (11:09)
[2016-06-09] MEDS ORDERED: BUPIVACAINE INJ ONE (11:09)
[2016-06-09] MEDS ORDERED: ONDANSETRON 4mg/2ml INJECTION IV PRN (12:45)
--- NOTE | 2016-06-09 13:21 | ANESPO ---
Post-Op Note Date 06/09/16 Time: 13:20 Status Pt Participated in Evaluation: Pt participated in person Vital Signs Date Time Temp Pulse Resp B/P Pulse Ox O2 Delivery O2 Flow Rate FiO2 06/09/16 13:10 97.5 72 37 133/60 94 Nasal Cannula 2.00 Respiratory Function: Airway patent, Regular respirations Cardiovascular Function: Regular pulse Mental Status: Alert/oriented Pain Level Intensity: 4 Unable to Assess Pain Due To: Pt Sleeping Hydration: Taking po fluids, IV infusing Complications during Recovery None apparent Follow-Up Instructions Instructions Per Surgeon MILY OJEDA CRNA Jun 09, 2016 13:20
--- NOTE | 2016-06-09 13:29 | NUR ---
Pain/PACU pt rating pain 7/10 to right hip. Dilaudid 2mg IV administered in PACU; see emar. Anesthesia notified. No new orders recieved at this time for pain medication. Verbalized to transfer out to floor and start PO pain medications. VSS.
--- NOTE | 2016-06-09 13:32 | PDOPERATE ---
Operative Report Date of Operation 06/09/16 Side: Right Preoperative Diagnosis: other (right hip surgical wound hematoma) Postoperative Diagnosis Same as preoperative diagnosis. Operation/Procedure: other (incision and evacuation of right hip surgical hematoma) Surgeon Katy Champagne MD [employer] Systems Technician KWABENA Zamarripa Complications None. Anesthesia Plan: GETA Estimated Blood Loss See Anesthesia Record. Fluids Please See Anesthesia Record. Description of Operation Ms. Robert and her right hip were identified and marked in the the preoperative holding area. She was then brought back to the operating suite and proper anesthesia was administered. She was then positioned lateral on the operating table. The right lower extremity was then prepped and draped in my normal sterile fashion. Timeout was performed with all operating room personnel. Began by reopening the previous posterior hip incision. There was a small 1 cm opening in the posterior aspect of the incision which had been draining dark red blood. Once incision was opened was an obvious large well-formed hematoma. This was evacuated the gluteus chucho fascia repair was still intact and in good condition and there was no track down past the muscle fascia. A thorough debridement was performed as well as irrigation with 3 L normal saline as well as use of my Betadine irrigation. A box cautery was used to obtain hemostasis of the skin bleeders. There was no sign of active arterial bleeding. 1 g vancomycin powder was placed into the wound and then it was closed in layers with 2-0 Vicryl the subcutaneous tissue and 3-0 nylon in a simple interrupted fashion the skin. Sterile dressing was placed and she was then allowed to awake from general anesthesia and taken to the recovery room in the care of anesthesia she tolerated the procedure well there were no complications. ANNE CHAMPAGNE MD Jun 09, 2016 13:32
--- NOTE | 2016-06-09 13:33 | NUR ---
Back from Surgery Pt. is back from surgery. She had an I/D of the right hip. VS's stable. She is on 2L O2 via nasal canula. Pt. is awake and alert and orientated. She currently rates pain in right hip a 09/19. Will give PRN pain meds when able. Will continue to monitor. Addendum: 06/09/16 at 1359 by GLENNA PORTILLO RN Mepilex dressing to right hip noted to be C/D/I.
[2016-06-09] MEDS: TRAMADOL 50 MG TABLET PO PRN (15:19)
[2016-06-09] MEDS: ASCORBIC ACID 500 MG TABLET PO SCH (15:19)
[2016-06-09] MEDS: ASPIRIN 81 MG CHEWABLE TABLET PO SCH (15:19)
--- NOTE | 2016-06-09 15:25 | NUR ---
Status Pt. is awake and alert. VS's continue to be stable. Pt. is weaned to RA. She denies SOA. Pt. did report a little nausea, but states she thinks it is because she has not eaten. Jello, diet dane and orange sherbert given to pt. Educated pt. to eat slow and don't over do it. Pt. currently reports her stomach has settled. She ate 100% of the jello and ice cream. Tramadol per PRN orders administered at this time for 6/10 right hip and back pain. Please see eMAR. Pt. describes pain as dull and ache. Bed alarm is on. Will continue to monitor.
--- NOTE | 2016-06-09 16:03 | PNPDOC ---
JEB NAPOLES SWEEP MOLDER 06/09/16 1513: Subjective Date DATE: 06/09/16 TIME: 15:10 Subjective f/u afib RVR Objective Vital Signs Vital signs Vital Signs 06/09/16 06/09/16 06/09/16 06/09/16 08:14 08:30 12:33 12:40 Temp 97.9 97.7 Pulse 77 77 66 68 Resp 18 18 16 18 B/P 128/63 131/60 131/61 Pulse Ox 92 96 95 O2 Delivery Room Air Room Air Room Air 06/09/16 06/09/16 06/09/16 06/09/16 12:45 12:50 12:54 12:55 Pulse 68 67 68 Resp 18 18 20 B/P 128/60 125/62 143/65 Pulse Ox 94 93 90 94 O2 Delivery Room Air Room Air Room Air Nasal Cannula O2 Flow Rate 2.00 06/09/16 06/09/16 06/09/16 06/09/16 13:00 13:05 13:10 13:15 Temp 97.5 Pulse 70 71 72 73 Resp 18 18 16 14 B/P 145/65 132/63 133/60 132/63 Pulse Ox 95 95 94 94 O2 Delivery Nasal Cannula Nasal Cannula Nasal Cannula Nasal Cannula O2 Flow Rate 2.00 2.00 2.00 2.00 06/09/16 06/09/16 06/09/16 06/09/16 13:20 13:25 13:30 13:34 Temp 97.5 97.5 Pulse 73 73 74 Resp 15 16 16 B/P 131/63 128/60 140/60 Pulse Ox 91 94 93 O2 Delivery Nasal Cannula Nasal Cannula Nasal Cannula O2 Flow Rate 2.00 2.00 2.00 06/09/16 06/09/16 06/09/16 14:18 14:35 15:07 Temp 97.8 97.9 97.7 Pulse 74 75 82 Resp 16 16 16 B/P 157/73 143/66 145/69 Pulse Ox 95 96 93 O2 Delivery Nasal Cannula Nasal Cannula Nasal Cannula O2 Flow Rate 2.00 2.00 2.00 Telemetry Rhythm: Atrial Fibrillation Height (Feet): 5 Height (Inches): 5.00 Weight (Kilograms): 76.700 General Alert, Orientated x 3 Neck (Brief) NOT FOUND: JVD Respiratory (Brief) clear all anaya Cardiovascular (Brief) regular rate, regular rhythm, NOT FOUND: pedal edema Musculoskeletal (Brief) tenderness Comments right hip tenderness Psychiatric (Brief) alert, attentive, normal affect, oriented Laboratory Laboratory Laboratory Tests Test 06/07/16 21:58 06/08/16 04:31 06/08/16 05:50 06/08/16 08:03 Glucometer 182mg/dL 144mg/dL White Blood Count 16.8T/MM3 Red Blood Count 3.62M/MM3 Hemoglobin 10.6GM/DL Hematocrit 33.6% Mean Corpuscular Volume 92.8UM3 Mean Corpuscular Hemoglobin 29.3UUG Mean Corpuscular Hemoglobin Concent 31.5GM/DL RDW Standard Deviation 55.6FL Platelet Count 257T/MM3 Mean Platelet Volume 12.2UM3 Immature Granulocyte % (Auto) % Neutrophils (%) (Auto) % Lymphocytes (%) (Auto) % Monocytes (%) (Auto) % Eosinophils (%) (Auto) % Basophils (%) (Auto) % Absolute Immature Granulocyte (auto T/MM3 Absolute Neutrophils (auto) T/MM3 Absolute Lymphocytes (auto) T/MM3 Absolute Monocytes (auto) T/MM3 Absolute Eosinophils (auto) T/MM3 Absolute Basophils (auto) T/MM3 Neutrophils % (Manual) 76.0% Lymphocytes % (Manual) 14.0% Monocytes % (Manual) 7.0% Eosinophils % (Manual) 3.0% Absolute Neutrophils (Manual) 12.8T/MM3 Lymphocytes # (Manual) 2.4T/MM3 Monocytes # (Manual) 1.2T/MM3 Eosinophils # (Manual) 0.5T/MM3 Poikilocytosis 1+ Anisocytosis 1+ Red Cell Morphology Comment Abnormal Turbidity < 20 Sodium Level 135MEQ/L Potassium Level 4.7MEQ/L Chloride Level 98MEQ/L Carbon Dioxide Level 28MEQ/L Anion Gap 9MEQ/L Blood Urea Nitrogen 28.0MG/DL Creatinine 1.1MG/DL Glomerular Filtration Rate Calc 47 BUN/Creatinine Ratio 26RATIO Glucose Level 137MG/DL Calculated Osmolality 268MOSM/KG Calcium Level 8.6MG/DL Icterus Index < 2 C-Reactive Protein 64.5MG/L Chemistry Specimen Hemolysis 19 Erythrocyte Sedimentation Rate 25mm/h Test 06/08/16 10:15 06/08/16 14:11 06/08/16 21:42 06/09/16 06:39 Glucometer 147mg/dL 214mg/dL 153mg/dL 153mg/dL Test 06/09/16 10:05 06/09/16 12:49 06/09/16 14:01 Glucometer 145mg/dL 149mg/dL 122mg/dL EKG SR 60's which she converted last evening from afib RVR Medications Current Medications Miscellaneous Medication (May use PRN orders) 1 PRN PRN MC ; Start 06/03/16 at 14:30 Acetaminophen (Tylenol Regular Strength) 650 mg Q6HR PRN PO PAIN Last administered on 06/08/16 22:02; Start 06/03/16 at 14:30 Amiodarone HCl (Pacerone) 200 mg BID PO Last administered on 06/09/16 11:04; Start 06/03/16 at 21:00 Ascorbic Acid (VITAMIN C 500 mg Tablet) 500 mg DAILY PO Last administered on 08:15; Start 06/04/16 at 09:00 Aspirin (ASA) 81 mg DAILY PO Last administered on 06/07/16 08:14; Start at 09:00 Atorvastatin Calcium (LIPITOR 40 mg) 40 mg HS PO Last administered on 21:29; Start 06/03/16 at 22:00 Docusate Sodium (Colace) 100 mg BID PO ; Start 06/03/16 at 21:00; Stop 06/03/16 at 21:00; Status DC Ferrous Sulfate (Feosol) 324 mg TIDWM PO Last administered on 06/08/16 17:31; Start 06/03/16 at 17:30 Gabapentin (Neurontin) 300 mg HS PO Last administered on 06/08/16 21:29; Start 06/03/16 at 22:00 Omeprazole (Prilosec) 40 mg ACB PO Last administered on 06/07/16 05:59; Start 06/04/16 at 06:30 Polyethylene Glycol (Miralax) 17 g BID PO Last administered on 06/07/16 08:15 ; Start 06/03/16 at 21:00 Potassium Chloride (Kdur) 20 meq BIDWM PO Last administered on 06/08/16 17:32 ; Start 06/03/16 at 17:30 Tramadol HCl (Ultram) 50 mg Q6HR PRN PO PAIN Last administered on 06/08/16 22: 02; Start 06/03/16 at 14:30 Al Hydroxide/Mg Hydroxide (Maalox) 30 ml Q3-4H PRN PO INDIGESTION Last administered on 06/03/16 15:29; Start 06/03/16 at 15:30 Glucose (Glutose 15) 37.5 g PRN PRN PO HYPOGLYCEMIA; Start 06/03/16 at 18:15 Dextrose (D50w) 25 ml PRN PRN IV HYPOGLYCEMIA; Start 06/03/16 at 18:15 Ondansetron HCl (Zofran Odt) 4 mg Q4H PRN PO NAUSEA &/OR VOMITING Last administered on 06/08/16 08:54; Start 06/03/16 at 18:30 Metoclopramide HCl (Reglan) 5 mg ACHS PO Last administered on 06/08/16 21:29; Start 06/03/16 at 22:00 Bumetanide (BUMEX 1 mg TAB) 1 mg BID. PO Last administered on 06/08/16 17:05; Start 06/05/16 at 09:00 Benzocaine (Americaine Hemorr. Oint.) 1 applic BID PRN TOP HEMORRHOIDS Last administered on 06/07/16 19:40; Start 06/05/16 at 13:00 Insulin Human Lispro (Humalog) SS PRN SQ Last administered on 06/08/16 22:04 ; Start 06/05/16 at 17:00 Lidocaine (Lidoderm) 1 patch DAILY TOP Last administered on 06/08/16 14:07; Start 06/07/16 at 12:30 Lidocaine (Lidoderm Patch Removal) 1 removal 2100 TOP Last administered on 06/08 20:35; Start 06/07/16 at 21:00 Cefazolin Sodium (Kefzol) 2 g PREOP ONCE IV ; Start 06/08/16 at 11:45; Stop at 11:46; Status DC Metoprolol Tartrate (Lopressor) 25 mg O ONCE PO Last administered on 12:22; Start 06/08/16 at 12:30; Stop 06/08/16 at 12:31; Status DC Bupivacaine HCl/ Epinephrine Bitart (Marcaine/Epi 0.25%/1:200,000) 30 ml STK- MED ONCE INJ ; Start 06/08/16 at 14:00; Stop 06/09/16 at 09:51; Status DC Rocuronium [place] (Zemuron) 50 mg STK-MED ONCE IV ; Start 06/08/16 at 14:00; Stop 06/09/16 at 09:51; Status DC Propofol (Diprivan) 200 mg STK-MED ONCE IV ; Start 06/08/16 at 14:00; Stop 06/09 at 09:51; Status DC Succinylcholine Chloride (Quelicin) 200 mg STK-MED ONCE IV ; Start 06/08/16 at 14:00; Stop 06/09/16 at 09:51; Status DC Sevoflurane 1 ml 1 ml STK-MED ONCE IH ; Start 06/08/16 at 14:00; Stop 06/09/16 at 09:51; Status DC Sodium Chloride (Normal Saline IV) 1,000 ml @ 50 mls/hr Q20H ONCE IV ; Start at 10:51; Stop 06/11/16 at 06:50 Cefazolin Sodium 2 g 2 g O ONCE IV Last administered on 06/09/16 11:33; Start 06/09/16 at 11:00; Stop 06/09/16 at 11:46; Status DC Cefazolin Sodium/ Sodium Chloride (Kefzol/NS) 100 ml @ 200 mls/hr Q8H IV ; Start 06/09/16 at 19:30; Stop 06/10/16 at 03:59 Hydromorphone HCl (Dilaudid) Dilaudid 0.5-1 mg IVP every 10 minutes... Q10M PRN IV PAIN Last administered on 06/09/16 13:17; Start 06/09/16 at 12:45 Ondansetron HCl (Zofran) 4 mg O PRN IV NAUSEA &/OR VOMITING; Start 06/09/16 at 12:45 Assessment & Plan Problems: (1) Atrial fibrillation with rapid ventricular response Status: Acute Assessment & Plan: In SR 60's today. Continue Amiodarone 200mg po BID and Metoprolol 25mg po BID for rhythm and rate control. Will repeat EKG in am. ASA only thinner at this time due to recent hip surgery. (2) CAD (coronary artery disease) Status: Chronic Assessment & Plan: Continue statin. PCP manages (3) S/P CABG (coronary artery bypass graft) Onset Date: ~ 05/20/2016 Status: Acute Assessment & Plan: cont asa, metoprolol, amiodarone, statin (4) HTN (hypertension) Status: Chronic Assessment & Plan: Cont metoprolol (5) Diabetes mellitus Onset Date: ~ 05/2016 Status: Chronic Qualifiers: Diabetes mellitus type: type 2 Assessment & Plan: managed per PCP BERNIE OLMOS MD 06/22/16 1504: Assessment & Plan Plan/Intensity of Service After examining the patient I agree with the above assessment. I am involved in the formulation of the patient's plan of care. JEB NAPOLES APRN Jun 09, 2016 15:13 BERNIE OLMOS MD Jun 22, 2016 15:04
[2016-06-09] MEDS: HYDROMORPHONE 2 MG TABLET PO PRN ×2 (17:31→21:45)
--- NOTE | 2016-06-09 19:15 | NUR ---
Summary VS's stable. Pt. has denied nausea and SOA. Encouraged incentive spirometer. She has rated pain in right hip and back a 6-7/10 this shift. PRN pain meds given. Please see eMAR. Upon re-assessment, pt. rated pain a 5/10. Mepilex dressing to right hip is C/D/I. She is a transfer x1 with miguelina-walker and gait belt. Pt. is steady. Pt. has had a good appetite and is tolerating fluids and solid foods well. Report has been past on to slot shift manager.
[2016-06-09] MEDS: ACETAMINOPHEN 325 MG TABLET PO PRN (20:49)
[2016-06-09] MEDS: GABAPENTIN 300 MG CAPSULE PO SCH (20:53)
[2016-06-09] MEDS: ATORVASTATIN 40 MG TABLET PO SCH (20:53)
[2016-06-09] MEDS: LIDOCAINE PATCH REMOVAL TOP SCH (21:00)
[2016-06-09] MEDS: CEFAZOLIN 2 G in NORMAL SALINE 100 ML IV SCH (21:48)
[2016-06-09] MEDS: INSULIN LISPRO 100 UNIT/ML SQ PRN (22:14)
[2016-06-10] VITALS (8 sets, daily range): BP systolic 114–145; BP diastolic 52–67; PULSE 70–79; RESP 14–16; TEMP 97.4–98.1; O2SAT 95–100
--- NOTE | 2016-06-10 00:23 | NUR ---
Status Pt is up to BR several times through the evening. Urine output only occurs about half the time. Pt remains continent. Addendum: 06/10/16 at 0027 by PALUINA MALDONADO RN Amended: Links added.
--- NOTE | 2016-06-10 02:15 | NUR ---
Chart Check 24 hour chart check completed
[2016-06-10] MEDS: HYDROMORPHONE 2 MG TABLET PO PRN ×4 (02:41→22:27)
[2016-06-10 05:28] LABS: BASOPHILS # (AUTO) 0.1 T/MM3 (0-0.2); BASOPHILS % (AUTO) 0.6 % (0-2); EOSINOPHILS # (AUTO) 0.8 T/MM3 (0-0.5); HCT - HEMATOCRIT 33.9 % (36-46); HGB - HEMOGLOBIN 10.2 GM/DL (12-16); IMMATURE GRANULOCYTE # (AUTO) 0.03 T/MM3 (0.00-0.03); IMMATURE GRANULOCYTE % (AUTO) 0.2 % (0.0-0.5); LYMPHOCYTES # (AUTO) 1.6 T/MM3 (1-4.8); LYMPHOCYTES % (AUTO) 12.2 % (23-45); MEAN CORPUSCULAR HGB 29.3 UUG (26-34); MEAN CORPUSCULAR HGB CONC(MCHC 30.1 GM/DL (31-37); MEAN CORPUSCULAR VOLUME 97.4 UM3 (80-100); MEAN PLATELET VOLUME 12.5 UM3 (9.4-12.4); MONOCYTES # (AUTO) 1.1 T/MM3 (0-0.8); NEUTROPHILS #(AUTO)-ABSOLUTE 9.8 T/MM3 (1.8-7.7); RED BLOOD COUNT 3.48 M/MM3 (4.00-5.20); WBC - WHITE BLOOD COUNT 13.4 T/MM3 (4.5-11.0)
[2016-06-10 05:43] LABS: ANION GAP 10 MEQ/L (5-15); BUN/CREATININE RATIO 23 RATIO (6-26); CALCIUM 8.6 MG/DL (8.4-10.2); CHLORIDE 100 MEQ/L (98-107); CO2 - CARBON DIOXIDE 27 MEQ/L (22-30); GLOMERULAR FILTRATION RATE 53; GLUCOSE 130 MG/DL (65-110); POTASSIUM 4.2 MEQ/L (3.6-5); SODIUM 137 MEQ/L (134-144)
[2016-06-10] MEDS: OMEPRAZOLE 20 MG CAPSULE PO SCH (05:47)
[2016-06-10] MEDS: CEFAZOLIN 2 G in NORMAL SALINE 100 ML IV SCH (05:47)
[2016-06-10] MEDS: METOCLOPRAMIDE 5mg TABLET PO SCH ×4 (05:47→22:27)
--- NOTE | 2016-06-10 06:40 | NUR ---
Summary pt was surprised to hear how often she had been up to the bathroom in the night. Pt states she "slept well" and thought she had "only got up a few times". IV flushes well. Pt's pain has been managed with Dilaudid PO. Pt in bed resting, alarm internal controls manager light and water in reach.
--- NOTE | 2016-06-10 08:57 | PDORTHOPN ---
Subjective Date DATE: 06/10/16 TIME: 08:46 Subjective No new complaints this morning. Has incisional pain but no other concerns. Generally feels tired from multiple procedures recently. Objective Vital Signs Vital signs Vital Signs 06/09/16 06/09/16 06/09/16 06/09/16 20:56 20:57 21:56 23:23 Temp 97.5 Pulse 68 65 70 Resp 16 16 B/P 117/59 137/62 114/54 Pulse Ox 93 O2 Delivery Room Air Room Air Nasal Cannula O2 Flow Rate 2.00 06/10/16 06/10/16 06/10/16 06/10/16 00:17 02:45 03:41 08:00 Temp 98.1 Pulse 74 71 71 79 Resp 16 16 B/P 114/65 129/52 129/52 145/62 Pulse Ox 95 95 95 97 O2 Delivery Room Air Room Air Room Air Room Air 06/10/16 08:00 Temp 98.1 Pulse 79 Resp 16 B/P 145/62 Pulse Ox 97 O2 Delivery Room Air Height (Feet): 5 Height (Inches): 5.00 Weight (Kilograms): 76.700 General General Appearance: Alert, Cooperative, No Acute Distress Respiratory (Brief) Respiratory Brief: FOUND: non-labored Surgical Site Incision: FOUND: dressing intact, intact, no drainage, tl present Integumentary (Brief) Integumentary Brief: NOT FOUND erythemia Neurologic (Brief) Neurological Brief: FOUND: extremities w/o deficits, neuro intact Psychiatric (Brief) Psychiatric Brief: FOUND: alert, no acute distress Laboratory Laboratory Laboratory Tests 06/10/16 04:30 Laboratory Tests 06/10/16 04:30 Assessment & Plan Problems: (1) S/P CABG (coronary artery bypass graft) Onset Date: ~ 05/20/2016 Status: Acute (2) Status post hip surgery Status: Acute Assessment & Plan: Hematoma evacuated from the incision 06/09/16. Dressing is dry this AM. Will continue to monitor. Use SCD's, mobilization and ASA for DVT coverage. Only add additional anticoagulants if required from a cardiac standpoint. Hospital Course Summary Disclaimer The visit summary below is not to be considered part of the above Progress Note. Hospital Course 06/04/16 Spoke with Ayde Hughes with Dr. Lopez regarding patient's recent CABG procedure and ongoing treatment recommendations. She does recommend patient be on anticoagulation as she did have A-fib postoperatively. She would prefer Eliquis if not contraindicated. Given mild oozing from right hip incision will consult Dr Champagne for orthopedic evaluation of incision prior to starting anticoagulation. Patient does need postop anticoagulation for 30 days from right hemiarthroplasty performed on 05/16/16. Patient did have a right groin hematoma post heart catheter that was evaluated while at [facility]. Overall this is improving. Continue with amiodarone given recent atrial fibrillation. She was noted to have elevated white count at 16.3. Will check a UA to rule out infection. Bumex 1 mg BID for ongoing diuresis. Oral Dilaudid and Ultram for pain control Continue SCDs to bilateral lower external for DVT prophylaxis Scheduled MiraLAX and Colace twice a day for ongoing bowel motivation. Encourage work with PT/OT for ongoing strengthening Will discuss case with attending Dr Hobson 06/05/16 Continue to monitor right hip dressing for oozing. Several more tl were placed by Dr Champagne Continue on ASA only at this time, Case discussed with Dr Lopez yesterday . Continue to monitor blood sugars. Fasting sugar this morning was 146. Will increase sliding scale to medium range dosing and continue to follow. Will recheck CBC and BMP tomorrow morning to follow leukocytosis 06/08/16 At this time, will recommend holding off on surgical procedure until cardiac rate control has been further evaluated and treated. Consultation was placed to Dr. Lopez for further recommendations. Patient has continued to receive her amiodarone, however, did have her beta rachelle held this morning due to Patient is to be monitored on cardiac telemetry. Current anticoagulation is aspirin. This may need to be discussed further with all providers involved including Dr. Lopez, Dr. Hobson and Dr. Champagne Will reevaluate patient later today, the hope is that she will be able to have her hip procedure tomorrow by Dr. Champagne. 06/09/[address] Lopez - pt is in sinus rhythm and has been cleared for surgery. I spoke with Dr. Champagne and updated him as well. Will need to discuss anticoagulation postop. Dr. Champagne prefers nothing stronger than ASA if possible; if needs anticoagulation would like to wait a week before starting, again if possible. However, he understands that if anticoagulation is necessary he would not argue it. Patient is complaining of nausea this morning - Zofran as needed. Repeat labs in am - pt has had leukocytosis. Encouraged pt to set small, achievable goals and let us know if she becomes too depressed. MARY GRANGER Jun 10, 2016 08:50
--- NOTE | 2016-06-10 10:15 | NUR ---
Status Order for Bolus NS was showing in pt medication, spoke with Katy Martinez APRN regarding this and she gave an order to DC the IV fluids.
[2016-06-10] MEDS: BUMETANIDE 1 MG TABLET PO SCH ×2 (10:20→17:50)
[2016-06-10] MEDS: DOCUSATE SODIUM 100 MG CAPSULE PO SCH ×2 (10:21→22:25)
[2016-06-10] MEDS: FERROUS SULFATE 324 MG TABLET PO SCH ×3 (10:21→17:50)
[2016-06-10] MEDS: POTASSIUM CHLORIDE 20 MEQ TABLET PO SCH ×2 (10:22→17:49)
[2016-06-10] MEDS: POLYETHYL.GLYCOL 3350 PACKET 17gm PO SCH ×2 (10:22→10:26)
[2016-06-10] MEDS: AMIODARONE 200 MG TABLET PO SCH ×2 (10:22→22:26)
[2016-06-10] MEDS: LIDOCAINE 5% PATCH TOP SCH (10:24)
[2016-06-10] MEDS: TRAMADOL 50 MG TABLET PO PRN (10:25)
[2016-06-10] MEDS: INSULIN LISPRO 100 UNIT/ML SQ PRN ×2 (10:26→14:37)
[2016-06-10] MEDS ORDERED: NORMAL SALINE 1,000 ML IV ONE (10:51)
--- NOTE | 2016-06-10 11:36 | PNPDOC ---
TANYA MONROE AEROBICS INSTRUCTOR 06/10/16 1133: Subjective Date DATE: 06/10/16 TIME: 8:30 Subjective Talisha is sitting up at the dining room table eating her breakfast. She states her hip is a little sore but denies chest pain, palpitations or dyspnea. Objective Vital Signs Vital signs Vital Signs 06/10/16 06/10/16 06/10/16 06/10/16 00:17 02:45 03:41 08:00 Temp 98.1 Pulse 74 71 71 79 Resp 16 16 B/P 114/65 129/52 129/52 145/62 Pulse Ox 95 95 95 97 O2 Delivery Room Air Room Air Room Air Room Air 06/10/16 08:00 Temp 98.1 Pulse 79 Resp 16 B/P 145/62 Pulse Ox 97 O2 Delivery Room Air Telemetry Rhythm: Atrial Fibrillation Height (Feet): 5 Height (Inches): 5.00 Weight (Kilograms): 76.700 General Alert, Orientated x 3, Cooperative ENMT (Brief) mucosa moist Neck (Brief) NOT FOUND: JVD, carotid bruits Respiratory (Brief) clear all anaya, equal bilaterally, NOT FOUND: rales, wheezes Cardiovascular (Brief) regular rate, regular rhythm, NOT FOUND: pedal edema Abdomen (Brief) BS normo active x4, soft, NOT FOUND: tender Integumentary (Brief) dry, pink, warm Psychiatric (Brief) alert, attentive, oriented Laboratory Laboratory Laboratory Tests Test 06/08/16 14:11 06/08/16 21:42 06/09/16 06:39 06/09/16 10:05 Glucometer 214mg/dL 153mg/dL 153mg/dL 145mg/dL Test 06/09/16 12:49 06/09/16 14:01 06/09/16 21:30 06/10/16 04:30 Glucometer 149mg/dL 122mg/dL 161mg/dL White Blood Count 13.4T/MM3 Red Blood Count 3.48M/MM3 Hemoglobin 10.2GM/DL Hematocrit 33.9% Mean Corpuscular Volume 97.4UM3 Mean Corpuscular Hemoglobin 29.3UUG Mean Corpuscular Hemoglobin Concent 30.1GM/DL RDW Standard Deviation 65.5FL Platelet Count 233T/MM3 Mean Platelet Volume 12.5UM3 Immature Granulocyte % (Auto) 0.2% Neutrophils (%) (Auto) 73.0% Lymphocytes (%) (Auto) 12.2% Monocytes (%) (Auto) 8.0% Eosinophils (%) (Auto) 6.0% Basophils (%) (Auto) 0.6% Absolute Immature Granulocyte (auto 0.03T/MM3 Absolute Neutrophils (auto) 9.8T/MM3 Absolute Lymphocytes (auto) 1.6T/MM3 Absolute Monocytes (auto) 1.1T/MM3 Absolute Eosinophils (auto) 0.8T/MM3 Absolute Basophils (auto) 0.1T/MM3 Turbidity < 20 Sodium Level 137MEQ/L Potassium Level 4.2MEQ/L Chloride Level 100MEQ/L Carbon Dioxide Level 27MEQ/L Anion Gap 10MEQ/L Blood Urea Nitrogen 23.0MG/DL Creatinine 1.0MG/DL Glomerular Filtration Rate Calc 53 BUN/Creatinine Ratio 23RATIO Glucose Level 130MG/DL Calculated Osmolality 270MOSM/KG Calcium Level 8.6MG/DL Icterus Index < 2 Chemistry Specimen Hemolysis < 15 Test 06/10/16 06:50 06/10/16 10:17 Glucometer 133mg/dL 269mg/dL Laboratory Tests 06/10/16 04:30 Laboratory Tests 06/10/16 04:30 Medications Current Medications Miscellaneous Medication (May use PRN orders) 1 PRN PRN ; Start 06/03/16 at 14:30 Acetaminophen (Tylenol Regular Strength) 650 mg Q6HR PRN PO PAIN Last administered on 06/09/16 20:49; Start 06/03/16 at 14:30 Amiodarone HCl (Pacerone) 200 mg BID PO Last administered on 06/10/16 10:22; Start 06/03/16 at 21:00 Ascorbic Acid (VITAMIN C 500 mg Tablet) 500 mg DAILY PO Last administered on 15:19; Start 06/04/16 at 09:00 Aspirin (ASA) 81 mg DAILY PO Last administered on 06/09/16 15:19; Start at 09:00 Atorvastatin Calcium (LIPITOR 40 mg) 40 mg HS PO Last administered on 20:53; Start 06/03/16 at 22:00 Docusate Sodium (Colace) 100 mg BID PO ; Start 06/03/16 at 21:00; Stop 06/03/16 at 21:00; Status DC Ferrous Sulfate (Feosol) 324 mg TIDWM PO Last administered on 06/10/16 10:21; Start 06/03/16 at 17:30 Gabapentin (Neurontin) 300 mg HS PO Last administered on 06/09/16 20:53; Start 06/03/16 at 22:00 Omeprazole (Prilosec) 40 mg ACB PO Last administered on 06/10/16 05:47; Start 06/04/16 at 06:30 Polyethylene Glycol (Miralax) 17 g BID PO Last administered on 06/10/16 10:22; Start 06/03/16 at 21:00 Potassium Chloride (Kdur) 20 meq BIDWM PO Last administered on 06/10/16 10:22; Start 06/03/16 at 17:30 Tramadol HCl (Ultram) 50 mg Q6HR PRN PO PAIN Last administered on 06/10/16 10: 25; Start 06/03/16 at 14:30 Al Hydroxide/Mg Hydroxide (Maalox) 30 ml Q3-4H PRN PO INDIGESTION Last administered on 06/03/16 15:29; Start 06/03/16 at 15:30 Glucose (Glutose 15) 37.5 g PRN PRN PO HYPOGLYCEMIA; Start 06/03/16 at 18:15 Dextrose (D50w) 25 ml PRN PRN IV HYPOGLYCEMIA; Start 06/03/16 at 18:15 Ondansetron HCl (Zofran Odt) 4 mg Q4H PRN PO NAUSEA &/OR VOMITING Last administered on 06/08/16 08:54; Start 06/03/16 at 18:30 Metoclopramide HCl (Reglan) 5 mg ACHS PO Last administered on 06/10/16 10:21; Start 06/03/16 at 22:00 Bumetanide (BUMEX 1 mg TAB) 1 mg BID. PO Last administered on 06/10/16 10:20; Start 06/05/16 at 09:00 Benzocaine (Americaine Hemorr. Oint.) 1 applic BID PRN TOP HEMORRHOIDS Last administered on 06/07/16 19:40; Start 06/05/16 at 13:00 Insulin Human Lispro (Humalog) SS PRN SQ Last administered on 06/10/16 10:26 ; Start 06/05/16 at 17:00 Lidocaine (Lidoderm) 1 patch DAILY TOP Last administered on 06/10/16 10:24; Start 06/07/16 at 12:30 Lidocaine (Lidoderm Patch Removal) 1 removal 2100 TOP Last administered on 06/08 20:35; Start 06/07/16 at 21:00 Cefazolin Sodium (Kefzol) 2 g PREOP ONCE IV ; Start 06/08/16 at 11:45; Stop at 11:46; Status DC Metoprolol Tartrate (Lopressor) 25 mg O ONCE PO Last administered on 12:22; Start 06/08/16 at 12:30; Stop 06/08/16 at 12:31; Status DC Bupivacaine HCl/ Epinephrine Bitart (Marcaine/Epi 0.25%/1:200,000) 30 ml STK- MED ONCE INJ ; Start 06/08/16 at 14:00; Stop 06/09/16 at 09:51; Status DC Rocuronium [place] (Zemuron) 50 mg STK-MED ONCE IV ; Start 06/08/16 at 14:00; Stop 06/09/16 at 09:51; Status DC Propofol (Diprivan) 200 mg STK-MED ONCE IV ; Start 06/08/16 at 14:00; Stop 06/09 at 09:51; Status DC Succinylcholine Chloride (Quelicin) 200 mg STK-MED ONCE IV ; Start 06/08/16 at 14:00; Stop 06/09/16 at 09:51; Status DC Sevoflurane 1 ml 1 ml STK-MED ONCE IH ; Start 06/08/16 at 14:00; Stop 06/09/16 at 09:51; Status DC Sodium Chloride (Normal Saline IV) 1,000 ml @ 50 mls/hr Q20H ONCE IV ; Start at 10:51; Stop 06/11/16 at 06:50 Cefazolin Sodium 2 g 2 g O ONCE IV Last administered on 06/09/16 11:33; Start 06/09/16 at 11:00; Stop 06/09/16 at 11:46; Status DC Cefazolin Sodium/ Sodium Chloride (Kefzol/NS) 100 ml @ 200 mls/hr Q8H IV Last administered on 06/10/16 05:47; Start 06/09/16 at 19:30; Stop 06/10/16 at 04:00; Status DC Hydromorphone HCl (Dilaudid) Dilaudid 0.5-1 mg IVP every 10 minutes... Q10M PRN IV PAIN Last administered on 06/09/16 13:17; Start 06/09/16 at 12:45; Stop 06/10/16 at 08:25; Status DC Ondansetron HCl (Zofran) 4 mg O PRN IV NAUSEA &/OR VOMITING; Start 06/09/16 at 12:45; Stop 06/10/16 at 08:26; Status DC Assessment & Plan Problems: (1) Atrial fibrillation with rapid ventricular response Status: Acute Assessment & Plan: In SR 60's today. Continue Amiodarone 200mg po BID and Metoprolol 25mg po BID for rhythm and rate control. Will repeat EKG in am. ASA only thinner at this time due to recent hip surgery. (2) CAD (coronary artery disease) Status: Chronic Assessment & Plan: Continue statin. PCP manages (3) S/P CABG (coronary artery bypass graft) Onset Date: ~ 05/20/2016 Status: Acute Assessment & Plan: cont asa, metoprolol, amiodarone, statin (4) HTN (hypertension) Status: Chronic Assessment & Plan: Cont metoprolol (5) Diabetes mellitus Onset Date: ~ 05/2016 Status: Chronic Qualifiers: Diabetes mellitus type: type 2 Assessment & Plan: managed per PCP Plan/Intensity of Service 06/08/16 Give medications as ordered. If plan to I&D tomorrow, she is stable from a cardiac standpoint and may have needed I & D. please given beta rachelle and antiarrhythmic with a sip of water as scheduled. 06/09/16 In SR 60's today. Continue Amiodarone 200mg po BID and Metoprolol 25mg po BID for rhythm and rate control. Will repeat EKG in am. ASA only thinner at this time due to recent hip surgery. 06/10/16 Remains in SR, Continue to monitor telemetry Thank you for allowing us to participate in the care of this patient. BERNIE OLMOS MD 06/22/16 1505: Assessment & Plan Plan/Intensity of Service After examining the patient I agree with the above assessment. I am involved in the formulation of the patient's plan of care. TANYA MONROE APRN Jun 10, 2016 11:33 BERNIE OLMOS MD Jun 22, 2016 15:05
[2016-06-10] MEDS: ASCORBIC ACID 500 MG TABLET PO SCH (12:13)
[2016-06-10] MEDS: ASPIRIN 81 MG CHEWABLE TABLET PO SCH (12:13)
--- NOTE | 2016-06-10 13:34 | NUR ---
CM SPOKE WITH PT, RE: DC PLANNING. HER PLAN IS STILL HOME. REVIEWED THAT SHE WILL PROBABLY NEED DME THAT THIS WORKER CAN ASSIST WITH OBTAINING. SHE GAVE PERMISSION TO CALL HER SON, ELGIN, WHO SHE LIVES WITH. CALLED [facility]/ELGIN. INTRODUCED SELF, EXPLAINED ROLE, PROVIDED CONTACT INFO. HE CONFIRMED DC PLAN OF RETURN HOME. HE HAD NO CURRENT QUESTIONS/NEEDS.
--- NOTE | 2016-06-10 17:32 | PNPDOC ---
IRU Subjective Date DATE: 06/10/16 TIME: 17:27 Subjective Pt worked with PT and OT , continues to gain strength. No uncontrolled pain. IRU Objective Vital Signs Vital signs Vital Signs Date Time Temp Pulse Resp B/P Pulse Ox O2 Delivery O2 Flow Rate FiO2 06/10/16 16:05 97.4 72 14 143/67 100 Room Air 06/09/16 21:56 2.00 Telemetry Rhythm: Atrial Fibrillation Height (Feet): 5 Height (Inches): 5.00 Weight (Kilograms): 76.700 General General Appearance: Alert, Orientated x 2 Respiratory (Brief) Respiratory: FOUND: clear all anaya Cardiovascular (Brief) Cardiac: NOT FOUND: regular rate, regular rhythm Capillary Refill: <2 sec Abdomen (Brief) Abdominal: FOUND: BS normo active x4, soft, NOT FOUND: tender Laboratory Laboratory Laboratory Tests Test 06/08/16 21:42 06/09/16 06:39 06/09/16 10:05 06/09/16 12:49 Glucometer 153mg/dL 153mg/dL 145mg/dL 149mg/dL Test 06/09/16 14:01 06/09/16 21:30 06/10/16 04:30 06/10/16 06:50 Glucometer 122mg/dL 161mg/dL 133mg/dL White Blood Count 13.4T/MM3 Red Blood Count 3.48M/MM3 Hemoglobin 10.2GM/DL Hematocrit 33.9% Mean Corpuscular Volume 97.4UM3 Mean Corpuscular Hemoglobin 29.3UUG Mean Corpuscular Hemoglobin Concent 30.1GM/DL RDW Standard Deviation 65.5FL Platelet Count 233T/MM3 Mean Platelet Volume 12.5UM3 Immature Granulocyte % (Auto) 0.2% Neutrophils (%) (Auto) 73.0% Lymphocytes (%) (Auto) 12.2% Monocytes (%) (Auto) 8.0% Eosinophils (%) (Auto) 6.0% Basophils (%) (Auto) 0.6% Absolute Immature Granulocyte (auto 0.03T/MM3 Absolute Neutrophils (auto) 9.8T/MM3 Absolute Lymphocytes (auto) 1.6T/MM3 Absolute Monocytes (auto) 1.1T/MM3 Absolute Eosinophils (auto) 0.8T/MM3 Absolute Basophils (auto) 0.1T/MM3 Turbidity < 20 Sodium Level 137MEQ/L Potassium Level 4.2MEQ/L Chloride Level 100MEQ/L Carbon Dioxide Level 27MEQ/L Anion Gap 10MEQ/L Blood Urea Nitrogen 23.0MG/DL Creatinine 1.0MG/DL Glomerular Filtration Rate Calc 53 BUN/Creatinine Ratio 23RATIO Glucose Level 130MG/DL Calculated Osmolality 270MOSM/KG Calcium Level 8.6MG/DL Icterus Index < 2 Chemistry Specimen Hemolysis < 15 Test 06/10/16 10:17 06/10/16 14:12 06/10/16 17:17 Glucometer 269mg/dL 168mg/dL 55mg/dL Assessment & Plan Problems: (1) Myopathic disease or syndrome Status: Acute Assessment & Plan: Gaining strength, improving per PT and OT, continue current plan (2) Neuropathy Status: Chronic (3) Debility Status: Acute Assessment & Plan: Cont with plan of therapy. Review overall progress tomorrow in team meeting. (4) HTN (hypertension) Status: Chronic Assessment & Plan: managed by medical (5) S/P CABG (coronary artery bypass graft) Onset Date: ~ 05/20/2016 Status: Acute (6) Status post hip surgery Status: Acute Assessment & Plan: cont with PT and OT per current plan, review FIM score improvement tomorrow in team meeting. (7) Diabetes mellitus Onset Date: ~ 05/2016 Status: Chronic Qualifiers: Diabetes mellitus type: type 2 (8) History of atrial fibrillation Status: Chronic Assessment & Plan: managed by medical. (9) Chronic kidney disease Status: Chronic Assessment 06/09/2016-I reviewed this chart, the patient history, and the COMPLIANCE AUDITOR's/PA's documented findings as above. We discussed and formulated the assessment and plan as above with the additions below.-Dr. Hobson Patient states she's feeling okay this evening. She has no chest pain or shortness of breath. No lightheadedness. She was able to eat this afternoon and evening without difficulties. She has some mild postop hip pain. On exam she is alert and oriented and in no acute distress. Chest is clear to auscultation. Cardiovascular reveals a regular rate and rhythm. Abdomen is soft and nontender. These reveal no edema. Continue with current treatment. Dr. Champagne's note was reviewed and I agree with aspirin for DVT prophylaxis and for A. fib/coronary artery disease at this time considering her recent hematoma formation. Code Status Full Code Interventions to Obtain Goals PT Treatment Plan: Therapeutic Exercise, Gait Training, Functional Activities , Patient/Family Education, Balance/Proprioception OT Treatment Plan: ADL's (basic care), Ther. Exercise for ADL's, UE Functional Training, Balance Training, Pt./Family Education, IADL's Hospital Course Summary Disclaimer The hospital course summary below is not to be considered part of the above Progress Note. Hospital Course Summary 06/04/16 Spoke with Ayde Hughes with Dr. Lopez regarding patient's recent CABG procedure and ongoing treatment recommendations. She does recommend patient be on anticoagulation as she did have A-fib postoperatively. She would prefer Eliquis if not contraindicated. Given mild oozing from right hip incision will consult Dr Champagne for orthopedic evaluation of incision prior to starting anticoagulation. Patient does need postop anticoagulation for 30 days from right hemiarthroplasty performed on 05/16/16. Patient did have a right groin hematoma post heart catheter that was evaluated while at [place]. Overall this is improving. Continue with amiodarone given recent atrial fibrillation. She was noted to have elevated white count at 16.3. Will check a UA to rule out infection. Bumex 1 mg BID for ongoing diuresis. Oral Dilaudid and Ultram for pain control Continue SCDs to bilateral lower external for DVT prophylaxis Scheduled MiraLAX and Colace twice a day for ongoing bowel motivation. Encourage work with PT/OT for ongoing strengthening Will discuss case with attending Dr Hobson 06/05/16 Continue to monitor right hip dressing for oozing. Several more tl were placed by Dr Champagne Continue on ASA only at this time, Case discussed with Dr Lopez yesterday . Continue to monitor blood sugars. Fasting sugar this morning was 146. Will increase sliding scale to medium range dosing and continue to follow. Will recheck CBC and BMP tomorrow morning to follow leukocytosis 06/08/16 At this time, will recommend holding off on surgical procedure until cardiac rate control has been further evaluated and treated. Consultation was placed to Dr. Lopez for further recommendations. Patient has continued to receive her amiodarone, however, did have her beta rachelle held this morning due to Patient is to be monitored on cardiac telemetry. Current anticoagulation is aspirin. This may need to be discussed further with all providers involved including Dr. Lopez, Dr. Hobson and Dr. Champagne Will reevaluate patient later today, the hope is that she will be able to have her hip procedure tomorrow by Dr. Champagne. 06/09/[address] Lopez - pt is in sinus rhythm and has been cleared for surgery. I spoke with Dr. Champagne and updated him as well. Will need to discuss anticoagulation postop. Dr. Champagne prefers nothing stronger than ASA if possible; if needs anticoagulation would like to wait a week before starting, again if possible. However, he understands that if anticoagulation is necessary he would not argue it. Patient is complaining of nausea this morning - Zofran as needed. Repeat labs in am - pt has had leukocytosis. Encouraged pt to set small, achievable goals and let us know if she becomes too depressed. BHAVNA MCALLISTER MD Jun 10, 2016 17:30
--- NOTE | 2016-06-10 17:40 | NUR ---
BGM As pt was walking to the dining room, she was not walking as straight as previous in the day, also was slurring her speech and diaphoretic. Checked a BGM at 1720 which showed 55; she received grape juice, chelsea crackers, and peanut butter. At 1722 Katy Martinez APRN was notified of the BGM and symptoms, recheck in 15-20 minutes. Upon rechecking the BGM at 1738 it was 73. Will continue to monitor.
--- NOTE | 2016-06-10 19:11 | NUR ---
Shift Summary Pt is resting in bed at this time. She is alert and oriented to person, place, and time. Ambulates with the assist of 1, miguelina walker, and gait belt. Continent of bowel and bladder, did not need assist with her hygiene cares, minimal assist with her clothing. Reported pain this shift, received Dilaudid 2mg PO at 0750 and 1409, as well as Tramadol 50mg at 1025. Worked well with therapy this shift. IVL in both lower arms flushed well. BGM at 1000 was 269 received 5 units per sliding scale, at 1400 was 168 received 2 units per sliding scale. Ate moderately this shift, needed minimal assist with her tray, ambulated to the dining room. When in the bed or the chair the alarm is in use and call light is within reach.
[2016-06-10] MEDS: LIDOCAINE PATCH REMOVAL TOP SCH (21:00)
[2016-06-10] MEDS: GABAPENTIN 300 MG CAPSULE PO SCH (22:00)
[2016-06-10] MEDS: ATORVASTATIN 40 MG TABLET PO SCH (22:00)
--- NOTE | 2016-06-11 01:50 | NUR ---
Chart Check 24 hour chart check completed
--- NOTE | 2016-06-11 02:01 | NUR ---
Status Patient has been alert and oriented times three, pleasant and cooperative. She has been up to the restroom many times tonight, sometimes not able to urinate when she does go. She had some dribbling times one tonight. She ambulates with Brock walker and gait belt with supervision. She has required help tonight getting her leg in and out of bed. One time when up she seemed a little confused and had some slurred speech. Blood glucose was checked and was 80. Pt had one orange juice to try and keep the sugar up during the night. She refused her oral care tonight. IVs in bilateral arms flushed well and are asymptomatic. She reported pain to her back at 7/10 last night and received 2 mg Dilated. Her telemetry showed Vish sinus rhythm. Dressing to right hip is clean, dry and intact. Patient has dystrophic toe nails and cap refill to toes is >3 seconds. She is currently in bed with side rails up times two, bed alarm on and call light within reach.
[2016-06-11] MEDS: TRAMADOL 50 MG TABLET PO PRN ×3 (03:15→18:10)
[2016-06-11] MEDS: ACETAMINOPHEN 325 MG TABLET PO PRN ×3 (03:40→23:03)
[2016-06-11] MEDS: ONDANSETRON ODT 4 MG TAB PO PRN (03:40)
--- NOTE | 2016-06-11 05:44 | NUR ---
Shift Summary Pt called frequently most of the night, getting up to use the restroom but not being able to go, asking for medications (pain and nausea), saying she was hot or cold ect. She had a Zofran at 0340 and Tramadol and Tylenol this AM for pain. She finally fell asleep and has not called for a couple of hours.
[2016-06-11] MEDS: OMEPRAZOLE 20 MG CAPSULE PO SCH (06:05)
[2016-06-11] MEDS: METOCLOPRAMIDE 5mg TABLET PO SCH ×4 (06:05→21:19)
[2016-06-11] MEDS: INSULIN LISPRO 100 UNIT/ML SQ PRN ×4 (06:17→21:23)
[2016-06-11 07:43] VITALS: PULSE 72; RESP 14
[2016-06-11] MEDS: LIDOCAINE 5% PATCH TOP SCH (08:22)
[2016-06-11] MEDS: ASCORBIC ACID 500 MG TABLET PO SCH (08:23)
[2016-06-11] MEDS: DOCUSATE SODIUM 100 MG CAPSULE PO SCH ×2 (08:23→21:19)
[2016-06-11] MEDS: BUMETANIDE 1 MG TABLET PO SCH ×2 (08:23→17:26)
[2016-06-11] MEDS: POTASSIUM CHLORIDE 20 MEQ TABLET PO SCH ×2 (08:23→17:26)
[2016-06-11] MEDS: ASPIRIN 81 MG CHEWABLE TABLET PO SCH (08:23)
[2016-06-11] MEDS: AMIODARONE 200 MG TABLET PO SCH ×2 (08:24→21:19)
[2016-06-11] MEDS: FERROUS SULFATE 324 MG TABLET PO SCH ×3 (08:24→17:25)
[2016-06-11] MEDS: POLYETHYL.GLYCOL 3350 PACKET 17gm PO SCH ×2 (08:32→21:00)
[2016-06-11 08:37] LABS: BLOOD, URINE NEGATIVE (NEGATIVE); COLOR,URINE YELLOW (YELLOW); LEUKOCYTE ESTERASE ,URINE NEGATIVE (NEGATIVE); NITRITE,URINE NEGATIVE (NEGATIVE); UROBILINOGEN,URINE 0.2 EU/DL (NORMAL)
[2016-06-11 08:42] VITALS: BP 123/68; PULSE 86; RESP 16; TEMP 98.2; O2SAT 93
[2016-06-11 08:48] LABS: BACTERIA,URINE TRACE (NEGATIVE); RBC,URINE NONE SEEN /HPF (0-3); SQUAMOUS EPITHELIAL CELL,UR 0-5; WBC,URINE 0-1 /HPF (0-5)
--- NOTE | 2016-06-11 09:44 | PNPDOC ---
AUSTYN BUTLER MERCHANDISE DIRECTOR 06/11/16 0927: Subjective Date DATE: 06/11/16 TIME: 09:24 Subjective I received a phone call from Talisha's nurse this morning to ask me to look at her abdomen, which is markedly bruised from the Lovenox injections. Kellie also was up several times through the night with the urge to urinate, but unable to empty her bladder. She slept very poorly. I had the nurses bladder scanner, and the nurse found that she had significant urinary retention with over 850 ML's reported on the scanner. Straight cath was done with 750 ML return. She had a bowel movement this morning and denies constipation. She also has an extensive firm hematoma to her right lower abdomen. She denies any pain with this. She does note, however, upper and lower back pain. She is scheduled to get a Lidoderm patch today, which helps to control her pain during the daytime. She denies any chest pain or palpitations. No shortness of breath. She is overall a little bit down from all of her recent setbacks. Objective Vital Signs Vital signs Vital Signs Date Time Temp Pulse Resp B/P Pulse Ox O2 Delivery O2 Flow Rate FiO2 06/11/16 08:42 98.2 86 16 123/68 93 Room Air 06/09/16 21:56 2.00 Telemetry Rhythm: Atrial Fibrillation Height (Feet): 5 Height (Inches): 5.00 Weight (Kilograms): 43.300 General General Appearance: Alert, Obese, Orientated x 3, Well Nourished, Well Developed, No Acute Distress Eyes (Brief) Eyes: FOUND: PERRL, NOT FOUND: scleral icterus ENMT (Brief) ENMT: FOUND: mucosa moist, NOT FOUND: pharnyx erythema Respiratory (Brief) Respiratory: FOUND: clear all anaya, equal bilaterally Cardiovascular (Brief) Cardiac: FOUND: regular rate, regular rhythm Abdomen (Brief) Abdominal: FOUND: BS normo active x4, soft, NOT FOUND: distended Comments Extensive ecchymosis to her abdomen. She also has a very large, irregularly- shaped firm mass to her lower abdomen, extends into groin. Nontender. Suspect hematoma. Extremities (Brief) Extremity : Side: Bilateral Extremity Finding: NOT FOUND: edema Musculoskeletal (Brief) Comments dressing to right hip c/d/i Integumentary (Brief) Integumentary: FOUND: dry, warm Psychiatric (Brief) Psychiatric: FOUND: alert, attentive, normal affect, oriented Laboratory Laboratory Laboratory Tests 06/10/16 04:30 Laboratory Tests 06/10/16 04:30 Assessment & Plan Problems: (1) Urinary retention Status: Acute Assessment & Plan: Straight cath on 06/11/16 - 750 mL (2) S/P CABG (coronary artery bypass graft) Onset Date: ~ 05/20/2016 Status: Acute (3) Status post hip surgery Status: Acute Assessment & Plan: 05/16/16- Dr Champagne- right Brock-arthroplasty (4) Chronic kidney disease Status: Chronic (5) Diabetes mellitus Onset Date: ~ 05/2016 Status: Chronic Qualifiers: Diabetes mellitus type: type 2 (6) HTN (hypertension) Status: Chronic (7) History of atrial fibrillation Status: Chronic (8) Hypercholesteremia Status: Chronic (9) Peptic ulcer disease Status: Chronic (10) Pseudoarthrosis Status: Chronic (11) Basal cell carcinoma Status: Chronic (12) Allergic rhinitis Status: Chronic (13) GERD (gastroesophageal reflux disease) Status: Chronic Plan/Intensity of Service Urinary retention (750mL) - UA neg. for UTI. Suspect retention may be combination of extensive hematoma and hx of uterine prolapse, along with hx of chronic retention. Continue post-void residuals. Pt does not want a catheter if possible. Suspected abdominal hematoma - will obtain ultrasound today. She is only on ASA for anticoagulation. Type 2 DM with hypoglycemia - she's not on antiglycemic agents other than SSI - continue to monitor. Leukocytosis - improving. Recheck in am. Situational depression - consider antidepressant or psych consult. Repeat BMP and CBC in am. Code Status Full Code Hospital Course Summary Disclaimer The hospital course summary below is not to be considered part of the above Progress Note. Hospital Course Summary 06/04/16 Spoke with Austyn Hughes with Dr. Lopez regarding patient's recent CABG procedure and ongoing treatment recommendations. She does recommend patient be on anticoagulation as she did have A-fib postoperatively. She would prefer Eliquis if not contraindicated. Given mild oozing from right hip incision will consult Dr Champagne for orthopedic evaluation of incision prior to starting anticoagulation. Patient does need postop anticoagulation for 30 days from right hemiarthroplasty performed on 05/16/16. Patient did have a right groin hematoma post heart catheter that was evaluated while at [place]. Overall this is improving. Continue with amiodarone given recent atrial fibrillation. She was noted to have elevated white count at 16.3. Will check a UA to rule out infection. Bumex 1 mg BID for ongoing diuresis. Oral Dilaudid and Ultram for pain control Continue SCDs to bilateral lower external for DVT prophylaxis Scheduled MiraLAX and Colace twice a day for ongoing bowel motivation. Encourage work with PT/OT for ongoing strengthening Will discuss case with attending Dr Hobson 06/05/16 Continue to monitor right hip dressing for oozing. Several more tl were placed by Dr Champagne Continue on ASA only at this time, Case discussed with Dr Lopez yesterday . Continue to monitor blood sugars. Fasting sugar this morning was 146. Will increase sliding scale to medium range dosing and continue to follow. Will recheck CBC and BMP tomorrow morning to follow leukocytosis 06/08/16 At this time, will recommend holding off on surgical procedure until cardiac rate control has been further evaluated and treated. Consultation was placed to Dr. Lopez for further recommendations. Patient has continued to receive her amiodarone, however, did have her beta rachelle held this morning due to Patient is to be monitored on cardiac telemetry. Current anticoagulation is aspirin. This may need to be discussed further with all providers involved including Dr. Lopez, Dr. Hobson and Dr. Champagne Will reevaluate patient later today, the hope is that she will be able to have her hip procedure tomorrow by Dr. Champagne. 06/09/[address] Lopez - pt is in sinus rhythm and has been cleared for surgery. I spoke with Dr. Champagne and updated him as well. Will need to discuss anticoagulation postop. Dr. Champagne prefers nothing stronger than ASA if possible; if needs anticoagulation would like to wait a week before starting, again if possible. However, he understands that if anticoagulation is necessary he would not argue it. Patient is complaining of nausea this morning - Zofran as needed. Repeat labs in am - pt has had leukocytosis. Encouraged pt to set small, achievable goals and let us know if she becomes too depressed. 06/11/16 Urinary retention (750mL) - UA neg. for UTI. Suspect retention may be combination of extensive hematoma and hx of uterine prolapse, along with hx of chronic retention. Continue post-void residuals. Pt does not want a catheter if possible. Suspected abdominal hematoma - will obtain ultrasound today. She is only on ASA for anticoagulation. Type 2 DM with hypoglycemia - she's not on antiglycemic agents other than SSI - continue to monitor. Leukocytosis - improving. Recheck in am. Situational depression - consider antidepressant or psych consult. CHERRI REBOLLAR MD 06/12/16 1754: Assessment & Plan Assessment Seen and examined same day. Agreed with above document and clinical findings. Continue with care as per above AUSTYN BUTLER APRN Jun 11, 2016 09:27 CHERRI REBOLLAR MD Jun 12, 2016 17:54
--- NOTE | 2016-06-11 10:50 | NUR ---
JAYA CM IN TO VISIT WITH PT. SHE IS ALERT AND ORIENTED. DAV, PT IS PRESENT. PT PLANS TO DC HOME. IT IS UNCLEAR IF SHE WILL NEED A NIKKI-WALKER. DAV WILL LET CM KNOW IF PT NEEDS THIS DME.
--- NOTE | 2016-06-11 11:48 | DI ---
Indication: ITS.REASON: suspect hematoma to right abdomen PROCEDURE: US ABDOMEN LIMITED: Encounter: Initial Comparison: None Technique: Grayscale and color Doppler sonographic imaging of the right lower quadrant of the abdomen was performed. Findings: In the area of palpable concern of the right lower quadrant there is a hypoechoic 4.2 x 2.3 x 2.5 cm lesion with a few low-level internal echoes present but no internal vascularity. Nearby there is an adjacent similar appearing 3.9 x 2.2 x 2.8 cm lesion. Impression: Two adjacent or possibly 1 large multiloculated fluid collection in the right lower quadrant area of palpable concern most likely representing a hematoma. Given the lack of surrounding hyperemia an abscess is felt to be less likely. .
--- NOTE | 2016-06-11 12:03 | NUR ---
OUTPUT PT REPORTED AT THIS TIME THE URGE TO VOID. WITH THE SUPERVISION OF THIS RN, LEDYARD OUTREACH NURSE PREM Diez BLADDER SCANNED PT WHILE IN BED AT THIS TIME. BLADDER SCAN RESULT OF 345CC OBTAINED. PT THEN ASSISTED INTO THE RESTROOM WITH ASSIST X1, NIKKI WALKER AND GAIT BELT, TO ATTEMPT TO VOID. VOID UNSUCCESSFUL AND PT REPORTED THE URGE TO VOID WAS GONE. PT ASSISTED TO DINING ROOM FOR LUNCH AT THIS TIME. WILL ATTEMPT TO VOID AGAIN AFTER LUNCH AND CONTINUE TO MONITOR. THIS RN WILL REPORT TO PHYSICIAN A BLADDER SCAN VOLUME GREATER THAN 600CC AND PT'S INABILITY TO VOID.
--- NOTE | 2016-06-11 12:50 | PDIRUTEAM ---
Multidisciplinary Team Meeting Nursing Hx Incontinence: No Bladder Goal: 7+ Complete [facility] Mason Y/N: No Bladder Continent or Incontine: Continent Incontinent Product Used: Pull-up Number of Times Incontinent of: 0 Cleaning Ability-Bladder: 6 Modified Sutter Bladder Incontinence Managemen: 4 Minimal Assistance Bowel Goal: 7+ Complete Sutter Colostomy Y/N: No Bowel Incontinent/Continent: Continent Bowel Number of Accidents: 0 Number of times Incontinent of: 0 Cleaning Ability-Bowel: 6 Modified Sutter Toileting Ability: 5 Supervision/Setup Vital Signs Vital Signs Date Time Temp Pulse Resp B/P Pulse Ox O2 Delivery O2 Flow Rate FiO2 06/11/16 08:42 98.2 86 16 123/68 93 Room Air 06/09/16 21:56 2.00 Current Medications Current Medications Medications (Trade) Dose Ordered Sig/Silver Route PRN Reason Start Time Stop Time Status Last Admin Dose Admin Docusate Sodium (Colace) 100 mg BID PO 06/03/16 21:00 06/11/16 08:23 Acetaminophen (Tylenol Regular Strength) 650 mg Q6HR PRN PO PAIN 06/03/16 14:30 06/11/16 11:55 Amiodarone HCl (Pacerone) 200 mg BID PO 06/03/16 21:00 06/11/16 08:24 Ascorbic Acid (VITAMIN C 500 mg Tablet) 500 mg DAILY PO 06/04/16 09:00 06/11/16 08:23 Aspirin (ASA) 81 mg DAILY PO 06/04/16 09:00 06/11/16 08:23 Atorvastatin Calcium (LIPITOR 40 mg) 40 mg HS PO 06/03/16 22:00 06/10/16 22:00 Bumetanide (BUMEX 1 mg TAB) 1 mg BID PO 06/03/16 21:00 06/05/16 06:44 DC 06/04/16 20:22 Ferrous Sulfate (Feosol) 324 mg TIDWM PO 06/03/16 17:30 06/11/16 11:56 Gabapentin (Neurontin) 300 mg HS PO 06/03/16 22:00 06/10/16 22:00 Hydromorphone HCl (Dilaudid) 1-2 Q4HR PRN PO PAIN 06/03/16 14:30 06/10/16 22:27 Metoprolol Tartrate (Lopressor) 25 mg BIDBS PO 06/03/16 17:30 06/11/16 08:23 Omeprazole (Prilosec) 40 mg ACB PO 06/04/16 06:30 06/11/16 06:05 Polyethylene Glycol (Miralax) 17 g BID PO 06/03/16 21:00 06/10/16 10:22 Potassium Chloride (Kdur) 20 meq BIDWM PO 06/03/16 17:30 06/11/16 08:23 Tramadol HCl (Ultram) 50 mg Q6HR PRN PO PAIN 06/03/16 14:30 06/11/16 10:18 Al Hydroxide/Mg Hydroxide (Maalox) 30 ml Q3-4H PRN PO INDIGESTION 06/03/16 15:30 06/03/16 15:29 Insulin Human Lispro (Humalog) SS PRN SQ 06/03/16 18:15 06/05/16 16:54 DC 06/05/16 10:25 Ondansetron HCl (Zofran Odt) 4 mg Q4H PRN PO NAUSEA &/OR VOMITING 06/03/16 18:30 06/11/16 03:40 Metoclopramide HCl (Reglan) 5 mg ACHS PO 06/03/16 22:00 06/11/16 11:54 Bumetanide (BUMEX 1 mg TAB) 1 mg BID. PO 06/05/16 09:00 06/11/16 08:23 Benzocaine (Americaine Hemorr. Oint.) 1 applic BID PRN TOP HEMORRHOIDS 06/05/16 13:00 06/10/16 23:05 Insulin Human Lispro (Humalog) SS PRN SQ 06/05/16 17:00 06/11/16 10:20 Lidocaine (Lidoderm) 1 patch DAILY TOP 06/07/16 12:30 06/11/16 08:22 Lidocaine (Lidoderm Patch Removal) 1 removal 2100 TOP 06/07/16 21:00 06/10/16 21:00 Hydromorphone HCl 0.5 mg 0.5 mg Q2H PRN IV PAIN 06/07/16 21:45 06/09/16 01:07 Sodium Chloride (Normal Saline IV) 1,000 ml @ 0 mls/hr Q0M PRN IV 06/08/16 12:08 06/10/16 10:17 DC 06/09/16 10:54 Ondansetron HCl 4 mg 4 mg Q4H PRN IV NAUSEA &/OR VOMITING 06/09/16 01:45 06/09/16 08:30 Cefazolin Sodium/ Sodium Chloride (Kefzol/NS) 100 ml @ 200 mls/hr Q8H IV 06/09/16 19:30 06/10/16 04:00 DC 06/10/16 05:47 Hydromorphone HCl (Dilaudid) Dilaudid 0.5-1 mg IVP every 10 minutes... Q10M PRN IV PAIN 06/09/16 12:45 06/10/16 08:25 DC 06/09/16 13:17 Comments continent bowel and bladder. 850cc retention bladder scan yesterday with 750ml drained by straight cath. glucose mid 100s. Pain control is an issue. oral dilaudid not enough and ultram. IV diluadid added. bruising on abd from lovenox with hematoma to abd. Also had hematoma removed from hip . considering psych consult for depression from hip fx and [place]. Physical Therapy Bed Transfer Ability: 4 Minimal Assistance Bed Transfer Assistance Needed: 1 Person Bed FIM Score Reason: Pt refused. Chair Transfer Ability: 4 Minimal Assistance Chair Transfer Assistance Need: 1 Person Overall Wheelchair Transfer Ab: 4 Minimal Assistance Wheelchair Transfer Assistance: 1 Person Overall Toilet / Commode Trans: 5 Supervision/Setup Ambulation Ability: 4 Minimal Assistance Ambulation Assistance Needed: 1 Person Walk FIM Score Reason: 2/7 A d/t distance requiring 4/7 CGA to ensure safety Ambulation Distance: 52 Comments very selflimiting and needs encouragement. Occupational Therapy Grooming Ability: 5 Supervision/Setup Bathing Ability: 3 Moderate Assistance Upper Body Dressing Ability: 5 Supervision/Setup Lower Body Dressing Ability: 2 Maximum Assistance Toileting Assistance Needed: 1 Person Toileting FIM Score Reason: urine only tonight Comments motivation needed. Care Plan Condition at time of discharge: Fair IRU Discharge Disposition: Home Health Service Interventions/Goals Will need hemiwalker or small base quadcane. PT deciding. day 8 of 14 Needs motivation. looking to psych eval barriers to d/c, motivation,mood, endurance, pain, selflimiting. reeval next week. BHAVNA MCALLISTER MD Jun 11, 2016 12:44
--- NOTE | 2016-06-11 13:06 | NUR ---
POST VOID RESIDUAL PT VOIDED AFTER LUNCH AT THIS TIME. A MEASUREMENT AMOUNT WAS NOT OBTAINED PT MISSED THE COLLECTION DEVICE. PT DID VOID HOWEVER. UPON RETURNING TO THE BED. A BLADDER SCAN AMOUNT OF 421CC OBTAINED. PT DOES NOT FEEL THE URGE TO URINATE ANY FURTHER. WILL CONTINUE TO MONITOR CLOSELY.
--- NOTE | 2016-06-11 14:00 | PNPDOC ---
TANYA MONROE PEDIATRIC IMMUNOLOGIST 06/11/16 1356: Subjective Date DATE: 06/11/16 TIME: 13:52 Subjective Talisha is sitting up in the recliner in her room. She seems a little down today. She states her back pain has been well controlled and states she slept well last night. She denies any chest pain or pressure. Objective Vital Signs Vital signs Vital Signs 06/11/16 06/11/16 07:43 08:42 Temp 98.2 Pulse 72 86 Resp 14 16 B/P 123/68 Pulse Ox 93 O2 Delivery Room Air Telemetry Rhythm: Atrial Fibrillation Height (Feet): 5 Height (Inches): 5.00 Weight (Kilograms): 43.300 General Alert, Orientated x 3, Cooperative ENMT (Brief) mucosa moist Neck (Brief) NOT FOUND: JVD, carotid bruits Respiratory (Brief) clear all anaya, equal bilaterally, NOT FOUND: rales, wheezes Cardiovascular (Brief) regular rate, regular rhythm, NOT FOUND: pedal edema Abdomen (Brief) BS normo active x4, soft, NOT FOUND: tender Integumentary (Brief) dry, pink, warm Psychiatric (Brief) alert, attentive, oriented Laboratory Laboratory Laboratory Tests Test 06/09/16 14:01 06/09/16 21:30 06/10/16 04:30 06/10/16 06:50 Glucometer 122mg/dL 161mg/dL 133mg/dL White Blood Count 13.4T/MM3 Red Blood Count 3.48M/MM3 Hemoglobin 10.2GM/DL Hematocrit 33.9% Mean Corpuscular Volume 97.4UM3 Mean Corpuscular Hemoglobin 29.3UUG Mean Corpuscular Hemoglobin Concent 30.1GM/DL RDW Standard Deviation 65.5FL Platelet Count 233T/MM3 Mean Platelet Volume 12.5UM3 Immature Granulocyte % (Auto) 0.2% Neutrophils (%) (Auto) 73.0% Lymphocytes (%) (Auto) 12.2% Monocytes (%) (Auto) 8.0% Eosinophils (%) (Auto) 6.0% Basophils (%) (Auto) 0.6% Absolute Immature Granulocyte (auto 0.03T/MM3 Absolute Neutrophils (auto) 9.8T/MM3 Absolute Lymphocytes (auto) 1.6T/MM3 Absolute Monocytes (auto) 1.1T/MM3 Absolute Eosinophils (auto) 0.8T/MM3 Absolute Basophils (auto) 0.1T/MM3 Turbidity < 20 Sodium Level 137MEQ/L Potassium Level 4.2MEQ/L Chloride Level 100MEQ/L Carbon Dioxide Level 27MEQ/L Anion Gap 10MEQ/L Blood Urea Nitrogen 23.0MG/DL Creatinine 1.0MG/DL Glomerular Filtration Rate Calc 53 BUN/Creatinine Ratio 23RATIO Glucose Level 130MG/DL Calculated Osmolality 270MOSM/KG Calcium Level 8.6MG/DL Icterus Index < 2 Chemistry Specimen Hemolysis < 15 Test 06/10/16 10:17 06/10/16 14:12 06/10/16 17:17 06/10/16 17:38 Glucometer 269mg/dL 168mg/dL 55mg/dL 73mg/dL Test 06/10/16 19:58 06/10/16 23:09 06/11/16 06:04 06/11/16 08:16 Glucometer 113mg/dL 80mg/dL 171mg/dL Urine Collection Type Cleancatch-midstream Urine Color Yellow Urine Turbidity Clear Urine pH 6.0 Urine Specific [place] <=1.005 Urine Protein Negative Urine Glucose (UA) Negative Urine Ketones Negative Urine Blood Negative Urine Nitrite Negative Urine Bilirubin Negative Urine Urobilinogen 0.2EU/DL Urine Leukocyte Esterase Negative Urine RBC None seen/HPF Urine WBC 0-1/HPF Urine Squamous Epithelial Cells 0-5 Urine Bacteria Trace Urine Culture Indicated Cult not indicated Test 06/11/16 10:17 Glucometer 260mg/dL Medications Current Medications Miscellaneous Medication (May use PRN orders) 1 PRN PRN ; Start 06/03/16 at 14:30 Acetaminophen (Tylenol Regular Strength) 650 mg Q6HR PRN PO PAIN Last administered on 06/11/16 11:55; Start 06/03/16 at 14:30 Amiodarone HCl (Pacerone) 200 mg BID PO Last administered on 06/11/16 08:24; Start 06/03/16 at 21:00 Ascorbic Acid (VITAMIN C 500 mg Tablet) 500 mg DAILY PO Last administered on 08:23; Start 06/04/16 at 09:00 Aspirin (ASA) 81 mg DAILY PO Last administered on 06/11/16 08:23; Start at 09:00 Atorvastatin Calcium (LIPITOR 40 mg) 40 mg HS PO Last administered on 06/10/16 22:00; Start 06/03/16 at 22:00 Docusate Sodium (Colace) 100 mg BID PO ; Start 06/03/16 at 21:00; Stop 06/03/16 at 21:00; Status DC Ferrous Sulfate (Feosol) 324 mg TIDWM PO Last administered on 06/11/16 11:56; Start 06/03/16 at 17:30 Gabapentin (Neurontin) 300 mg HS PO Last administered on 06/10/16 22:00; Start 06/03/16 at 22:00 Omeprazole (Prilosec) 40 mg ACB PO Last administered on 06/11/16 06:05; Start 06/04/16 at 06:30 Polyethylene Glycol (Miralax) 17 g BID PO Last administered on 06/10/16 10:22; Start 06/03/16 at 21:00 Potassium Chloride (Kdur) 20 meq BIDWM PO Last administered on 06/11/16 08:23; Start 06/03/16 at 17:30 Tramadol HCl (Ultram) 50 mg Q6HR PRN PO PAIN Last administered on 06/11/16 10: 18; Start 06/03/16 at 14:30 Al Hydroxide/Mg Hydroxide (Maalox) 30 ml Q3-4H PRN PO INDIGESTION Last administered on 06/03/16 15:29; Start 06/03/16 at 15:30 Glucose (Glutose 15) 37.5 g PRN PRN PO HYPOGLYCEMIA; Start 06/03/16 at 18:15 Dextrose (D50w) 25 ml PRN PRN IV HYPOGLYCEMIA; Start 06/03/16 at 18:15 Ondansetron HCl (Zofran Odt) 4 mg Q4H PRN PO NAUSEA &/OR VOMITING Last administered on 06/11/16 03:40; Start 06/03/16 at 18:30 Metoclopramide HCl (Reglan) 5 mg ACHS PO Last administered on 06/11/16 11:54; Start 06/03/16 at 22:00 Bumetanide (BUMEX 1 mg TAB) 1 mg BID. PO Last administered on 06/11/16 08:23; Start 06/05/16 at 09:00 Benzocaine (Americaine Hemorr. Oint.) 1 applic BID PRN TOP HEMORRHOIDS Last administered on 06/10/16 23:05; Start 06/05/16 at 13:00 Insulin Human Lispro (Humalog) SS PRN SQ Last administered on 06/11/16 10:20 ; Start 06/05/16 at 17:00 Lidocaine (Lidoderm) 1 patch DAILY TOP Last administered on 06/11/16 08:22; Start 06/07/16 at 12:30 Lidocaine (Lidoderm Patch Removal) 1 removal 2100 TOP Last administered on 21:00; Start 06/07/16 at 21:00 Cefazolin Sodium (Kefzol) 2 g PREOP ONCE IV ; Start 06/08/16 at 11:45; Stop at 11:46; Status DC Metoprolol Tartrate (Lopressor) 25 mg O ONCE PO Last administered on 12:22; Start 06/08/16 at 12:30; Stop 06/08/16 at 12:31; Status DC Bupivacaine HCl/ Epinephrine Bitart (Marcaine/Epi 0.25%/1:200,000) 30 ml STK- MED ONCE INJ ; Start 06/08/16 at 14:00; Stop 06/09/16 at 09:51; Status DC Rocuronium Rotan (Zemuron) 50 mg STK-MED ONCE IV ; Start 06/08/16 at 14:00; Stop 06/09/16 at 09:51; Status DC Succinylcholine Chloride (Quelicin) 200 mg STK-MED ONCE IV ; Start 06/08/16 at 14:00; Stop 06/09/16 at 09:51; Status DC Sevoflurane 1 ml 1 ml STK-MED ONCE IH ; Start 06/08/16 at 14:00; Stop 06/09/16 at 09:51; Status DC Sodium Chloride (Normal Saline IV) 1,000 ml @ 50 mls/hr Q20H ONCE IV ; Start at 10:51; Stop 06/11/16 at 06:50; Status DC Cefazolin Sodium 2 g 2 g O ONCE IV Last administered on 06/09/16 11:33; Start 06/09/16 at 11:00; Stop 06/09/16 at 11:46; Status DC Cefazolin Sodium/ Sodium Chloride (Kefzol/NS) 100 ml @ 200 mls/hr Q8H IV Last administered on 06/10/16 05:47; Start 06/09/16 at 19:30; Stop 06/10/16 at 04:00; Status DC Hydromorphone HCl (Dilaudid) Dilaudid 0.5-1 mg IVP every 10 minutes... Q10M PRN IV PAIN Last administered on 06/09/16 13:17; Start 06/09/16 at 12:45; Stop 06/10/16 at 08:25; Status DC Ondansetron HCl (Zofran) 4 mg O PRN IV NAUSEA &/OR VOMITING; Start 06/09/16 at 12:45; Stop 06/10/16 at 08:26; Status DC Vancomycin HCl (Vancocin) 1 g STK-MED ONCE IV ; Start 06/09/16 at 11:09; Stop at 11:34; Status DC Bupivacaine HCl (Sensorcaine 0.25% Steri-Dawit) 30 mg STK-MED ONCE INJ ; Start at 11:09; Stop 06/10/16 at 11:34; Status DC Lidocaine HCl (Xylocaine 1%) 30 mg STK-MED ONCE IJ ; Start 06/09/16 at 11:09; Stop 06/10/16 at 11:34; Status DC Propofol (Diprivan) 500 mg STK-MED ONCE IV ; Start 06/09/16 at 11:09; Stop at 11:34; Status DC Fentanyl (Fentanyl) 100 mcg STK-MED ONCE IV ; Start 06/09/16 at 11:09; Stop 06/10 at 11:34; Status DC Radiology DATE OF EXAM: 06/11/16 ORDERING DOCTOR: AUSTYN BUTLER APRN TYPE OF EXAM: US ABDOMEN LIMITED REASON FOR EXAM: suspect hematoma to right abdomen Indication: ITS.REASON: suspect hematoma to right abdomen PROCEDURE: US ABDOMEN LIMITED: Encounter: Initial Comparison: None Technique: Grayscale and color Doppler sonographic imaging of the right lower quadrant of the abdomen was performed. Findings: In the area of palpable concern of the right lower quadrant there is a hypoechoic 4.2 x 2.3 x 2.5 cm lesion with a few low-level internal echoes present but no internal vascularity. Nearby there is an adjacent similar appearing 3.9 x 2.2 x 2.8 cm lesion. Impression: Two adjacent or possibly 1 large multiloculated fluid collection in the right lower quadrant area of palpable concern most likely representing a hematoma. Given the lack of surrounding hyperemia an abscess is felt to be less likely. Assessment & Plan Problems: (1) Atrial fibrillation with rapid ventricular response Status: Acute Assessment & Plan: In SR 60's today. Continue Amiodarone 200mg po BID and Metoprolol 25mg po BID for rhythm and rate control. Will repeat EKG in am. ASA only thinner at this time due to recent hip surgery. (2) CAD (coronary artery disease) Status: Chronic Assessment & Plan: Continue statin. PCP manages (3) S/P CABG (coronary artery bypass graft) Onset Date: ~ 05/20/2016 Status: Acute Assessment & Plan: cont asa, metoprolol, amiodarone, statin (4) HTN (hypertension) Status: Chronic Assessment & Plan: Cont metoprolol (5) Diabetes mellitus Onset Date: ~ 05/2016 Status: Chronic Qualifiers: Diabetes mellitus type: type 2 Assessment & Plan: managed per PCP Plan/Intensity of Service 06/08/16 Give medications as ordered. If plan to I&D tomorrow, she is stable from a cardiac standpoint and may have needed I & D. please given beta rachelle and antiarrhythmic with a sip of water as scheduled. 06/09/16 In SR 60's today. Continue Amiodarone 200mg po BID and Metoprolol 25mg po BID for rhythm and rate control. Will repeat EKG in am. ASA only thinner at this time due to recent hip surgery. 06/10/16 Remains in SR, Continue to monitor telemetry. 06/11/16 remains in SR. Hematoma to right groin possibly related to heart cath. Start Lisinopril 5mg daily this evening. Thank you for allowing us to participate in the care of this patient. BERNIE OLMOS MD 06/29/16 1010: Assessment & Plan Plan/Intensity of Service After examining the patient I agree with the above assessment. I am involved in the formulation of the patient's plan of care. TANYA MONROE APRN Jun 11, 2016 13:56 BERNIE OLMOS MD Jun 29, 2016 10:10
[2016-06-11] MEDS: HYDROMORPHONE 2 MG TABLET PO PRN ×3 (14:56→23:29)
[2016-06-11 15:37] VITALS: BP 132/65; PULSE 79; RESP 18; TEMP 97; O2SAT 96
[2016-06-11] MEDS: LISINOPRIL 5 MG TABLET PO SCH (17:26)
--- NOTE | 2016-06-11 18:10 | NUR ---
OUTPUT PT HAS ATTEMPTED MULTIPLE TIMES THIS AFTERNOON AND AFTER DINNER TO VOID. PT STATED SHE VOIDED MINIMALLY HOWEVER MISSED THE COLLECTION DEVICE. NURSE UNABLE TO PROVE VOID. BLADDER SCAN AFTER THIS GREATER THAN 400CC. NO VOID NOTED SINCE STRAIGHT CATH THIS AM AT 0800. THIS RN RECEIVED A VERBAL ORDER FROM RISHI BUENO TO PLACE MENON CATHETER IF PT UNABLE TO VOID. RECENT BLADDER SCAN OF 536CC REPORTED TO AUSTYN AT THIS TIME. AT 1810, THIS RN PLACED A MENON CATHETER TO DEPENDENT DRAINAGE USING STERILE TECHNIQUE DUE TO PT'S URINARY RETENTION. 400CC OF CLEAR YELLOW URINE RETRIEVED UPON CATH INSERTION. PT DENIED ANY DISCOMFORT. PT THEN ASSISTED TO CHAIR WITH ASSIST X1, NIKKI WALKER AND GAIT BELT. WILL CONTINUE MONITOR CLOSELY.
[2016-06-11] MEDS: LIDOCAINE PATCH REMOVAL TOP SCH (19:47)
--- NOTE | 2016-06-11 19:55 | NUR ---
prn given Pt is alert and oriented x3, pt is sitting up in her recliner with chair alarm on. Pt assessed, pt vitals signs obtained, pt cooperative, pt states she is having back pain 6/. Pt given Dilaudid 2mg po, pt assisted to bathroom, pt is up with assist x1 and hemiwalker with gait belt. Pt mostly steady on her feet, pt assisted to bed, ice pack given for pt rt hip, pt is safety aware of hip precautions, pt is now in bed with bed alarm on.
[2016-06-11 20:00] VITALS: BP 121/69; PULSE 68; RESP 18; TEMP 97.6; O2SAT 95
--- NOTE | 2016-06-11 21:00 | NUR ---
prn update Pt states her back feels a little better, pt rates pain 6/10, pt repositioned in bed, pt states her rt hip is aching, pt given hs meds and repositioned in bed.
[2016-06-11] MEDS: ATORVASTATIN 40 MG TABLET PO SCH (21:19)
[2016-06-11] MEDS: GABAPENTIN 300 MG CAPSULE PO SCH (21:19)
--- NOTE | 2016-06-11 23:03 | NUR ---
prn given Pt awake having back pain 10/19, pt repositioned for comfort, pt given Tylenol 650mg po, pt is in bed with two bed rails up and bed alarm on.
--- NOTE | 2016-06-11 23:30 | NUR ---
prn given/update Pt put director of vocational guidance light, states her pain is 7/10, Tylenol only helped a little, pt given Dilaudid 2mg po for pain. Pt repositioned in bed, will monitor pt,
--- NOTE | 2016-06-12 00:42 | NUR ---
prn update Pt called, states her back hurts, pt linens straightened, offered to turn pt, pt refused to turn to rt side, pt just repeated my back, my back. Will monitor pt, pt is currently in bed with 2 bed rails up and bed alarm on.
--- NOTE | 2016-06-12 00:45 | NUR ---
Chart Check 24 hour chart check completed
--- NOTE | 2016-06-12 03:30 | NUR ---
prn given Pt is up in bed, restless, states her back hurts 10/19, Dilaudid 2mg po given, pt did get up out of bed and walked to doorway and back to bed with assist x1, gait belt and miguelina walker. Pt assisted back to bed, pt is in bed with 2 bed rails up and bed alarm on.
[2016-06-12] MEDS: HYDROMORPHONE 2 MG TABLET PO PRN ×5 (03:32→22:54)
--- NOTE | 2016-06-12 04:00 | NUR ---
prn update Pt is resting in bed, pt cooperate with lab, pt states her pain is 6/10, pt is in bed with 2 bed rails up and bed alarm on.
[2016-06-12 05:10] LABS: BASOPHILS # (AUTO) 0.1 T/MM3 (0-0.2); BASOPHILS % (AUTO) 0.6 % (0-2); EOSINOPHILS # (AUTO) 0.7 T/MM3 (0-0.5); EOSINOPHILS % (AUTO) 7.1 % (0-4); HCT - HEMATOCRIT 32.8 % (36-46); HGB - HEMOGLOBIN 10.1 GM/DL (12-16); IMMATURE GRANULOCYTE # (AUTO) 0.02 T/MM3 (0.00-0.03); IMMATURE GRANULOCYTE % (AUTO) 0.2 % (0.0-0.5); LYMPHOCYTES # (AUTO) 1.6 T/MM3 (1-4.8); LYMPHOCYTES % (AUTO) 16.5 % (23-45); MEAN CORPUSCULAR HGB 29.6 UUG (26-34); MEAN CORPUSCULAR HGB CONC(MCHC 30.8 GM/DL (31-37); MEAN CORPUSCULAR VOLUME 96.2 UM3 (80-100); MEAN PLATELET VOLUME 12.5 UM3 (9.4-12.4); MONOCYTES # (AUTO) 0.8 T/MM3 (0-0.8); MONOCYTES % (AUTO) 8.3 % (0-9.0); NEUTROPHILS #(AUTO)-ABSOLUTE 6.6 T/MM3 (1.8-7.7); NEUTROPHILS % (AUTO) 67.3 % (33-66); RED BLOOD COUNT 3.41 M/MM3 (4.00-5.20); WBC - WHITE BLOOD COUNT 9.7 T/MM3 (4.5-11.0)
[2016-06-12 05:24] LABS: ANION GAP 6 MEQ/L (5-15); BUN/CREATININE RATIO 22 RATIO (6-26); CALCIUM 8.7 MG/DL (8.4-10.2); CHLORIDE 100 MEQ/L (98-107); CO2 - CARBON DIOXIDE 30 MEQ/L (22-30); CREATININE 1.1 MG/DL (0.7-1.2); GLOMERULAR FILTRATION RATE 47; GLUCOSE 119 MG/DL (65-110); MAGNESIUM 1.4 MG/DL (1.6-2.3); POTASSIUM 4.2 MEQ/L (3.6-5); SODIUM 136 MEQ/L (134-144)
[2016-06-12] MEDS: TRAMADOL 50 MG TABLET PO PRN ×2 (06:18→20:40)
[2016-06-12] MEDS: METOCLOPRAMIDE 5mg TABLET PO SCH ×4 (06:19→20:40)
[2016-06-12] MEDS: OMEPRAZOLE 20 MG CAPSULE PO SCH (06:19)
--- NOTE | 2016-06-12 06:30 | NUR ---
shift summary Pt is alert and orientated x3, pt is restless at times, pt had lots of back pain during the night, pt received Dilaudid 2mg po at 19:55, 23:30,03:30 for pain 6-10/19, pt also took Tylenol 650mg at 2300 and Ultram at 0600 for back pain, pt repositioned frequently, pt dangled and stood at bedside, pt walked around room with gait belt, miguelina walker and assist x1. Pt in a gown at start of shift, pt did manage her armand care and pullups with standby assist. Pt initially refused oral care, but did use a swab. Pt is currently in bed with 2 bed rails up and bed alarm on.
[2016-06-12 08:00] VITALS: BP 130/63; PULSE 84; RESP 18; TEMP 97.4; O2SAT 94
[2016-06-12] MEDS: POLYETHYL.GLYCOL 3350 PACKET 17gm PO SCH ×3 (09:00→20:41)
[2016-06-12] MEDS: POTASSIUM CHLORIDE 20 MEQ TABLET PO SCH ×2 (09:02→18:49)
[2016-06-12] MEDS: FERROUS SULFATE 324 MG TABLET PO SCH ×3 (09:02→18:49)
[2016-06-12] MEDS: DOCUSATE SODIUM 100 MG CAPSULE PO SCH ×2 (09:03→20:46)
[2016-06-12] MEDS: BUMETANIDE 1 MG TABLET PO SCH ×2 (09:03→18:48)
[2016-06-12] MEDS: ASPIRIN 81 MG CHEWABLE TABLET PO SCH (09:03)
[2016-06-12] MEDS: AMIODARONE 200 MG TABLET PO SCH ×2 (09:03→20:41)
[2016-06-12] MEDS: LISINOPRIL 5 MG TABLET PO SCH (09:03)
[2016-06-12] MEDS: LIDOCAINE 5% PATCH TOP SCH (09:04)
[2016-06-12] MEDS: ASCORBIC ACID 500 MG TABLET PO SCH (09:04)
--- NOTE | 2016-06-12 09:10 | PNPDOC ---
AUSTYN BUTLER COURT MONITOR 06/12/16 0852: Subjective Date DATE: 06/12/16 TIME: 08:49 Subjective Talisha was awake and states she slept better last night compared to the previous nights, partly because she wasn't up to urinate (cath placed yesterday for urinary retention). However, the Mason is uncomfortable, but she understands rationale for placement. She has a flat affect, and I asked what she thought about talking to a psychiatrist. She adamantly refused, she thinks that she will be fine. She complains of abdominal discomfort, especially with palpation over the large hematoma. She denies any shortness of breath or chest pain. She has chronic right shoulder pain, which occasionally gives her some trouble. She has not had constipation. Objective Vital Signs Vital signs Vital Signs Date Time Temp Pulse Resp B/P Pulse Ox O2 Delivery O2 Flow Rate FiO2 06/11/16 20:00 97.6 68 18 121/69 95 Room Air 06/09/16 21:56 2.00 Telemetry Rhythm: Sinus Rhythm Height (Feet): 5 Height (Inches): 5.00 Weight (Kilograms): 43.300 General General Appearance: Alert, Orientated x 3, Well Nourished, Well Developed, No Acute Distress Eyes (Brief) Eyes: FOUND: PERRL, NOT FOUND: scleral icterus ENMT (Brief) ENMT: FOUND: mucosa moist, NOT FOUND: pharnyx erythema Respiratory (Brief) Respiratory: FOUND: rales (bases) Cardiovascular (Brief) Cardiac: FOUND: regular rate, regular rhythm Abdomen (Brief) Abdominal: FOUND: BS normo active x4 (hyperactive), soft, tender (over hematoma ), NOT FOUND: distended Comments Large hematoma to abdomen, significant ecchymosis. Relatively unchanged from yesterday. Extremities (Brief) Extremity : Extremity Finding: FOUND: edema (trace edema bilaterally) Musculoskeletal (Brief) Musculoskeletal: NOT FOUND: deformity Integumentary (Brief) Integumentary: FOUND: dry, warm Psychiatric (Brief) Psychiatric: FOUND: alert, attentive, oriented, NOT FOUND: normal affect (flat , depressed) Laboratory Laboratory Laboratory Tests 06/12/16 04:53 Laboratory Tests 06/12/16 04:53 Assessment & Plan Problems: (1) Hypomagnesemia Status: Acute (2) Situational depression Status: Acute (3) Urinary retention Status: Acute Assessment & Plan: Straight cath on 06/11/16 - 750 mL Mason catheter was placed later on 06/11/16 (4) S/P CABG (coronary artery bypass graft) Onset Date: ~ 05/20/2016 Status: Acute (5) Status post hip surgery Status: Acute Assessment & Plan: 05/16/16- Dr Champagne- right Brock-arthroplasty (6) Chronic kidney disease Status: Chronic (7) Diabetes mellitus Onset Date: ~ 05/2016 Status: Chronic Qualifiers: Diabetes mellitus type: type 2 (8) HTN (hypertension) Status: Chronic (9) History of atrial fibrillation Status: Chronic (10) Hypercholesteremia Status: Chronic (11) Peptic ulcer disease Status: Chronic (12) Pseudoarthrosis Status: Chronic (13) Basal cell carcinoma Status: Chronic (14) Allergic rhinitis Status: Chronic (15) GERD (gastroesophageal reflux disease) Status: Chronic Plan/Intensity of Service Hypomagnesemia - magnesium 1.4. Oral replacement ordered. Recheck in am. Leukocytosis - resolved Situational depression - patient refused to see psychiatrist. She is not interested in starting any antidepressants. Follow closely. Urinary retention - Mason catheter was placed on 06/11/16. Abdominal hematoma - she is only on aspirin for anticoagulation. Heating pad as needed. Type 2 diabetes - hemoglobin A1c was 8.3% in early May. She has had fasting and postprandial hyperglycemia yesterday, but on 06/10/16 she had hypoglycemia. If she continues to have hyperglycemia, could possibly introduce low-dose Metformin (cardiology approved Metformin). Consult cosmetology educator. Code Status Full Code Hospital Course Summary Disclaimer The hospital course summary below is not to be considered part of the above Progress Note. Hospital Course Summary 06/04/16 Spoke with Austyn Hughes with Dr. Lopez regarding patient's recent CABG procedure and ongoing treatment recommendations. She does recommend patient be on anticoagulation as she did have A-fib postoperatively. She would prefer Eliquis if not contraindicated. Given mild oozing from right hip incision will consult Dr Champagne for orthopedic evaluation of incision prior to starting anticoagulation. Patient does need postop anticoagulation for 30 days from right hemiarthroplasty performed on 05/16/16. Patient did have a right groin hematoma post heart catheter that was evaluated while at [facility]. Overall this is improving. Continue with amiodarone given recent atrial fibrillation. She was noted to have elevated white count at 16.3. Will check a UA to rule out infection. Bumex 1 mg BID for ongoing diuresis. Oral Dilaudid and Ultram for pain control Continue SCDs to bilateral lower external for DVT prophylaxis Scheduled MiraLAX and Colace twice a day for ongoing bowel motivation. Encourage work with PT/OT for ongoing strengthening Will discuss case with attending Dr Hobson 06/05/16 Continue to monitor right hip dressing for oozing. Several more tl were placed by Dr Champagne Continue on ASA only at this time, Case discussed with Dr Lopez yesterday . Continue to monitor blood sugars. Fasting sugar this morning was 146. Will increase sliding scale to medium range dosing and continue to follow. Will recheck CBC and BMP tomorrow morning to follow leukocytosis 06/08/16 At this time, will recommend holding off on surgical procedure until cardiac rate control has been further evaluated and treated. Consultation was placed to Dr. Lopez for further recommendations. Patient has continued to receive her amiodarone, however, did have her beta rachelle held this morning due to Patient is to be monitored on cardiac telemetry. Current anticoagulation is aspirin. This may need to be discussed further with all providers involved including Dr. Lopez, Dr. Hobson and Dr. Champagne Will reevaluate patient later today, the hope is that she will be able to have her hip procedure tomorrow by Dr. Champagne. 06/09/[address] Lopez - pt is in sinus rhythm and has been cleared for surgery. I spoke with Dr. Champagne and updated him as well. Will need to discuss anticoagulation postop. Dr. Champagne prefers nothing stronger than ASA if possible; if needs anticoagulation would like to wait a week before starting, again if possible. However, he understands that if anticoagulation is necessary he would not argue it. Patient is complaining of nausea this morning - Zofran as needed. Repeat labs in am - pt has had leukocytosis. Encouraged pt to set small, achievable goals and let us know if she becomes too depressed. 06/11/16 Urinary retention (750mL) - UA neg. for UTI. Suspect retention may be combination of extensive hematoma and hx of uterine prolapse, along with hx of chronic retention. Continue post-void residuals. Pt does not want a catheter if possible. Suspected abdominal hematoma - will obtain ultrasound today. She is only on ASA for anticoagulation. Type 2 DM with hypoglycemia - she's not on antiglycemic agents other than SSI - continue to monitor. Leukocytosis - improving. Recheck in am. Situational depression - consider antidepressant or psych consult. 06/12/16 Hypomagnesemia - magnesium 1.4. Oral replacement ordered. Recheck in am. Leukocytosis - resolved Situational depression - patient refused to see psychiatrist. She is not interested in starting any antidepressants. Follow closely. Urinary retention - Mason catheter was placed on 06/11/16. Abdominal hematoma - she is only on aspirin for anticoagulation. Heating pad as needed. Type 2 diabetes - hemoglobin A1c was 8.3% in early May. She has had fasting and postprandial hyperglycemia yesterday, but on 06/10/16 she had hypoglycemia. If she continues to have hyperglycemia, could possibly introduce low-dose Metformin(cardiology approved Metformin). Consult cosmetology educator. CHERRI REBOLLAR MD 06/12/16 1800: Assessment & Plan Assessment Seen and examined same day as nurse practitioner. Agree with history findings assessment plan as per above AUSTYN BUTLER APRN Jun 12, 2016 08:52 CHERRI REBOLLAR MD Jun 12, 2016 18:00
[2016-06-12] MEDS: INSULIN LISPRO 100 UNIT/ML SQ PRN ×3 (12:09→21:37)
[2016-06-12] MEDS: MAGNESIUM OXIDE 400 MG TABLET PO SCH (12:09)
--- NOTE | 2016-06-12 12:20 | PNPDOC ---
TANYA MONROE DIRECTOR TRADING 06/12/16 1209: Subjective Date DATE: 06/12/16 TIME: 12:06 Subjective Talisha is alert and pleasant, denies chest pain or dyspnea Objective Vital Signs Vital signs Vital Signs 06/12/16 08:00 Temp 97.4 Pulse 84 Resp 18 B/P 130/63 Pulse Ox 94 O2 Delivery Room Air Telemetry Rhythm: Sinus Rhythm Height (Feet): 5 Height (Inches): 5.00 Weight (Kilograms): 43.300 General Alert, Orientated x 3, Cooperative ENMT (Brief) mucosa moist Neck (Brief) NOT FOUND: JVD, carotid bruits Respiratory (Brief) clear all anaya, equal bilaterally, NOT FOUND: rales, wheezes Cardiovascular (Brief) regular rate, regular rhythm, NOT FOUND: pedal edema Abdomen (Brief) BS normo active x4, soft, NOT FOUND: tender Integumentary (Brief) dry, pink, warm Psychiatric (Brief) alert, attentive, oriented Laboratory Laboratory Laboratory Tests Test 06/10/16 14:12 06/10/16 17:17 06/10/16 17:38 06/10/16 19:58 Glucometer 168mg/dL 55mg/dL 73mg/dL 113mg/dL Test 06/10/16 23:09 06/11/16 06:04 06/11/16 08:16 06/11/16 10:17 Glucometer 80mg/dL 171mg/dL 260mg/dL Urine Collection Type Cleancatch-midstream Urine Color Yellow Urine Turbidity Clear Urine pH 6.0 Urine Specific [place] <=1.005 Urine Protein Negative Urine Glucose (UA) Negative Urine Ketones Negative Urine Blood Negative Urine Nitrite Negative Urine Bilirubin Negative Urine Urobilinogen 0.2EU/DL Urine Leukocyte Esterase Negative Urine RBC None seen/HPF Urine WBC 0-1/HPF Urine Squamous Epithelial Cells 0-5 Urine Bacteria Trace Urine Culture Indicated Cult not indicated Test 06/11/16 14:02 06/11/16 20:19 06/12/16 04:53 06/12/16 06:17 Glucometer 230mg/dL 152mg/dL 134mg/dL White Blood Count 9.7T/MM3 Red Blood Count 3.41M/MM3 Hemoglobin 10.1GM/DL Hematocrit 32.8% Mean Corpuscular Volume 96.2UM3 Mean Corpuscular Hemoglobin 29.6UUG Mean Corpuscular Hemoglobin Concent 30.8GM/DL RDW Standard Deviation 68.3FL Platelet Count 203T/MM3 Mean Platelet Volume 12.5UM3 Immature Granulocyte % (Auto) 0.2% Neutrophils (%) (Auto) 67.3% Lymphocytes (%) (Auto) 16.5% Monocytes (%) (Auto) 8.3% Eosinophils (%) (Auto) 7.1% Basophils (%) (Auto) 0.6% Absolute Immature Granulocyte (auto 0.02T/MM3 Absolute Neutrophils (auto) 6.6T/MM3 Absolute Lymphocytes (auto) 1.6T/MM3 Absolute Monocytes (auto) 0.8T/MM3 Absolute Eosinophils (auto) 0.7T/MM3 Absolute Basophils (auto) 0.1T/MM3 Turbidity < 20 Sodium Level 136MEQ/L Potassium Level 4.2MEQ/L Chloride Level 100MEQ/L Carbon Dioxide Level 30MEQ/L Anion Gap 6MEQ/L Blood Urea Nitrogen 24.0MG/DL Creatinine 1.1MG/DL Glomerular Filtration Rate Calc 47 BUN/Creatinine Ratio 22RATIO Glucose Level 119MG/DL Calculated Osmolality 267MOSM/KG Calcium Level 8.7MG/DL Magnesium Level 1.4MG/DL Icterus Index < 2 Chemistry Specimen Hemolysis < 15 Test 06/12/16 10:10 Glucometer 249mg/dL Laboratory Tests 06/12/16 04:53 Laboratory Tests 06/12/16 04:53 Medications Current Medications Miscellaneous Medication (May use PRN orders) 1 PRN PRN ; Start 06/03/16 at 14:30 Acetaminophen (Tylenol Regular Strength) 650 mg Q6HR PRN PO PAIN Last administered on 06/11/16 23:03; Start 06/03/16 at 14:30 Amiodarone HCl (Pacerone) 200 mg BID PO Last administered on 06/12/16 09:03; Start 06/03/16 at 21:00 Ascorbic Acid (VITAMIN C 500 mg Tablet) 500 mg DAILY PO Last administered on 09:04; Start 06/04/16 at 09:00 Aspirin (ASA) 81 mg DAILY PO Last administered on 06/12/16 09:03; Start at 09:00 Atorvastatin Calcium (LIPITOR 40 mg) 40 mg HS PO Last administered on 06/11/16 21:19; Start 06/03/16 at 22:00 Docusate Sodium (Colace) 100 mg BID PO ; Start 06/03/16 at 21:00; Stop 06/03/16 at 21:00; Status DC Ferrous Sulfate (Feosol) 324 mg TIDWM PO Last administered on 06/12/16 09:02; Start 06/03/16 at 17:30 Gabapentin (Neurontin) 300 mg HS PO Last administered on 06/11/16 21:19; Start 06/03/16 at 22:00 Omeprazole (Prilosec) 40 mg ACB PO Last administered on 06/12/16 06:19; Start 06/04/16 at 06:30 Polyethylene Glycol (Miralax) 17 g BID PO Last administered on 06/10/16 10:22; Start 06/03/16 at 21:00 Potassium Chloride (Kdur) 20 meq BIDWM PO Last administered on 06/12/16 09:02; Start 06/03/16 at 17:30 Tramadol HCl (Ultram) 50 mg Q6HR PRN PO PAIN Last administered on 06/12/16 06: 18; Start 06/03/16 at 14:30 Al Hydroxide/Mg Hydroxide (Maalox) 30 ml Q3-4H PRN PO INDIGESTION Last administered on 06/03/16 15:29; Start 06/03/16 at 15:30 Glucose (Glutose 15) 37.5 g PRN PRN PO HYPOGLYCEMIA; Start 06/03/16 at 18:15 Dextrose (D50w) 25 ml PRN PRN IV HYPOGLYCEMIA; Start 06/03/16 at 18:15 Ondansetron HCl (Zofran Odt) 4 mg Q4H PRN PO NAUSEA &/OR VOMITING Last administered on 06/11/16 03:40; Start 06/03/16 at 18:30 Metoclopramide HCl (Reglan) 5 mg ACHS PO Last administered on 06/12/16 06:19; Start 06/03/16 at 22:00 Bumetanide (BUMEX 1 mg TAB) 1 mg BID. PO Last administered on 06/12/16 09:03; Start 06/05/16 at 09:00 Benzocaine (Americaine Hemorr. Oint.) 1 applic BID PRN TOP HEMORRHOIDS Last administered on 06/11/16 19:47; Start 06/05/16 at 13:00 Insulin Human Lispro (Humalog) SS PRN SQ Last administered on 06/11/16 21:23 ; Start 06/05/16 at 17:00 Lidocaine (Lidoderm) 1 patch DAILY TOP Last administered on 06/12/16 09:04; Start 06/07/16 at 12:30 Lidocaine (Lidoderm Patch Removal) 1 removal 2100 TOP Last administered on 19:47; Start 06/07/16 at 21:00 Cefazolin Sodium (Kefzol) 2 g PREOP ONCE IV ; Start 06/08/16 at 11:45; Stop at 11:46; Status DC Metoprolol Tartrate (Lopressor) 25 mg O ONCE PO Last administered on 12:22; Start 06/08/16 at 12:30; Stop 06/08/16 at 12:31; Status DC Bupivacaine HCl/ Epinephrine Bitart (Marcaine/Epi 0.25%/1:200,000) 30 ml STK- MED ONCE INJ ; Start 06/08/16 at 14:00; Stop 06/09/16 at 09:51; Status DC Rocuronium Lund (Zemuron) 50 mg STK-MED ONCE IV ; Start 06/08/16 at 14:00; Stop 06/09/16 at 09:51; Status DC Succinylcholine Chloride (Quelicin) 200 mg STK-MED ONCE IV ; Start 06/08/16 at 14:00; Stop 06/09/16 at 09:51; Status DC Sevoflurane 1 ml 1 ml STK-MED ONCE IH ; Start 06/08/16 at 14:00; Stop 06/09/16 at 09:51; Status DC Sodium Chloride (Normal Saline IV) 1,000 ml @ 50 mls/hr Q20H ONCE IV ; Start at 10:51; Stop 06/11/16 at 06:50; Status DC Cefazolin Sodium 2 g 2 g O ONCE IV Last administered on 06/09/16 11:33; Start 06/09/16 at 11:00; Stop 06/09/16 at 11:46; Status DC Cefazolin Sodium/ Sodium Chloride (Kefzol/NS) 100 ml @ 200 mls/hr Q8H IV Last administered on 06/10/16 05:47; Start 06/09/16 at 19:30; Stop 06/10/16 at 04:00; Status DC Hydromorphone HCl (Dilaudid) Dilaudid 0.5-1 mg IVP every 10 minutes... Q10M PRN IV PAIN Last administered on 06/09/16 13:17; Start 06/09/16 at 12:45; Stop 06/10/16 at 08:25; Status DC Ondansetron HCl (Zofran) 4 mg O PRN IV NAUSEA &/OR VOMITING; Start 06/09/16 at 12:45; Stop 06/10/16 at 08:26; Status DC Vancomycin HCl (Vancocin) 1 g STK-MED ONCE IV ; Start 06/09/16 at 11:09; Stop at 11:34; Status DC Bupivacaine HCl (Sensorcaine 0.25% Steri-Dawit) 30 mg STK-MED ONCE INJ ; Start at 11:09; Stop 06/10/16 at 11:34; Status DC Lidocaine HCl (Xylocaine 1%) 30 mg STK-MED ONCE IJ ; Start 06/09/16 at 11:09; Stop 06/10/16 at 11:34; Status DC Propofol (Diprivan) 500 mg STK-MED ONCE IV ; Start 06/09/16 at 11:09; Stop at 11:34; Status DC Fentanyl (Fentanyl) 100 mcg STK-MED ONCE IV ; Start 06/09/16 at 11:09; Stop 06/10 at 11:34; Status DC Lisinopril (Prinivil) 5 mg DAILY PO Last administered on 06/12/16 09:03; Start 06/11/16 at 17:15 Magnesium Oxide (Magox) 400 mg 20 ONCE PO ; Start 06/12/16 at 20:00; Stop at 20:01 Assessment & Plan Problems: (1) Atrial fibrillation with rapid ventricular response Status: Acute Assessment & Plan: In SR 60's today. Continue Amiodarone 200mg po BID and Metoprolol 25mg po BID for rhythm and rate control. Will repeat EKG in am. ASA only thinner at this time due to recent hip surgery. (2) CAD (coronary artery disease) Status: Chronic Assessment & Plan: Continue BB, DICK and statin. (3) S/P CABG (coronary artery bypass graft) Onset Date: ~ 05/20/2016 Status: Acute Assessment & Plan: cont asa, metoprolol, amiodarone, statin (4) HTN (hypertension) Status: Chronic Assessment & Plan: Cont metoprolol (5) Diabetes mellitus Onset Date: ~ 05/2016 Status: Chronic Qualifiers: Diabetes mellitus type: type 2 Assessment & Plan: managed per PCP Plan/Intensity of Service 06/08/16 Give medications as ordered. If plan to I&D tomorrow, she is stable from a cardiac standpoint and may have needed I & D. please given beta rachelle and antiarrhythmic with a sip of water as scheduled. 06/09/16 In SR 60's today. Continue Amiodarone 200mg po BID and Metoprolol 25mg po BID for rhythm and rate control. Will repeat EKG in am. ASA only thinner at this time due to recent hip surgery. 06/10/16 Remains in SR, Continue to monitor telemetry. 06/11/16 remains in SR. Hematoma to right groin possibly related to heart cath. Start Lisinopril 5mg daily this evening. 06/12/16 Okay with Metformin if needed for DM. Aspirin only to allow for wound healing per ortho. Will start oral anticoagulation upon discharge. Thank you for allowing us to participate in the care of this patient. BERNIE OLMOS MD 06/29/16 1012: Assessment & Plan Plan/Intensity of Service After examining the patient I agree with the above assessment. I am involved in the formulation of the patient's plan of care. TANYA MONROE APRN Jun 12, 2016 12:09 BERNIE OLMOS MD Jun 29, 2016 10:12
[2016-06-12 13:32] VITALS: PULSE 84; RESP 18
[2016-06-12] MEDS: ACETAMINOPHEN 325 MG TABLET PO PRN ×2 (15:00→20:40)
--- NOTE | 2016-06-12 15:55 | NUR ---
DM consult A1c: 8.3. SS insulin ordered; no additional DM meds. CDE attempted to visit pt, who was lethargic and trying to get comfortable despite her pain. Will attempt consult when patient condition allows.
[2016-06-12 16:00] VITALS: BP 118/49; PULSE 74; RESP 18; TEMP 97.6; O2SAT 94
--- NOTE | 2016-06-12 19:20 | NUR ---
Summary VS's stable. Pt. is an assist x1 with miguelina-walker. She has denied SOA and nausea. Pt. consistently rates dull pain in back and right hip a 6-7/10. PRN pain meds administered. Please see eMAR. Ice pack and heating pad offered, but pt. refused both all shift. I/O adequate. Pt.'s Mason is patent and draining clear, yellow urine. Mepilex dressing to right hip noted to be C/D/I. Bilateral pedal pulses palpable. Anterior chest incision site is C/D/I. No drainage, or s/s of infection noted. BGM at 1000 noted to be 249 and BGM at 1400 noted to be 193. Insulin per sliding scale administered. Please see eMAR. Pt. is currently sitting up in the recliner. Report has been past on to container crane operator.
[2016-06-12] MEDS ORDERED: MAGNESIUM OXIDE 400 MG TABLET PO ONE (20:00)
[2016-06-12 20:23] VITALS: BP 122/59; PULSE 76; RESP 16; TEMP 98; O2SAT 95
[2016-06-12] MEDS: GABAPENTIN 300 MG CAPSULE PO SCH (20:40)
[2016-06-12] MEDS: ATORVASTATIN 40 MG TABLET PO SCH (20:41)
[2016-06-12] MEDS: LIDOCAINE PATCH REMOVAL TOP SCH (20:47)
[2016-06-12 23:20] VITALS: PULSE 76; RESP 16
--- NOTE | 2016-06-13 01:56 | NUR ---
Chart Check 24 hour chart check completed
[2016-06-13 05:05] LABS: ANION GAP 7 MEQ/L (5-15); BUN/CREATININE RATIO 26 RATIO (6-26); CALCIUM 8.9 MG/DL (8.4-10.2); CHLORIDE 100 MEQ/L (98-107); CO2 - CARBON DIOXIDE 29 MEQ/L (22-30); CREATININE 1.1 MG/DL (0.7-1.2); GLOMERULAR FILTRATION RATE 47; GLUCOSE 121 MG/DL (65-110); MAGNESIUM 1.6 MG/DL (1.6-2.3); POTASSIUM 4.4 MEQ/L (3.6-5); SODIUM 136 MEQ/L (134-144)
[2016-06-13] MEDS: METOCLOPRAMIDE 5mg TABLET PO SCH ×4 (05:37→20:39)
[2016-06-13] MEDS: OMEPRAZOLE 20 MG CAPSULE PO SCH (05:37)
--- NOTE | 2016-06-13 05:52 | NUR ---
Summary Patient alert and oriented times three. She reported pain at 7/10 last evening. PRN pain medicine given. Patient had an episode during the middle of the night when she could not form her words right. Her blood sugar was in the low 100s. Vital signs were stable. No change in strength on either side. She was able to smile and puff out her cheeks evenly and obeyed commands well. After sleeping a little she seemed much clearer. Mason is dependent to drainage with adequate output. Patient woke for medications this morning and did not complain of pain. She is in bed with side rails up times two, bed alarm on and call light within reach.
[2016-06-13 08:00] VITALS: BP 132/64; PULSE 80; RESP 16; TEMP 97.8; O2SAT 95
[2016-06-13] MEDS: POTASSIUM CHLORIDE 20 MEQ TABLET PO SCH ×2 (08:29→16:59)
[2016-06-13] MEDS: POLYETHYL.GLYCOL 3350 PACKET 17gm PO SCH ×2 (08:30→20:38)
[2016-06-13] MEDS: FERROUS SULFATE 324 MG TABLET PO SCH ×3 (08:30→16:59)
[2016-06-13] MEDS: LIDOCAINE 5% PATCH TOP SCH (08:30)
[2016-06-13] MEDS: AMIODARONE 200 MG TABLET PO SCH ×2 (08:30→20:39)
[2016-06-13] MEDS: ASCORBIC ACID 500 MG TABLET PO SCH (08:31)
[2016-06-13] MEDS: ASPIRIN 81 MG CHEWABLE TABLET PO SCH (08:31)
[2016-06-13] MEDS: BUMETANIDE 1 MG TABLET PO SCH ×2 (08:31→16:59)
[2016-06-13] MEDS: MAGNESIUM OXIDE 400 MG TABLET PO SCH (08:31)
[2016-06-13] MEDS: LISINOPRIL 5 MG TABLET PO SCH (08:31)
[2016-06-13] MEDS: DOCUSATE SODIUM 100 MG CAPSULE PO SCH ×2 (08:31→20:38)
[2016-06-13] MEDS: HYDROMORPHONE 2 MG TABLET PO PRN ×3 (09:22→19:46)
[2016-06-13] MEDS: INSULIN LISPRO 100 UNIT/ML SQ PRN ×2 (11:14→20:53)
[2016-06-13] MEDS: TRAMADOL 50 MG TABLET PO PRN ×2 (13:45→20:39)
[2016-06-13 16:00] VITALS: BP 108/80; PULSE 84; RESP 20; TEMP 98.4; O2SAT 89
[2016-06-13] MEDS: ACETAMINOPHEN 325 MG TABLET PO PRN ×2 (16:07→22:10)
[2016-06-13 16:32] VITALS: O2SAT 93
--- NOTE | 2016-06-13 18:56 | PNPDOC ---
IRU Subjective Date DATE: 06/13/16 TIME: 18:52 Subjective Pt in room most of day, not interacting much. She does not want to see Psych for depression consult, not interested in medicating. Chronic pain stable. IRU Objective Vital Signs Vital signs Vital Signs Date Time Temp Pulse Resp B/P Pulse Ox O2 Delivery O2 Flow Rate FiO2 06/13/16 16:32 93 Room Air 06/13/16 16:00 98.4 84 20 108/80 06/09/16 21:56 2.00 Telemetry Rhythm: Sinus Rhythm Height (Feet): 5 Height (Inches): 5.00 Weight (Kilograms): 70.500 General General Appearance: Alert, Orientated x 2 Respiratory (Brief) Respiratory: FOUND: clear all anaya, equal bilaterally Cardiovascular (Brief) Cardiac: FOUND: regular rate, regular rhythm Capillary Refill: <2 sec Laboratory Laboratory Laboratory Tests Test 06/11/16 20:19 06/12/16 04:53 06/12/16 06:17 06/12/16 10:10 Glucometer 152mg/dL 134mg/dL 249mg/dL White Blood Count 9.7T/MM3 Red Blood Count 3.41M/MM3 Hemoglobin 10.1GM/DL Hematocrit 32.8% Mean Corpuscular Volume 96.2UM3 Mean Corpuscular Hemoglobin 29.6UUG Mean Corpuscular Hemoglobin Concent 30.8GM/DL RDW Standard Deviation 68.3FL Platelet Count 203T/MM3 Mean Platelet Volume 12.5UM3 Immature Granulocyte % (Auto) 0.2% Neutrophils (%) (Auto) 67.3% Lymphocytes (%) (Auto) 16.5% Monocytes (%) (Auto) 8.3% Eosinophils (%) (Auto) 7.1% Basophils (%) (Auto) 0.6% Absolute Immature Granulocyte (auto 0.02T/MM3 Absolute Neutrophils (auto) 6.6T/MM3 Absolute Lymphocytes (auto) 1.6T/MM3 Absolute Monocytes (auto) 0.8T/MM3 Absolute Eosinophils (auto) 0.7T/MM3 Absolute Basophils (auto) 0.1T/MM3 Turbidity < 20 Sodium Level 136MEQ/L Potassium Level 4.2MEQ/L Chloride Level 100MEQ/L Carbon Dioxide Level 30MEQ/L Anion Gap 6MEQ/L Blood Urea Nitrogen 24.0MG/DL Creatinine 1.1MG/DL Glomerular Filtration Rate Calc 47 BUN/Creatinine Ratio 22RATIO Glucose Level 119MG/DL Calculated Osmolality 267MOSM/KG Calcium Level 8.7MG/DL Magnesium Level 1.4MG/DL Icterus Index < 2 Chemistry Specimen Hemolysis < 15 Test 06/12/16 14:36 06/12/16 20:55 06/13/16 00:58 06/13/16 04:28 Glucometer 193mg/dL 206mg/dL 105mg/dL Turbidity < 20 Sodium Level 136MEQ/L Potassium Level 4.4MEQ/L Chloride Level 100MEQ/L Carbon Dioxide Level 29MEQ/L Anion Gap 7MEQ/L Blood Urea Nitrogen 29.0MG/DL Creatinine 1.1MG/DL Glomerular Filtration Rate Calc 47 BUN/Creatinine Ratio 26RATIO Glucose Level 121MG/DL Calculated Osmolality 269MOSM/KG Calcium Level 8.9MG/DL Magnesium Level 1.6MG/DL Icterus Index < 2 Chemistry Specimen Hemolysis < 15 Test 06/13/16 05:37 06/13/16 10:24 06/13/16 14:43 Glucometer 129mg/dL 274mg/dL 129mg/dL Assessment & Plan Problems: (1) Myopathic disease or syndrome Status: Acute Assessment & Plan: continued weakness, but despite emotionally withdrawing, she is increasing FIM scores. (2) Neuropathy Status: Chronic (3) Debility Status: Acute (4) HTN (hypertension) Status: Chronic Assessment & Plan: managed by medical. (5) S/P CABG (coronary artery bypass graft) Onset Date: ~ 05/20/2016 Status: Acute Assessment & Plan: pt is managed by medical and cardiology. (6) Status post hip surgery Status: Acute (7) Diabetes mellitus Onset Date: ~ 05/2016 Status: Chronic Qualifiers: Diabetes mellitus type: type 2 Assessment & Plan: managed by medical. (8) History of atrial fibrillation Status: Chronic Assessment & Plan: rhythm stable, RRR today on exam, (9) Chronic kidney disease Status: Chronic Assessment Seen and examined same day as nurse practitioner. Agree with history findings assessment plan as per above DVT Prophylaxis: PADMINI Hose Code Status Full Code Interventions to Obtain Goals PT Treatment Plan: Therapeutic Exercise, Gait Training, Functional Activities , Patient/Family Education, Balance/Proprioception OT Treatment Plan: ADL's (basic care), Ther. Exercise for ADL's, UE Functional Training, Balance Training, Pt./Family Education, IADL's Hospital Course Summary Disclaimer The hospital course summary below is not to be considered part of the above Progress Note. Hospital Course Summary 06/04/16 Spoke with Ayde Hughes with Dr. Lopez regarding patient's recent CABG procedure and ongoing treatment recommendations. She does recommend patient be on anticoagulation as she did have A-fib postoperatively. She would prefer Eliquis if not contraindicated. Given mild oozing from right hip incision will consult Dr Chapmagne for orthopedic evaluation of incision prior to starting anticoagulation. Patient does need postop anticoagulation for 30 days from right hemiarthroplasty performed on 05/16/16. Patient did have a right groin hematoma post heart catheter that was evaluated while at [place]. Overall this is improving. Continue with amiodarone given recent atrial fibrillation. She was noted to have elevated white count at 16.3. Will check a UA to rule out infection. Bumex 1 mg BID for ongoing diuresis. Oral Dilaudid and Ultram for pain control Continue SCDs to bilateral lower external for DVT prophylaxis Scheduled MiraLAX and Colace twice a day for ongoing bowel motivation. Encourage work with PT/OT for ongoing strengthening Will discuss case with attending Dr Hobson 06/05/16 Continue to monitor right hip dressing for oozing. Several more tl were placed by Dr Champagne Continue on ASA only at this time, Case discussed with Dr Lopez yesterday . Continue to monitor blood sugars. Fasting sugar this morning was 146. Will increase sliding scale to medium range dosing and continue to follow. Will recheck CBC and BMP tomorrow morning to follow leukocytosis 06/08/16 At this time, will recommend holding off on surgical procedure until cardiac rate control has been further evaluated and treated. Consultation was placed to Dr. Lopez for further recommendations. Patient has continued to receive her amiodarone, however, did have her beta rachelle held this morning due to Patient is to be monitored on cardiac telemetry. Current anticoagulation is aspirin. This may need to be discussed further with all providers involved including Dr. Lopez, Dr. Hobson and Dr. Champagne Will reevaluate patient later today, the hope is that she will be able to have her hip procedure tomorrow by Dr. Champagne. 06/09/[address] Lopez - pt is in sinus rhythm and has been cleared for surgery. I spoke with Dr. Champagne and updated him as well. Will need to discuss anticoagulation postop. Dr. Champagne prefers nothing stronger than ASA if possible; if needs anticoagulation would like to wait a week before starting, again if possible. However, he understands that if anticoagulation is necessary he would not argue it. Patient is complaining of nausea this morning - Zofran as needed. Repeat labs in am - pt has had leukocytosis. Encouraged pt to set small, achievable goals and let us know if she becomes too depressed. 06/11/16 Urinary retention (750mL) - UA neg. for UTI. Suspect retention may be combination of extensive hematoma and hx of uterine prolapse, along with hx of chronic retention. Continue post-void residuals. Pt does not want a catheter if possible. Suspected abdominal hematoma - will obtain ultrasound today. She is only on ASA for anticoagulation. Type 2 DM with hypoglycemia - she's not on antiglycemic agents other than SSI - continue to monitor. Leukocytosis - improving. Recheck in am. Situational depression - consider antidepressant or psych consult. 06/12/16 Hypomagnesemia - magnesium 1.4. Oral replacement ordered. Recheck in am. Leukocytosis - resolved Situational depression - patient refused to see psychiatrist. She is not interested in starting any antidepressants. Follow closely. Urinary retention - Mason catheter was placed on 06/11/16. Abdominal hematoma - she is only on aspirin for anticoagulation. Heating pad as needed. Type 2 diabetes - hemoglobin A1c was 8.3% in early May. She has had fasting and postprandial hyperglycemia yesterday, but on 06/10/16 she had hypoglycemia. If she continues to have hyperglycemia, could possibly introduce low-dose Metformin(cardiology approved Metformin). Consult adult educator. BHAVNA MCALLISTER MD Jun 13, 2016 18:55
--- NOTE | 2016-06-13 19:28 | NUR ---
Shift Summary Pt is resting comfortably in the recliner. Alert and oriented to person, place, and time. Ambulates well with assist of 1, miguelina walker, and gait belt. She needed minimal assist with top with bathing and dressing, moderate assist with bathing on lower body, and max assist with her dressing. Her telemetry in in place running sinus arrhythmia and sinus rhythm. Has a Mason catheter to dependent drainage, has been continent of bowel, able to manage her own cares but needs minimal assist with her clothing. Pain medication has been given this shift, Dilaudid 2mg at 0922 and 1509, Tylenol 500mg at 1607, and Tramadol 50mg at 1345. Ate well for meals, did not need assist with her tray, wheeled herself in the wheelchair. BGM at 1000 was 274 received 5 units Humalog per sliding scale and at 1400 was 129. When in bed or the chair the alarm is in use, call light is within reach.
[2016-06-13 20:00] VITALS: PULSE 69; RESP 16
[2016-06-13] MEDS: GABAPENTIN 300 MG CAPSULE PO SCH (20:39)
[2016-06-13] MEDS: ATORVASTATIN 40 MG TABLET PO SCH (20:39)
[2016-06-13] MEDS: LIDOCAINE PATCH REMOVAL TOP SCH (21:34)
--- NOTE | 2016-06-13 23:00 | NUR ---
STATUS Report received in SBAR. All cares assumed. Introduced self. Pt sitting UR in chair at start of shift. Pt pleasant and oriented x3. MAETC, PERRL, PT has RUE deficits from prior fracture et surgeries. Pt is able to life arm slightly with good rivet driver strength. Pt has 2+ pitting edema to BLE, good strength. Pt has BLungs CTA with diminished bases. RA sats >92%, pt has no cough. HRRR, Pulses are +2 BUE/LE, cap refill <3sec, pt abd SNT, BSAx4. Pt able to get to bed with assist x1. Pt has Rhip dressing to posterior buttock, CDI. Midline chest incision with glue, RAYMUNDO, no noted drainage, Chest dressing s/p chest tube, dressing CDI. Pt c/o pain from 6-7 pain through evening. Medications given as doses are available. PRN meds given include Dilaudid 2mg PO, Utlram 50mg PO, Tylenol 650 mg PO. See MAR for administration. Pt has hx of retention concerns, currently blum in place to DD with clear yellow OP with sediment. Pt is sleeping at this time. Will cont to monitor. RN nearby.
[2016-06-14 00:27] VITALS: BP 139/53; PULSE 69; RESP 16; TEMP 98.1; O2SAT 96
[2016-06-14] MEDS: HYDROMORPHONE 2 MG TABLET PO PRN ×4 (00:53→19:32)
--- NOTE | 2016-06-14 01:24 | NUR ---
Chart Check 24 hour chart check completed
[2016-06-14] MEDS: TRAMADOL 50 MG TABLET PO PRN ×4 (02:52→23:13)
[2016-06-14] MEDS: HYDROMORPHONE 2mg/ml INJECTION IV PRN (02:53)
[2016-06-14] MEDS: ACETAMINOPHEN 325 MG TABLET PO PRN ×3 (05:02→21:53)
[2016-06-14] MEDS: OMEPRAZOLE 20 MG CAPSULE PO SCH (06:08)
--- NOTE | 2016-06-14 06:29 | NUR ---
SUMMARY Pt slept intermittently through the evening. She c/o pain throughout the evening and received multiple PRN doses for pain control. Pt very pleasant and compliant with cares, Pt asked to be turned q 2 hours with pillows to relieve pressure. Pt given a 10 minute back rub with lotion prior to sleep. She believes this assisted her in resting better this evening. Pt is resting currently. RN nearby. Will cont to monitor.
[2016-06-14] MEDS: METOCLOPRAMIDE 5mg TABLET PO SCH ×4 (07:11→21:10)
[2016-06-14 08:00] VITALS: BP 138/80; PULSE 98; RESP 16; TEMP 96.9; O2SAT 92
[2016-06-14] MEDS: FERROUS SULFATE 324 MG TABLET PO SCH ×3 (08:39→17:16)
[2016-06-14] MEDS: POTASSIUM CHLORIDE 20 MEQ TABLET PO SCH ×2 (08:39→17:17)
[2016-06-14] MEDS: ASPIRIN 81 MG CHEWABLE TABLET PO SCH (08:39)
[2016-06-14] MEDS: BUMETANIDE 1 MG TABLET PO SCH ×2 (08:40→17:17)
[2016-06-14] MEDS: DOCUSATE SODIUM 100 MG CAPSULE PO SCH ×2 (08:40→21:10)
[2016-06-14] MEDS: POLYETHYL.GLYCOL 3350 PACKET 17gm PO SCH ×2 (08:41→21:10)
[2016-06-14] MEDS: MAGNESIUM OXIDE 400 MG TABLET PO SCH (08:41)
[2016-06-14] MEDS: AMIODARONE 200 MG TABLET PO SCH ×2 (08:41→21:10)
[2016-06-14] MEDS: LISINOPRIL 5 MG TABLET PO SCH (08:41)
[2016-06-14] MEDS: ASCORBIC ACID 500 MG TABLET PO SCH (08:42)
[2016-06-14] MEDS: LIDOCAINE 5% PATCH TOP SCH (08:42)
[2016-06-14] MEDS: INSULIN LISPRO 100 UNIT/ML SQ PRN ×2 (10:30→14:20)
--- NOTE | 2016-06-14 15:06 | PNPDOC ---
Subjective Date DATE: 06/14/16 TIME: 15:00 Subjective Talisha is seen today for f/u sp right hemiarthroplasty by Dr. Champagne. She is ambulating in halls with walker and RN assist. Seen in room once she has walked back. Reports hip pain is nothing to speak of at this time. Denies abdominal discomfort associated with hematomas. Bowels moving. UO 1975 cc yesterday. Blum cath in place for retention. She is asking to have it out-history of some retention after surgeries. Inserted 06/11. BS >200 pp and HS. Receiving low dose insulin per sliding scale 3-5 units each time. Objective Vital Signs Vital signs Vital Signs Date Time Temp Pulse Resp B/P Pulse Ox O2 Delivery O2 Flow Rate FiO2 06/14/16 08:00 98 16 06/14/16 08:00 96.9 138/80 92 Room Air Telemetry Rhythm: Sinus Rhythm Height (Feet): 5 Height (Inches): 5.00 Weight (Kilograms): 70.500 General General Appearance: Alert, Orientated x 3, Well Nourished, Well Developed, No Acute Distress Respiratory (Brief) Respiratory: FOUND: clear all anaya, equal bilaterally Cardiovascular (Brief) Cardiac: FOUND: regular rate, regular rhythm Abdomen (Brief) Abdominal: FOUND: BS normo active x4, soft, NOT FOUND: tender Extremities (Brief) Extremity : Side: Right Extremity: leg Extremity Finding: FOUND: pain (mild with light palpation) Musculoskeletal (Brief) Musculoskeletal: FOUND: tenderness (mild rt hip) Integumentary (Brief) Integumentary: FOUND: dry, pink, warm Psychiatric (Brief) Psychiatric: FOUND: alert, normal affect, oriented Laboratory Laboratory Laboratory Tests 06/13/16 04:28 Assessment & Plan Problems: (1) Hypomagnesemia Status: Acute (2) Situational depression Status: Acute (3) Urinary retention Status: Acute Assessment & Plan: Straight cath on 06/11/16 - 750 mL Blum catheter was placed later on 06/11/16 (4) S/P CABG (coronary artery bypass graft) Onset Date: ~ 05/20/2016 Status: Acute (5) Status post hip surgery Status: Acute Assessment & Plan: 05/16/16- Dr Champagne- right Brock-arthroplasty (6) Chronic kidney disease Status: Chronic (7) Diabetes mellitus Onset Date: ~ 05/2016 Status: Chronic Qualifiers: Diabetes mellitus type: type 2 (8) HTN (hypertension) Status: Chronic (9) History of atrial fibrillation Status: Chronic (10) Hypercholesteremia Status: Chronic (11) Peptic ulcer disease Status: Chronic (12) Pseudoarthrosis Status: Chronic (13) Basal cell carcinoma Status: Chronic (14) Allergic rhinitis Status: Chronic (15) GERD (gastroesophageal reflux disease) Status: Chronic Plan/Intensity of Service 06/14 Urine retention- blum placed 06/11 after having to undergo straight caths for retention. Patient wanting to try to have catheter removed. Will wait one more day and consider removing tomorrow (Wednesday). BS >200 pp and HS. Add Metformin 500 mg po WB starting tomorrow as per cardiology approval noted in previous hospitalist note. Follow Abd hematoma-improving. no pain Mg rechecked yesterday and up to 1.6. On oral replacement. Continue to trend. Code Status Full Code Hospital Course Summary Disclaimer The hospital course summary below is not to be considered part of the above Progress Note. Hospital Course Summary 06/04/16 Spoke with Ayde Hughes with Dr. Lopez regarding patient's recent CABG procedure and ongoing treatment recommendations. She does recommend patient be on anticoagulation as she did have A-fib postoperatively. She would prefer Eliquis if not contraindicated. Given mild oozing from right hip incision will consult Dr Champagne for orthopedic evaluation of incision prior to starting anticoagulation. Patient does need postop anticoagulation for 30 days from right hemiarthroplasty performed on 05/16/16. Patient did have a right groin hematoma post heart catheter that was evaluated while at [place]. Overall this is improving. Continue with amiodarone given recent atrial fibrillation. She was noted to have elevated white count at 16.3. Will check a UA to rule out infection. Bumex 1 mg BID for ongoing diuresis. Oral Dilaudid and Ultram for pain control Continue SCDs to bilateral lower external for DVT prophylaxis Scheduled MiraLAX and Colace twice a day for ongoing bowel motivation. Encourage work with PT/OT for ongoing strengthening Will discuss case with attending Dr Hobson 06/05/16 Continue to monitor right hip dressing for oozing. Several more tl were placed by Dr Champagne Continue on ASA only at this time, Case discussed with Dr Lopez yesterday . Continue to monitor blood sugars. Fasting sugar this morning was 146. Will increase sliding scale to medium range dosing and continue to follow. Will recheck CBC and BMP tomorrow morning to follow leukocytosis 06/08/16 At this time, will recommend holding off on surgical procedure until cardiac rate control has been further evaluated and treated. Consultation was placed to Dr. Lopez for further recommendations. Patient has continued to receive her amiodarone, however, did have her beta rachelle held this morning due to Patient is to be monitored on cardiac telemetry. Current anticoagulation is aspirin. This may need to be discussed further with all providers involved including Dr. Lopez, Dr. Hobson and Dr. Champagne Will reevaluate patient later today, the hope is that she will be able to have her hip procedure tomorrow by Dr. Champagne. 06/09/[address] Lopez - pt is in sinus rhythm and has been cleared for surgery. I spoke with Dr. Champagne and updated him as well. Will need to discuss anticoagulation postop. Dr. Champgane prefers nothing stronger than ASA if possible; if needs anticoagulation would like to wait a week before starting, again if possible. However, he understands that if anticoagulation is necessary he would not argue it. Patient is complaining of nausea this morning - Zofran as needed. Repeat labs in am - pt has had leukocytosis. Encouraged pt to set small, achievable goals and let us know if she becomes too depressed. 06/11/16 Urinary retention (750mL) - UA neg. for UTI. Suspect retention may be combination of extensive hematoma and hx of uterine prolapse, along with hx of chronic retention. Continue post-void residuals. Pt does not want a catheter if possible. Suspected abdominal hematoma - will obtain ultrasound today. She is only on ASA for anticoagulation. Type 2 DM with hypoglycemia - she's not on antiglycemic agents other than SSI - continue to monitor. Leukocytosis - improving. Recheck in am. Situational depression - consider antidepressant or psych consult. 06/12/16 Hypomagnesemia - magnesium 1.4. Oral replacement ordered. Recheck in am. Leukocytosis - resolved Situational depression - patient refused to see psychiatrist. She is not interested in starting any antidepressants. Follow closely. Urinary retention - Blum catheter was placed on 06/11/16. Abdominal hematoma - she is only on aspirin for anticoagulation. Heating pad as needed. Type 2 diabetes - hemoglobin A1c was 8.3% in early May. She has had fasting and postprandial hyperglycemia yesterday, but on 06/10/16 she had hypoglycemia. If she continues to have hyperglycemia, could possibly introduce low-dose Metformin(cardiology approved Metformin). Consult soaker meat. MARGARITO PINEDA APRN Jun 14, 2016 15:05
[2016-06-14 15:35] VITALS: BP 124/62; PULSE 72; RESP 18; TEMP 97.9; O2SAT 94
--- NOTE | 2016-06-14 16:35 | NUR ---
Shift summary Patient ambulating with miguelina walker, gait belt min assist to and from meals this shift. Have given PRN pain medication throughout shift. Patient states her pain is under much better control and has been no higher that a 5 today. Transfers with min assist with gait belt and miguelina walker. Dressing to chest tube site changed this shift. Dermabond to midline sternal incision. Patient alert and oriented x3 this shift.
--- NOTE | 2016-06-14 20:27 | PNPDOC ---
IRU Subjective Date DATE: 06/14/16 TIME: 20:25 Subjective Pain improving. Did eat in commons. Up and ambulating in [place] per nursing. IRU Objective Vital Signs Vital signs Vital Signs Date Time Temp Pulse Resp B/P Pulse Ox O2 Delivery O2 Flow Rate FiO2 06/14/16 15:35 97.9 72 18 124/62 94 Room Air Telemetry Rhythm: Sinus Rhythm Height (Feet): 5 Height (Inches): 5.00 Weight (Kilograms): 70.500 General General Appearance: Alert, Orientated x 1 Respiratory (Brief) Respiratory: FOUND: clear all anaya, equal bilaterally Cardiovascular (Brief) Cardiac: FOUND: regular rate, regular rhythm Capillary Refill: <2 sec Laboratory Laboratory Laboratory Tests Test 06/12/16 20:55 06/13/16 00:58 06/13/16 04:28 06/13/16 05:37 Glucometer 206mg/dL 105mg/dL 129mg/dL Turbidity < 20 Sodium Level 136MEQ/L Potassium Level 4.4MEQ/L Chloride Level 100MEQ/L Carbon Dioxide Level 29MEQ/L Anion Gap 7MEQ/L Blood Urea Nitrogen 29.0MG/DL Creatinine 1.1MG/DL Glomerular Filtration Rate Calc 47 BUN/Creatinine Ratio 26RATIO Glucose Level 121MG/DL Calculated Osmolality 269MOSM/KG Calcium Level 8.9MG/DL Magnesium Level 1.6MG/DL Icterus Index < 2 Chemistry Specimen Hemolysis < 15 Test 06/13/16 10:24 06/13/16 14:43 06/13/16 20:42 06/14/16 06:00 Glucometer 274mg/dL 129mg/dL 234mg/dL 137mg/dL Test 06/14/16 10:14 06/14/16 13:58 Glucometer 239mg/dL 211mg/dL Assessment & Plan Problems: (1) Myopathic disease or syndrome Status: Acute Assessment & Plan: Increasiing in strength. Will discuss with PT and OT in am to reeval plan. (2) Neuropathy Status: Chronic (3) Debility Status: Acute (4) HTN (hypertension) Status: Chronic (5) S/P CABG (coronary artery bypass graft) Onset Date: ~ 05/20/2016 Status: Acute (6) Status post hip surgery Status: Acute (7) Diabetes mellitus Onset Date: ~ 05/2016 Status: Chronic Qualifiers: Diabetes mellitus type: type 2 (8) History of atrial fibrillation Status: Chronic (9) Chronic kidney disease Status: Chronic Code Status Full Code Interventions to Obtain Goals PT Treatment Plan: Therapeutic Exercise, Gait Training, Functional Activities , Patient/Family Education, Balance/Proprioception OT Treatment Plan: ADL's (basic care), Ther. Exercise for ADL's, UE Functional Training, Balance Training, Pt./Family Education, IADL's Hospital Course Summary Disclaimer The hospital course summary below is not to be considered part of the above Progress Note. Hospital Course Summary 06/04/16 Spoke with Ayde Hughes with Dr. Lopez regarding patient's recent CABG procedure and ongoing treatment recommendations. She does recommend patient be on anticoagulation as she did have A-fib postoperatively. She would prefer Eliquis if not contraindicated. Given mild oozing from right hip incision will consult Dr Champagne for orthopedic evaluation of incision prior to starting anticoagulation. Patient does need postop anticoagulation for 30 days from right hemiarthroplasty performed on 05/16/16. Patient did have a right groin hematoma post heart catheter that was evaluated while at [place]. Overall this is improving. Continue with amiodarone given recent atrial fibrillation. She was noted to have elevated white count at 16.3. Will check a UA to rule out infection. Bumex 1 mg BID for ongoing diuresis. Oral Dilaudid and Ultram for pain control Continue SCDs to bilateral lower external for DVT prophylaxis Scheduled MiraLAX and Colace twice a day for ongoing bowel motivation. Encourage work with PT/OT for ongoing strengthening Will discuss case with attending Dr Hosbon 06/05/16 Continue to monitor right hip dressing for oozing. Several more tl were placed by Dr Champagne Continue on ASA only at this time, Case discussed with Dr Lopez yesterday . Continue to monitor blood sugars. Fasting sugar this morning was 146. Will increase sliding scale to medium range dosing and continue to follow. Will recheck CBC and BMP tomorrow morning to follow leukocytosis 06/08/16 At this time, will recommend holding off on surgical procedure until cardiac rate control has been further evaluated and treated. Consultation was placed to Dr. Lopez for further recommendations. Patient has continued to receive her amiodarone, however, did have her beta rachelle held this morning due to Patient is to be monitored on cardiac telemetry. Current anticoagulation is aspirin. This may need to be discussed further with all providers involved including Dr. Lopze, Dr. Hobson and Dr. Champagne Will reevaluate patient later today, the hope is that she will be able to have her hip procedure tomorrow by Dr. Champagne. 06/09/[address] Lopez - pt is in sinus rhythm and has been cleared for surgery. I spoke with Dr. Champagne and updated him as well. Will need to discuss anticoagulation postop. Dr. Champagne prefers nothing stronger than ASA if possible; if needs anticoagulation would like to wait a week before starting, again if possible. However, he understands that if anticoagulation is necessary he would not argue it. Patient is complaining of nausea this morning - Zofran as needed. Repeat labs in am - pt has had leukocytosis. Encouraged pt to set small, achievable goals and let us know if she becomes too depressed. 06/11/16 Urinary retention (750mL) - UA neg. for UTI. Suspect retention may be combination of extensive hematoma and hx of uterine prolapse, along with hx of chronic retention. Continue post-void residuals. Pt does not want a catheter if possible. Suspected abdominal hematoma - will obtain ultrasound today. She is only on ASA for anticoagulation. Type 2 DM with hypoglycemia - she's not on antiglycemic agents other than SSI - continue to monitor. Leukocytosis - improving. Recheck in am. Situational depression - consider antidepressant or psych consult. 06/12/16 Hypomagnesemia - magnesium 1.4. Oral replacement ordered. Recheck in am. Leukocytosis - resolved Situational depression - patient refused to see psychiatrist. She is not interested in starting any antidepressants. Follow closely. Urinary retention - Mason catheter was placed on 06/11/16. Abdominal hematoma - she is only on aspirin for anticoagulation. Heating pad as needed. Type 2 diabetes - hemoglobin A1c was 8.3% in early May. She has had fasting and postprandial hyperglycemia yesterday, but on 06/10/16 she had hypoglycemia. If she continues to have hyperglycemia, could possibly introduce low-dose Metformin(cardiology approved Metformin). Consult adaptive physical educator. BHAVNA MCALLISTER MD Jun 14, 2016 20:26
[2016-06-14 20:30] VITALS: PULSE 68; RESP 18
--- NOTE | 2016-06-14 21:02 | PDORTHOPN ---
Subjective Date DATE: 06/13/16 TIME: 13:46 Subjective No new complaints this morning. She has only her chronic back pain, but no hip pain. Objective Vital Signs Vital signs Vital Signs 06/14/16 15:35 Temp 97.9 Pulse 72 Resp 18 B/P 124/62 Pulse Ox 94 O2 Delivery Room Air Height (Feet): 5 Height (Inches): 5.00 Weight (Kilograms): 70.500 General General Appearance: Alert, Cooperative, No Acute Distress Respiratory (Brief) Respiratory Brief: FOUND: non-labored Cardiovascular (Brief) Cardiac: FOUND: calf easily compressible, calf soft, nontender, pedal pulses intact Capillary Refill: <2 sec Musculoskeletal (Brief) Hip: NOT FOUND abnormal rotation Musculoskeletal Brief: Not FOUND: deformity Surgical Site Incision: FOUND: dressing intact, intact, no drainage, tl present Integumentary (Brief) Integumentary Brief: NOT FOUND erythemia Neurologic (Brief) Neurological Brief: FOUND: extremities w/o deficits, neuro intact Psychiatric (Brief) Psychiatric Brief: FOUND: alert, no acute distress Laboratory Laboratory Laboratory Tests 06/13/16 04:28 Assessment & Plan Problems: (1) S/P CABG (coronary artery bypass graft) Onset Date: ~ 05/20/2016 Status: Acute (2) Status post hip surgery Status: Acute Assessment & Plan: Hematoma evacuated from the incision 06/09/16. Dressing continues to be dry this AM. Use SCD's, mobilization and ASA for DVT coverage. Only add additional anticoagulants if required from a cardiac standpoint. Hospital Course Summary Disclaimer The visit summary below is not to be considered part of the above Progress Note. Hospital Course 06/04/16 Spoke with Ayde Hughes with Dr. Lopez regarding patient's recent CABG procedure and ongoing treatment recommendations. She does recommend patient be on anticoagulation as she did have A-fib postoperatively. She would prefer Eliquis if not contraindicated. Given mild oozing from right hip incision will consult Dr Champagne for orthopedic evaluation of incision prior to starting anticoagulation. Patient does need postop anticoagulation for 30 days from right hemiarthroplasty performed on 05/16/16. Patient did have a right groin hematoma post heart catheter that was evaluated while at [place]. Overall this is improving. Continue with amiodarone given recent atrial fibrillation. She was noted to have elevated white count at 16.3. Will check a UA to rule out infection. Bumex 1 mg BID for ongoing diuresis. Oral Dilaudid and Ultram for pain control Continue SCDs to bilateral lower external for DVT prophylaxis Scheduled MiraLAX and Colace twice a day for ongoing bowel motivation. Encourage work with PT/OT for ongoing strengthening Will discuss case with attending Dr Hobson 06/05/16 Continue to monitor right hip dressing for oozing. Several more tl were placed by Dr Champagne Continue on ASA only at this time, Case discussed with Dr Lopez yesterday . Continue to monitor blood sugars. Fasting sugar this morning was 146. Will increase sliding scale to medium range dosing and continue to follow. Will recheck CBC and BMP tomorrow morning to follow leukocytosis 06/08/16 At this time, will recommend holding off on surgical procedure until cardiac rate control has been further evaluated and treated. Consultation was placed to Dr. Lopez for further recommendations. Patient has continued to receive her amiodarone, however, did have her beta rachelle held this morning due to Patient is to be monitored on cardiac telemetry. Current anticoagulation is aspirin. This may need to be discussed further with all providers involved including Dr. Lopez, Dr. Hobson and Dr. Champagne Will reevaluate patient later today, the hope is that she will be able to have her hip procedure tomorrow by Dr. Champagne. 06/09/[address] Lopez - pt is in sinus rhythm and has been cleared for surgery. I spoke with Dr. Champagne and updated him as well. Will need to discuss anticoagulation postop. Dr. Champange prefers nothing stronger than ASA if possible; if needs anticoagulation would like to wait a week before starting, again if possible. However, he understands that if anticoagulation is necessary he would not argue it. Patient is complaining of nausea this morning - Zofran as needed. Repeat labs in am - pt has had leukocytosis. Encouraged pt to set small, achievable goals and let us know if she becomes too depressed. 06/11/16 Urinary retention (750mL) - UA neg. for UTI. Suspect retention may be combination of extensive hematoma and hx of uterine prolapse, along with hx of chronic retention. Continue post-void residuals. Pt does not want a catheter if possible. Suspected abdominal hematoma - will obtain ultrasound today. She is only on ASA for anticoagulation. Type 2 DM with hypoglycemia - she's not on antiglycemic agents other than SSI - continue to monitor. Leukocytosis - improving. Recheck in am. Situational depression - consider antidepressant or psych consult. 06/12/16 Hypomagnesemia - magnesium 1.4. Oral replacement ordered. Recheck in am. Leukocytosis - resolved Situational depression - patient refused to see psychiatrist. She is not interested in starting any antidepressants. Follow closely. Urinary retention - Mason catheter was placed on 06/11/16. Abdominal hematoma - she is only on aspirin for anticoagulation. Heating pad as needed. Type 2 diabetes - hemoglobin A1c was 8.3% in early May. She has had fasting and postprandial hyperglycemia yesterday, but on 06/10/16 she had hypoglycemia. If she continues to have hyperglycemia, could possibly introduce low-dose Metformin(cardiology approved Metformin). Consult nurses educator. ELGIN TALBOT Jun 13, 2016 13:48
[2016-06-14] MEDS: ATORVASTATIN 40 MG TABLET PO SCH (21:10)
[2016-06-14] MEDS: GABAPENTIN 300 MG CAPSULE PO SCH (21:10)
[2016-06-14] MEDS: LIDOCAINE PATCH REMOVAL TOP SCH (21:11)
[2016-06-14 21:29] VITALS: BP 123/60; PULSE 68; RESP 16; TEMP 97.9
[2016-06-14] MEDS: ONDANSETRON ODT 4 MG TAB PO PRN (21:57)
--- NOTE | 2016-06-14 23:52 | NUR ---
BACK PAIN [place] text sent re: back pain persistent (throughout stay) complaint (not hip or sternal from sx). Dr. Chow ordered lumbar and thoracic xrays for a.m.
[2016-06-15] MEDS: HYDROMORPHONE 2 MG TABLET PO PRN ×4 (00:48→20:44)
--- NOTE | 2016-06-15 03:07 | NUR ---
RENNY Woodall has had a difficult time getting comfortable this shift. She has received pain meds (Ultram, Dilaudid, APAP) frequently per PRN orders. Requests frequent assist with position changes, pillow adjustments, etc.... Patient is able to do much of this on her own with encouragement. Mason output of 825 so far.
--- NOTE | 2016-06-15 04:16 | NUR ---
CHART CHECK 24HR chart check completed.
[2016-06-15 05:19] LABS: BASOPHILS # (AUTO) 0.1 T/MM3 (0-0.2); BASOPHILS % (AUTO) 0.9 % (0-2); EOSINOPHILS # (AUTO) 0.7 T/MM3 (0-0.5); EOSINOPHILS % (AUTO) 7.6 % (0-4); HCT - HEMATOCRIT 36.2 % (36-46); HGB - HEMOGLOBIN 11.1 GM/DL (12-16); IMMATURE GRANULOCYTE # (AUTO) 0.02 T/MM3 (0.00-0.03); IMMATURE GRANULOCYTE % (AUTO) 0.2 % (0.0-0.5); LYMPHOCYTES # (AUTO) 1.9 T/MM3 (1-4.8); LYMPHOCYTES % (AUTO) 20.7 % (23-45); MEAN CORPUSCULAR HGB 29.5 UUG (26-34); MEAN CORPUSCULAR HGB CONC(MCHC 30.7 GM/DL (31-37); MEAN CORPUSCULAR VOLUME 96.3 UM3 (80-100); MEAN PLATELET VOLUME 13.2 UM3 (9.4-12.4); MONOCYTES # (AUTO) 0.9 T/MM3 (0-0.8); MONOCYTES % (AUTO) 9.8 % (0-9.0); NEUTROPHILS #(AUTO)-ABSOLUTE 5.7 T/MM3 (1.8-7.7); NEUTROPHILS % (AUTO) 60.8 % (33-66); RED BLOOD COUNT 3.76 M/MM3 (4.00-5.20); WBC - WHITE BLOOD COUNT 9.4 T/MM3 (4.5-11.0)
[2016-06-15 05:30] LABS: ANION GAP 9 MEQ/L (5-15); BUN/CREATININE RATIO 27 RATIO (6-26); CHLORIDE 98 MEQ/L (98-107); CO2 - CARBON DIOXIDE 28 MEQ/L (22-30); CREATININE 1.2 MG/DL (0.7-1.2); GLOMERULAR FILTRATION RATE 43; GLUCOSE 122 MG/DL (65-110); POTASSIUM 4.6 MEQ/L (3.6-5); SODIUM 135 MEQ/L (134-144)
[2016-06-15] MEDS: METOCLOPRAMIDE 5mg TABLET PO SCH ×4 (05:53→20:44)
[2016-06-15] MEDS: OMEPRAZOLE 20 MG CAPSULE PO SCH (05:53)
--- NOTE | 2016-06-15 07:37 | NUR ---
SHIFT SUMMARY Talisha attempted toileting 1 x and was unable to have bowel movement. She went for xray of back this a.m. and is currently in shower with OT supervising. Total 1050cc out in Mason this shift. Ambulated with min assist with miguelina walker and gait belt. Addendum: 06/15/16 at 0742 by PAYAM DAMON RN total Mason output 1175cc
[2016-06-15 08:30] VITALS: BP 121/57; PULSE 80; RESP 18; TEMP 97.6; O2SAT 92
--- NOTE | 2016-06-15 08:31 | DI ---
Indication: ITS.REASON: Back pain PROCEDURE: LUMBAR SPINE 2-3 VIEWS: Encounter: Initial Comparison: None Findings: Three views of the lumbosacral spine demonstrates severe discogenic degenerative changes from L3-4 to L5-S1. No fracture or subluxation. Pedicles are intact. There is facet arthropathy at lower lumbosacral spine. No sacroiliac joint diastases. Surgical clips of cholecystectomy and right femoral head replacement. 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 .
--- NOTE | 2016-06-15 08:33 | DI ---
Indication: ITS.REASON: Back pain - persistent PROCEDURE: THORACIC SPINE SERIES, 3 VIEW: Encounter: Initial Comparison: None Findings: Three views of the thoracic spine demonstrates mild degenerative endplate changes, diminished bone density, but no fracture or aggressive abnormality. There has been median sternotomy and coronary artery bypass grafting. There is considerable aortic atherosclerosis. Surgical clips of cholecystectomy are noted. Monitor leads overlie the chest. Impression: Age compatible thoracic spine examination without fracture and mild degenerative changes. .
[2016-06-15] MEDS: POLYETHYL.GLYCOL 3350 PACKET 17gm PO SCH ×2 (08:35→20:45)
[2016-06-15] MEDS: POTASSIUM CHLORIDE 20 MEQ TABLET PO SCH ×2 (08:36→17:18)
[2016-06-15] MEDS: FERROUS SULFATE 324 MG TABLET PO SCH ×3 (08:36→17:18)
[2016-06-15] MEDS: LISINOPRIL 5 MG TABLET PO SCH (08:38)
[2016-06-15] MEDS: AMIODARONE 200 MG TABLET PO SCH (08:38)
[2016-06-15] MEDS: DOCUSATE SODIUM 100 MG CAPSULE PO SCH ×2 (08:38→20:45)
[2016-06-15] MEDS: BUMETANIDE 1 MG TABLET PO SCH ×2 (08:39→17:17)
[2016-06-15] MEDS: ASPIRIN 81 MG CHEWABLE TABLET PO SCH (08:39)
[2016-06-15] MEDS: ASCORBIC ACID 500 MG TABLET PO SCH (08:39)
[2016-06-15] MEDS: METFORMIN 500 MG TABLET PO SCH (08:40)
[2016-06-15] MEDS: MAGNESIUM OXIDE 400 MG TABLET PO SCH (08:41)
[2016-06-15] MEDS: LIDOCAINE 5% PATCH TOP SCH (08:41)
[2016-06-15] MEDS: INSULIN LISPRO 100 UNIT/ML SQ PRN ×2 (10:24→14:50)
[2016-06-15] MEDS: TRAMADOL 50 MG TABLET PO PRN ×2 (12:22→18:31)
[2016-06-15] MEDS: ONDANSETRON ODT 4 MG TAB PO PRN ×2 (14:58→20:43)
[2016-06-15 15:25] VITALS: BP 124/58; PULSE 60; RESP 20; TEMP 98.2; O2SAT 93
--- NOTE | 2016-06-15 16:28 | PNPDOC ---
TANYA MONROE CARD SELLER 06/15/16 1628: Subjective Date DATE: 06/15/16 TIME: 16:24 Subjective Talisha is laying in her bed, states she is taking a nap. She denies chest pain, palpitations or dyspnea. Objective Vital Signs Vital signs Vital Signs 06/15/16 06/15/16 06/15/16 08:30 08:30 15:25 Temp 97.6 98.2 Pulse 80 80 60 Resp 18 18 20 B/P 121/57 124/58 Pulse Ox 92 93 O2 Delivery Room Air Room Air Telemetry Rhythm: Sinus Rhythm Height (Feet): 5 Height (Inches): 5.00 Weight (Kilograms): 70.500 General Alert, Orientated x 3, Cooperative, No Acute Distress ENMT (Brief) mucosa moist Neck (Brief) NOT FOUND: JVD, carotid bruits Respiratory (Brief) clear all anaya, equal bilaterally, NOT FOUND: rales, wheezes Cardiovascular (Brief) regular rate, regular rhythm, NOT FOUND: pedal edema Abdomen (Brief) BS normo active x4, soft, NOT FOUND: tender Integumentary (Brief) dry, pink, warm Psychiatric (Brief) alert, attentive, oriented Laboratory Laboratory Laboratory Tests Test 06/13/16 20:42 06/14/16 06:00 06/14/16 10:14 06/14/16 13:58 Glucometer 234mg/dL 137mg/dL 239mg/dL 211mg/dL Test 06/14/16 21:42 06/15/16 04:36 06/15/16 10:14 06/15/16 14:34 Glucometer 176mg/dL 239mg/dL 161mg/dL White Blood Count 9.4T/MM3 Red Blood Count 3.76M/MM3 Hemoglobin 11.1GM/DL Hematocrit 36.2% Mean Corpuscular Volume 96.3UM3 Mean Corpuscular Hemoglobin 29.5UUG Mean Corpuscular Hemoglobin Concent 30.7GM/DL RDW Standard Deviation 69.2FL Platelet Count 212T/MM3 Mean Platelet Volume 13.2UM3 Immature Granulocyte % (Auto) 0.2% Neutrophils (%) (Auto) 60.8% Lymphocytes (%) (Auto) 20.7% Monocytes (%) (Auto) 9.8% Eosinophils (%) (Auto) 7.6% Basophils (%) (Auto) 0.9% Absolute Immature Granulocyte (auto 0.02T/MM3 Absolute Neutrophils (auto) 5.7T/MM3 Absolute Lymphocytes (auto) 1.9T/MM3 Absolute Monocytes (auto) 0.9T/MM3 Absolute Eosinophils (auto) 0.7T/MM3 Absolute Basophils (auto) 0.1T/MM3 Turbidity < 20 Sodium Level 135MEQ/L Potassium Level 4.6MEQ/L Chloride Level 98MEQ/L Carbon Dioxide Level 28MEQ/L Anion Gap 9MEQ/L Blood Urea Nitrogen 32.0MG/DL Creatinine 1.2MG/DL Glomerular Filtration Rate Calc 43 BUN/Creatinine Ratio 27RATIO Glucose Level 122MG/DL Calculated Osmolality 268MOSM/KG Calcium Level 9.0MG/DL Icterus Index < 2 Chemistry Specimen Hemolysis 16 Laboratory Tests 06/15/16 04:36 Laboratory Tests 06/15/16 04:36 Medications Current Medications Miscellaneous Medication (May use PRN orders) 1 PRN PRN MC ; Start 06/03/16 at 14:30 Acetaminophen (Tylenol Regular Strength) 650 mg Q6HR PRN PO PAIN Last administered on 06/14/16 21:53; Start 06/03/16 at 14:30 Ascorbic Acid (VITAMIN C 500 mg Tablet) 500 mg DAILY PO Last administered on 08:39; Start 06/04/16 at 09:00 Aspirin (ASA) 81 mg DAILY PO Last administered on 06/15/16 08:39; Start at 09:00 Atorvastatin Calcium (LIPITOR 40 mg) 40 mg HS PO Last administered on 06/14/16 21:10; Start 06/03/16 at 22:00 Docusate Sodium (Colace) 100 mg BID PO ; Start 06/03/16 at 21:00; Stop 06/03/16 at 21:00; Status DC Ferrous Sulfate (Feosol) 324 mg TIDWM PO Last administered on 06/15/16 12:23; Start 06/03/16 at 17:30 Gabapentin (Neurontin) 300 mg HS PO Last administered on 06/14/16 21:10; Start 06/03/16 at 22:00 Omeprazole (Prilosec) 40 mg ACB PO Last administered on 06/15/16 05:53; Start 06/04/16 at 06:30 Polyethylene Glycol (Miralax) 17 g BID PO Last administered on 06/14/16 21:10; Start 06/03/16 at 21:00 Potassium Chloride (Kdur) 20 meq BIDWM PO Last administered on 06/15/16 08:36; Start 06/03/16 at 17:30 Tramadol HCl (Ultram) 50 mg Q6HR PRN PO PAIN Last administered on 06/15/16 12: 22; Start 06/03/16 at 14:30 Al Hydroxide/Mg Hydroxide (Maalox) 30 ml Q3-4H PRN PO INDIGESTION Last administered on 06/03/16 15:29; Start 06/03/16 at 15:30 Glucose (Glutose 15) 37.5 g PRN PRN PO HYPOGLYCEMIA; Start 06/03/16 at 18:15 Dextrose (D50w) 25 ml PRN PRN IV HYPOGLYCEMIA; Start 06/03/16 at 18:15 Ondansetron HCl (Zofran Odt) 4 mg Q4H PRN PO NAUSEA &/OR VOMITING Last administered on 06/15/16 14:58; Start 06/03/16 at 18:30 Metoclopramide HCl (Reglan) 5 mg ACHS PO Last administered on 06/15/16 12:22; Start 06/03/16 at 22:00 Bumetanide (BUMEX 1 mg TAB) 1 mg BID. PO Last administered on 06/15/16 08:39; Start 06/05/16 at 09:00 Benzocaine (Americaine Hemorr. Oint.) 1 applic BID PRN TOP HEMORRHOIDS Last administered on 06/11/16 19:47; Start 06/05/16 at 13:00 Insulin Human Lispro (Humalog) SS PRN SQ Last administered on 06/15/16 14:50 ; Start 06/05/16 at 17:00 Lidocaine (Lidoderm) 1 patch DAILY TOP Last administered on 06/15/16 08:41; Start 06/07/16 at 12:30 Lidocaine (Lidoderm Patch Removal) 1 removal 2100 TOP Last administered on 21:11; Start 06/07/16 at 21:00 Cefazolin Sodium (Kefzol) 2 g PREOP ONCE IV ; Start 06/08/16 at 11:45; Stop at 11:46; Status DC Metoprolol Tartrate (Lopressor) 25 mg O ONCE PO Last administered on 12:22; Start 06/08/16 at 12:30; Stop 06/08/16 at 12:31; Status DC Bupivacaine HCl/ Epinephrine Bitart (Marcaine/Epi 0.25%/1:200,000) 30 ml STK- MED ONCE INJ ; Start 06/08/16 at 14:00; Stop 06/09/16 at 09:51; Status DC Rocuronium [place] (Zemuron) 50 mg STK-MED ONCE IV ; Start 06/08/16 at 14:00; Stop 06/09/16 at 09:51; Status DC Succinylcholine Chloride (Quelicin) 200 mg STK-MED ONCE IV ; Start 06/08/16 at 14:00; Stop 06/09/16 at 09:51; Status DC Sevoflurane 1 ml 1 ml STK-MED ONCE IH ; Start 06/08/16 at 14:00; Stop 06/09/16 at 09:51; Status DC Sodium Chloride (Normal Saline IV) 1,000 ml @ 50 mls/hr Q20H ONCE IV ; Start at 10:51; Stop 06/11/16 at 06:50; Status DC Cefazolin Sodium 2 g 2 g O ONCE IV Last administered on 06/09/16 11:33; Start 06/09/16 at 11:00; Stop 06/09/16 at 11:46; Status DC Cefazolin Sodium/ Sodium Chloride (Kefzol/NS) 100 ml @ 200 mls/hr Q8H IV Last administered on 06/10/16 05:47; Start 06/09/16 at 19:30; Stop 06/10/16 at 04:00; Status DC Ondansetron HCl (Zofran) 4 mg O PRN IV NAUSEA &/OR VOMITING; Start 06/09/16 at 12:45; Stop 06/10/16 at 08:26; Status DC Vancomycin HCl (Vancocin) 1 g STK-MED ONCE IV ; Start 06/09/16 at 11:09; Stop at 11:34; Status DC Bupivacaine HCl (Sensorcaine 0.25% Steri-Dawit) 30 mg STK-MED ONCE INJ ; Start at 11:09; Stop 06/10/16 at 11:34; Status DC Lidocaine HCl (Xylocaine 1%) 30 mg STK-MED ONCE IJ ; Start 06/09/16 at 11:09; Stop 06/10/16 at 11:34; Status DC Propofol (Diprivan) 500 mg STK-MED ONCE IV ; Start 06/09/16 at 11:09; Stop at 11:34; Status DC Fentanyl (Fentanyl) 100 mcg STK-MED ONCE IV ; Start 06/09/16 at 11:09; Stop 06/10 at 11:34; Status DC Lisinopril (Prinivil) 5 mg DAILY PO Last administered on 06/15/16 08:38; Start 06/11/16 at 17:15 Magnesium Oxide (Magox) 400 mg 20 ONCE PO Last administered on 06/12/16 20:40 ; Start 06/12/16 at 20:00; Stop 06/12/16 at 20:01; Status DC Metformin HCl (Glucophage) 500 mg WB PO Last administered on 06/15/16 08:40; Start 06/15/16 at 08:00 Hydromorphone HCl (Dilaudid) ONE-HALF TO ONE TABLET Q4H PRN PO PAIN Last administered on 06/15/16 14:49; Start 06/14/16 at 13:45 Amiodarone HCl (Pacerone) 200 mg DAILY PO ; Start 06/16/16 at 09:00 Radiology DATE OF EXAM: 06/15/16 ORDERING DOCTOR: ОЛЕГ TSE MD TYPE OF EXAM: THORACIC SPINE SERIES, 3 VIEW REASON FOR EXAM: Back pain - persistent Indication: ITS.REASON: Back pain - persistent PROCEDURE: THORACIC SPINE SERIES, 3 VIEW: Encounter: Initial Comparison: None Findings: Three views of the thoracic spine demonstrates mild degenerative endplate changes, diminished bone density, but no fracture or aggressive abnormality. There has been median sternotomy and coronary artery bypass grafting. There is considerable aortic atherosclerosis. Surgical clips of cholecystectomy are noted. Monitor leads overlie the chest. Impression: Age compatible thoracic spine examination without fracture and mild degenerative changes. DATE OF EXAM: 06/15/16 ORDERING DOCTOR: ОЛЕГ TSE MD TYPE OF EXAM: LUMBAR SPINE 2-3 VIEWS REASON FOR EXAM: Back pain Indication: ITS.REASON: Back pain PROCEDURE: LUMBAR SPINE 2-3 VIEWS: Encounter: Initial Comparison: None Findings: Three views of the lumbosacral spine demonstrates severe discogenic degenerative changes from L3-4 to L5-S1. No fracture or subluxation. Pedicles are intact. There is facet arthropathy at lower lumbosacral spine. No sacroiliac joint diastases. Surgical clips of cholecystectomy and right femoral head replacement. 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 Decrease Amiodarone to 200mg po daily and Metoprolol 25mg po BID for rhythm and rate control. Will repeat EKG in am. ASA only thinner at this time due to recent hip surgery. (2) CAD (coronary artery disease) Status: Chronic Assessment & Plan: Continue BB, DICK and statin. (3) S/P CABG (coronary artery bypass graft) Onset Date: ~ 05/20/2016 Status: Acute Assessment & Plan: cont asa, metoprolol, amiodarone, statin (4) HTN (hypertension) Status: Chronic Assessment & Plan: Cont metoprolol (5) Diabetes mellitus Onset Date: ~ 05/2016 Status: Chronic Qualifiers: Diabetes mellitus type: type 2 Assessment & Plan: managed per PCP Plan/Intensity of Service 06/08/16 Give medications as ordered. If plan to I&D tomorrow, she is stable from a cardiac standpoint and may have needed I & D. please given beta rachelle and antiarrhythmic with a sip of water as scheduled. 06/09/16 In SR 60's today. Continue Amiodarone 200mg po BID and Metoprolol 25mg po BID for rhythm and rate control. Will repeat EKG in am. ASA only thinner at this time due to recent hip surgery. 06/10/16 Remains in SR, Continue to monitor telemetry. 06/11/16 remains in SR. Hematoma to right groin possibly related to heart cath. Start Lisinopril 5mg daily this evening. 06/12/16 Okay with Metformin if needed for DM. Aspirin only to allow for wound healing per ortho. Will start oral anticoagulation upon discharge. 06/15/16 Remains in SR. Decrease Amiodarone to 200mg po daily Thank you for allowing us to participate in the care of this patient. BERNIE OLMOS MD 06/29/16 1016: Assessment & Plan Plan/Intensity of Service After examining the patient I agree with the above assessment. I am involved in the formulation of the patient's plan of care. TANYA MONROE APRN Jun 15, 2016 16:28 BERNIE OLMOS MD Jun 29, 2016 10:16
--- NOTE | 2016-06-15 17:00 | NUR ---
JAYA SPOKE WITH PT, RE: POSSIBLE RELEASE DATE OF THE END OF THE WEEK. SHE EXPRESSED HESITATION ABOUT THAT AND SAID SHE IS NOT SURE SHE WILL BE READY BY THEN. ENCOURAGED HER TO ADDRESS ANY CONCERNS WITH PT/OT, SO THEY CAN WORK WITH HER REGARDING THOSE CONCERNS. SHE SAID HER SON WORKS DURING THE DAY, BUT HE DOES THE COOKING AT HOME FOR HER. DISCUSSED HER DIABETES: SHE SAID THIS IS A NEW DX AND SHE IS UNSURE HOW TO MANAGE THIS AT HOME. EXPLAINED A DATAPOWER CONSULTANT CAN SPEAK WITH HER ABOUT THAT. SHE GAVE PERMISSION TO CONTACT HER SON, ELGIN. REVIEWED HOME HEALTH: SHE HAD NO PREFERENCE. DISCUSSED [facility] AND THE FINANCIAL RELATIONSHIP; SHE WANTED TO USE THEM ANYWAY. DISCUSSED DME: SHE WILL NEED A NIKKI WALKER, AND DAV WITH PT SAID SHE WILL ARRANGE FOR THIS. SPOKE WITH RN, RE: DIABETIC EDUCATION AND NEW DX. SHE SAID SHE SPOKE WITH THE DM EDUCATOR THIS MORNING ABOUT SEEING THE PT. LEFT MESSAGE WITH ELGIN RE: POSSIBLE RELEASE DATE THIS WEEK.
--- NOTE | 2016-06-15 19:02 | NUR ---
SHIFT SUMMARY PATIENT ALERT AND ORIENTED X 3. C/O LOWER BACK PAIN 6-7 TODAY. PAIN MEDICATION GIVEN. WILL CONTINUE TO MONITOR. PATIENT C/O INTERMMITENT NAUSEA, ZOFRAN AND REGLAN GIVEN. PATIENT TOLERATED MEALS. CONTINUED BLADDER TRAINING. PATIENT REPORTED SHE WAS STARTING TO FEEL FULLNESS IN HER BLADDER TOWARD THE END OF SHIFT. PATIENT RECEIVED BLOOD GLUCOSE COVERAGE VIA SSI. MENON OUTPUT 700ML TODAY. PATIENT UP WITH ONE ASSIST. WILL CONTINUE TO MONITOR
[2016-06-15 20:40] VITALS: PULSE 113; RESP 16
[2016-06-15] MEDS: ATORVASTATIN 40 MG TABLET PO SCH (20:44)
[2016-06-15] MEDS: GABAPENTIN 300 MG CAPSULE PO SCH (20:45)
[2016-06-15] MEDS: ACETAMINOPHEN 325 MG TABLET PO PRN (20:45)
[2016-06-15] MEDS: LIDOCAINE PATCH REMOVAL TOP SCH (20:46)
[2016-06-16] MEDS: TRAMADOL 50 MG TABLET PO PRN ×3 (00:47→20:37)
[2016-06-16 00:56] VITALS: BP 115/76; PULSE 113; RESP 16; TEMP 98.4; O2SAT 98
[2016-06-16] MEDS: HYDROMORPHONE 2 MG TABLET PO PRN ×4 (02:31→23:09)
--- NOTE | 2016-06-16 03:22 | NUR ---
CHART CHECK 24hr chart checks completed
[2016-06-16] MEDS: ACETAMINOPHEN 325 MG TABLET PO PRN ×2 (04:49→22:29)
--- NOTE | 2016-06-16 06:20 | NUR ---
MENON D/C'd at this time without difficulty or discomfort to patient. Education to patient re: PVR monitoring and to call when urge to void is felt.
[2016-06-16] MEDS: OMEPRAZOLE 20 MG CAPSULE PO SCH (06:41)
[2016-06-16] MEDS: METOCLOPRAMIDE 5mg TABLET PO SCH ×4 (06:41→20:36)
--- NOTE | 2016-06-16 07:29 | NUR ---
SHIFT SUMMARY Patient has been less restless and using PRN pain meds as often as she can have them. Bladder retraining all night with Mason clamping/unclamping and then Mason was DCd early this a.m. No calls to void yet. PVR will be conducted. Took meds whole with water. No sliding scale required at HS or fasting. She calls frequently business operations director light for position changes and pillow adjustments.
[2016-06-16 08:00] VITALS: BP 125/65; PULSE 77; RESP 14; TEMP 97.1; O2SAT 96
[2016-06-16] MEDS ORDERED: MILK OF MAGNESIA 30 ML SUSP PO PRN (08:15)
[2016-06-16] MEDS: POTASSIUM CHLORIDE 20 MEQ TABLET PO SCH ×2 (08:24→17:16)
[2016-06-16] MEDS: FERROUS SULFATE 324 MG TABLET PO SCH ×3 (08:24→17:16)
[2016-06-16] MEDS: METFORMIN 500 MG TABLET PO SCH (08:24)
[2016-06-16] MEDS: DOCUSATE SODIUM 100 MG CAPSULE PO SCH ×2 (08:25→20:36)
[2016-06-16] MEDS: ASPIRIN 81 MG CHEWABLE TABLET PO SCH (08:25)
[2016-06-16] MEDS: BUMETANIDE 1 MG TABLET PO SCH ×2 (08:25→17:17)
[2016-06-16] MEDS: POLYETHYL.GLYCOL 3350 PACKET 17gm PO SCH (08:26)
[2016-06-16] MEDS: MAGNESIUM OXIDE 400 MG TABLET PO SCH (08:26)
[2016-06-16] MEDS: AMIODARONE 200 MG TABLET PO SCH (08:26)
[2016-06-16] MEDS: ASCORBIC ACID 500 MG TABLET PO SCH (08:27)
[2016-06-16] MEDS: LISINOPRIL 5 MG TABLET PO SCH (08:27)
[2016-06-16] MEDS: LIDOCAINE 5% PATCH TOP SCH (08:27)
--- NOTE | 2016-06-16 10:16 | NUR ---
CM CALLED AND SPOKE WITH SON, RE: POTENTIAL RELEASE DATE OF FRI OR SAT. HE ALSO EXPRESSED HESITATION OF THIS, AND HE STATED HE IS GONE DURING THE DAY SO PT IS ALONE DURING THAT TIME. THIS WORKER EXPLAINED THE TEAM IS STILL WORKING WITH THE PT, AND SHE STILL HAS PROGRESS TO MAKE; HOWEVER, IT IS A POTENTIAL RELEASE DATE LATER THIS WEEK. EXPLAINED THAT THIS DATE WILL BE EVALUATED AND IT COULD CHANGE, AND THAT THIS WORKER WILL KEEP HIM UPDATED. HE WAS AGREEABLE TO THIS.
--- NOTE | 2016-06-16 10:19 | PNPDOC ---
AUSTYN BUTLER TRUCKER HAND 06/16/16 1006: Subjective Date DATE: 06/16/16 TIME: 10:02 Subjective I saw Talisha this morning walking down the hospital main hallway. She feels like she's doing better. Her pain control is good. Her abdomen is softer. She is constipated, and just drank something this am to help her bowels. She states that her Mason was removed this morning, but she hasn't had to urinate yet nor does she have the urge. She denies any chest pain or SOA. Objective Vital Signs Vital signs Vital Signs Date Time Temp Pulse Resp B/P Pulse Ox O2 Delivery O2 Flow Rate FiO2 06/16/16 08:00 97.1 77 14 125/65 96 Room Air Telemetry Rhythm: Sinus Rhythm Height (Feet): 5 Height (Inches): 5.00 Weight (Kilograms): 70.500 General General Appearance: Alert, Orientated x 3, Well Nourished, Well Developed, No Acute Distress Eyes (Brief) Eyes: FOUND: PERRL, NOT FOUND: scleral icterus ENMT (Brief) ENMT: FOUND: mucosa moist, NOT FOUND: pharnyx erythema Respiratory (Brief) Respiratory: FOUND: clear all anaya, equal bilaterally Cardiovascular (Brief) Cardiac: FOUND: other (sternal incision healing well), regular rate, regular rhythm Abdomen (Brief) Abdominal: FOUND: BS normo active x4 (hypoactive), other (abdominal hematoma - significantly improved), soft, tender (over hematoma), NOT FOUND: distended Extremities (Brief) Extremity : Side: Bilateral Extremity Finding: FOUND: edema (trace) Musculoskeletal (Brief) Musculoskeletal: NOT FOUND: tenderness (calves soft nttp) Integumentary (Brief) Integumentary: FOUND: dry, warm Psychiatric (Brief) Psychiatric: FOUND: alert, attentive, oriented, NOT FOUND: normal affect ( still with flat affect) Laboratory Laboratory Laboratory Tests 06/15/16 04:36 Laboratory Tests 06/15/16 04:36 Assessment & Plan Problems: (1) Hypomagnesemia Status: Acute (2) Situational depression Status: Acute (3) Urinary retention Status: Acute Assessment & Plan: Straight cath on 06/11/16 - 750 mL Mason catheter was placed later on 06/11/16 removed 06/16/16 (4) S/P CABG (coronary artery bypass graft) Onset Date: ~ 05/20/2016 Status: Acute (5) Status post hip surgery Status: Acute Assessment & Plan: 05/16/16- Dr Champagne- right Brock-arthroplasty (6) Chronic kidney disease Status: Chronic (7) Diabetes mellitus Onset Date: ~ 05/2016 Status: Chronic Qualifiers: Diabetes mellitus type: type 2 (8) HTN (hypertension) Status: Chronic (9) History of atrial fibrillation Status: Chronic (10) Hypercholesteremia Status: Chronic (11) Peptic ulcer disease Status: Chronic (12) Pseudoarthrosis Status: Chronic (13) Basal cell carcinoma Status: Chronic (14) Allergic rhinitis Status: Chronic (15) GERD (gastroesophageal reflux disease) Status: Chronic Plan/Intensity of Service Mason removed this am - monitor for retention. constipation - prn meds given hyperglycemia - improving since metformin was started on 06/15/16; frequently with hyperglycemia >200 after breakfast. Would probably increase metformin before starting insulin, but need to wait 1-2 weeks before increasing metformin dose. check bmp and mg on 06/18/16 Code Status Full Code Hospital Course Summary Disclaimer The hospital course summary below is not to be considered part of the above Progress Note. Hospital Course Summary 06/04/16 Spoke with Austyn Hughes with Dr. Lopez regarding patient's recent CABG procedure and ongoing treatment recommendations. She does recommend patient be on anticoagulation as she did have A-fib postoperatively. She would prefer Eliquis if not contraindicated. Given mild oozing from right hip incision will consult Dr Champagne for orthopedic evaluation of incision prior to starting anticoagulation. Patient does need postop anticoagulation for 30 days from right hemiarthroplasty performed on 05/16/16. Patient did have a right groin hematoma post heart catheter that was evaluated while at [facility]. Overall this is improving. Continue with amiodarone given recent atrial fibrillation. She was noted to have elevated white count at 16.3. Will check a UA to rule out infection. Bumex 1 mg BID for ongoing diuresis. Oral Dilaudid and Ultram for pain control Continue SCDs to bilateral lower external for DVT prophylaxis Scheduled MiraLAX and Colace twice a day for ongoing bowel motivation. Encourage work with PT/OT for ongoing strengthening Will discuss case with attending Dr Hobson 06/05/16 Continue to monitor right hip dressing for oozing. Several more tl were placed by Dr Champagne Continue on ASA only at this time, Case discussed with Dr Lopez yesterday . Continue to monitor blood sugars. Fasting sugar this morning was 146. Will increase sliding scale to medium range dosing and continue to follow. Will recheck CBC and BMP tomorrow morning to follow leukocytosis 06/08/16 At this time, will recommend holding off on surgical procedure until cardiac rate control has been further evaluated and treated. Consultation was placed to Dr. Lopez for further recommendations. Patient has continued to receive her amiodarone, however, did have her beta rachelle held this morning due to Patient is to be monitored on cardiac telemetry. Current anticoagulation is aspirin. This may need to be discussed further with all providers involved including Dr. Lopez, Dr. Hobson and Dr. Champagne Will reevaluate patient later today, the hope is that she will be able to have her hip procedure tomorrow by Dr. Champagne. 06/09/[address] Lopez - pt is in sinus rhythm and has been cleared for surgery. I spoke with Dr. Champagne and updated him as well. Will need to discuss anticoagulation postop. Dr. Champagne prefers nothing stronger than ASA if possible; if needs anticoagulation would like to wait a week before starting, again if possible. However, he understands that if anticoagulation is necessary he would not argue it. Patient is complaining of nausea this morning - Zofran as needed. Repeat labs in am - pt has had leukocytosis. Encouraged pt to set small, achievable goals and let us know if she becomes too depressed. 06/11/16 Urinary retention (750mL) - UA neg. for UTI. Suspect retention may be combination of extensive hematoma and hx of uterine prolapse, along with hx of chronic retention. Continue post-void residuals. Pt does not want a catheter if possible. Suspected abdominal hematoma - will obtain ultrasound today. She is only on ASA for anticoagulation. Type 2 DM with hypoglycemia - she's not on antiglycemic agents other than SSI - continue to monitor. Leukocytosis - improving. Recheck in am. Situational depression - consider antidepressant or psych consult. 06/12/16 Hypomagnesemia - magnesium 1.4. Oral replacement ordered. Recheck in am. Leukocytosis - resolved Situational depression - patient refused to see psychiatrist. She is not interested in starting any antidepressants. Follow closely. Urinary retention - Mason catheter was placed on 06/11/16. Abdominal hematoma - she is only on aspirin for anticoagulation. Heating pad as needed. Type 2 diabetes - hemoglobin A1c was 8.3% in early May. She has had fasting and postprandial hyperglycemia yesterday, but on 06/10/16 she had hypoglycemia. If she continues to have hyperglycemia, could possibly introduce low-dose Metformin(cardiology approved Metformin). Consult religious educator. 06/16/16 Mason removed this am - monitor for retention. constipation - prn meds given hyperglycemia - improving since metformin was started on 06/15/16; frequently with hyperglycemia >200 after breakfast. Would probably increase metformin before starting insulin, but need to wait 1-2 weeks before increasing metformin dose. check bmp and mg on 06/18/16 BERNA HOBSON MD 06/17/16 1923: AUSTYN BUTLER APRN Jun 16, 2016 10:06 BERNA HOBSON MD Jun 17, 2016 19:23
[2016-06-16] MEDS: INSULIN LISPRO 100 UNIT/ML SQ PRN ×2 (10:58→20:55)
--- NOTE | 2016-06-16 15:05 | PNPDOC ---
TANYA MONROE [employer] WORK[employer] 06/16/16 1504: Subjective Date DATE: 06/16/16 TIME: 14:00 Subjective Talisha is sitting up in the recliner, she is pleasant and denies any complaints. Objective Vital Signs Vital signs Vital Signs 06/16/16 06/16/16 08:00 08:00 Temp 97.1 Pulse 77 77 Resp 14 14 B/P 125/65 Pulse Ox 96 O2 Delivery Room Air Telemetry Rhythm: Sinus Rhythm Height (Feet): 5 Height (Inches): 5.00 Weight (Kilograms): 70.500 General Alert, Orientated x 3, Cooperative ENMT (Brief) mucosa moist Neck (Brief) NOT FOUND: JVD, carotid bruits Respiratory (Brief) clear all anaya, equal bilaterally, NOT FOUND: rales, wheezes Cardiovascular (Brief) regular rate, regular rhythm, NOT FOUND: click, gallop, murmur, pedal edema, rub Abdomen (Brief) BS normo active x4, soft, NOT FOUND: tender Integumentary (Brief) dry, pink, warm Psychiatric (Brief) alert, attentive, oriented Laboratory Laboratory Laboratory Tests Test 06/14/16 21:42 06/15/16 04:36 06/15/16 10:14 06/15/16 14:34 Glucometer 176mg/dL 239mg/dL 161mg/dL White Blood Count 9.4T/MM3 Red Blood Count 3.76M/MM3 Hemoglobin 11.1GM/DL Hematocrit 36.2% Mean Corpuscular Volume 96.3UM3 Mean Corpuscular Hemoglobin 29.5UUG Mean Corpuscular Hemoglobin Concent 30.7GM/DL RDW Standard Deviation 69.2FL Platelet Count 212T/MM3 Mean Platelet Volume 13.2UM3 Immature Granulocyte % (Auto) 0.2% Neutrophils (%) (Auto) 60.8% Lymphocytes (%) (Auto) 20.7% Monocytes (%) (Auto) 9.8% Eosinophils (%) (Auto) 7.6% Basophils (%) (Auto) 0.9% Absolute Immature Granulocyte (auto 0.02T/MM3 Absolute Neutrophils (auto) 5.7T/MM3 Absolute Lymphocytes (auto) 1.9T/MM3 Absolute Monocytes (auto) 0.9T/MM3 Absolute Eosinophils (auto) 0.7T/MM3 Absolute Basophils (auto) 0.1T/MM3 Turbidity < 20 Sodium Level 135MEQ/L Potassium Level 4.6MEQ/L Chloride Level 98MEQ/L Carbon Dioxide Level 28MEQ/L Anion Gap 9MEQ/L Blood Urea Nitrogen 32.0MG/DL Creatinine 1.2MG/DL Glomerular Filtration Rate Calc 43 BUN/Creatinine Ratio 27RATIO Glucose Level 122MG/DL Calculated Osmolality 268MOSM/KG Calcium Level 9.0MG/DL Icterus Index < 2 Chemistry Specimen Hemolysis 16 Test 06/15/16 21:16 06/16/16 06:34 06/16/16 10:36 06/16/16 14:26 Glucometer 140mg/dL 124mg/dL 220mg/dL 143mg/dL Medications Current Medications Miscellaneous Medication (May use PRN orders) 1 PRN PRN MC ; Start 06/03/16 at 14:30 Acetaminophen (Tylenol Regular Strength) 650 mg Q6HR PRN PO PAIN Last administered on 06/16/16 04:49; Start 06/03/16 at 14:30 Ascorbic Acid (VITAMIN C 500 mg Tablet) 500 mg DAILY PO Last administered on 08:27; Start 06/04/16 at 09:00 Aspirin (ASA) 81 mg DAILY PO Last administered on 06/16/16 08:25; Start at 09:00 Atorvastatin Calcium (LIPITOR 40 mg) 40 mg HS PO Last administered on 06/15/16 20:44; Start 06/03/16 at 22:00 Docusate Sodium (Colace) 100 mg BID PO ; Start 06/03/16 at 21:00; Stop 06/03/16 at 21:00; Status DC Ferrous Sulfate (Feosol) 324 mg TIDWM PO Last administered on 06/16/16 12:21; Start 06/03/16 at 17:30 Gabapentin (Neurontin) 300 mg HS PO Last administered on 06/15/16 20:45; Start 06/03/16 at 22:00 Omeprazole (Prilosec) 40 mg ACB PO Last administered on 06/16/16 06:41; Start 06/04/16 at 06:30 Polyethylene Glycol (Miralax) 17 g BID PO Last administered on 06/16/16 08:26; Start 06/03/16 at 21:00 Potassium Chloride (Kdur) 20 meq BIDWM PO Last administered on 06/16/16 08:24; Start 06/03/16 at 17:30 Tramadol HCl (Ultram) 50 mg Q6HR PRN PO PAIN Last administered on 06/16/16 10: 57; Start 06/03/16 at 14:30 Al Hydroxide/Mg Hydroxide (Maalox) 30 ml Q3-4H PRN PO INDIGESTION Last administered on 06/03/16 15:29; Start 06/03/16 at 15:30 Glucose (Glutose 15) 37.5 g PRN PRN PO HYPOGLYCEMIA; Start 06/03/16 at 18:15 Dextrose (D50w) 25 ml PRN PRN IV HYPOGLYCEMIA; Start 06/03/16 at 18:15 Ondansetron HCl (Zofran Odt) 4 mg Q4H PRN PO NAUSEA &/OR VOMITING Last administered on 06/15/16 20:43; Start 06/03/16 at 18:30 Metoclopramide HCl (Reglan) 5 mg ACHS PO Last administered on 06/16/16 11:43; Start 06/03/16 at 22:00 Bumetanide (BUMEX 1 mg TAB) 1 mg BID. PO Last administered on 06/16/16 08:25; Start 06/05/16 at 09:00 Benzocaine (Americaine Hemorr. Oint.) 1 applic BID PRN TOP HEMORRHOIDS Last administered on 06/11/16 19:47; Start 06/05/16 at 13:00 Insulin Human Lispro (Humalog) SS PRN SQ Last administered on 06/16/16 10:58 ; Start 06/05/16 at 17:00 Lidocaine (Lidoderm) 1 patch DAILY TOP Last administered on 06/16/16 08:27; Start 06/07/16 at 12:30 Lidocaine (Lidoderm Patch Removal) 1 removal 2100 TOP Last administered on 20:46; Start 06/07/16 at 21:00 Cefazolin Sodium (Kefzol) 2 g PREOP ONCE IV ; Start 06/08/16 at 11:45; Stop at 11:46; Status DC Metoprolol Tartrate (Lopressor) 25 mg O ONCE PO Last administered on 12:22; Start 06/08/16 at 12:30; Stop 06/08/16 at 12:31; Status DC Bupivacaine HCl/ Epinephrine Bitart (Marcaine/Epi 0.25%/1:200,000) 30 ml STK- MED ONCE INJ ; Start 06/08/16 at 14:00; Stop 06/09/16 at 09:51; Status DC Rocuronium [place] (Zemuron) 50 mg STK-MED ONCE IV ; Start 06/08/16 at 14:00; Stop 06/09/16 at 09:51; Status DC Succinylcholine Chloride (Quelicin) 200 mg STK-MED ONCE IV ; Start 06/08/16 at 14:00; Stop 06/09/16 at 09:51; Status DC Sevoflurane 1 ml 1 ml STK-MED ONCE IH ; Start 06/08/16 at 14:00; Stop 06/09/16 at 09:51; Status DC Sodium Chloride (Normal Saline IV) 1,000 ml @ 50 mls/hr Q20H ONCE IV ; Start at 10:51; Stop 06/11/16 at 06:50; Status DC Cefazolin Sodium 2 g 2 g O ONCE IV Last administered on 06/09/16 11:33; Start 06/09/16 at 11:00; Stop 06/09/16 at 11:46; Status DC Cefazolin Sodium/ Sodium Chloride (Kefzol/NS) 100 ml @ 200 mls/hr Q8H IV Last administered on 06/10/16 05:47; Start 06/09/16 at 19:30; Stop 06/10/16 at 04:00; Status DC Ondansetron HCl (Zofran) 4 mg O PRN IV NAUSEA &/OR VOMITING; Start 06/09/16 at 12:45; Stop 06/10/16 at 08:26; Status DC Vancomycin HCl (Vancocin) 1 g STK-MED ONCE IV ; Start 06/09/16 at 11:09; Stop at 11:34; Status DC Bupivacaine HCl (Sensorcaine 0.25% Steri-Dawit) 30 mg STK-MED ONCE INJ ; Start at 11:09; Stop 06/10/16 at 11:34; Status DC Lidocaine HCl (Xylocaine 1%) 30 mg STK-MED ONCE IJ ; Start 06/09/16 at 11:09; Stop 06/10/16 at 11:34; Status DC Propofol (Diprivan) 500 mg STK-MED ONCE IV ; Start 06/09/16 at 11:09; Stop at 11:34; Status DC Fentanyl (Fentanyl) 100 mcg STK-MED ONCE IV ; Start 06/09/16 at 11:09; Stop 06/10 at 11:34; Status DC Lisinopril (Prinivil) 5 mg DAILY PO Last administered on 06/16/16 08:27; Start 06/11/16 at 17:15 Magnesium Oxide (Magox) 400 mg 20 ONCE PO Last administered on 06/12/16 20:40 ; Start 06/12/16 at 20:00; Stop 06/12/16 at 20:01; Status DC Metformin HCl (Glucophage) 500 mg WB PO Last administered on 06/16/16 08:24; Start 06/15/16 at 08:00 Hydromorphone HCl (Dilaudid) ONE-HALF TO ONE TABLET Q4H PRN PO PAIN Last administered on 06/16/16 06:43; Start 06/14/16 at 13:45 Amiodarone HCl (Pacerone) 200 mg DAILY PO Last administered on 06/16/16 08:26; Start 06/16/16 at 09:00 Magnesium Hydroxide (Mom) 30 ml DAILY PRN PO CONSTIPATION Last administered on 06/16/16 08:28; Start 06/16/16 at 08:15 Assessment & Plan Problems: (1) Atrial fibrillation with rapid ventricular response Status: Acute Assessment & Plan: Remains in SR. Decrease Amiodarone to 200mg po daily and Metoprolol 25mg po BID for rhythm and rate control. Will repeat EKG in am. ASA only needed as A Fib was S/P CABG and has not recurred. (2) CAD (coronary artery disease) Status: Chronic Assessment & Plan: Continue BB, DICK and statin. (3) S/P CABG (coronary artery bypass graft) Onset Date: ~ 05/20/2016 Status: Acute Assessment & Plan: cont asa, metoprolol, amiodarone, statin (4) HTN (hypertension) Status: Chronic Assessment & Plan: Cont metoprolol (5) Diabetes mellitus Onset Date: ~ 05/2016 Status: Chronic Qualifiers: Diabetes mellitus type: type 2 Assessment & Plan: managed per PCP Plan/Intensity of Service 06/08/16 Give medications as ordered. If plan to I&D tomorrow, she is stable from a cardiac standpoint and may have needed I & D. please given beta rachelle and antiarrhythmic with a sip of water as scheduled. 06/09/16 In SR 60's today. Continue Amiodarone 200mg po BID and Metoprolol 25mg po BID for rhythm and rate control. Will repeat EKG in am. ASA only thinner at this time due to recent hip surgery. 06/10/16 Remains in SR, Continue to monitor telemetry. 06/11/16 remains in SR. Hematoma to right groin possibly related to heart cath. Start Lisinopril 5mg daily this evening. 06/12/16 Okay with Metformin if needed for DM. Aspirin only to allow for wound healing per ortho. Will start oral anticoagulation upon discharge. 06/15/16 Remains in SR. Decrease Amiodarone to 200mg po daily. 06/16/16 ASA only needed as A Fib was S/P CABG and has not recurred. Thank you for allowing us to participate in the care of this patient. BERNIE OLMOS MD 06/29/16 1019: Assessment & Plan Plan/Intensity of Service After examining the patient I agree with the above assessment. I am involved in the formulation of the patient's plan of care. TANYA MONROE APRN Jun 16, 2016 15:04 BERNIE OLMOS MD Jun 29, 2016 10:19
[2016-06-16 16:34] VITALS: BP 150/64; PULSE 75; RESP 18; TEMP 97.6; O2SAT 93
--- NOTE | 2016-06-16 18:39 | NUR ---
Prolapsed Bladder Pt. has been noted to have a prolapsed bladder. Pt. reports this is not new and has been a chronic problem for some time. Area is noted to have some redness and imitation. Dr. Bailey notified. No new orders given at this time. Will continue to monitor.
[2016-06-16] MEDS ORDERED: POLYETHYL.GLYCOL 3350 PACKET 17gm PO PRN (19:15)
--- NOTE | 2016-06-16 19:32 | NUR ---
Shift Summary Patient ambulating with Brock walker, gait belt min to stand by assist. Transfers with supervision. Mason out today. Voided clear yellow urine 5 times this shift. Pvr at 1300 was 323, at 1430 was 311. Patient refused to have bladder scan repeated. She stated she was not uncomfortable. Patient has history of prolapsed bladder. Loose stools this afternoon after miralax, MOM and prune juice. Incontinent of bowel x1, bowel accident x1. Required total assist for incontinent bowel management. Prolapsed bladder irritated from several loose stool, bright red blood noted to pull up. Hospitalist aware.
[2016-06-16] MEDS: ATORVASTATIN 40 MG TABLET PO SCH (20:36)
[2016-06-16] MEDS: GABAPENTIN 300 MG CAPSULE PO SCH (20:36)
[2016-06-16 20:51] VITALS: BP 131/62; PULSE 65; RESP 16; TEMP 97.5; O2SAT 100
[2016-06-16] MEDS: LIDOCAINE PATCH REMOVAL TOP SCH (20:53)
--- NOTE | 2016-06-17 01:11 | NUR ---
Chart Check 24 hour chart check completed
[2016-06-17] MEDS: ONDANSETRON ODT 4 MG TAB PO PRN ×2 (01:25→14:33)
--- NOTE | 2016-06-17 01:34 | NUR ---
Status Pain Pt pain rated 7/10. Pt states pain is in her low back, is not new, and characteristics unchanged. Pt has recieved pain meds Ultram, Dilaudid, and Tylenol. Pt continues to request pain meds before they are due to be given again. Pt education provided rt pain med schedule. Other pain relief interventions of activity, position change, and distraction provided but pt states that relief last only a short time. Pt complaint of nausea, Zofran given. Skin dry, normal palor, flat expression, resperations regular and even. Pt is resting in bed at this time. Lights low, hob 30degrees, bed alarm on. Water, emesis bag, and call light in reach.
[2016-06-17] MEDS: HYDROMORPHONE 2 MG TABLET PO PRN ×4 (03:32→21:23)
[2016-06-17 03:37] VITALS: BP 146/71; PULSE 77
[2016-06-17] MEDS: OMEPRAZOLE 20 MG CAPSULE PO SCH (04:39)
[2016-06-17] MEDS: METOCLOPRAMIDE 5mg TABLET PO SCH ×4 (04:39→21:23)
--- NOTE | 2016-06-17 05:54 | NUR ---
Summary Nausea resolved with Zofran. Pain managed with Dilaudid, Ultram, and Tylenol. Pt says she wants to space out the pain meds so she doesn't get them so close together next time. Pt also states Ultram doesn't help much. Pt has complaint of increased weakness today. Pt requested assistance lifting her legs into bed. Maximal assistance provided. Pt using the miguelina walker ambulates well to BR. Pt in bed resting, call light in reach.
[2016-06-17 08:00] VITALS: BP 153/82; PULSE 109; RESP 16; TEMP 98; O2SAT 97
[2016-06-17] MEDS: ASCORBIC ACID 500 MG TABLET PO SCH (08:43)
[2016-06-17] MEDS: AMIODARONE 200 MG TABLET PO SCH (08:44)
[2016-06-17] MEDS: FERROUS SULFATE 324 MG TABLET PO SCH ×3 (08:44→17:41)
[2016-06-17] MEDS: ASPIRIN 81 MG CHEWABLE TABLET PO SCH (08:44)
[2016-06-17] MEDS: POTASSIUM CHLORIDE 20 MEQ TABLET PO SCH ×2 (08:44→17:41)
[2016-06-17] MEDS: METFORMIN 500 MG TABLET PO SCH (08:44)
[2016-06-17] MEDS: LISINOPRIL 5 MG TABLET PO SCH (08:45)
[2016-06-17] MEDS: DOCUSATE SODIUM 100 MG CAPSULE PO SCH ×2 (08:45→21:23)
[2016-06-17] MEDS: MAGNESIUM OXIDE 400 MG TABLET PO SCH (08:45)
[2016-06-17] MEDS: BUMETANIDE 1 MG TABLET PO SCH ×2 (08:45→17:41)
[2016-06-17] MEDS: LIDOCAINE 5% PATCH TOP SCH (08:46)
[2016-06-17 09:50] VITALS: PULSE 109; RESP 16
[2016-06-17] MEDS: INSULIN LISPRO 100 UNIT/ML SQ PRN ×2 (10:54→21:36)
--- NOTE | 2016-06-17 12:39 | NUR ---
Inpatient DM consult A1c: 8.3; DM med: Metformin 500 mg; SS insulin. Recent DM diagnosis. ISABELL visited with pt, who was alert and sitting in a chair. Eats 3 meals daily,with breakfast and lunch on her own. She is able to get things out of the fridge & use microwave. Son works in [employer] and cooks supper meal. Reviewed DM meal guidelines. She eats 3 meals daily. It was suggested that lunch and supper should include a vegetable, which she likes. She drinks Pepsi and orange juice at breakfast. She already knew she would have to give up regular Pepsi, but is willing to try SF Pepsi. Suggested that she eat whole fruit, any kind, at breakfast and avoid drinking juice. RD gave rationale. Pt had several meal requests, which CDE noted. ISABELL stated that she would get back to her re: SMBG/frequency, meds x 1540.
--- NOTE | 2016-06-17 12:51 | PDIRUTEAM ---
Multidisciplinary Team Meeting Nursing Hx Incontinence: No Bladder Goal: 6 Modified [place] Mason Y/N: No Bladder Continent or Incontine: Continent Incontinent Product Used: Pull-up Number of Times Incontinent of: 0 Cleaning Ability-Bladder: 6 Modified [place] Bladder Incontinence Managemen: 4 Minimal Assistance Bowel Goal: 7+ Complete [place] Colostomy Y/N: No Bowel Incontinent/Continent: Continent Bowel Number of Accidents: 0 Number of times Incontinent of: 0 Cleaning Ability-Bowel: 6 Modified [place] Bowel Incontinence Management: 1 Total Assistance Toileting Ability: 5 Supervision/Setup Vital Signs Vital Signs Date Time Temp Pulse Resp B/P Pulse Ox O2 Delivery O2 Flow Rate FiO2 06/17/16 09:50 109 16 06/17/16 08:00 98.0 153/82 97 Room Air Current Medications Current Medications Medications (Trade) Dose Ordered Sig/Silver Route PRN Reason Start Time Stop Time Status Last Admin Dose Admin Docusate Sodium (Colace) 100 mg BID PO 06/03/16 21:00 06/17/16 08:45 Acetaminophen (Tylenol Regular Strength) 650 mg Q6HR PRN PO PAIN 06/03/16 14:30 06/16/16 22:29 Amiodarone HCl (Pacerone) 200 mg BID PO 06/03/16 21:00 06/15/16 14:44 DC 06/15/16 08:38 Ascorbic Acid (VITAMIN C 500 mg Tablet) 500 mg DAILY PO 06/04/16 09:00 06/17/16 08:43 Aspirin (ASA) 81 mg DAILY PO 06/04/16 09:00 06/17/16 08:44 Atorvastatin Calcium (LIPITOR 40 mg) 40 mg HS PO 06/03/16 22:00 06/16/16 20:36 Bumetanide (BUMEX 1 mg TAB) 1 mg BID PO 06/03/16 21:00 06/05/16 06:44 DC 06/04/16 20:22 Ferrous Sulfate (Feosol) 324 mg TIDWM PO 06/03/16 17:30 06/17/16 11:52 Gabapentin (Neurontin) 300 mg HS PO 06/03/16 22:00 06/16/16 20:36 Hydromorphone HCl (Dilaudid) 1-2 Q4HR PRN PO PAIN 06/03/16 14:30 06/14/16 13:34 DC 06/14/16 12:06 Metoprolol Tartrate (Lopressor) 25 mg BIDBS PO 06/03/16 17:30 06/17/16 08:45 Omeprazole (Prilosec) 40 mg ACB PO 06/04/16 06:30 06/17/16 04:39 Polyethylene Glycol (Miralax) 17 g BID PO 06/03/16 21:00 06/16/16 19:10 DC 06/16/16 08:26 Potassium Chloride (Kdur) 20 meq BIDWM PO 06/03/16 17:30 06/17/16 08:44 Tramadol HCl (Ultram) 50 mg Q6HR PRN PO PAIN 06/03/16 14:30 06/16/16 20:37 Al Hydroxide/Mg Hydroxide (Maalox) 30 ml Q3-4H PRN PO INDIGESTION 06/03/16 15:30 06/03/16 15:29 Insulin Human Lispro (Humalog) SS PRN SQ 06/03/16 18:15 06/05/16 16:54 DC 06/05/16 10:25 Ondansetron HCl (Zofran Odt) 4 mg Q4H PRN PO NAUSEA &/OR VOMITING 06/03/16 18:30 06/17/16 01:25 Metoclopramide HCl (Reglan) 5 mg ACHS PO 06/03/16 22:00 06/17/16 11:51 Bumetanide (BUMEX 1 mg TAB) 1 mg BID. PO 06/05/16 09:00 06/17/16 08:45 Benzocaine (Americaine Hemorr. Oint.) 1 applic BID PRN TOP HEMORRHOIDS 06/05/16 13:00 06/11/16 19:47 Insulin Human Lispro (Humalog) SS PRN SQ 06/05/16 17:00 06/17/16 10:54 Lidocaine (Lidoderm) 1 patch DAILY TOP 06/07/16 12:30 06/17/16 08:46 Lidocaine (Lidoderm Patch Removal) 1 removal 2100 TOP 06/07/16 21:00 06/16/16 20:53 Hydromorphone HCl 0.5 mg 0.5 mg Q2H PRN IV PAIN 06/07/16 21:45 06/14/16 02:53 Sodium Chloride (Normal Saline IV) 1,000 ml @ 0 mls/hr Q0M PRN IV 06/08/16 12:08 06/10/16 10:17 DC 06/09/16 10:54 Ondansetron HCl 4 mg 4 mg Q4H PRN IV NAUSEA &/OR VOMITING 06/09/16 01:45 06/09/16 08:30 Cefazolin Sodium/ Sodium Chloride (Kefzol/NS) 100 ml @ 200 mls/hr Q8H IV 06/09/16 19:30 06/10/16 04:00 DC 06/10/16 05:47 Hydromorphone HCl (Dilaudid) Dilaudid 0.5-1 mg IVP every 10 minutes... Q10M PRN IV PAIN 06/09/16 12:45 06/10/16 08:25 DC 06/09/16 13:17 Lisinopril (Prinivil) 5 mg DAILY PO 06/11/16 17:15 06/17/16 08:45 Magnesium Oxide (Magox) 800 mg DAILY PO 06/12/16 09:00 06/17/16 08:45 Metformin HCl (Glucophage) 500 mg WB PO 06/15/16 08:00 06/17/16 08:44 Hydromorphone HCl (Dilaudid) ONE-HALF TO ONE TABLET Q4H PRN PO PAIN 06/14/16 13:45 06/17/16 10:26 Amiodarone HCl (Pacerone) 200 mg DAILY PO 06/16/16 09:00 06/17/16 08:44 Magnesium Hydroxide (Mom) 30 ml DAILY PRN PO CONSTIPATION 06/16/16 08:15 06/16/16 08:28 Comments Right femoral neck fx, Post CABG. Evacuation of right hip hematoma. Dilaudid, lidocaine patch, neurontin for pain. Refused antidepressant after psych consult. Physical Therapy Bed Transfer Ability: 5 Supervision/Setup Bed Transfer Assistance Needed: 1 Person Bed FIM Score Reason: Pt refused. Chair Transfer Ability: 5 Supervision/Setup Chair Transfer Assistance Need: 1 Person Overall Wheelchair Transfer Ab: 5 Supervision/Setup Wheelchair Transfer Assistance: 1 Person Overall Toilet / Commode Trans: 5 Supervision/Setup Ambulation Ability: 5 Supervision/Setup Ambulation Assistance Needed: 1 Person Walk FIM Score Reason: d/t household excpetion Ambulation Distance: 180 Comments fear of pain. Occupational Therapy Grooming Ability: 5 Supervision/Setup Bathing Ability: 4 Minimal Assistance Upper Body Dressing Ability: 5 Supervision/Setup Lower Body Dressing Ability: 4 Minimal Assistance Lower Body Dressing Assistance: 1 Person Toileting Assistance Needed: 1 Person Toileting FIM Score Reason: Mason Comments Requiring assist for shoes and socks, decided she would not wear them at home?! ? Care Plan Condition at time of discharge: Fair IRU Discharge Disposition: Home Health Service Interventions/Goals Will require extended tub bench. Needs diabetic training. Making improvments, but not ready for d/c. Reeval for d/c on wednesday if she cont improvement. BHAVNA MCALLISTER MD Jun 17, 2016 12:48
[2016-06-17] MEDS: TRAMADOL 50 MG TABLET PO PRN ×2 (13:28→23:11)
--- NOTE | 2016-06-17 14:25 | NUR ---
CM ANTICIPATED DC DATE CHANGED TO WEDNESDAY, -14. SPOKE WITH PT ABOUT THIS. SHE WAS AGREEABLE TO THIS. DISCUSSED OT'S RECOMMENDATION OF THE EXTENDED TUB BENCH AND WHERE SHE CAN PURCHASE ONE AND VFA A RESOURCE. SHE SAID SHE DOES NOT THINK SHE WANTS THIS BENCH BECAUSE IT WILL BE IN THE WAY. SHE GAVE PERMISSION FOR THIS WORKER TO TALK WITH HER SON, PAU. CALLED PAU, UPDATED HIM ON DC DATE. HE SAID THAT IS OK, AND HE CAN BE OUT TO PICK HER UP AROUND 3:30 ON WEDNESDAY. DISCUSSED THE SHOWER BENCH, AND HE SAID HE WILL TALK TO THE PT ABOUT THIS, AND GET IT FOR HER IF NECESSARY. HE HAD NO QUESTIONS/NEEDS FOR THIS WORKER. Addendum: 06/17/16 at 1427 by GENO THORNTON Amended: Links added.
--- NOTE | 2016-06-17 14:43 | PNPDOC ---
TANYA MONROE ICT BUSINESS DEVELOPMENT MANAGER 06/17/16 1441: Subjective Date DATE: 06/17/16 TIME: 13:38 Subjective Talisha is laying in the bed, states she is tired. She c/o back pain but denies chest pain or palpitations, denies dyspnea. Objective Vital Signs Vital signs Vital Signs 06/17/16 06/17/16 06/17/16 03:37 08:00 09:50 Temp 98.0 Pulse 77 109 109 Resp 16 16 B/P 146/71 153/82 Pulse Ox 97 O2 Delivery Room Air Telemetry Rhythm: Sinus Rhythm Height (Feet): 5 Height (Inches): 5.00 Weight (Kilograms): 68.900 General Alert, Orientated x 3, Cooperative, No Acute Distress ENMT (Brief) mucosa moist Neck (Brief) NOT FOUND: JVD, carotid bruits Respiratory (Brief) clear all anaya, equal bilaterally, NOT FOUND: rales, wheezes Cardiovascular (Brief) regular rate, regular rhythm, NOT FOUND: click, gallop, murmur, pedal edema, rub Abdomen (Brief) BS normo active x4, soft, NOT FOUND: tender Musculoskeletal (Brief) other (ba) Integumentary (Brief) dry, pink, warm Psychiatric (Brief) alert, attentive, oriented Laboratory Laboratory Laboratory Tests Test 06/15/16 21:16 06/16/16 06:34 06/16/16 10:36 06/16/16 14:26 Glucometer 140mg/dL 124mg/dL 220mg/dL 143mg/dL Test 06/16/16 20:47 06/17/16 06:21 06/17/16 10:10 06/17/16 14:20 Glucometer 177mg/dL 124mg/dL 173mg/dL 130mg/dL Medications Current Medications Miscellaneous Medication (May use PRN orders) 1 PRN PRN MC ; Start 06/03/16 at 14:30 Acetaminophen (Tylenol Regular Strength) 650 mg Q6HR PRN PO PAIN Last administered on 06/16/16 22:29; Start 06/03/16 at 14:30 Ascorbic Acid (VITAMIN C 500 mg Tablet) 500 mg DAILY PO Last administered on 08:43; Start 06/04/16 at 09:00 Aspirin (ASA) 81 mg DAILY PO Last administered on 06/17/16 08:44; Start at 09:00 Atorvastatin Calcium (LIPITOR 40 mg) 40 mg HS PO Last administered on 06/16/16 20:36; Start 06/03/16 at 22:00 Docusate Sodium (Colace) 100 mg BID PO ; Start 06/03/16 at 21:00; Stop 06/03/16 at 21:00; Status DC Ferrous Sulfate (Feosol) 324 mg TIDWM PO Last administered on 06/17/16 11:52; Start 06/03/16 at 17:30 Gabapentin (Neurontin) 300 mg HS PO Last administered on 06/16/16 20:36; Start 06/03/16 at 22:00 Omeprazole (Prilosec) 40 mg ACB PO Last administered on 06/17/16 04:39; Start 06/04/16 at 06:30 Potassium Chloride (Kdur) 20 meq BIDWM PO Last administered on 06/17/16 08:44; Start 06/03/16 at 17:30 Tramadol HCl (Ultram) 50 mg Q6HR PRN PO PAIN Last administered on 06/17/16 13: 28; Start 06/03/16 at 14:30 Al Hydroxide/Mg Hydroxide (Maalox) 30 ml Q3-4H PRN PO INDIGESTION Last administered on 06/03/16 15:29; Start 06/03/16 at 15:30 Glucose (Glutose 15) 37.5 g PRN PRN PO HYPOGLYCEMIA; Start 06/03/16 at 18:15 Dextrose (D50w) 25 ml PRN PRN IV HYPOGLYCEMIA; Start 06/03/16 at 18:15 Ondansetron HCl (Zofran Odt) 4 mg Q4H PRN PO NAUSEA &/OR VOMITING Last administered on 06/17/16 14:33; Start 06/03/16 at 18:30 Metoclopramide HCl (Reglan) 5 mg ACHS PO Last administered on 06/17/16 11:51; Start 06/03/16 at 22:00 Bumetanide (BUMEX 1 mg TAB) 1 mg BID. PO Last administered on 06/17/16 08:45; Start 06/05/16 at 09:00 Benzocaine (Americaine Hemorr. Oint.) 1 applic BID PRN TOP HEMORRHOIDS Last administered on 06/11/16 19:47; Start 06/05/16 at 13:00 Insulin Human Lispro (Humalog) SS PRN SQ Last administered on 06/17/16 10:54 ; Start 06/05/16 at 17:00 Lidocaine (Lidoderm Patch Removal) 1 removal 2100 TOP Last administered on 20:53; Start 06/07/16 at 21:00 Cefazolin Sodium (Kefzol) 2 g PREOP ONCE IV ; Start 06/08/16 at 11:45; Stop at 11:46; Status DC Metoprolol Tartrate (Lopressor) 25 mg O ONCE PO Last administered on 12:22; Start 06/08/16 at 12:30; Stop 06/08/16 at 12:31; Status DC Bupivacaine HCl/ Epinephrine Bitart (Marcaine/Epi 0.25%/1:200,000) 30 ml STK- MED ONCE INJ ; Start 06/08/16 at 14:00; Stop 06/09/16 at 09:51; Status DC Rocuronium [place] (Zemuron) 50 mg STK-MED ONCE IV ; Start 06/08/16 at 14:00; Stop 06/09/16 at 09:51; Status DC Succinylcholine Chloride (Quelicin) 200 mg STK-MED ONCE IV ; Start 06/08/16 at 14:00; Stop 06/09/16 at 09:51; Status DC Sevoflurane 1 ml 1 ml STK-MED ONCE IH ; Start 06/08/16 at 14:00; Stop 06/09/16 at 09:51; Status DC Sodium Chloride (Normal Saline IV) 1,000 ml @ 50 mls/hr Q20H ONCE IV ; Start at 10:51; Stop 06/11/16 at 06:50; Status DC Cefazolin Sodium 2 g 2 g O ONCE IV Last administered on 06/09/16 11:33; Start 06/09/16 at 11:00; Stop 06/09/16 at 11:46; Status DC Cefazolin Sodium/ Sodium Chloride (Kefzol/NS) 100 ml @ 200 mls/hr Q8H IV Last administered on 06/10/16 05:47; Start 06/09/16 at 19:30; Stop 06/10/16 at 04:00; Status DC Ondansetron HCl (Zofran) 4 mg O PRN IV NAUSEA &/OR VOMITING; Start 06/09/16 at 12:45; Stop 06/10/16 at 08:26; Status DC Vancomycin HCl (Vancocin) 1 g STK-MED ONCE IV ; Start 06/09/16 at 11:09; Stop at 11:34; Status DC Bupivacaine HCl (Sensorcaine 0.25% Steri-Dawit) 30 mg STK-MED ONCE INJ ; Start at 11:09; Stop 06/10/16 at 11:34; Status DC Lidocaine HCl (Xylocaine 1%) 30 mg STK-MED ONCE IJ ; Start 06/09/16 at 11:09; Stop 06/10/16 at 11:34; Status DC Propofol (Diprivan) 500 mg STK-MED ONCE IV ; Start 06/09/16 at 11:09; Stop at 11:34; Status DC Fentanyl (Fentanyl) 100 mcg STK-MED ONCE IV ; Start 06/09/16 at 11:09; Stop 06/10 at 11:34; Status DC Lisinopril (Prinivil) 5 mg DAILY PO Last administered on 06/17/16 08:45; Start 06/11/16 at 17:15 Magnesium Oxide (Magox) 400 mg 20 ONCE PO Last administered on 06/12/16 20:40 ; Start 06/12/16 at 20:00; Stop 06/12/16 at 20:01; Status DC Metformin HCl (Glucophage) 500 mg WB PO Last administered on 06/17/16 08:44; Start 06/15/16 at 08:00 Hydromorphone HCl (Dilaudid) ONE-HALF TO ONE TABLET Q4H PRN PO PAIN Last administered on 06/17/16 10:26; Start 06/14/16 at 13:45 Amiodarone HCl (Pacerone) 200 mg DAILY PO Last administered on 06/17/16 08:44; Start 06/16/16 at 09:00 Magnesium Hydroxide (Mom) 30 ml DAILY PRN PO CONSTIPATION Last administered on 3/7/17at 08:28; Start 06/16/16 at 08:15 Polyethylene Glycol (Miralax) 17 g BID PRN PO ; Start 06/16/16 at 19:15 Lidocaine (Lidoderm) 1 patch DAILY TD ; Start 06/18/16 at 09:00 Assessment & Plan Problems: (1) Atrial fibrillation with rapid ventricular response Status: Acute Assessment & Plan: Remains in SR. Decrease Amiodarone to 200mg po daily and Metoprolol 25mg po BID for rhythm and rate control. Will repeat EKG in am. ASA only needed as A Fib was S/P CABG and has not recurred. (2) CAD (coronary artery disease) Status: Chronic Assessment & Plan: Continue BB, DICK and statin. (3) S/P CABG (coronary artery bypass graft) Onset Date: ~ 05/20/2016 Status: Acute Assessment & Plan: cont asa, metoprolol, amiodarone, statin (4) HTN (hypertension) Status: Chronic Assessment & Plan: Cont metoprolol (5) Diabetes mellitus Onset Date: ~ 05/2016 Status: Chronic Qualifiers: Diabetes mellitus type: type 2 Assessment & Plan: managed per PCP Plan/Intensity of Service 06/08/16 Give medications as ordered. If plan to I&D tomorrow, she is stable from a cardiac standpoint and may have needed I & D. please given beta rachelle and antiarrhythmic with a sip of water as scheduled. 06/09/16 In SR 60's today. Continue Amiodarone 200mg po BID and Metoprolol 25mg po BID for rhythm and rate control. Will repeat EKG in am. ASA only thinner at this time due to recent hip surgery. 06/10/16 Remains in SR, Continue to monitor telemetry. 06/11/16 remains in SR. Hematoma to right groin possibly related to heart cath. Start Lisinopril 5mg daily this evening. 06/12/16 Okay with Metformin if needed for DM. Aspirin only to allow for wound healing per ortho. Will start oral anticoagulation upon discharge. 06/15/16 Remains in SR. Decrease Amiodarone to 200mg po daily. 06/16/16 ASA only needed as A Fib was S/P CABG and has not recurred. 06/17/16 Increase Lisinopril to 10mg, give additional 5mg this evening. Thank you for allowing us to participate in the care of this patient. BERNIE OLMOS MD 06/29/16 1026: Assessment & Plan Plan/Intensity of Service After examining the patient I agree with the above assessment. I am involved in the formulation of the patient's plan of care. TANYA MONROE APRN Jun 17, 2016 14:41 BERNIE OLMOS MD Jun 29, 2016 10:26
[2016-06-17] MEDS ORDERED: LISINOPRIL 5 MG TABLET PO ONE (14:45)
[2016-06-17 16:00] VITALS: BP 137/65; PULSE 80; RESP 16; TEMP 97.8; O2SAT 95
--- NOTE | 2016-06-17 18:35 | NUR ---
SHIFT SUMMARY PT HAS BEEN PLEASANT AND COOPERATIVE. HAS BEEN OUT TO DINING ROOM FOR MEALS. PT HAS WORKED WITH THERAPY. AMBULATES WITH A NIKKI WALKER AND GAIT BELT. PT COMPLAINS OF PAIN AT A 6-8/10. CURRENTLY RESTING IN RECLINER.
[2016-06-17] MEDS: ACETAMINOPHEN 325 MG TABLET PO PRN (19:26)
[2016-06-17 21:17] VITALS: BP 111/53; PULSE 67; RESP 16; TEMP 97.6; O2SAT 94
[2016-06-17] MEDS: GABAPENTIN 300 MG CAPSULE PO SCH (21:23)
[2016-06-17] MEDS: ATORVASTATIN 40 MG TABLET PO SCH (21:23)
[2016-06-17] MEDS: LIDOCAINE PATCH REMOVAL TOP SCH (21:29)
[2016-06-17 22:20] VITALS: PULSE 67; RESP 16
--- NOTE | 2016-06-17 22:34 | NUR ---
STATUS. PT SITTING IN CHAIR FOR SOME OF THE EVENING. CALLS FREQUENTLY FOR POSITION CHANGE FROM CHAIR TO BED. ASSIST TO BATHROOM USING NIKKI WALKER AND GAITBELT WITH MIN ASSIST. PT HAS BEEN CONT OF BLADDER. MANAGING CLOTHING AND HYGIENE WITH SBA. HS BGM 182. REC'D 2 UNIT SLIDING SCALE COVERAGE. GIVEN DILAUDID 2MG AT 2133 FOR C/O 7/10 BACK PAIN. RT HIP DRSG IN PLACE.
--- NOTE | 2016-06-17 22:44 | NUR ---
Chart Check 24 hour chart check completed
[2016-06-18] MEDS: HYDROMORPHONE 2 MG TABLET PO PRN ×4 (03:36→20:27)
[2016-06-18] MEDS: ACETAMINOPHEN 325 MG TABLET PO PRN ×2 (04:58→17:30)
[2016-06-18] MEDS: METOCLOPRAMIDE 5mg TABLET PO SCH ×4 (05:16→20:28)
[2016-06-18] MEDS: OMEPRAZOLE 20 MG CAPSULE PO SCH (05:16)
--- NOTE | 2016-06-18 05:46 | NUR ---
SUMMARY. PT IS ALERT AND OX3. CALLS FOR BR ASSIST. USING HEMIWALKER WITH 1 ASSIST. ABLE TO MANAGE CLOTHING WITH SBA, AND HYGIENE. PT HAS C/O LOW BACK PAIN. REC'D DILAUDID 2MG PO AT 2133 FOR 7/10 PAIN LEVEL. ULTRAM 1 TAB FOR 7/10 PAIN LEVEL. TRIED SEABROOKS TO LOW BACK. PT REPORTS "MADE IT FEEL WORSE." FREQUENT POSITION CHANGES. DILAUDID 2MG AT 0335 FOR 10/19. TYLENOL 650MG AT 0458 FOR 10/19. PT HAS BEEN CONT B AND B. FASTING BGM 152.
[2016-06-18 05:48] LABS: ANION GAP 10 MEQ/L (5-15); BUN/CREATININE RATIO 29 RATIO (6-26); CALCIUM 9.1 MG/DL (8.4-10.2); CHLORIDE 94 MEQ/L (98-107); CO2 - CARBON DIOXIDE 28 MEQ/L (22-30); CREATININE 1.4 MG/DL (0.7-1.2); GLOMERULAR FILTRATION RATE 36; GLUCOSE 127 MG/DL (65-110); MAGNESIUM 2.3 MG/DL (1.6-2.3); POTASSIUM 4.7 MEQ/L (3.6-5); SODIUM 132 MEQ/L (134-144)
--- NOTE | 2016-06-18 07:25 | NUR ---
report taken and assumed care pt alert / oriented x3 voices no concern this morning denies pain and no respiratory distress et assisted pt to bathroom with assist x1 using the hemiwalker will continue to monitor.
[2016-06-18 07:54] VITALS: BP 143/63; PULSE 99; RESP 16; TEMP 97.6; O2SAT 92
[2016-06-18] MEDS: AMIODARONE 200 MG TABLET PO SCH (08:06)
[2016-06-18] MEDS: FERROUS SULFATE 324 MG TABLET PO SCH ×3 (08:06→17:29)
[2016-06-18] MEDS: METFORMIN 500 MG TABLET PO SCH (08:06)
[2016-06-18] MEDS: MAGNESIUM OXIDE 400 MG TABLET PO SCH (08:07)
[2016-06-18] MEDS: ASCORBIC ACID 500 MG TABLET PO SCH (08:07)
[2016-06-18] MEDS: ASPIRIN 81 MG CHEWABLE TABLET PO SCH (08:07)
[2016-06-18] MEDS: DOCUSATE SODIUM 100 MG CAPSULE PO SCH ×2 (08:07→20:27)
[2016-06-18] MEDS: POTASSIUM CHLORIDE 20 MEQ TABLET PO SCH ×2 (08:08→17:29)
[2016-06-18] MEDS: LIDOCAINE 5% PATCH TD SCH (08:10)
[2016-06-18] MEDS: BUMETANIDE 1 MG TABLET PO SCH ×2 (08:10→17:29)
[2016-06-18] MEDS ORDERED: LISINOPRIL 10 MG TABLET PO SCH (09:00)
--- NOTE | 2016-06-18 10:24 | PNPDOC ---
KRISTY SARABIA V REGIONAL VICE PRESIDENT SURGICAL SALES 06/18/16 1023: Subjective Date DATE: 06/18/16 TIME: 10:18 Subjective Talisha is seen today during breakfast. She is alert and orientated and pleasant during examination. Overall she is feeling well without complaints of pain currently. She continues to have chronic low back pain. However, it is controlled with oral pain medication. Nursing staff reports hip dressing had a very small amount of dried blood, however, no further active bleeding. She does report since having Mason catheter removed. She has urinary frequency especially at night, however, no dysuria or concern for infection. Blood pressure 143/63. Objective Vital Signs Vital signs Vital Signs Date Time Temp Pulse Resp B/P Pulse Ox O2 Delivery O2 Flow Rate FiO2 06/18/16 07:54 97.6 99 16 143/63 92 Room Air Telemetry Rhythm: Sinus Rhythm Height (Feet): 5 Height (Inches): 5.00 Weight (Kilograms): 68.900 General General Appearance: Alert, Orientated x 3, Cooperative, No Acute Distress Eyes (Brief) Eyes: FOUND: EOMI ENMT (Brief) ENMT: FOUND: mucosa moist, normal dentition, NOT FOUND: pharnyx erythema Neck (Brief) Neck: FOUND: midline, NOT FOUND: adenopathy, carotid bruits, tracheal deviation Respiratory (Brief) Respiratory: FOUND: clear all anaya, equal bilaterally, NOT FOUND: wheezes Cardiovascular (Brief) Cardiac: FOUND: regular rate, regular rhythm, NOT FOUND: murmur, pedal edema Capillary Refill: <2 sec Abdomen (Brief) Abdominal: FOUND: BS normo active x4, soft, NOT FOUND: distended, tender Lymphatic (Brief) Lymphatic: NOT FOUND: adenopathy Musculoskeletal (Brief) Musculoskeletal: NOT FOUND: tenderness Comments Right hip dressing with small area of dried blood Integumentary (Brief) Integumentary: FOUND: dry, pink, warm Neurologic (Brief) Neurological: FOUND: cranial 2-12 intact Psychiatric (Brief) Psychiatric: FOUND: alert, attentive, normal affect, oriented Laboratory Laboratory Laboratory Tests 06/18/16 04:43 Assessment & Plan Problems: (1) Hypomagnesemia Status: Acute (2) Situational depression Status: Acute (3) Urinary retention Status: Acute Assessment & Plan: Straight cath on 06/11/16 - 750 mL Mason catheter was placed later on 06/11/16 removed 06/16/16 (4) S/P CABG (coronary artery bypass graft) Onset Date: ~ 05/20/2016 Status: Acute (5) Status post hip surgery Status: Acute Assessment & Plan: 05/16/16- Dr Champagne- right Brock-arthroplasty (6) Chronic kidney disease Status: Chronic (7) Diabetes mellitus Onset Date: ~ 05/2016 Status: Chronic Qualifiers: Diabetes mellitus type: type 2 (8) HTN (hypertension) Status: Chronic (9) History of atrial fibrillation Status: Chronic (10) Hypercholesteremia Status: Chronic (11) Peptic ulcer disease Status: Chronic (12) Pseudoarthrosis Status: Chronic (13) Basal cell carcinoma Status: Chronic (14) Allergic rhinitis Status: Chronic (15) GERD (gastroesophageal reflux disease) Status: Chronic Plan/Intensity of Service 06/18/16 Of asked nursing staff to change dressing on the right hip. Will continue to monitor for any evidence of bleeding. Patient is voiding, however, does report having urinary frequency since Mason catheter was removed. Will continue to monitor for evidence of infection. Continue to work on pain control with Lidoderm patch and oral Dilaudid Colace BID and Miralax for ongoing bowel motivation. Overall blood pressures appear to be well controlled on Lopressor, and lisinopril 10 milligrams daily. Continue to monitor blood sugars continue with metformin, Humalog Encourage ongoing work with PT and OT for strengthening Code Status Full Code Hospital Course Summary Disclaimer The hospital course summary below is not to be considered part of the above Progress Note. Hospital Course Summary 06/04/16 Spoke with Ayde Hughes with Dr. Lopez regarding patient's recent CABG procedure and ongoing treatment recommendations. She does recommend patient be on anticoagulation as she did have A-fib postoperatively. She would prefer Eliquis if not contraindicated. Given mild oozing from right hip incision will consult Dr Champagne for orthopedic evaluation of incision prior to starting anticoagulation. Patient does need postop anticoagulation for 30 days from right hemiarthroplasty performed on 05/16/16. Patient did have a right groin hematoma post heart catheter that was evaluated while at [place]. Overall this is improving. Continue with amiodarone given recent atrial fibrillation. She was noted to have elevated white count at 16.3. Will check a UA to rule out infection. Bumex 1 mg BID for ongoing diuresis. Oral Dilaudid and Ultram for pain control Continue SCDs to bilateral lower external for DVT prophylaxis Scheduled MiraLAX and Colace twice a day for ongoing bowel motivation. Encourage work with PT/OT for ongoing strengthening Will discuss case with attending Dr Hobson 06/05/16 Continue to monitor right hip dressing for oozing. Several more tl were placed by Dr Champagne Continue on ASA only at this time, Case discussed with Dr Lopez yesterday . Continue to monitor blood sugars. Fasting sugar this morning was 146. Will increase sliding scale to medium range dosing and continue to follow. Will recheck CBC and BMP tomorrow morning to follow leukocytosis 06/08/16 At this time, will recommend holding off on surgical procedure until cardiac rate control has been further evaluated and treated. Consultation was placed to Dr. Lopez for further recommendations. Patient has continued to receive her amiodarone, however, did have her beta rachelle held this morning due to Patient is to be monitored on cardiac telemetry. Current anticoagulation is aspirin. This may need to be discussed further with all providers involved including Dr. Lopez, Dr. Hobson and Dr. Champagne Will reevaluate patient later today, the hope is that she will be able to have her hip procedure tomorrow by Dr. Champagne. 06/09/[address] Lopez - pt is in sinus rhythm and has been cleared for surgery. I spoke with Dr. Champagne and updated him as well. Will need to discuss anticoagulation postop. Dr. Champagne prefers nothing stronger than ASA if possible; if needs anticoagulation would like to wait a week before starting, again if possible. However, he understands that if anticoagulation is necessary he would not argue it. Patient is complaining of nausea this morning - Zofran as needed. Repeat labs in am - pt has had leukocytosis. Encouraged pt to set small, achievable goals and let us know if she becomes too depressed. 06/11/16 Urinary retention (750mL) - UA neg. for UTI. Suspect retention may be combination of extensive hematoma and hx of uterine prolapse, along with hx of chronic retention. Continue post-void residuals. Pt does not want a catheter if possible. Suspected abdominal hematoma - will obtain ultrasound today. She is only on ASA for anticoagulation. Type 2 DM with hypoglycemia - she's not on antiglycemic agents other than SSI - continue to monitor. Leukocytosis - improving. Recheck in am. Situational depression - consider antidepressant or psych consult. 06/12/16 Hypomagnesemia - magnesium 1.4. Oral replacement ordered. Recheck in am. Leukocytosis - resolved Situational depression - patient refused to see psychiatrist. She is not interested in starting any antidepressants. Follow closely. Urinary retention - Mason catheter was placed on 06/11/16. Abdominal hematoma - she is only on aspirin for anticoagulation. Heating pad as needed. Type 2 diabetes - hemoglobin A1c was 8.3% in early May. She has had fasting and postprandial hyperglycemia yesterday, but on 06/10/16 she had hypoglycemia. If she continues to have hyperglycemia, could possibly introduce low-dose Metformin(cardiology approved Metformin). Consult rn diabetes educator. 06/16/16 Mason removed this am - monitor for retention. constipation - prn meds given hyperglycemia - improving since metformin was started on 06/15/16; frequently with hyperglycemia >200 after breakfast. Would probably increase metformin before starting insulin, but need to wait 1-2 weeks before increasing metformin dose. check bmp and mg on 06/18/16 06/18/16 Of asked nursing staff to change dressing on the right hip. Will continue to monitor for any evidence of bleeding. Patient is voiding, however, does report having urinary frequency since Mason catheter was removed. Will continue to monitor for evidence of infection. Continue to work on pain control with Lidoderm patch and oral Dilaudid Colace BID and Miralax for ongoing bowel motivation. Overall blood pressures appear to be well controlled on Lopressor, and lisinopril 10 milligrams daily. Continue to monitor blood sugars continue with metformin, Humalog Encourage ongoing work with PT and OT for strengthening BERNA HOBSON MD 06/18/169: KRISTY SARABIA APRN Jun 18, 2016 10:23 BERNA HOBSON MD Jun 18, 2016 19:59
--- NOTE | 2016-06-18 10:34 | NUR ---
STATUS Patient ambulating with physical therapy on the hallway and tolerating well c/o back pain and given 2mg Dilaudid for pain gait stable with use of Huggins patient in good mood no distress voiding well without pain ate 100% breakfast this morning et will continue to monitor.
--- NOTE | 2016-06-18 12:13 | NUR ---
checked on patient seated in the dinning room eating lunch voices no pain at this time.
--- NOTE | 2016-06-18 12:37 | NUR ---
Inpatient DM consult CDE told patient that BG testing was requested by doctor and was necessary to keep her DM controlled. Pt expressed inability to SMBG r/t to right arm strength deficit, but was willing to try. Previous evening patient was able to set up meter, set up lancet, and after several tries, was able to obtain blood sample, but insufficient for a test. Following morning, pt was able to repeat previous days procedures, with the same result. CDE will attempt to visit with her son, who visits in the evening. x [phone]
[2016-06-18] MEDS: TRAMADOL 50 MG TABLET PO PRN (13:35)
--- NOTE | 2016-06-18 15:38 | NUR ---
CM THIS WORKER VISITED PT IN ROOM, PT WAS IN CHAIR WATCHING TV. THIS WORKER SPOKE WITH PT ABOUT DISCHARGE PLANNING, PT STATED SHE WILL BE RETURNING HOME WITH SON-ELGIN. PT IS INTERESTED IN HOME HEALTH ONCE SHE DISCHARGES. PT EXPRESSED HESITATION WITH DIABETIC MANAGEMENT. THIS WORKER ADDRESSED WHILE SHE IS IN THE HOSPITAL TO CONTINUE WITH HER DIABETIC EDUCATION AND ADDRESS ANY CONCERNS WITH NURSE. Addendum: 06/18/16 at 1542 by MARTHA THORNTON Amended: Links added.
[2016-06-18 16:00] VITALS: BP 103/61; PULSE 77; RESP 16; TEMP 97.5; O2SAT 92
--- NOTE | 2016-06-18 16:57 | PNPDOC ---
TANYA MONROE HUMIDIFIER OPERATOR 06/18/16 1652: Subjective Date DATE: 06/18/16 TIME: 16:49 Subjective Talisha is sitting up in the recliner sleeping, she awakens easily. She states she doesn't sleep in the bed very well because her back hurts. She denies chest pain or palpitations, denies dizziness. Objective Vital Signs Vital signs Vital Signs 06/18/16 07:54 Temp 97.6 Pulse 99 Resp 16 B/P 143/63 Pulse Ox 92 O2 Delivery Room Air Telemetry Rhythm: Sinus Rhythm Height (Feet): 5 Height (Inches): 5.00 Weight (Kilograms): 68.900 General Alert, Orientated x 3, Cooperative, No Acute Distress ENMT (Brief) mucosa moist Neck (Brief) NOT FOUND: JVD, carotid bruits Respiratory (Brief) clear all anaya, equal bilaterally, NOT FOUND: rales, wheezes Cardiovascular (Brief) regular rate, regular rhythm, NOT FOUND: click, gallop, murmur, pedal edema, rub Abdomen (Brief) BS normo active x4, soft Integumentary (Brief) dry, pink, warm Psychiatric (Brief) alert, attentive, oriented Laboratory Laboratory Laboratory Tests Test 06/16/16 20:47 06/17/16 06:21 06/17/16 10:10 06/17/16 14:20 Glucometer 177mg/dL 124mg/dL 173mg/dL 130mg/dL Test 06/17/16 21:27 06/18/16 04:43 06/18/16 05:18 06/18/16 10:04 Glucometer 182mg/dL 152mg/dL 194mg/dL Turbidity < 20 Sodium Level 132MEQ/L Potassium Level 4.7MEQ/L Chloride Level 94MEQ/L Carbon Dioxide Level 28MEQ/L Anion Gap 10MEQ/L Blood Urea Nitrogen 40.0MG/DL Creatinine 1.4MG/DL Glomerular Filtration Rate Calc 36 BUN/Creatinine Ratio 29RATIO Glucose Level 127MG/DL Calculated Osmolality 267MOSM/KG Calcium Level 9.1MG/DL Magnesium Level 2.3MG/DL Icterus Index < 2 Chemistry Specimen Hemolysis 43 Test 06/18/16 14:14 Glucometer 164mg/dL Laboratory Tests 06/18/16 04:43 Medications Current Medications Miscellaneous Medication (May use PRN orders) 1 PRN PRN MC ; Start 06/03/16 at 14:30 Acetaminophen (Tylenol Regular Strength) 650 mg Q6HR PRN PO PAIN Last administered on 06/18/16 04:58; Start 06/03/16 at 14:30 Ascorbic Acid (VITAMIN C 500 mg Tablet) 500 mg DAILY PO Last administered on 08:07; Start 06/04/16 at 09:00 Aspirin (ASA) 81 mg DAILY PO Last administered on 06/18/16 08:07; Start at 09:00 Atorvastatin Calcium (LIPITOR 40 mg) 40 mg HS PO Last administered on 06/17/16 21:23; Start 06/03/16 at 22:00 Docusate Sodium (Colace) 100 mg BID PO ; Start 06/03/16 at 21:00; Stop 06/03/16 at 21:00; Status DC Ferrous Sulfate (Feosol) 324 mg TIDWM PO Last administered on 06/18/16 12:12; Start 06/03/16 at 17:30 Gabapentin (Neurontin) 300 mg HS PO Last administered on 06/17/16 21:23; Start 06/03/16 at 22:00 Omeprazole (Prilosec) 40 mg ACB PO Last administered on 06/18/16 05:16; Start 06/04/16 at 06:30 Potassium Chloride (Kdur) 20 meq BIDWM PO Last administered on 06/18/16 08:08; Start 06/03/16 at 17:30 Tramadol HCl (Ultram) 50 mg Q6HR PRN PO PAIN Last administered on 06/18/16 13: 35; Start 06/03/16 at 14:30 Al Hydroxide/Mg Hydroxide (Maalox) 30 ml Q3-4H PRN PO INDIGESTION Last administered on 06/03/16 15:29; Start 06/03/16 at 15:30 Glucose (Glutose 15) 37.5 g PRN PRN PO HYPOGLYCEMIA; Start 06/03/16 at 18:15 Dextrose (D50w) 25 ml PRN PRN IV HYPOGLYCEMIA; Start 06/03/16 at 18:15 Ondansetron HCl (Zofran Odt) 4 mg Q4H PRN PO NAUSEA &/OR VOMITING Last administered on 06/17/16 14:33; Start 06/03/16 at 18:30 Metoclopramide HCl (Reglan) 5 mg ACHS PO Last administered on 06/18/16 12:12; Start 06/03/16 at 22:00 Bumetanide (BUMEX 1 mg TAB) 1 mg BID. PO Last administered on 06/18/16 08:10; Start 06/05/16 at 09:00 Benzocaine (Americaine Hemorr. Oint.) 1 applic BID PRN TOP HEMORRHOIDS Last administered on 06/11/16 19:47; Start 06/05/16 at 13:00 Insulin Human Lispro (Humalog) SS PRN SQ Last administered on 06/17/16 21:36 ; Start 06/05/16 at 17:00 Lidocaine (Lidoderm Patch Removal) 1 removal 2100 TOP Last administered on 21:29; Start 06/07/16 at 21:00 Cefazolin Sodium (Kefzol) 2 g PREOP ONCE IV ; Start 06/08/16 at 11:45; Stop at 11:46; Status DC Metoprolol Tartrate (Lopressor) 25 mg O ONCE PO Last administered on 12:22; Start 06/08/16 at 12:30; Stop 06/08/16 at 12:31; Status DC Bupivacaine HCl/ Epinephrine Bitart (Marcaine/Epi 0.25%/1:200,000) 30 ml STK- MED ONCE INJ ; Start 06/08/16 at 14:00; Stop 06/09/16 at 09:51; Status DC Rocuronium [place] (Zemuron) 50 mg STK-MED ONCE IV ; Start 06/08/16 at 14:00; Stop 06/09/16 at 09:51; Status DC Succinylcholine Chloride (Quelicin) 200 mg STK-MED ONCE IV ; Start 06/08/16 at 14:00; Stop 06/09/16 at 09:51; Status DC Sevoflurane 1 ml 1 ml STK-MED ONCE IH ; Start 06/08/16 at 14:00; Stop 06/09/16 at 09:51; Status DC Sodium Chloride (Normal Saline IV) 1,000 ml @ 50 mls/hr Q20H ONCE IV ; Start at 10:51; Stop 06/11/16 at 06:50; Status DC Cefazolin Sodium 2 g 2 g O ONCE IV Last administered on 06/09/16 11:33; Start 06/09/16 at 11:00; Stop 06/09/16 at 11:46; Status DC Cefazolin Sodium/ Sodium Chloride (Kefzol/NS) 100 ml @ 200 mls/hr Q8H IV Last administered on 06/10/16 05:47; Start 06/09/16 at 19:30; Stop 06/10/16 at 04:00; Status DC Ondansetron HCl (Zofran) 4 mg O PRN IV NAUSEA &/OR VOMITING; Start 06/09/16 at 12:45; Stop 06/10/16 at 08:26; Status DC Vancomycin HCl (Vancocin) 1 g STK-MED ONCE IV ; Start 06/09/16 at 11:09; Stop at 11:34; Status DC Bupivacaine HCl (Sensorcaine 0.25% Steri-Dawit) 30 mg STK-MED ONCE INJ ; Start at 11:09; Stop 06/10/16 at 11:34; Status DC Lidocaine HCl (Xylocaine 1%) 30 mg STK-MED ONCE IJ ; Start 06/09/16 at 11:09; Stop 06/10/16 at 11:34; Status DC Propofol (Diprivan) 500 mg STK-MED ONCE IV ; Start 06/09/16 at 11:09; Stop at 11:34; Status DC Fentanyl (Fentanyl) 100 mcg STK-MED ONCE IV ; Start 06/09/16 at 11:09; Stop 06/10 at 11:34; Status DC Magnesium Oxide (Magox) 400 mg 20 ONCE PO Last administered on 06/12/16 20:40 ; Start 06/12/16 at 20:00; Stop 06/12/16 at 20:01; Status DC Metformin HCl (Glucophage) 500 mg WB PO Last administered on 06/18/16 08:06; Start 06/15/16 at 08:00 Hydromorphone HCl (Dilaudid) ONE-HALF TO ONE TABLET Q4H PRN PO PAIN Last administered on 06/18/16 14:32; Start 06/14/16 at 13:45 Amiodarone HCl (Pacerone) 200 mg DAILY PO Last administered on 06/18/16 08:06; Start 06/16/16 at 09:00 Magnesium Hydroxide (Mom) 30 ml DAILY PRN PO CONSTIPATION Last administered on 06/16/16 08:28; Start 06/16/16 at 08:15 Polyethylene Glycol (Miralax) 17 g BID PRN PO ; Start 06/16/16 at 19:15 Lidocaine (Lidoderm) 1 patch DAILY TD Last administered on 06/18/16 08:10; Start 06/18/16 at 09:00 Lisinopril (Prinivil) 5 mg O ONCE PO Last administered on 06/17/16 15:14; Start 06/17/16 at 14:45; Stop 06/17/16 at 14:49; Status DC Assessment & Plan Problems: (1) Atrial fibrillation with rapid ventricular response Status: Acute Assessment & Plan: Remains in SR. Decrease Amiodarone to 200mg po daily and Metoprolol 25mg po BID for rhythm and rate control. Will repeat EKG in am. ASA only needed as A Fib was S/P CABG and has not recurred. (2) CAD (coronary artery disease) Status: Chronic Assessment & Plan: Continue BB, DICK and statin. (3) S/P CABG (coronary artery bypass graft) Onset Date: ~ 05/20/2016 Status: Acute Assessment & Plan: cont asa, metoprolol, amiodarone, statin (4) HTN (hypertension) Status: Chronic Assessment & Plan: Cont metoprolol (5) Diabetes mellitus Onset Date: ~ 05/2016 Status: Chronic Qualifiers: Diabetes mellitus type: type 2 Assessment & Plan: managed per PCP Plan/Intensity of Service 06/08/16 Give medications as ordered. If plan to I&D tomorrow, she is stable from a cardiac standpoint and may have needed I & D. please given beta rachelle and antiarrhythmic with a sip of water as scheduled. 06/09/16 In SR 60's today. Continue Amiodarone 200mg po BID and Metoprolol 25mg po BID for rhythm and rate control. Will repeat EKG in am. ASA only thinner at this time due to recent hip surgery. 06/10/16 Remains in SR, Continue to monitor telemetry. 06/11/16 remains in SR. Hematoma to right groin possibly related to heart cath. Start Lisinopril 5mg daily this evening. 06/12/16 Okay with Metformin if needed for DM. Aspirin only to allow for wound healing per ortho. Will start oral anticoagulation upon discharge. 06/15/16 Remains in SR. Decrease Amiodarone to 200mg po daily. 06/16/16 ASA only needed as A Fib was S/P CABG and has not recurred. 06/17/16 Increase Lisinopril to 10mg, give additional 5mg this evening. 06/18/16 Slightly improved BP with Lisinopril increase. Has back pain since fall in which she broke her hip, reports ortho has ruled out acute cause, degenerative changes only. Thank you for allowing us to participate in the care of this patient. BERNIE OLMOS MD 06/29/16 1031: Assessment & Plan Plan/Intensity of Service After examining the patient I agree with the above assessment. I am involved in the formulation of the patient's plan of care. TANYA MONROE APRN Jun 18, 2016 16:52 BERNIE OLMOS MD Jun 29, 2016 10:31
--- NOTE | 2016-06-18 18:07 | NUR ---
shift summary patient in room seated on the recliner watching television in good mood and voices no concern at this time et pt been up for all meals and participated in therapy. very talkative and states shes ready to go back home and enjoy the summer. jason continue to monitor.
[2016-06-18 20:15] VITALS: BP 113/65; PULSE 68; RESP 18; TEMP 97.9; O2SAT 95
[2016-06-18] MEDS: ATORVASTATIN 40 MG TABLET PO SCH (20:27)
[2016-06-18] MEDS: GABAPENTIN 300 MG CAPSULE PO SCH (20:27)
[2016-06-18] MEDS: LIDOCAINE PATCH REMOVAL TOP SCH (20:28)
[2016-06-18 21:22] VITALS: PULSE 68; RESP 18
[2016-06-18] MEDS: INSULIN LISPRO 100 UNIT/ML SQ PRN (21:45)
--- NOTE | 2016-06-18 22:27 | NUR ---
Chart Check 24 hour chart check completed
--- NOTE | 2016-06-18 22:31 | NUR ---
SUMMARY. PT HAS BEEN PLEASANT, ALERT AND OX3. FOCUSED ON "PAIN" OF HER BACK. DILAUDID 2MG GIVEN PO AT HS. BGM 180.PT REC'D 2 UNITS OF SLIDING SCALE COVERAGE.
[2016-06-19] MEDS: TRAMADOL 50 MG TABLET PO PRN ×3 (00:28→18:49)
[2016-06-19] MEDS: ACETAMINOPHEN 325 MG TABLET PO PRN ×2 (01:28→22:37)
[2016-06-19] MEDS: HYDROMORPHONE 2 MG TABLET PO PRN ×4 (04:11→20:28)
[2016-06-19 05:29] LABS: ALBUMIN 3.1 G/DL (3.5-5.0); ANION GAP 6 MEQ/L (5-15); BUN/CREATININE RATIO 25 RATIO (6-26); CHLORIDE 93 MEQ/L (98-107); CO2 - CARBON DIOXIDE 31 MEQ/L (22-30); CREATININE 1.7 MG/DL (0.7-1.2); GLOMERULAR FILTRATION RATE 29; GLUCOSE 132 MG/DL (65-110); PHOSPHORUS 3.5 MG/DL (2.5-4.5); POTASSIUM 4.6 MEQ/L (3.6-5); SODIUM 130 MEQ/L (134-144)
[2016-06-19] MEDS: METOCLOPRAMIDE 5mg TABLET PO SCH ×4 (06:21→22:32)
[2016-06-19] MEDS: OMEPRAZOLE 20 MG CAPSULE PO SCH (06:21)
--- NOTE | 2016-06-19 06:27 | NUR ---
SUMMARY. PT MAKES NEEDS KNOWN. CALLS FOR BR ASSIST. USING NIKKI WALKER AND 1 MIN TO SBA. PT GIVEN ULTRAM AT 0020 FOR 6/10 BACK PAIN, TYLENOL 650MG AT 0130 FOR 6/10 PAIN LEVEL. DILAUDID 2MG PO AT 0411 FOR 5/10. FASTING BGM 111.
[2016-06-19 08:15] VITALS: BP 120/58; PULSE 68; RESP 18; TEMP 97.7; O2SAT 95
[2016-06-19] MEDS: FERROUS SULFATE 324 MG TABLET PO SCH ×3 (08:41→16:58)
[2016-06-19] MEDS: MAGNESIUM OXIDE 400 MG TABLET PO SCH (08:41)
[2016-06-19] MEDS: ASPIRIN 81 MG CHEWABLE TABLET PO SCH (08:42)
[2016-06-19] MEDS: DOCUSATE SODIUM 100 MG CAPSULE PO SCH ×2 (08:42→22:32)
[2016-06-19] MEDS: ASCORBIC ACID 500 MG TABLET PO SCH (08:42)
[2016-06-19] MEDS: AMIODARONE 200 MG TABLET PO SCH (08:42)
--- NOTE | 2016-06-19 08:52 | PNPDOC ---
KRISTY SARABIA V FACILITY TECHNICIAN 06/19/16 0847: Subjective Date DATE: 06/19/16 TIME: 08:37 Subjective Talisha is seen this morning while eating breakfast. She is in good spirits and reports she did rest today. She feels that she continues to gain strength. Lower back pain continues to improve. Urinary frequency has increased and she reports some dysuria. Right hip dressing is dry and intact for 24 hours. BP 113/ 65 Objective Vital Signs Vital signs Vital Signs Date Time Temp Pulse Resp B/P Pulse Ox O2 Delivery O2 Flow Rate FiO2 06/18/16 21:22 68 18 06/18/16 20:15 97.9 113/65 95 Room Air Telemetry Rhythm: Sinus Rhythm Height (Feet): 5 Height (Inches): 5.00 Weight (Kilograms): 68.900 General General Appearance: Alert, Orientated x 3, Cooperative, No Acute Distress Eyes (Brief) Eyes: FOUND: EOMI ENMT (Brief) ENMT: FOUND: mucosa moist, normal dentition, NOT FOUND: pharnyx erythema Neck (Brief) Neck: FOUND: midline, NOT FOUND: adenopathy, carotid bruits, tracheal deviation Respiratory (Brief) Respiratory: FOUND: clear all anaya, equal bilaterally, NOT FOUND: wheezes Cardiovascular (Brief) Cardiac: FOUND: regular rate, regular rhythm, NOT FOUND: murmur, pedal edema Capillary Refill: <2 sec Abdomen (Brief) Abdominal: FOUND: BS normo active x4, soft, NOT FOUND: distended, tender Lymphatic (Brief) Lymphatic: NOT FOUND: adenopathy Musculoskeletal (Brief) Musculoskeletal: NOT FOUND: tenderness Integumentary (Brief) Integumentary: FOUND: dry, pink, warm Neurologic (Brief) Neurological: FOUND: cranial 2-12 intact Psychiatric (Brief) Psychiatric: FOUND: alert, attentive, normal affect, oriented Laboratory Laboratory Laboratory Tests 06/18/16 04:43 06/19/16 04:47 Assessment & Plan Problems: (1) Hypomagnesemia Status: Acute (2) Situational depression Status: Acute (3) Urinary retention Status: Acute Assessment & Plan: Straight cath on 06/11/16 - 750 mL Mason catheter was placed later on 06/11/16 removed 06/16/16 (4) S/P CABG (coronary artery bypass graft) Onset Date: ~ 05/20/2016 Status: Acute (5) Status post hip surgery Status: Acute Assessment & Plan: 05/16/16- Dr Champagne- right Brock-arthroplasty (6) Chronic kidney disease Status: Chronic (7) Diabetes mellitus Onset Date: ~ 05/2016 Status: Chronic Qualifiers: Diabetes mellitus type: type 2 (8) HTN (hypertension) Status: Chronic (9) History of atrial fibrillation Status: Chronic (10) Hypercholesteremia Status: Chronic (11) Peptic ulcer disease Status: Chronic (12) Pseudoarthrosis Status: Chronic (13) Basal cell carcinoma Status: Chronic (14) Allergic rhinitis Status: Chronic (15) GERD (gastroesophageal reflux disease) Status: Chronic Plan/Intensity of Service 06/19/16 Given increase in dysuria will obtain UA today Graphic Design Teacher continues to increase today is up to 1.7. Metformin, Lisinopril and Bumex is all on hold. Will give 500 ML bolus of NS today. Monitor hyponatremia as NA today is 130. Continue to work on pain control with Lidoderm patch and oral Dilaudid Colace BID and Miralax for ongoing bowel motivation. Encourage ongoing work with PT and OT for strengthening Code Status Full Code Hospital Course Summary Disclaimer The hospital course summary below is not to be considered part of the above Progress Note. Hospital Course Summary 06/04/16 Spoke with Ayde Hughes with Dr. Lopez regarding patient's recent CABG procedure and ongoing treatment recommendations. She does recommend patient be on anticoagulation as she did have A-fib postoperatively. She would prefer Eliquis if not contraindicated. Given mild oozing from right hip incision will consult Dr Champagne for orthopedic evaluation of incision prior to starting anticoagulation. Patient does need postop anticoagulation for 30 days from right hemiarthroplasty performed on 05/16/16. Patient did have a right groin hematoma post heart catheter that was evaluated while at [facility]. Overall this is improving. Continue with amiodarone given recent atrial fibrillation. She was noted to have elevated white count at 16.3. Will check a UA to rule out infection. Bumex 1 mg BID for ongoing diuresis. Oral Dilaudid and Ultram for pain control Continue SCDs to bilateral lower external for DVT prophylaxis Scheduled MiraLAX and Colace twice a day for ongoing bowel motivation. Encourage work with PT/OT for ongoing strengthening Will discuss case with attending Dr Hobson 06/05/16 Continue to monitor right hip dressing for oozing. Several more tl were placed by Dr Champagne Continue on ASA only at this time, Case discussed with Dr Lopez yesterday . Continue to monitor blood sugars. Fasting sugar this morning was 146. Will increase sliding scale to medium range dosing and continue to follow. Will recheck CBC and BMP tomorrow morning to follow leukocytosis 06/08/16 At this time, will recommend holding off on surgical procedure until cardiac rate control has been further evaluated and treated. Consultation was placed to Dr. Lopez for further recommendations. Patient has continued to receive her amiodarone, however, did have her beta rachelle held this morning due to Patient is to be monitored on cardiac telemetry. Current anticoagulation is aspirin. This may need to be discussed further with all providers involved including Dr. Lopez, Dr. Hobson and Dr. Champagne Will reevaluate patient later today, the hope is that she will be able to have her hip procedure tomorrow by Dr. Champagne. 06/09/[address] Lopez - pt is in sinus rhythm and has been cleared for surgery. I spoke with Dr. Champagne and updated him as well. Will need to discuss anticoagulation postop. Dr. Champagne prefers nothing stronger than ASA if possible; if needs anticoagulation would like to wait a week before starting, again if possible. However, he understands that if anticoagulation is necessary he would not argue it. Patient is complaining of nausea this morning - Zofran as needed. Repeat labs in am - pt has had leukocytosis. Encouraged pt to set small, achievable goals and let us know if she becomes too depressed. 06/11/16 Urinary retention (750mL) - UA neg. for UTI. Suspect retention may be combination of extensive hematoma and hx of uterine prolapse, along with hx of chronic retention. Continue post-void residuals. Pt does not want a catheter if possible. Suspected abdominal hematoma - will obtain ultrasound today. She is only on ASA for anticoagulation. Type 2 DM with hypoglycemia - she's not on antiglycemic agents other than SSI - continue to monitor. Leukocytosis - improving. Recheck in am. Situational depression - consider antidepressant or psych consult. 06/12/16 Hypomagnesemia - magnesium 1.4. Oral replacement ordered. Recheck in am. Leukocytosis - resolved Situational depression - patient refused to see psychiatrist. She is not interested in starting any antidepressants. Follow closely. Urinary retention - Mason catheter was placed on 06/11/16. Abdominal hematoma - she is only on aspirin for anticoagulation. Heating pad as needed. Type 2 diabetes - hemoglobin A1c was 8.3% in early May. She has had fasting and postprandial hyperglycemia yesterday, but on 06/10/16 she had hypoglycemia. If she continues to have hyperglycemia, could possibly introduce low-dose Metformin(cardiology approved Metformin). Consult clinical document improvement educator. 06/16/16 Mason removed this am - monitor for retention. constipation - prn meds given hyperglycemia - improving since metformin was started on 06/15/16; frequently with hyperglycemia >200 after breakfast. Would probably increase metformin before starting insulin, but need to wait 1-2 weeks before increasing metformin dose. check bmp and mg on 06/18/16 06/18/16 Of asked nursing staff to change dressing on the right hip. Will continue to monitor for any evidence of bleeding. Patient is voiding, however, does report having urinary frequency since Mason catheter was removed. Will continue to monitor for evidence of infection. Continue to work on pain control with Lidoderm patch and oral Dilaudid Colace BID and Miralax for ongoing bowel motivation. Overall blood pressures appear to be well controlled on Lopressor, and lisinopril 10 milligrams daily. Continue to monitor blood sugars continue with metformin, Humalog Encourage ongoing work with PT and OT for strengthening 06/19/16 Given increase in dysuria will obtain UA today Graphic Design Teacher continues to increase today is up to 1.7. Metformin, Lisinopril and Bumex is all on hold. Will give 500 ML bolus of NS today. Monitor hyponatremia as NA today is 130. Continue to work on pain control with Lidoderm patch and oral Dilaudid Colace BID and Miralax for ongoing bowel motivation. Encourage ongoing work with PT and OT for strengthening RAMOS PERSON MD 06/19/162106: Assessment & Plan Assessment I have independently evaluated and examined this patient. I reviewed the chart, the patient's history, and the FACILITY TECHNICIAN's documented findings as above. We discussed and formulated the assessment and plan as above with additions as below: Mrs. Robert complains of ongoing low back pain which is been present since her hip surgery. She denied chest pain and reports that she is voiding well. On examination there is tenderness to palpation along the paraspinal muscles in the low back and breath sounds are clear. Low-dose Flexeril initiated at 5 mg 3 times daily as needed for back pain. Repeat UA with pyuria but is nitrite negative. Culture pending. Elevated creatinine noted, recheck in a.m. after IV fluids today. In addition to above diagnoses please add: #1 hyponatremia #2 low back pain # 3 acute kidney injury KRISTY SARABIA APRN Jun 19, 2016 08:47 RAMOS PERSON MD Jun 19, 2016 21:07
[2016-06-19] MEDS ORDERED: NORMAL SALINE 500 ML IV SCH (09:00)
[2016-06-19] MEDS: LIDOCAINE 5% PATCH TD SCH (09:16)
[2016-06-19] MEDS: INSULIN LISPRO 100 UNIT/ML SQ PRN ×2 (10:38→22:53)
[2016-06-19 11:29] LABS: COLOR,URINE YELLOW (YELLOW)
[2016-06-19 11:30] LABS: LEUKOCYTE ESTERASE ,URINE 3+ (NEGATIVE); NITRITE,URINE NEGATIVE (NEGATIVE); UROBILINOGEN,URINE 0.2 EU/DL (NORMAL)
[2016-06-19 11:31] LABS: BLOOD, URINE 1+ (NEGATIVE)
[2016-06-19 11:33] LABS: BACTERIA,URINE 2+ (NEGATIVE); RBC,URINE NONE SEEN /HPF (0-3); WBC,URINE 50-200 /HPF (0-5)
[2016-06-19 13:05] VITALS: BP 99/47; PULSE 69; O2SAT 95
--- NOTE | 2016-06-19 14:15 | PNPDOC ---
TANYA MONROE PUBLIC RELATIONS ASSISTANT 06/19/16 1415: Subjective Date DATE: 06/19/16 TIME: 14:12 Subjective Talisha is sleeping in the chair. She reports back pain. She denies chest pain or palpitations. Objective Vital Signs Vital signs Vital Signs 06/19/16 06/19/16 08:15 13:05 Temp 97.7 Pulse 68 69 Resp 18 B/P 120/58 99/47 Pulse Ox 95 95 O2 Delivery Room Air Room Air Telemetry Rhythm: Sinus Rhythm Height (Feet): 5 Height (Inches): 5.00 Weight (Kilograms): 68.900 General Alert, Orientated x 3, Cooperative ENMT (Brief) mucosa moist Neck (Brief) NOT FOUND: JVD, carotid bruits Respiratory (Brief) clear all anaya, equal bilaterally, NOT FOUND: rales, wheezes Cardiovascular (Brief) regular rate, regular rhythm, NOT FOUND: click, gallop, murmur, pedal edema, rub Abdomen (Brief) BS normo active x4 Integumentary (Brief) dry, pink, warm Psychiatric (Brief) alert, oriented Laboratory Laboratory Laboratory Tests Test 06/17/16 14:20 06/17/16 21:27 06/18/16 04:43 06/18/16 05:18 Glucometer 130mg/dL 182mg/dL 152mg/dL Turbidity < 20 Sodium Level 132MEQ/L Potassium Level 4.7MEQ/L Chloride Level 94MEQ/L Carbon Dioxide Level 28MEQ/L Anion Gap 10MEQ/L Blood Urea Nitrogen 40.0MG/DL Creatinine 1.4MG/DL Glomerular Filtration Rate Calc 36 BUN/Creatinine Ratio 29RATIO Glucose Level 127MG/DL Calculated Osmolality 267MOSM/KG Calcium Level 9.1MG/DL Magnesium Level 2.3MG/DL Icterus Index < 2 Chemistry Specimen Hemolysis 43 Test 06/18/16 10:04 06/18/16 14:14 06/18/16 20:13 06/19/16 04:47 Glucometer 194mg/dL 164mg/dL 180mg/dL Turbidity < 20 Sodium Level 130MEQ/L Potassium Level 4.6MEQ/L Chloride Level 93MEQ/L Carbon Dioxide Level 31MEQ/L Anion Gap 6MEQ/L Blood Urea Nitrogen 43.0MG/DL Creatinine 1.7MG/DL Glomerular Filtration Rate Calc 29 BUN/Creatinine Ratio 25RATIO Glucose Level 132MG/DL Calculated Osmolality 264MOSM/KG Calcium Level 9.0MG/DL Phosphorus Level 3.5MG/DL Icterus Index < 2 Albumin 3.1G/DL Chemistry Specimen Hemolysis < 15 Test 06/19/16 06:15 06/19/16 10:22 06/19/16 10:57 Glucometer 111mg/dL 212mg/dL Urine Collection Type Cleancatch-midstream Urine Color Yellow Urine Turbidity Cloudy Urine pH 5.0 Urine Specific [place] 1.010 Urine Protein Negative Urine Glucose (UA) Negative Urine Ketones Negative Urine Blood 1+ Urine Nitrite Negative Urine Bilirubin Negative Urine Urobilinogen 0.2EU/DL Urine Leukocyte Esterase 3+ Urine RBC None seen/HPF Urine WBC 50-200/HPF Urine Bacteria 2+ Urine Culture Indicated Cult reflexed &setup Laboratory Tests 06/19/16 04:47 Medications Current Medications Miscellaneous Medication (May use PRN orders) 1 PRN PRN MC ; Start 06/03/16 at 14:30 Acetaminophen (Tylenol Regular Strength) 650 mg Q6HR PRN PO PAIN Last administered on 06/19/16 01:28; Start 06/03/16 at 14:30 Ascorbic Acid (VITAMIN C 500 mg Tablet) 500 mg DAILY PO Last administered on 08:42; Start 06/04/16 at 09:00 Aspirin (ASA) 81 mg DAILY PO Last administered on 06/19/16 08:42; Start at 09:00 Atorvastatin Calcium (LIPITOR 40 mg) 40 mg HS PO Last administered on 06/18/16 20:27; Start 06/03/16 at 22:00 Docusate Sodium (Colace) 100 mg BID PO ; Start 06/03/16 at 21:00; Stop 06/03/16 at 21:00; Status DC Ferrous Sulfate (Feosol) 324 mg TIDWM PO Last administered on 06/19/16 11:37; Start 06/03/16 at 17:30 Gabapentin (Neurontin) 300 mg HS PO Last administered on 06/18/16 20:27; Start 06/03/16 at 22:00 Omeprazole (Prilosec) 40 mg ACB PO Last administered on 06/19/16 06:21; Start 06/04/16 at 06:30 Potassium Chloride (Kdur) 20 meq BIDWM PO Last administered on 06/18/16 17:29; Start 06/03/16 at 17:30; Status Future Hold Tramadol HCl (Ultram) 50 mg Q6HR PRN PO PAIN Last administered on 06/19/16 10: 44; Start 06/03/16 at 14:30 Al Hydroxide/Mg Hydroxide (Maalox) 30 ml Q3-4H PRN PO INDIGESTION Last administered on 06/03/16 15:29; Start 06/03/16 at 15:30 Glucose (Glutose 15) 37.5 g PRN PRN PO HYPOGLYCEMIA; Start 06/03/16 at 18:15 Dextrose (D50w) 25 ml PRN PRN IV HYPOGLYCEMIA; Start 06/03/16 at 18:15 Ondansetron HCl (Zofran Odt) 4 mg Q4H PRN PO NAUSEA &/OR VOMITING Last administered on 06/17/16 14:33; Start 06/03/16 at 18:30 Metoclopramide HCl (Reglan) 5 mg ACHS PO Last administered on 06/19/16 11:36; Start 06/03/16 at 22:00 Bumetanide (BUMEX 1 mg TAB) 1 mg BID. PO Last administered on 06/18/16 17:29; Start 06/05/16 at 09:00; Status Future Hold Benzocaine (Americaine Hemorr. Oint.) 1 applic BID PRN TOP HEMORRHOIDS Last administered on 06/11/16 19:47; Start 06/05/16 at 13:00 Insulin Human Lispro (Humalog) SS PRN SQ Last administered on 06/19/16 10:38 ; Start 06/05/16 at 17:00 Lidocaine (Lidoderm Patch Removal) 1 removal 2100 TOP Last administered on 20:28; Start 06/07/16 at 21:00 Cefazolin Sodium (Kefzol) 2 g PREOP ONCE IV ; Start 06/08/16 at 11:45; Stop at 11:46; Status DC Metoprolol Tartrate (Lopressor) 25 mg O ONCE PO Last administered on 12:22; Start 06/08/16 at 12:30; Stop 06/08/16 at 12:31; Status DC Bupivacaine HCl/ Epinephrine Bitart (Marcaine/Epi 0.25%/1:200,000) 30 ml STK- MED ONCE INJ ; Start 06/08/16 at 14:00; Stop 06/09/16 at 09:51; Status DC Rocuronium [place] (Zemuron) 50 mg STK-MED ONCE IV ; Start 06/08/16 at 14:00; Stop 06/09/16 at 09:51; Status DC Succinylcholine Chloride (Quelicin) 200 mg STK-MED ONCE IV ; Start 06/08/16 at 14:00; Stop 06/09/16 at 09:51; Status DC Sevoflurane 1 ml 1 ml STK-MED ONCE IH ; Start 06/08/16 at 14:00; Stop 06/09/16 at 09:51; Status DC Sodium Chloride (Normal Saline IV) 1,000 ml @ 50 mls/hr Q20H ONCE IV ; Start at 10:51; Stop 06/11/16 at 06:50; Status DC Cefazolin Sodium 2 g 2 g O ONCE IV Last administered on 06/09/16t 11:33; Start 06/09/16 at 11:00; Stop 06/09/16 at 11:46; Status DC Cefazolin Sodium/ Sodium Chloride (Kefzol/NS) 100 ml @ 200 mls/hr Q8H IV Last administered on 06/10/16t 05:47; Start 06/09/16 at 19:30; Stop 06/10/16 at 04:00; Status DC Ondansetron HCl (Zofran) 4 mg O PRN IV NAUSEA &/OR VOMITING; Start 06/09/16 at 12:45; Stop 06/10/16 at 08:26; Status DC Vancomycin HCl (Vancocin) 1 g STK-MED ONCE IV ; Start 06/09/16 at 11:09; Stop at 11:34; Status DC Bupivacaine HCl (Sensorcaine 0.25% Steri-Dawit) 30 mg STK-MED ONCE INJ ; Start at 11:09; Stop 06/10/16 at 11:34; Status DC Lidocaine HCl (Xylocaine 1%) 30 mg STK-MED ONCE IJ ; Start 06/09/16 at 11:09; Stop 06/10/16 at 11:34; Status DC Propofol (Diprivan) 500 mg STK-MED ONCE IV ; Start 06/09/16 at 11:09; Stop at 11:34; Status DC Fentanyl (Fentanyl) 100 mcg STK-MED ONCE IV ; Start 06/09/16 at 11:09; Stop 06/10 at 11:34; Status DC Magnesium Oxide (Magox) 400 mg 20 ONCE PO Last administered on 06/12/16 20:40 ; Start 06/12/16 at 20:00; Stop 06/12/16 at 20:01; Status DC Metformin HCl (Glucophage) 500 mg WB PO Last administered on 06/18/16 08:06; Start 06/15/16 at 08:00; Status Future Hold Hydromorphone HCl (Dilaudid) ONE-HALF TO ONE TABLET Q4H PRN PO PAIN Last administered on 06/19/16 08:42; Start 06/14/16 at 13:45 Amiodarone HCl (Pacerone) 200 mg DAILY PO Last administered on 06/19/16 08:42 ; Start 06/16/16 at 09:00 Magnesium Hydroxide (Mom) 30 ml DAILY PRN PO CONSTIPATION Last administered on 06/16/16 08:28; Start 06/16/16 at 08:15 Polyethylene Glycol (Miralax) 17 g BID PRN PO ; Start 06/16/16 at 19:15 Lidocaine (Lidoderm) 1 patch DAILY TD Last administered on 06/19/16 09:16; Start 06/18/16 at 09:00 Lisinopril (Prinivil) 10 mg DAILY PO Last administered on 06/18/16 08:09; Start 06/18/16 at 09:00; Status Future Hold Lisinopril 5 mg 5 mg O ONCE PO Last administered on 06/17/16 15:14; Start 06/17 at 14:45; Stop 06/17/16 at 14:49; Status DC Sodium Chloride (NS) 500 ml @ 250 mls/hr Q2H IV Last administered on 09:18; Start 06/19/16 at 09:00; Stop 06/19/16 at 10:59; Status DC Microbiology Microbiology Microbiology Date/Time Source Procedure Growth Status 06/19/16 11:33 Urine, Clean Catch-Midstream Urine Culture - Preliminary CULTURE INITIATED - RESULTS PENDING Resulted Assessment & Plan Problems: (1) Atrial fibrillation with rapid ventricular response Status: Acute Assessment & Plan: Remains in SR. Decrease Amiodarone to 200mg po daily and Metoprolol 25mg po BID for rhythm and rate control. Will repeat EKG in am. ASA only needed as A Fib was S/P CABG and has not recurred. (2) CAD (coronary artery disease) Status: Chronic Assessment & Plan: Continue BB, DICK and statin. (3) S/P CABG (coronary artery bypass graft) Onset Date: ~ 05/20/2016 Status: Acute Assessment & Plan: cont asa, metoprolol, amiodarone, statin (4) HTN (hypertension) Status: Chronic Assessment & Plan: Cont metoprolol (5) Diabetes mellitus Onset Date: ~ 05/2016 Status: Chronic Qualifiers: Diabetes mellitus type: type 2 Assessment & Plan: managed per PCP Plan/Intensity of Service 06/08/16 Give medications as ordered. If plan to I&D tomorrow, she is stable from a cardiac standpoint and may have needed I & D. please given beta rachelle and antiarrhythmic with a sip of water as scheduled. 06/09/16 In SR 60's today. Continue Amiodarone 200mg po BID and Metoprolol 25mg po BID for rhythm and rate control. Will repeat EKG in am. ASA only thinner at this time due to recent hip surgery. 06/10/16 Remains in SR, Continue to monitor telemetry. 06/11/16 remains in SR. Hematoma to right groin possibly related to heart cath. Start Lisinopril 5mg daily this evening. 06/12/16 Okay with Metformin if needed for DM. Aspirin only to allow for wound healing per ortho. Will start oral anticoagulation upon discharge. 06/15/16 Remains in SR. Decrease Amiodarone to 200mg po daily. 06/16/16 ASA only needed as A Fib was S/P CABG and has not recurred. 06/17/16 Increase Lisinopril to 10mg, give additional 5mg this evening. 06/18/16 Slightly improved BP with Lisinopril increase. Has back pain since fall in which she broke her hip, reports ortho has ruled out acute cause, degenerative changes only. 06/19/16 reports back gunner which she takes Dilaudid for. No cardiac complaints Thank you for allowing us to participate in the care of this patient. BERNIE OLMOS MD 06/29/16 1401: Assessment & Plan Plan/Intensity of Service After examining the patient I agree with the above assessment. I am involved in the formulation of the patient's plan of care. TANYA MONROE APRN Jun 19, 2016 14:15 BERNIE OLMOS MD Jun 29, 2016 14:01
[2016-06-19 15:07] VITALS: BP 111/54; PULSE 70; RESP 16; TEMP 97.3; O2SAT 96
--- NOTE | 2016-06-19 15:36 | NUR ---
DM Screen [place] notified by CM of pt's desire for additional diabetes information regarding diet. When RD visited pt, pt stated that she did not need additional information regarding her diabetes that she had already received adequate information. CLINTON reviewed goals previously set by Kiki ALONZO earlier in the week; ie, avoid regular soda pop and juice and to continue eating [address] available at ext [phone]
[2016-06-19 17:05] VITALS: BP 124/59; PULSE 66
--- NOTE | 2016-06-19 18:33 | NUR ---
SHIFT SUMMARY PATIENT ALERT AND ORIENTED. C/O PAIN IN BACK AND RIGHT HIP. PRN PAIN MEDS GIVEN THROUGHOUT SHIFT, PATIENT REPORTED PAIN RELIEF WITH MEDS. LAST BLOOD GLUCOSE 130, NO SS REQUIRED. TELE MONITOR IN PLACE SR. PATIENT COMPLAINED OF BURNING/FREQUENCY URINATING. URINE CULTURE ORDERS RECEIVED AND SENT TO LAB. AWAITING RESULTS. NS BOLUS GIVEN PER ORDER. PATIENT C/O DIZZINESS AFTER LUNCH. BP MONITORED CLOSELY TODAY. PATIENT CONTINENT OF BOWEL AND BLADDER.PATIENT HAD A BM TODAY. WILL CONTINUE TO MONITOR.
[2016-06-19] MEDS: LIDOCAINE PATCH REMOVAL TOP SCH (21:00)
[2016-06-19 22:29] VITALS: BP 118/62; PULSE 65; RESP 18; TEMP 97.9; O2SAT 96
[2016-06-19] MEDS: CYCLOBENZAPRINE 5 MG TABLET PO PRN (22:32)
[2016-06-19] MEDS: GABAPENTIN 300 MG CAPSULE PO SCH (22:32)
[2016-06-19] MEDS: ATORVASTATIN 40 MG TABLET PO SCH (22:32)
[2016-06-20] MEDS: METOCLOPRAMIDE 5mg TABLET PO SCH ×4 (04:55→21:06)
[2016-06-20] MEDS: HYDROMORPHONE 2 MG TABLET PO PRN ×4 (04:55→20:21)
[2016-06-20] MEDS: OMEPRAZOLE 20 MG CAPSULE PO SCH (04:55)
[2016-06-20 05:40] LABS: ANION GAP 7 MEQ/L (5-15); BUN/CREATININE RATIO 28 RATIO (6-26); CALCIUM 9.1 MG/DL (8.4-10.2); CHLORIDE 96 MEQ/L (98-107); CO2 - CARBON DIOXIDE 30 MEQ/L (22-30); CREATININE 1.4 MG/DL (0.7-1.2); GLOMERULAR FILTRATION RATE 36; GLUCOSE 115 MG/DL (65-110); POTASSIUM 4.4 MEQ/L (3.6-5); SODIUM 133 MEQ/L (134-144)
--- NOTE | 2016-06-20 06:08 | NUR ---
Summary Pt had complaint of low back pain, Flexeril 5mg ordered by Dr Tomlinson. Pt slept with fewer interruptions through the night. When pt stated that she was going to live with her son and no one would be there during the day, nursing staff spoke to the pt regarding her needs related to her DC plan. Pt stated she was worried about it. Pt was told that CM would be notified to speak with her regarding options of DC to SNF. Pt was reminded and encouraged to do what she could herself before asking for help. Pt was more reliant and made more requests from nursing staff at the beginning of the shift but improved in doing tasks for herself, such as lifting her legs into bed, through the night. Pt is in bed sleeping, water and call light in reach.
[2016-06-20 08:13] VITALS: BP 128/68; PULSE 90; RESP 18; TEMP 97.9; O2SAT 95
[2016-06-20] MEDS: ASPIRIN 81 MG CHEWABLE TABLET PO SCH (09:07)
[2016-06-20] MEDS: TRAMADOL 50 MG TABLET PO PRN (09:07)
[2016-06-20] MEDS: FERROUS SULFATE 324 MG TABLET PO SCH ×3 (09:07→17:24)
[2016-06-20] MEDS: LIDOCAINE 5% PATCH TD SCH (09:07)
[2016-06-20] MEDS: DOCUSATE SODIUM 100 MG CAPSULE PO SCH ×2 (09:07→21:06)
[2016-06-20] MEDS: ASCORBIC ACID 500 MG TABLET PO SCH (09:08)
[2016-06-20] MEDS: MAGNESIUM OXIDE 400 MG TABLET PO SCH (09:08)
[2016-06-20] MEDS: AMIODARONE 200 MG TABLET PO SCH (09:08)
[2016-06-20] MEDS: INSULIN LISPRO 100 UNIT/ML SQ PRN ×3 (11:01→20:16)
[2016-06-20 16:20] VITALS: BP 127/63; PULSE 72; RESP 16; TEMP 98; O2SAT 96
--- NOTE | 2016-06-20 16:30 | NUR ---
DR. AJITH SWANSON APRN WAS ON FOR DR. WARD AND WAS PAGED REGARDING PT'S TELEMETRY AND IV SITE. PT'S IV SITE HAS BEEN CHANGED SEVERAL TIMES IN THE LAST FEW DAYS. AND THE SITE PT HAD AT TIME OF CALL WAS UNUSABLE. AUSTYN GAVE AN ORDER TO DC BOTH IF RATE AND RHYTHM HAVE BEEN STABLE.
--- NOTE | 2016-06-20 19:00 | NUR ---
SHIFT SUMMARY PATIENT ALERT AND ORIENTED X 3, UP WITH 1 WITH NIKKI WALKER. MEPILEX CHANGED TO R HIP TODAY. URINE PRELIM CULTURE SHOWED GRAM NEG RODS. KEFLEX ORDERED BY MD, FIST DOSE SCHEDULED FOR QUALITY REVIEW TRAINER. FLUIDS ENCOURAGED, PATIENT VERBALIZED UNDERSTANDING. IV STARTED LEAKING. CARDIOLOGY GROUP NOTIFIED, ORDERED OK TO D/C TELE AND D/C IV. D/C PLAN ANTICIPATED FOR WEDNESDAY. IS ENCOURAGED. PATIENT C/O PAIN R HIP AND BACK, PRN PAIN MEDICATION GIVEN THROUGHOUT SHIFT, PATIENT REPORTED PAIN RELIEF. BLOOD SUGARS CHECKED RECEIVED SSI, SEE MAR.
[2016-06-20] MEDS: ACETAMINOPHEN 325 MG TABLET PO PRN (19:40)
[2016-06-20] MEDS: LIDOCAINE PATCH REMOVAL TOP SCH (21:00)
[2016-06-20] MEDS: GABAPENTIN 300 MG CAPSULE PO SCH (21:06)
[2016-06-20] MEDS: ATORVASTATIN 40 MG TABLET PO SCH (21:06)
[2016-06-20] MEDS: CYCLOBENZAPRINE 5 MG TABLET PO PRN (21:09)
[2016-06-20] MEDS: CEPHALEXIN 500 MG CAPSULE PO SCH (21:52)
--- NOTE | 2016-06-20 23:10 | PNPDOC ---
IRU Subjective Date DATE: 06/20/16 TIME: 23:07 Subjective Has been working with PT and OT, requiring some encouragement. Eating in commons area. IRU Objective Vital Signs Vital signs Vital Signs Date Time Temp Pulse Resp B/P Pulse Ox O2 Delivery O2 Flow Rate FiO2 06/20/16 16:20 98.0 72 16 127/63 96 Room Air Telemetry Rhythm: Sinus Rhythm Height (Feet): 5 Height (Inches): 5.00 Weight (Kilograms): 68.900 General General Appearance: Alert, Orientated x 2 Respiratory (Brief) Respiratory: FOUND: clear all anaya, equal bilaterally, NOT FOUND: rales, wheezes Cardiovascular (Brief) Cardiac: FOUND: regular rate, regular rhythm, NOT FOUND: pedal edema Capillary Refill: <2 sec Laboratory Laboratory Laboratory Tests Test 06/19/16 04:47 06/19/16 06:15 06/19/16 10:22 06/19/16 10:57 Turbidity < 20 Sodium Level 130MEQ/L Potassium Level 4.6MEQ/L Chloride Level 93MEQ/L Carbon Dioxide Level 31MEQ/L Anion Gap 6MEQ/L Blood Urea Nitrogen 43.0MG/DL Creatinine 1.7MG/DL Glomerular Filtration Rate Calc 29 BUN/Creatinine Ratio 25RATIO Glucose Level 132MG/DL Calculated Osmolality 264MOSM/KG Calcium Level 9.0MG/DL Phosphorus Level 3.5MG/DL Icterus Index < 2 Albumin 3.1G/DL Chemistry Specimen Hemolysis < 15 Glucometer 111mg/dL 212mg/dL Urine Collection Type Cleancatch-midstream Urine Color Yellow Urine Turbidity Cloudy Urine pH 5.0 Urine Specific [place] 1.010 Urine Protein Negative Urine Glucose (UA) Negative Urine Ketones Negative Urine Blood 1+ Urine Nitrite Negative Urine Bilirubin Negative Urine Urobilinogen 0.2EU/DL Urine Leukocyte Esterase 3+ Urine RBC None seen/HPF Urine WBC 50-200/HPF Urine Bacteria 2+ Urine Culture Indicated Cult reflexed &setup Test 06/19/16 14:38 06/19/16 22:28 06/20/16 04:45 06/20/16 10:29 Glucometer 130mg/dL 168mg/dL 113mg/dL 270mg/dL Turbidity < 20 Sodium Level 133MEQ/L Potassium Level 4.4MEQ/L Chloride Level 96MEQ/L Carbon Dioxide Level 30MEQ/L Anion Gap 7MEQ/L Blood Urea Nitrogen 39.0MG/DL Creatinine 1.4MG/DL Glomerular Filtration Rate Calc 36 BUN/Creatinine Ratio 28RATIO Glucose Level 115MG/DL Calculated Osmolality 266MOSM/KG Calcium Level 9.1MG/DL Icterus Index < 2 Chemistry Specimen Hemolysis < 15 Test 06/20/16 14:09 06/20/16 20:04 Glucometer 176mg/dL 200mg/dL Microbiology Microbiology Microbiology Date/Time Source Procedure Growth Status 06/19/16 11:33 Urine, Clean Catch-Midstream Urine Culture - Preliminary Gram Negative Eric Resulted Assessment & Plan Problems: (1) Myopathic disease or syndrome Status: Acute Assessment & Plan: Pt working with PT and OT. Increasing FIM scores. COntinues to improve. Meals in commons area. (2) Neuropathy Status: Chronic Assessment & Plan: PT nd OT assist with adapting to limitations from neuropathy , cont with current program (3) Debility Status: Acute Assessment & Plan: Overall weakness. Addressed by PT and OT. (4) HTN (hypertension) Status: Chronic (5) S/P CABG (coronary artery bypass graft) Onset Date: ~ 05/20/2016 Status: Acute Assessment & Plan: Followed by cardiology (6) Status post hip surgery Status: Acute (7) Diabetes mellitus Onset Date: ~ 05/2016 Status: Chronic Qualifiers: Diabetes mellitus type: type 2 Assessment & Plan: Managed by medical. (8) History of atrial fibrillation Status: Chronic Assessment & Plan: managed by medicl. (9) Chronic kidney disease Status: Chronic Assessment I have independently evaluated and examined this patient. I reviewed the chart, the patient's history, and the LEARNING DEVELOPMENT SPECIALIST's documented findings as above. We discussed and formulated the assessment and plan as above with additions as below: Mrs. Robert complains of ongoing low back pain which is been present since her hip surgery. She denied chest pain and reports that she is voiding well. On examination there is tenderness to palpation along the paraspinal muscles in the low back and breath sounds are clear. Low-dose Flexeril initiated at 5 mg 3 times daily as needed for back pain. Repeat UA with pyuria but is nitrite negative. Culture pending. Elevated creatinine noted, recheck in a.m. after IV fluids today. In addition to above diagnoses please add: #1 hyponatremia #2 low back pain # 3 acute kidney injury Code Status Full Code Interventions to Obtain Goals PT Treatment Plan: Therapeutic Exercise, Gait Training, Functional Activities , Patient/Family Education, Balance/Proprioception OT Treatment Plan: ADL's (basic care), Ther. Exercise for ADL's, UE Functional Training, Balance Training, Pt./Family Education, IADL's Hospital Course Summary Disclaimer The hospital course summary below is not to be considered part of the above Progress Note. Hospital Course Summary 06/04/16 Spoke with Ayde Hughes with Dr. Lopez regarding patient's recent CABG procedure and ongoing treatment recommendations. She does recommend patient be on anticoagulation as she did have A-fib postoperatively. She would prefer Eliquis if not contraindicated. Given mild oozing from right hip incision will consult Dr Champagne for orthopedic evaluation of incision prior to starting anticoagulation. Patient does need postop anticoagulation for 30 days from right hemiarthroplasty performed on 05/16/16. Patient did have a right groin hematoma post heart catheter that was evaluated while at [place]. Overall this is improving. Continue with amiodarone given recent atrial fibrillation. She was noted to have elevated white count at 16.3. Will check a UA to rule out infection. Bumex 1 mg BID for ongoing diuresis. Oral Dilaudid and Ultram for pain control Continue SCDs to bilateral lower external for DVT prophylaxis Scheduled MiraLAX and Colace twice a day for ongoing bowel motivation. Encourage work with PT/OT for ongoing strengthening Will discuss case with attending Dr Hobson 06/05/16 Continue to monitor right hip dressing for oozing. Several more tl were placed by Dr Champagne Continue on ASA only at this time, Case discussed with Dr Lopez yesterday . Continue to monitor blood sugars. Fasting sugar this morning was 146. Will increase sliding scale to medium range dosing and continue to follow. Will recheck CBC and BMP tomorrow morning to follow leukocytosis 06/08/16 At this time, will recommend holding off on surgical procedure until cardiac rate control has been further evaluated and treated. Consultation was placed to Dr. Lopez for further recommendations. Patient has continued to receive her amiodarone, however, did have her beta rachelle held this morning due to Patient is to be monitored on cardiac telemetry. Current anticoagulation is aspirin. This may need to be discussed further with all providers involved including Dr. Lopez, Dr. Hobson and Dr. Champagne Will reevaluate patient later today, the hope is that she will be able to have her hip procedure tomorrow by Dr. Champagne. 06/09/[address] Lopez - pt is in sinus rhythm and has been cleared for surgery. I spoke with Dr. Champagne and updated him as well. Will need to discuss anticoagulation postop. Dr. Champagne prefers nothing stronger than ASA if possible; if needs anticoagulation would like to wait a week before starting, again if possible. However, he understands that if anticoagulation is necessary he would not argue it. Patient is complaining of nausea this morning - Zofran as needed. Repeat labs in am - pt has had leukocytosis. Encouraged pt to set small, achievable goals and let us know if she becomes too depressed. 06/11/16 Urinary retention (750mL) - UA neg. for UTI. Suspect retention may be combination of extensive hematoma and hx of uterine prolapse, along with hx of chronic retention. Continue post-void residuals. Pt does not want a catheter if possible. Suspected abdominal hematoma - will obtain ultrasound today. She is only on ASA for anticoagulation. Type 2 DM with hypoglycemia - she's not on antiglycemic agents other than SSI - continue to monitor. Leukocytosis - improving. Recheck in am. Situational depression - consider antidepressant or psych consult. 06/12/16 Hypomagnesemia - magnesium 1.4. Oral replacement ordered. Recheck in am. Leukocytosis - resolved Situational depression - patient refused to see psychiatrist. She is not interested in starting any antidepressants. Follow closely. Urinary retention - Mason catheter was placed on 06/11/16. Abdominal hematoma - she is only on aspirin for anticoagulation. Heating pad as needed. Type 2 diabetes - hemoglobin A1c was 8.3% in early May. She has had fasting and postprandial hyperglycemia yesterday, but on 06/10/16 she had hypoglycemia. If she continues to have hyperglycemia, could possibly introduce low-dose Metformin(cardiology approved Metformin). Consult para educator. 06/16/16 Mason removed this am - monitor for retention. constipation - prn meds given hyperglycemia - improving since metformin was started on 06/15/16; frequently with hyperglycemia >200 after breakfast. Would probably increase metformin before starting insulin, but need to wait 1-2 weeks before increasing metformin dose. check bmp and mg on 06/18/16 06/18/16 Of asked nursing staff to change dressing on the right hip. Will continue to monitor for any evidence of bleeding. Patient is voiding, however, does report having urinary frequency since Mason catheter was removed. Will continue to monitor for evidence of infection. Continue to work on pain control with Lidoderm patch and oral Dilaudid Colace BID and Miralax for ongoing bowel motivation. Overall blood pressures appear to be well controlled on Lopressor, and lisinopril 10 milligrams daily. Continue to monitor blood sugars continue with metformin, Humalog Encourage ongoing work with PT and OT for strengthening 06/19/16 Given increase in dysuria will obtain UA today Court Magistrate continues to increase today is up to 1.7. Metformin, Lisinopril and Bumex is all on hold. Will give 500 ML bolus of NS today. Monitor hyponatremia as NA today is 130. Continue to work on pain control with Lidoderm patch and oral Dilaudid Colace BID and Miralax for ongoing bowel motivation. Encourage ongoing work with PT and OT for strengthening BHAVNA MCALLISTER MD Jun 20, 2016 23:10
[2016-06-21] MEDS: CEPHALEXIN 500 MG CAPSULE PO SCH ×2 (01:52→09:11)
[2016-06-21] MEDS: HYDROMORPHONE 2 MG TABLET PO PRN ×4 (01:53→22:19)
--- NOTE | 2016-06-21 04:47 | NUR ---
Chart Check 24 hour chart check completed
--- NOTE | 2016-06-21 06:02 | NUR ---
Summary Pt has used Dilaudid and Flexeril for pain management. Pt states she is sleeping a lot better since the Flexeril. Pt has rated pain at 8, but stated it is 5-6 today. Pt able to get herself in and out of bed without assistance. Pt remains AOx3. Fluids encouraged this shift. Pt sleeping at this time call light and water in reach
[2016-06-21] MEDS: OMEPRAZOLE 20 MG CAPSULE PO SCH (06:22)
[2016-06-21] MEDS: METOCLOPRAMIDE 5mg TABLET PO SCH ×4 (06:22→21:01)
[2016-06-21 08:58] VITALS: BP 143/62; PULSE 96; RESP 18; TEMP 98.6; O2SAT 96
[2016-06-21] MEDS: LIDOCAINE 5% PATCH TD SCH (09:11)
[2016-06-21] MEDS: MAGNESIUM OXIDE 400 MG TABLET PO SCH (09:12)
[2016-06-21] MEDS: AMIODARONE 200 MG TABLET PO SCH (09:12)
[2016-06-21] MEDS: DOCUSATE SODIUM 100 MG CAPSULE PO SCH ×2 (09:12→21:00)
[2016-06-21] MEDS: ASPIRIN 81 MG CHEWABLE TABLET PO SCH (09:12)
[2016-06-21] MEDS: ASCORBIC ACID 500 MG TABLET PO SCH (09:12)
[2016-06-21] MEDS: FERROUS SULFATE 324 MG TABLET PO SCH ×3 (09:13→17:45)
[2016-06-21] MEDS: INSULIN LISPRO 100 UNIT/ML SQ PRN ×2 (10:36→14:25)
[2016-06-21] MEDS: LEVOFLOXACIN 250 MG TABLET PO SCH (12:28)
--- NOTE | 2016-06-21 13:24 | NUR ---
RENAL DOSING: Today's SCr = 1.4 mg/dl on 06/20/16. Calculated CrCl = 29 ml/min. dose of levofloxacin for Complicated UTI, including pyelonephritis: 250 mg once daily for 10 days . Levofloxacin 250mg po daily for 10 days is appropriate for current renal function. Thanks Ajit
[2016-06-21] MEDS: ONDANSETRON ODT 4 MG TAB PO PRN (14:04)
[2016-06-21] MEDS: ACETAMINOPHEN 325 MG TABLET PO PRN (14:50)
[2016-06-21 16:49] VITALS: BP 114/63; PULSE 87; RESP 16; TEMP 98.4; O2SAT 96
--- NOTE | 2016-06-21 18:51 | NUR ---
SHIFT SUMMARY PT HAS BEEN PLEASANT AND COOPERATIVE. PT HAS BEEN OUT TO DINING ROOM FOR ALL MEALS. PT AMBULATES WITH NIKKI WALKER AND GAIT BELT. PT HAS REPORTED PAIN AT A 5/10 TODAY, STILL REQUESTING PAIN MEDS BEFORE DUE OR RIGHT WHEN AVAILABLE AGAIN. PT CONTINUES TO HAVE FREQUENCY. ANTIBIOTIC WAS CHANGED TODAY DUE TO BEING RESISTANT TO KEFLEX. PT HAS BEEN UP IN RECLINER MOST OF DAY. PT IS CURRENTLY RESTING IN RECLINER.
[2016-06-21 19:50] VITALS: PULSE 75; RESP 16
[2016-06-21] MEDS: TRAMADOL 50 MG TABLET PO PRN (20:58)
[2016-06-21] MEDS: LIDOCAINE PATCH REMOVAL TOP SCH (20:59)
[2016-06-21] MEDS: GABAPENTIN 300 MG CAPSULE PO SCH (21:01)
[2016-06-21] MEDS: ATORVASTATIN 40 MG TABLET PO SCH (21:01)
--- NOTE | 2016-06-21 22:53 | PNPDOC ---
IRU Subjective Date DATE: 06/21/16 TIME: 22:49 Subjective Feels she has improved in strength during admission, but still not fully independent. Having difficulty with ADL's and distance mobility. IRU Objective Vital Signs Vital signs Vital Signs Date Time Temp Pulse Resp B/P Pulse Ox O2 Delivery O2 Flow Rate FiO2 06/21/16 16:49 98.4 87 16 114/63 96 Room Air Telemetry Rhythm: Sinus Rhythm Height (Feet): 5 Height (Inches): 5.00 Weight (Kilograms): 68.900 General General Appearance: Alert, Orientated x 2 Respiratory (Brief) Respiratory: FOUND: clear all anaya, equal bilaterally, NOT FOUND: rales (No crackles heard.) Cardiovascular (Brief) Cardiac: FOUND: pedal edema, regular rate, regular rhythm Capillary Refill: <2 sec Laboratory Laboratory Laboratory Tests Test 06/20/16 04:45 06/20/16 10:29 06/20/16 14:09 06/20/16 20:04 Turbidity < 20 Sodium Level 133MEQ/L Potassium Level 4.4MEQ/L Chloride Level 96MEQ/L Carbon Dioxide Level 30MEQ/L Anion Gap 7MEQ/L Blood Urea Nitrogen 39.0MG/DL Creatinine 1.4MG/DL Glomerular Filtration Rate Calc 36 BUN/Creatinine Ratio 28RATIO Glucose Level 115MG/DL Glucometer 113mg/dL 270mg/dL 176mg/dL 200mg/dL Calculated Osmolality 266MOSM/KG Calcium Level 9.1MG/DL Icterus Index < 2 Chemistry Specimen Hemolysis < 15 Test 06/21/16 05:30 06/21/16 10:13 06/21/16 14:18 06/21/16 21:20 Glucometer 111mg/dL 262mg/dL 158mg/dL 149mg/dL Microbiology Microbiology Microbiology Date/Time Source Procedure Growth Status 06/19/16 11:33 Urine, Clean Catch-Midstream Urine Culture - Final Enterobacter Cloacae Complete Assessment & Plan Problems: (1) Myopathic disease or syndrome Status: Acute Assessment & Plan: Rested today, will re-eval with PT and OT in am. Expect some continued improvement in strength. (2) Neuropathy Status: Chronic (3) Debility Status: Acute Assessment & Plan: Still having difficulty with ADL's, will require some assist after d/c. (4) HTN (hypertension) Status: Chronic Assessment & Plan: managed by medical. (5) S/P CABG (coronary artery bypass graft) Onset Date: ~ 05/20/2016 Status: Acute Assessment & Plan: Managed by medical and Cardiology. (6) Status post hip surgery Status: Acute (7) Diabetes mellitus Onset Date: ~ 05/2016 Status: Chronic Qualifiers: Diabetes mellitus type: type 2 (8) History of atrial fibrillation Status: Chronic Assessment & Plan: Managed by cardiology/medical. (9) Chronic kidney disease Status: Chronic Assessment I have independently evaluated and examined this patient. I reviewed the chart, the patient's history, and the MUSIC WORKER's documented findings as above. We discussed and formulated the assessment and plan as above with additions as below: Mrs. Robert complains of ongoing low back pain which is been present since her hip surgery. She denied chest pain and reports that she is voiding well. On examination there is tenderness to palpation along the paraspinal muscles in the low back and breath sounds are clear. Low-dose Flexeril initiated at 5 mg 3 times daily as needed for back pain. Repeat UA with pyuria but is nitrite negative. Culture pending. Elevated creatinine noted, recheck in a.m. after IV fluids today. In addition to above diagnoses please add: #1 hyponatremia #2 low back pain # 3 acute kidney injury Code Status Full Code Interventions to Obtain Goals PT Treatment Plan: Therapeutic Exercise, Gait Training, Functional Activities , Patient/Family Education, Balance/Proprioception OT Treatment Plan: ADL's (basic care), Ther. Exercise for ADL's, UE Functional Training, Balance Training, Pt./Family Education, IADL's Hospital Course Summary Disclaimer The hospital course summary below is not to be considered part of the above Progress Note. Hospital Course Summary 06/04/16 Spoke with Ayde Hughes with Dr. Lopez regarding patient's recent CABG procedure and ongoing treatment recommendations. She does recommend patient be on anticoagulation as she did have A-fib postoperatively. She would prefer Eliquis if not contraindicated. Given mild oozing from right hip incision will consult Dr Champagne for orthopedic evaluation of incision prior to starting anticoagulation. Patient does need postop anticoagulation for 30 days from right hemiarthroplasty performed on 05/16/16. Patient did have a right groin hematoma post heart catheter that was evaluated while at [place]. Overall this is improving. Continue with amiodarone given recent atrial fibrillation. She was noted to have elevated white count at 16.3. Will check a UA to rule out infection. Bumex 1 mg BID for ongoing diuresis. Oral Dilaudid and Ultram for pain control Continue SCDs to bilateral lower external for DVT prophylaxis Scheduled MiraLAX and Colace twice a day for ongoing bowel motivation. Encourage work with PT/OT for ongoing strengthening Will discuss case with attending Dr Hobson 06/05/16 Continue to monitor right hip dressing for oozing. Several more tl were placed by Dr Champagne Continue on ASA only at this time, Case discussed with Dr Lopez yesterday . Continue to monitor blood sugars. Fasting sugar this morning was 146. Will increase sliding scale to medium range dosing and continue to follow. Will recheck CBC and BMP tomorrow morning to follow leukocytosis 06/08/16 At this time, will recommend holding off on surgical procedure until cardiac rate control has been further evaluated and treated. Consultation was placed to Dr. Lopez for further recommendations. Patient has continued to receive her amiodarone, however, did have her beta rachelle held this morning due to Patient is to be monitored on cardiac telemetry. Current anticoagulation is aspirin. This may need to be discussed further with all providers involved including Dr. Lopez, Dr. Hosbon and Dr. Champagne Will reevaluate patient later today, the hope is that she will be able to have her hip procedure tomorrow by Dr. Champagne. 06/09/[address] Lopez - pt is in sinus rhythm and has been cleared for surgery. I spoke with Dr. Champagne and updated him as well. Will need to discuss anticoagulation postop. Dr. Champagne prefers nothing stronger than ASA if possible; if needs anticoagulation would like to wait a week before starting, again if possible. However, he understands that if anticoagulation is necessary he would not argue it. Patient is complaining of nausea this morning - Zofran as needed. Repeat labs in am - pt has had leukocytosis. Encouraged pt to set small, achievable goals and let us know if she becomes too depressed. 06/11/16 Urinary retention (750mL) - UA neg. for UTI. Suspect retention may be combination of extensive hematoma and hx of uterine prolapse, along with hx of chronic retention. Continue post-void residuals. Pt does not want a catheter if possible. Suspected abdominal hematoma - will obtain ultrasound today. She is only on ASA for anticoagulation. Type 2 DM with hypoglycemia - she's not on antiglycemic agents other than SSI - continue to monitor. Leukocytosis - improving. Recheck in am. Situational depression - consider antidepressant or psych consult. 06/12/16 Hypomagnesemia - magnesium 1.4. Oral replacement ordered. Recheck in am. Leukocytosis - resolved Situational depression - patient refused to see psychiatrist. She is not interested in starting any antidepressants. Follow closely. Urinary retention - Mason catheter was placed on 06/11/16. Abdominal hematoma - she is only on aspirin for anticoagulation. Heating pad as needed. Type 2 diabetes - hemoglobin A1c was 8.3% in early May. She has had fasting and postprandial hyperglycemia yesterday, but on 06/10/16 she had hypoglycemia. If she continues to have hyperglycemia, could possibly introduce low-dose Metformin(cardiology approved Metformin). Consult health promotion educator. 06/16/16 Mason removed this am - monitor for retention. constipation - prn meds given hyperglycemia - improving since metformin was started on 06/15/16; frequently with hyperglycemia >200 after breakfast. Would probably increase metformin before starting insulin, but need to wait 1-2 weeks before increasing metformin dose. check bmp and mg on 06/18/16 06/18/16 Of asked nursing staff to change dressing on the right hip. Will continue to monitor for any evidence of bleeding. Patient is voiding, however, does report having urinary frequency since Mason catheter was removed. Will continue to monitor for evidence of infection. Continue to work on pain control with Lidoderm patch and oral Dilaudid Colace BID and Miralax for ongoing bowel motivation. Overall blood pressures appear to be well controlled on Lopressor, and lisinopril 10 milligrams daily. Continue to monitor blood sugars continue with metformin, Humalog Encourage ongoing work with PT and OT for strengthening 06/19/16 Given increase in dysuria will obtain UA today [employer] continues to increase today is up to 1.7. Metformin, Lisinopril and Bumex is all on hold. Will give 500 ML bolus of NS today. Monitor hyponatremia as NA today is 130. Continue to work on pain control with Lidoderm patch and oral Dilaudid Colace BID and Miralax for ongoing bowel motivation. Encourage ongoing work with PT and OT for strengthening BHAVNA MCALLISTER MD Jun 21, 2016 22:52
[2016-06-21 23:18] VITALS: BP 116/57; PULSE 75; RESP 16; TEMP 98.7; O2SAT 96
--- NOTE | 2016-06-22 01:54 | NUR ---
Chart Check 24 hour chart check completed
[2016-06-22] MEDS: CYCLOBENZAPRINE 5 MG TABLET PO PRN ×2 (02:02→19:37)
[2016-06-22] MEDS: ACETAMINOPHEN 325 MG TABLET PO PRN ×2 (02:02→13:28)
[2016-06-22] MEDS: METOCLOPRAMIDE 5mg TABLET PO SCH ×4 (05:24→20:46)
[2016-06-22] MEDS: OMEPRAZOLE 20 MG CAPSULE PO SCH (05:24)
[2016-06-22] MEDS: HYDROMORPHONE 2 MG TABLET PO PRN ×4 (05:25→20:47)
[2016-06-22] MEDS: LEVOFLOXACIN 250 MG TABLET PO SCH (05:27)
[2016-06-22 05:42] LABS: BASOPHILS # (AUTO) 0.1 T/MM3 (0-0.2); BASOPHILS % (AUTO) 0.7 % (0-2); EOSINOPHILS # (AUTO) 0.3 T/MM3 (0-0.5); HCT - HEMATOCRIT 37.2 % (36-46); HGB - HEMOGLOBIN 11.4 GM/DL (12-16); IMMATURE GRANULOCYTE # (AUTO) 0.01 T/MM3 (0.00-0.03); IMMATURE GRANULOCYTE % (AUTO) 0.1 % (0.0-0.5); LYMPHOCYTES # (AUTO) 1.5 T/MM3 (1-4.8); LYMPHOCYTES % (AUTO) 17.3 % (23-45); MEAN CORPUSCULAR HGB 29.8 UUG (26-34); MEAN CORPUSCULAR HGB CONC(MCHC 30.6 GM/DL (31-37); MEAN CORPUSCULAR VOLUME 97.4 UM3 (80-100); MEAN PLATELET VOLUME 12.7 UM3 (9.4-12.4); MONOCYTES % (AUTO) 11.9 % (0-9.0); NEUTROPHILS #(AUTO)-ABSOLUTE 5.6 T/MM3 (1.8-7.7); RED BLOOD COUNT 3.82 M/MM3 (4.00-5.20); WBC - WHITE BLOOD COUNT 8.5 T/MM3 (4.5-11.0)
[2016-06-22 05:56] LABS: ANION GAP 8 MEQ/L (5-15); BUN/CREATININE RATIO 27 RATIO (6-26); CHLORIDE 96 MEQ/L (98-107); CO2 - CARBON DIOXIDE 29 MEQ/L (22-30); CREATININE 1.2 MG/DL (0.7-1.2); GLOMERULAR FILTRATION RATE 43; GLUCOSE 144 MG/DL (65-110); POTASSIUM 4.6 MEQ/L (3.6-5); SODIUM 133 MEQ/L (134-144)
--- NOTE | 2016-06-22 06:36 | NUR ---
Shift Summary: Alert and oriented x4, pt up and down frequently through noc to bed, chair and BR. Transfers/ambulates x1 assist, gait belt and quad cane. PRN meds given for pain, see JUN. Continent of b&b, uses call system appropriately. VSS, BG WNL, no s/s needed. Dressing to right hip remained c/d/i, sternum incision VACUUM PAN TENDER and WNL. bed and chair alarm utilized, side rails x2 while in bed.
[2016-06-22 07:25] VITALS: BP 124/65; PULSE 88; RESP 16; TEMP 97.3; O2SAT 94
[2016-06-22] MEDS: DOCUSATE SODIUM 100 MG CAPSULE PO SCH ×2 (09:00→20:46)
[2016-06-22] MEDS: LIDOCAINE 5% PATCH TD SCH (09:59)
[2016-06-22] MEDS: FERROUS SULFATE 324 MG TABLET PO SCH ×3 (10:00→17:26)
[2016-06-22] MEDS: TRAMADOL 50 MG TABLET PO PRN (10:00)
[2016-06-22] MEDS: MAGNESIUM OXIDE 400 MG TABLET PO SCH (10:00)
[2016-06-22] MEDS: ASCORBIC ACID 500 MG TABLET PO SCH (10:00)
[2016-06-22] MEDS: AMIODARONE 200 MG TABLET PO SCH (10:01)
[2016-06-22] MEDS: ASPIRIN 81 MG CHEWABLE TABLET PO SCH (10:01)
--- NOTE | 2016-06-22 10:14 | NUR ---
NOTE SPOKE TO JEROD IN WOUND CARE, VERIFIED THE WOUND CARE CONSULT WAS RECEIVED FOR WOUND ON R FOOT. WILL CONTINUE TO FOLLOW STATUS OF WOUND CONSULT.
--- NOTE | 2016-06-22 10:52 | PNPDOC ---
Subjective Date DATE: 06/22/16 TIME: 10:45 Subjective Talisha is seen this morning while sitting at the breakfast table. She complains of having pain to the arch of the right foot (plantar). There is a area of scaly skin and she has significant tenderness. No obvious open skin wound. Voiding without difficulty and bowels are moving daily. BP 124/65. Objective Vital Signs Vital signs Vital Signs Date Time Temp Pulse Resp B/P Pulse Ox O2 Delivery O2 Flow Rate FiO2 06/22/16 07:25 97.3 88 16 124/65 94 Room Air Telemetry Rhythm: Sinus Rhythm Height (Feet): 5 Height (Inches): 5.00 Weight (Kilograms): 68.900 General General Appearance: Alert, Orientated x 3, Cooperative, No Acute Distress Eyes (Brief) Eyes: FOUND: EOMI ENMT (Brief) ENMT: FOUND: mucosa moist, normal dentition, NOT FOUND: pharnyx erythema Neck (Brief) Neck: FOUND: midline, NOT FOUND: adenopathy, carotid bruits, tracheal deviation Respiratory (Brief) Respiratory: FOUND: clear all anaya, equal bilaterally, NOT FOUND: wheezes Cardiovascular (Brief) Cardiac: FOUND: regular rate, regular rhythm, NOT FOUND: murmur, pedal edema Capillary Refill: <2 sec Abdomen (Brief) Abdominal: FOUND: BS normo active x4, soft, NOT FOUND: distended, tender Lymphatic (Brief) Lymphatic: NOT FOUND: adenopathy Musculoskeletal (Brief) Musculoskeletal: FOUND: tenderness (plantar aspect of right foot) Integumentary (Brief) Integumentary: FOUND: dry, pink, warm Neurologic (Brief) Neurological: FOUND: cranial 2-12 intact Psychiatric (Brief) Psychiatric: FOUND: alert, attentive, normal affect, oriented Laboratory Laboratory Laboratory Tests 06/22/16 05:12 Laboratory Tests 06/22/16 05:12 Microbiology Microbiology Microbiology Date/Time Source Procedure Growth Status 06/19/16 11:33 Urine, Clean Catch-Midstream Urine Culture - Final Enterobacter Cloacae Complete Assessment & Plan Problems: (1) Hypomagnesemia Status: Acute (2) Situational depression Status: Acute (3) Urinary retention Status: Acute Assessment & Plan: Straight cath on 06/11/16 - 750 mL Mason catheter was placed later on 06/11/16 removed 06/16/16 (4) S/P CABG (coronary artery bypass graft) Onset Date: ~ 05/20/2016 Status: Acute (5) Status post hip surgery Status: Acute Assessment & Plan: 05/16/16- Dr Champagne- right Brock-arthroplasty (6) Chronic kidney disease Status: Chronic (7) Diabetes mellitus Onset Date: ~ 05/2016 Status: Chronic Qualifiers: Diabetes mellitus type: type 2 (8) HTN (hypertension) Status: Chronic (9) History of atrial fibrillation Status: Chronic (10) Hypercholesteremia Status: Chronic (11) Peptic ulcer disease Status: Chronic (12) Pseudoarthrosis Status: Chronic (13) Basal cell carcinoma Status: Chronic (14) Allergic rhinitis Status: Chronic (15) GERD (gastroesophageal reflux disease) Status: Chronic Plan/Intensity of Service 06/22/16 Urine culture is positive for Enterobacter. She was placed on Levaquin 250mg daily. Will discuss terminal make up operator treatment plan given recent MYRON. Have asked wound team to see and evaluate right foot today. Continue to work on pain control with Lidoderm patch and oral Dilaudid Colace BID and Miralax for ongoing bowel motivation. Encourage ongoing work with PT and OT for strengthening Code Status Full Code Hospital Course Summary Disclaimer The hospital course summary below is not to be considered part of the above Progress Note. Hospital Course Summary 06/04/16 Spoke with Ayde Hughes with Dr. Lopez regarding patient's recent CABG procedure and ongoing treatment recommendations. She does recommend patient be on anticoagulation as she did have A-fib postoperatively. She would prefer Eliquis if not contraindicated. Given mild oozing from right hip incision will consult Dr Champagne for orthopedic evaluation of incision prior to starting anticoagulation. Patient does need postop anticoagulation for 30 days from right hemiarthroplasty performed on 05/16/16. Patient did have a right groin hematoma post heart catheter that was evaluated while at [place]. Overall this is improving. Continue with amiodarone given recent atrial fibrillation. She was noted to have elevated white count at 16.3. Will check a UA to rule out infection. Bumex 1 mg BID for ongoing diuresis. Oral Dilaudid and Ultram for pain control Continue SCDs to bilateral lower external for DVT prophylaxis Scheduled MiraLAX and Colace twice a day for ongoing bowel motivation. Encourage work with PT/OT for ongoing strengthening Will discuss case with attending Dr Hobson 06/05/16 Continue to monitor right hip dressing for oozing. Several more tl were placed by Dr Champagne Continue on ASA only at this time, Case discussed with Dr Lopez yesterday . Continue to monitor blood sugars. Fasting sugar this morning was 146. Will increase sliding scale to medium range dosing and continue to follow. Will recheck CBC and BMP tomorrow morning to follow leukocytosis 06/08/16 At this time, will recommend holding off on surgical procedure until cardiac rate control has been further evaluated and treated. Consultation was placed to Dr. Lopez for further recommendations. Patient has continued to receive her amiodarone, however, did have her beta rachelle held this morning due to Patient is to be monitored on cardiac telemetry. Current anticoagulation is aspirin. This may need to be discussed further with all providers involved including Dr. Lopez, Dr. Hobson and Dr. Champagne Will reevaluate patient later today, the hope is that she will be able to have her hip procedure tomorrow by Dr. Champagne. 06/09/[address] Lopez - pt is in sinus rhythm and has been cleared for surgery. I spoke with Dr. Champagne and updated him as well. Will need to discuss anticoagulation postop. Dr. Champagne prefers nothing stronger than ASA if possible; if needs anticoagulation would like to wait a week before starting, again if possible. However, he understands that if anticoagulation is necessary he would not argue it. Patient is complaining of nausea this morning - Zofran as needed. Repeat labs in am - pt has had leukocytosis. Encouraged pt to set small, achievable goals and let us know if she becomes too depressed. 06/11/16 Urinary retention (750mL) - UA neg. for UTI. Suspect retention may be combination of extensive hematoma and hx of uterine prolapse, along with hx of chronic retention. Continue post-void residuals. Pt does not want a catheter if possible. Suspected abdominal hematoma - will obtain ultrasound today. She is only on ASA for anticoagulation. Type 2 DM with hypoglycemia - she's not on antiglycemic agents other than SSI - continue to monitor. Leukocytosis - improving. Recheck in am. Situational depression - consider antidepressant or psych consult. 06/12/16 Hypomagnesemia - magnesium 1.4. Oral replacement ordered. Recheck in am. Leukocytosis - resolved Situational depression - patient refused to see psychiatrist. She is not interested in starting any antidepressants. Follow closely. Urinary retention - Mason catheter was placed on 06/11/16. Abdominal hematoma - she is only on aspirin for anticoagulation. Heating pad as needed. Type 2 diabetes - hemoglobin A1c was 8.3% in early May. She has had fasting and postprandial hyperglycemia yesterday, but on 06/10/16 she had hypoglycemia. If she continues to have hyperglycemia, could possibly introduce low-dose Metformin(cardiology approved Metformin). Consult environmental educator. 06/16/16 Mason removed this am - monitor for retention. constipation - prn meds given hyperglycemia - improving since metformin was started on 06/15/16; frequently with hyperglycemia >200 after breakfast. Would probably increase metformin before starting insulin, but need to wait 1-2 weeks before increasing metformin dose. check bmp and mg on 06/18/16 06/18/16 Of asked nursing staff to change dressing on the right hip. Will continue to monitor for any evidence of bleeding. Patient is voiding, however, does report having urinary frequency since Mason catheter was removed. Will continue to monitor for evidence of infection. Continue to work on pain control with Lidoderm patch and oral Dilaudid Colace BID and Miralax for ongoing bowel motivation. Overall blood pressures appear to be well controlled on Lopressor, and lisinopril 10 milligrams daily. Continue to monitor blood sugars continue with metformin, Humalog Encourage ongoing work with PT and OT for strengthening 06/19/16 Given increase in dysuria will obtain UA today Mosaic Technician continues to increase today is up to 1.7. Metformin, Lisinopril and Bumex is all on hold. Will give 500 ML bolus of NS today. Monitor hyponatremia as NA today is 130. Continue to work on pain control with Lidoderm patch and oral Dilaudid Colace BID and Miralax for ongoing bowel motivation. Encourage ongoing work with PT and OT for strengthening 06/22/16 Urine culture is positive for Enterobacter. She was placed on Levaquin 250mg daily. Will discuss fci treatment plan given recent MYRON. Have asked wound team to see and evaluate right foot today. Continue to work on pain control with Lidoderm patch and oral Dilaudid Colace BID and Miralax for ongoing bowel motivation. Encourage ongoing work with PT and OT for strengthening KRISTY SARABIA APRN Jun 22, 2016 10:48
[2016-06-22] MEDS: INSULIN LISPRO 100 UNIT/ML SQ PRN (10:59)
--- NOTE | 2016-06-22 12:19 | NUR ---
CM SPOKE WITH PT, RE: HER CONCERNS OF RETURNING HOME. PT STATED SHE DOES NOT FEEL READY BECAUSE SHE WILL BE ALONE DURING THE DAY. DISCUSSED SNU OPTIONS; SHE SAID SHE WANTED THIS, AND HER FIRST PREFERENCE IS [facility], THEN [facility] IS [facility]. SHE GAVE PERMISSION TO OPEN PORTALS TO BOTH. ALSO TO UPDATE SON ON DC PLAN. CALLED TANYA AT [facility]; SHE SAID SHE HAS 1 BED AVAILABLE. OPENED THE PORTAL. SHE WILL CALL THIS WORKER BACK WITH ANSWER. CALLED PAMELA EISENBERG. UPDATED HIM. HE ASKED WHY PT CAN'T STAY AT IRU. EXPLAINED THAT PT HAS MET HER IRU GOALS/LEVEL OF CARE, AND HE WAS AGREEABLE TO THIS. HE WAS AGREEABLE TO SNU AT [facility].
--- NOTE | 2016-06-22 13:43 | PNPDOC ---
TANYA MONROE SCOUT SNIPER 06/22/16 1338: Subjective Date DATE: 06/22/16 TIME: 13:15 Subjective Tailsha is laying on her bed, just finished therapy. She reports she still is having back pain but denies chest pain or pressure. Objective Vital Signs Vital signs Vital Signs 06/22/16 07:25 Temp 97.3 Pulse 88 Resp 16 B/P 124/65 Pulse Ox 94 O2 Delivery Room Air Telemetry Rhythm: Sinus Rhythm Height (Feet): 5 Height (Inches): 5.00 Weight (Kilograms): 68.900 General Alert, Orientated x 3, Cooperative ENMT (Brief) mucosa moist Neck (Brief) NOT FOUND: JVD, carotid bruits Respiratory (Brief) clear all anaya, equal bilaterally, NOT FOUND: rales, wheezes Cardiovascular (Brief) regular rate, regular rhythm, NOT FOUND: click, gallop, murmur, pedal edema, rub Abdomen (Brief) BS normo active x4, soft, NOT FOUND: tender Integumentary (Brief) dry, pink, warm Psychiatric (Brief) alert, attentive, oriented Laboratory Laboratory Laboratory Tests Test 06/20/16 14:09 06/20/16 20:04 06/21/16 05:30 06/21/16 10:13 Glucometer 176mg/dL 200mg/dL 111mg/dL 262mg/dL Test 06/21/16 14:18 06/21/16 21:20 06/22/16 05:12 06/22/16 05:21 Glucometer 158mg/dL 149mg/dL 136mg/dL White Blood Count 8.5T/MM3 Red Blood Count 3.82M/MM3 Hemoglobin 11.4GM/DL Hematocrit 37.2% Mean Corpuscular Volume 97.4UM3 Mean Corpuscular Hemoglobin 29.8UUG Mean Corpuscular Hemoglobin Concent 30.6GM/DL RDW Standard Deviation 69.4FL Platelet Count 154T/MM3 Mean Platelet Volume 12.7UM3 Immature Granulocyte % (Auto) 0.1% Neutrophils (%) (Auto) 66.0% Lymphocytes (%) (Auto) 17.3% Monocytes (%) (Auto) 11.9% Eosinophils (%) (Auto) 4.0% Basophils (%) (Auto) 0.7% Absolute Immature Granulocyte (auto 0.01T/MM3 Absolute Neutrophils (auto) 5.6T/MM3 Absolute Lymphocytes (auto) 1.5T/MM3 Absolute Monocytes (auto) 1.0T/MM3 Absolute Eosinophils (auto) 0.3T/MM3 Absolute Basophils (auto) 0.1T/MM3 Turbidity < 20 Sodium Level 133MEQ/L Potassium Level 4.6MEQ/L Chloride Level 96MEQ/L Carbon Dioxide Level 29MEQ/L Anion Gap 8MEQ/L Blood Urea Nitrogen 32.0MG/DL Creatinine 1.2MG/DL Glomerular Filtration Rate Calc 43 BUN/Creatinine Ratio 27RATIO Glucose Level 144MG/DL Calculated Osmolality 266MOSM/KG Calcium Level 9.0MG/DL Icterus Index < 2 Chemistry Specimen Hemolysis < 15 Test 06/22/16 10:12 Glucometer 210mg/dL Laboratory Tests 06/22/16 05:12 Laboratory Tests 06/22/16 05:12 Medications Current Medications Miscellaneous Medication (May use PRN orders) 1 PRN PRN MC ; Start 06/03/16 at 14:30 Acetaminophen (Tylenol Regular Strength) 650 mg Q6HR PRN PO PAIN Last administered on 06/22/16 13:28; Start 06/03/16 at 14:30 Ascorbic Acid (VITAMIN C 500 mg Tablet) 500 mg DAILY PO Last administered on 10:00; Start 06/04/16 at 09:00 Aspirin (ASA) 81 mg DAILY PO Last administered on 06/22/16 10:01; Start at 09:00 Atorvastatin Calcium (LIPITOR 40 mg) 40 mg HS PO Last administered on 21:01; Start 06/03/16 at 22:00 Docusate Sodium (Colace) 100 mg BID PO ; Start 06/03/16 at 21:00; Stop 06/03/16 at 21:00; Status DC Ferrous Sulfate (Feosol) 324 mg TIDWM PO Last administered on 06/22/16 12:08; Start 06/03/16 at 17:30 Gabapentin (Neurontin) 300 mg HS PO Last administered on 06/21/16 21:01; Start 06/03/16 at 22:00 Omeprazole (Prilosec) 40 mg ACB PO Last administered on 06/22/16 05:24; Start 06/04/16 at 06:30 Potassium Chloride (Kdur) 20 meq BIDWM PO Last administered on 06/18/16 17:29; Start 06/03/16 at 17:30; Status Future Hold Tramadol HCl (Ultram) 50 mg Q6HR PRN PO PAIN Last administered on 06/22/16 10: 00; Start 06/03/16 at 14:30 Al Hydroxide/Mg Hydroxide (Maalox) 30 ml Q3-4H PRN PO INDIGESTION Last administered on 06/03/16 15:29; Start 06/03/16 at 15:30 Glucose (Glutose 15) 37.5 g PRN PRN PO HYPOGLYCEMIA; Start 06/03/16 at 18:15 Dextrose (D50w) 25 ml PRN PRN IV HYPOGLYCEMIA; Start 06/03/16 at 18:15 Ondansetron HCl (Zofran Odt) 4 mg Q4H PRN PO NAUSEA &/OR VOMITING Last administered on 06/21/16 14:04; Start 06/03/16 at 18:30 Metoclopramide HCl (Reglan) 5 mg ACHS PO Last administered on 06/22/16 10:58; Start 06/03/16 at 22:00 Bumetanide (BUMEX 1 mg TAB) 1 mg BID. PO Last administered on 06/18/16 17:29; Start 06/05/16 at 09:00; Status Future Hold Benzocaine (Americaine Hemorr. Oint.) 1 applic BID PRN TOP HEMORRHOIDS Last administered on 06/11/16 19:47; Start 06/05/16 at 13:00 Insulin Human Lispro (Humalog) SS PRN SQ Last administered on 06/22/16 10:59 ; Start 06/05/16 at 17:00 Lidocaine (Lidoderm Patch Removal) 1 removal 2100 TOP Last administered on 06/21 20:59; Start 06/07/16 at 21:00 Cefazolin Sodium (Kefzol) 2 g PREOP ONCE IV ; Start 06/08/16 at 11:45; Stop at 11:46; Status DC Metoprolol Tartrate (Lopressor) 25 mg O ONCE PO Last administered on 12:22; Start 06/08/16 at 12:30; Stop 06/08/16 at 12:31; Status DC Bupivacaine HCl/ Epinephrine Bitart (Marcaine/Epi 0.25%/1:200,000) 30 ml STK- MED ONCE INJ ; Start 06/08/16 at 14:00; Stop 06/09/16 at 09:51; Status DC Rocuronium Ephraim (Zemuron) 50 mg STK-MED ONCE IV ; Start 06/08/16 at 14:00; Stop 06/09/16 at 09:51; Status DC Succinylcholine Chloride (Quelicin) 200 mg STK-MED ONCE IV ; Start 06/08/16 at 14:00; Stop 06/09/16 at 09:51; Status DC Sevoflurane 1 ml 1 ml STK-MED ONCE IH ; Start 06/08/16 at 14:00; Stop 06/09/16 at 09:51; Status DC Sodium Chloride (Normal Saline IV) 1,000 ml @ 50 mls/hr Q20H ONCE IV ; Start at 10:51; Stop 06/11/16 at 06:50; Status DC Cefazolin Sodium 2 g 2 g O ONCE IV Last administered on 06/09/16t 11:33; Start 06/09/16 at 11:00; Stop 06/09/16 at 11:46; Status DC Cefazolin Sodium/ Sodium Chloride (Kefzol/NS) 100 ml @ 200 mls/hr Q8H IV Last administered on 06/10/16t 05:47; Start 06/09/16 at 19:30; Stop 06/10/16 at 04:00; Status DC Ondansetron HCl (Zofran) 4 mg O PRN IV NAUSEA &/OR VOMITING; Start 06/09/16 at 12:45; Stop 06/10/16 at 08:26; Status DC Vancomycin HCl (Vancocin) 1 g STK-MED ONCE IV ; Start 06/09/16 at 11:09; Stop at 11:34; Status DC Bupivacaine HCl (Sensorcaine 0.25% Steri-Dawit) 30 mg STK-MED ONCE INJ ; Start at 11:09; Stop 06/10/16 at 11:34; Status DC Lidocaine HCl (Xylocaine 1%) 30 mg STK-MED ONCE IJ ; Start 06/09/16 at 11:09; Stop 06/10/16 at 11:34; Status DC Propofol (Diprivan) 500 mg STK-MED ONCE IV ; Start 06/09/16 at 11:09; Stop at 11:34; Status DC Fentanyl (Fentanyl) 100 mcg STK-MED ONCE IV ; Start 06/09/16 at 11:09; Stop 06/10 at 11:34; Status DC Magnesium Oxide (Magox) 400 mg 20 ONCE PO Last administered on 06/12/16 20:40 ; Start 06/12/16 at 20:00; Stop 06/12/16 at 20:01; Status DC Metformin HCl (Glucophage) 500 mg WB PO Last administered on 06/18/16 08:06; Start 06/15/16 at 08:00; Status Future Hold Hydromorphone HCl (Dilaudid) ONE-HALF TO ONE TABLET Q4H PRN PO PAIN Last administered on 06/22/16 10:58; Start 06/14/16 at 13:45 Amiodarone HCl (Pacerone) 200 mg DAILY PO Last administered on 06/22/16 10:01 ; Start 06/16/16 at 09:00 Magnesium Hydroxide (Mom) 30 ml DAILY PRN PO CONSTIPATION Last administered on 06/16/16 08:28; Start 06/16/16 at 08:15 Polyethylene Glycol (Miralax) 17 g BID PRN PO Last administered on 06/21/16 21:01; Start 06/16/16 at 19:15 Lidocaine (Lidoderm) 1 patch DAILY TD Last administered on 06/22/16 09:59; Start 06/18/16 at 09:00 Lisinopril (Prinivil) 10 mg DAILY PO Last administered on 06/18/16 08:09; Start 06/18/16 at 09:00; Status Future Hold Lisinopril 5 mg 5 mg O ONCE PO Last administered on 06/17/16 15:14; Start 06/17 at 14:45; Stop 06/17/16 at 14:49; Status DC Sodium Chloride (NS) 500 ml @ 250 mls/hr Q2H IV Last administered on 09:18; Start 06/19/16 at 09:00; Stop 06/19/16 at 10:59; Status DC Cyclobenzaprine HCl (Flexeril) 5 mg TID PRN PO Last administered on 06/22/16 02:02; Start 06/19/16 at 22:00 Cephalexin HCl (Keflex) 500 mg Q6HR PO Last administered on 06/21/16 09:11; Start 06/20/16 at 21:00; Stop 06/21/16 at 11:32; Status DC Levofloxacin (LEVAQUIN 250 mg tablet) 250 mg ACB PO Last administered on 05:27; Start 06/21/16 at 11:30; Stop 06/28/16 at 11:29 Assessment & Plan Problems: (1) Atrial fibrillation with rapid ventricular response Status: Acute Assessment & Plan: Remains in SR. Decrease Amiodarone to 200mg po daily and Metoprolol 25mg po BID for rhythm and rate control. Will repeat EKG in am. ASA only needed as A Fib was S/P CABG and has not recurred. (2) CAD (coronary artery disease) Status: Chronic Assessment & Plan: Continue BB, DICK and statin. (3) S/P CABG (coronary artery bypass graft) Onset Date: ~ 05/20/2016 Status: Acute Assessment & Plan: cont asa, metoprolol, amiodarone, statin (4) HTN (hypertension) Status: Chronic Assessment & Plan: Cont metoprolol (5) Diabetes mellitus Onset Date: ~ 05/2016 Status: Chronic Qualifiers: Diabetes mellitus type: type 2 Assessment & Plan: managed per PCP Plan/Intensity of Service 06/08/16 Give medications as ordered. If plan to I&D tomorrow, she is stable from a cardiac standpoint and may have needed I & D. please given beta rachelle and antiarrhythmic with a sip of water as scheduled. 06/09/16 In SR 60's today. Continue Amiodarone 200mg po BID and Metoprolol 25mg po BID for rhythm and rate control. Will repeat EKG in am. ASA only thinner at this time due to recent hip surgery. 06/10/16 Remains in SR, Continue to monitor telemetry. 06/11/16 remains in SR. Hematoma to right groin possibly related to heart cath. Start Lisinopril 5mg daily this evening. 06/12/16 Okay with Metformin if needed for DM. Aspirin only to allow for wound healing per ortho. Will start oral anticoagulation upon discharge. 06/15/16 Remains in SR. Decrease Amiodarone to 200mg po daily. 06/16/16 ASA only needed as A Fib was S/P CABG and has not recurred. 06/17/16 Increase Lisinopril to 10mg, give additional 5mg this evening. 06/18/16 Slightly improved BP with Lisinopril increase. Has back pain since fall in which she broke her hip, reports ortho has ruled out acute cause, degenerative changes only. 06/19/16 reports back pain which she takes Dilaudid for. No cardiac complaints. 06/22/16 Telemetry is off. Heart rate is regular. Discharge on Aspirin only Thank you for allowing us to participate in the care of this patient. BERNIE OLMOS MD 06/29/16 1413: Assessment & Plan Plan/Intensity of Service After examining the patient I agree with the above assessment. I am involved in the formulation of the patient's plan of care. TANYA MONROE APRN Jun 22, 2016 13:38 BERNIE OLMOS MD Jun 29, 2016 14:13
[2016-06-22 16:00] VITALS: BP 119/66; PULSE 82; RESP 16; TEMP 97.5; O2SAT 96
--- NOTE | 2016-06-22 16:00 | NUR ---
NOTE WOUND CARE NURSES ASSESED R FOOT. STATED SKIN ISSUE WAS NOT A WOUND, NO FLUID POCKET, NO OPEN WOUND. REPORTED SKIN FLAKES OFF AND INTACT SKIN UNDERNEATH. ADVISED FOR POSSIBLE DERMATOLOGY CONSULT OR PCP FOLLOW-UP. KRISTY SARABIA APN WAS NOTIFIED OF WOUND CARE RECOMENDATIONS.
[2016-06-22] MEDS ORDERED: TRAM50TA4 PO (16:13)
[2016-06-22] MEDS ORDERED: AMIO200T7 PO (16:14)
[2016-06-22] MEDS ORDERED: DOCU-168 PO (16:14)
[2016-06-22] MEDS ORDERED: METO5TAB2 PO (16:14)
[2016-06-22] MEDS ORDERED: MAGN400T6 PO (16:14)
[2016-06-22] MEDS ORDERED: LIDO700A3 TD (16:14)
[2016-06-22] MEDS ORDERED: BENZ30OI7 TOP (16:14)
[2016-06-22] MEDS ORDERED: METF500T PO (16:14)
[2016-06-22] MEDS ORDERED: HYDR2TAB56 PO (16:14)
[2016-06-22] MEDS ORDERED: LIDO700A3 TOP (16:14)
[2016-06-22] MEDS ORDERED: CEFP200T14 PO (16:27)
[2016-06-22] MEDS: CEFPODOXIME 200 MG TABLET PO SCH (17:26)
--- NOTE | 2016-06-22 17:27 | NUR ---
CM CALL FROM TANYA AT [facility]; SHE SAID PT IS ACCEPTED FOR SNU. PLANNED A 1 PM LOUVER DOOR ASSEMBLER TIME. RELAYED THIS TO RN. ALSO SPOKE WITH PT ABOUT THIS, WHO STATED SHE WAS GLAD THIS WORKED OUT. REVIEWED IM LETTER WITH PT, SHE SIGNED THIS AND HAD NO QUESTIONS/CONCERNS.
--- NOTE | 2016-06-22 19:33 | NUR ---
SHIFT SUMMARY PATIENT ALERT AND ORIENTED X 3. UP WITH 1 AND NIKKI WALKER. PATIENT C/O PAIN IN BACK AND R FOOT. PRN MEDICATIONS GIVEN, SEE MAR. PATIENT HAD LOOSE STOOLS IN AM. COLACE HELD IN AM. WOUND CARE NURSE ASSESSED R FOOT SKIN ISSUE. WOUND CARE NURSE REPORTED FOOT ISSUE WAS NOT A WOUND, ADVISED DERMATOLOGY OR PCP TO ASSES. NOTIFIED KRISTY SARABIA OF WOUND CARE RECOMENDATION. PATIENT ATE MEALS PER SELF. ENCOURAGED FLUIDS. R HIP DRESSING PEELING UP. MEPILEX CHANGED. WILL CONTINUE TO MONITOR.
[2016-06-22] MEDS: ATORVASTATIN 40 MG TABLET PO SCH (20:46)
[2016-06-22] MEDS: LIDOCAINE PATCH REMOVAL TOP SCH (20:46)
[2016-06-22] MEDS: GABAPENTIN 300 MG CAPSULE PO SCH (20:46)
[2016-06-22] MEDS ORDERED: CEPHALEXIN 500 MG CAPSULE PO SCH (21:00)
[2016-06-22 22:36] VITALS: BP 107/65; PULSE 68; RESP 16; TEMP 97.3; O2SAT 94
--- NOTE | 2016-06-22 22:58 | PNPDOC ---
IRU Subjective Date DATE: 06/22/16 TIME: 22:51 Subjective Pt cont with foot pain, is agreeable to work with PT and OT. Looking at possible D/C tomorrow. IRU Objective Vital Signs Vital signs Vital Signs Date Time Temp Pulse Resp B/P Pulse Ox O2 Delivery O2 Flow Rate FiO2 06/22/16 22:36 97.3 68 16 107/65 94 Room Air Telemetry Rhythm: Sinus Rhythm Height (Feet): 5 Height (Inches): 5.00 Weight (Kilograms): 68.900 General General Appearance: Alert, Orientated x 2 Respiratory (Brief) Respiratory: FOUND: clear all anaya, equal bilaterally, NOT FOUND: rales, wheezes Cardiovascular (Brief) Cardiac: FOUND: regular rate, regular rhythm, NOT FOUND: pedal edema Capillary Refill: <2 sec (Rhythm consistent , no irreg rhythm noted on exam today.) Laboratory Laboratory Laboratory Tests Test 06/21/16 05:30 06/21/16 10:13 06/21/16 14:18 06/21/16 21:20 Glucometer 111mg/dL 262mg/dL 158mg/dL 149mg/dL Test 06/22/16 05:12 06/22/16 05:21 06/22/16 10:12 06/22/16 14:11 White Blood Count 8.5T/MM3 Red Blood Count 3.82M/MM3 Hemoglobin 11.4GM/DL Hematocrit 37.2% Mean Corpuscular Volume 97.4UM3 Mean Corpuscular Hemoglobin 29.8UUG Mean Corpuscular Hemoglobin Concent 30.6GM/DL RDW Standard Deviation 69.4FL Platelet Count 154T/MM3 Mean Platelet Volume 12.7UM3 Immature Granulocyte % (Auto) 0.1% Neutrophils (%) (Auto) 66.0% Lymphocytes (%) (Auto) 17.3% Monocytes (%) (Auto) 11.9% Eosinophils (%) (Auto) 4.0% Basophils (%) (Auto) 0.7% Absolute Immature Granulocyte (auto 0.01T/MM3 Absolute Neutrophils (auto) 5.6T/MM3 Absolute Lymphocytes (auto) 1.5T/MM3 Absolute Monocytes (auto) 1.0T/MM3 Absolute Eosinophils (auto) 0.3T/MM3 Absolute Basophils (auto) 0.1T/MM3 Turbidity < 20 Sodium Level 133MEQ/L Potassium Level 4.6MEQ/L Chloride Level 96MEQ/L Carbon Dioxide Level 29MEQ/L Anion Gap 8MEQ/L Blood Urea Nitrogen 32.0MG/DL Creatinine 1.2MG/DL Glomerular Filtration Rate Calc 43 BUN/Creatinine Ratio 27RATIO Glucose Level 144MG/DL Calculated Osmolality 266MOSM/KG Calcium Level 9.0MG/DL Icterus Index < 2 Chemistry Specimen Hemolysis < 15 Glucometer 136mg/dL 210mg/dL 123mg/dL Test 06/22/16 21:18 Glucometer 111mg/dL Assessment & Plan Problems: (1) Myopathic disease or syndrome Status: Acute Assessment & Plan: Improved FIM scores.Working with PT and OT. Increase in overall strength and mobility. (2) Neuropathy Status: Chronic Assessment & Plan: Continued pain. PT and OT working to increase mobility despite pain. (3) Debility Status: Acute Assessment & Plan: Symptoms and strength improving. (4) HTN (hypertension) Status: Chronic Assessment & Plan: managed by medical. (5) S/P CABG (coronary artery bypass graft) Onset Date: ~ 05/20/2016 Status: Acute Assessment & Plan: cardiology following pt. (6) Status post hip surgery Status: Acute (7) Diabetes mellitus Onset Date: ~ 05/2016 Status: Chronic Qualifiers: Diabetes mellitus type: type 2 (8) History of atrial fibrillation Status: Chronic Assessment & Plan: cardiology/medical following pt. (9) Chronic kidney disease Status: Chronic Code Status Full Code Interventions to Obtain Goals PT Treatment Plan: Therapeutic Exercise, Gait Training, Functional Activities , Patient/Family Education, Balance/Proprioception OT Treatment Plan: ADL's (basic care), Ther. Exercise for ADL's, UE Functional Training, Balance Training, Pt./Family Education, IADL's Hospital Course Summary Disclaimer The hospital course summary below is not to be considered part of the above Progress Note. Hospital Course Summary 06/04/16 Spoke with Ayde Hughes with Dr. Lopez regarding patient's recent CABG procedure and ongoing treatment recommendations. She does recommend patient be on anticoagulation as she did have A-fib postoperatively. She would prefer Eliquis if not contraindicated. Given mild oozing from right hip incision will consult Dr Champagne for orthopedic evaluation of incision prior to starting anticoagulation. Patient does need postop anticoagulation for 30 days from right hemiarthroplasty performed on 05/16/16. Patient did have a right groin hematoma post heart catheter that was evaluated while at [place]. Overall this is improving. Continue with amiodarone given recent atrial fibrillation. She was noted to have elevated white count at 16.3. Will check a UA to rule out infection. Bumex 1 mg BID for ongoing diuresis. Oral Dilaudid and Ultram for pain control Continue SCDs to bilateral lower external for DVT prophylaxis Scheduled MiraLAX and Colace twice a day for ongoing bowel motivation. Encourage work with PT/OT for ongoing strengthening Will discuss case with attending Dr Hobson 06/05/16 Continue to monitor right hip dressing for oozing. Several more tl were placed by Dr Champagne Continue on ASA only at this time, Case discussed with Dr Lopez yesterday . Continue to monitor blood sugars. Fasting sugar this morning was 146. Will increase sliding scale to medium range dosing and continue to follow. Will recheck CBC and BMP tomorrow morning to follow leukocytosis 06/08/16 At this time, will recommend holding off on surgical procedure until cardiac rate control has been further evaluated and treated. Consultation was placed to Dr. Lopez for further recommendations. Patient has continued to receive her amiodarone, however, did have her beta rachelle held this morning due to Patient is to be monitored on cardiac telemetry. Current anticoagulation is aspirin. This may need to be discussed further with all providers involved including Dr. Lopez, Dr. Hobson and Dr. Champagne Will reevaluate patient later today, the hope is that she will be able to have her hip procedure tomorrow by Dr. Champagne. 06/09/[address] Lopez - pt is in sinus rhythm and has been cleared for surgery. I spoke with Dr. Champagne and updated him as well. Will need to discuss anticoagulation postop. Dr. Champagne prefers nothing stronger than ASA if possible; if needs anticoagulation would like to wait a week before starting, again if possible. However, he understands that if anticoagulation is necessary he would not argue it. Patient is complaining of nausea this morning - Zofran as needed. Repeat labs in am - pt has had leukocytosis. Encouraged pt to set small, achievable goals and let us know if she becomes too depressed. 06/11/16 Urinary retention (750mL) - UA neg. for UTI. Suspect retention may be combination of extensive hematoma and hx of uterine prolapse, along with hx of chronic retention. Continue post-void residuals. Pt does not want a catheter if possible. Suspected abdominal hematoma - will obtain ultrasound today. She is only on ASA for anticoagulation. Type 2 DM with hypoglycemia - she's not on antiglycemic agents other than SSI - continue to monitor. Leukocytosis - improving. Recheck in am. Situational depression - consider antidepressant or psych consult. 06/12/16 Hypomagnesemia - magnesium 1.4. Oral replacement ordered. Recheck in am. Leukocytosis - resolved Situational depression - patient refused to see psychiatrist. She is not interested in starting any antidepressants. Follow closely. Urinary retention - Mason catheter was placed on 06/11/16. Abdominal hematoma - she is only on aspirin for anticoagulation. Heating pad as needed. Type 2 diabetes - hemoglobin A1c was 8.3% in early May. She has had fasting and postprandial hyperglycemia yesterday, but on 06/10/16 she had hypoglycemia. If she continues to have hyperglycemia, could possibly introduce low-dose Metformin(cardiology approved Metformin). Consult early childhood educator aide. 06/16/16 Mason removed this am - monitor for retention. constipation - prn meds given hyperglycemia - improving since metformin was started on 06/15/16; frequently with hyperglycemia >200 after breakfast. Would probably increase metformin before starting insulin, but need to wait 1-2 weeks before increasing metformin dose. check bmp and mg on 06/18/16 06/18/16 Of asked nursing staff to change dressing on the right hip. Will continue to monitor for any evidence of bleeding. Patient is voiding, however, does report having urinary frequency since Mason catheter was removed. Will continue to monitor for evidence of infection. Continue to work on pain control with Lidoderm patch and oral Dilaudid Colace BID and Miralax for ongoing bowel motivation. Overall blood pressures appear to be well controlled on Lopressor, and lisinopril 10 milligrams daily. Continue to monitor blood sugars continue with metformin, Humalog Encourage ongoing work with PT and OT for strengthening 06/19/16 Given increase in dysuria will obtain UA today Manager Mba continues to increase today is up to 1.7. Metformin, Lisinopril and Bumex is all on hold. Will give 500 ML bolus of NS today. Monitor hyponatremia as NA today is 130. Continue to work on pain control with Lidoderm patch and oral Dilaudid Colace BID and Miralax for ongoing bowel motivation. Encourage ongoing work with PT and OT for strengthening 06/22/16 Urine culture is positive for Enterobacter. She was placed on Levaquin 250mg daily. 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 Have asked wound team to see and evaluate right foot today. Continue to work on pain control with Lidoderm patch and oral Dilaudid Colace BID and Miralax for ongoing bowel motivation. Encourage ongoing work with PT and OT for strengthening BHAVNA MCALLISTER MD Jun 22, 2016 22:56
--- NOTE | 2016-06-23 01:16 | NUR ---
Chart Check 24 hour chart check completed
[2016-06-23] MEDS: HYDROMORPHONE 2 MG TABLET PO PRN ×3 (02:30→14:35)
--- NOTE | 2016-06-23 02:46 | NUR ---
STATUS. PT CALLS FOR BR ASSIST. USING NIKKI WALKER AND GAITBELT WITH 1 SBA. . PT C/O BACK PAIN. FLEXERIL GIVEN AT 1999. DILAUDID 1 TAB GIVEN AT 2046 FOR 09/19. PT SEEMS TO BE SLEEPING BETTER TONIGHT. PT SITTING IN CHAIR NOW. C/O BACK PAIN 10/19. DILAUDID 1 TAB GIVEN AT 229.
[2016-06-23] MEDS: CYCLOBENZAPRINE 5 MG TABLET PO PRN (02:59)
--- NOTE | 2016-06-23 05:45 | NUR ---
SUMMARY. PT HAS BEEN PLEASANT AND COOPERATIVE WITH STAFF. PT CALLS APPROPRIATELY. MAKES NEEDS KNOWN. AMABULATES USING HEMIWALKER AND GB WITH SBA. MIN TO SBA WITH CLOTHING IN BATHROOM. MANAGING HYGIENE SELF. PT GIVEN DILAUDID 2MG PO AT 0230 FOR 7/10 PAIN LEVEL, AND FLEXERIL 1 TAB AT 0300 FOR C/O DULCE MARIA LEG CRAMPING.
--- NOTE | 2016-06-23 06:17 | PDOCECFAO ---
Admission Orders Admission Orders Admit to: Snf Allergies: Coded Allergies: clavulanic acid (Verified Allergy, Intermediate, DIZZINESS, 05/17/16) clindamycin (Verified Allergy, Intermediate, RASH, 05/18/16) Egg. (Verified Allergy, Unknown, 06/03/16) Sulfa (Sulfonamide Antibiotics) (Verified Allergy, Unknown, 05/14/16) iodine (Verified Allergy, Unknown, 05/14/16) morphine (Verified Allergy, Unknown, 05/14/16) amoxicillin (Verified Adverse Reaction, Intermediate, PALPITATION and rash , 06/09/16) Admitting Diagnosis Right Hip Fracture Admitting Physician Chidi Mcallister MD Code Status Full Code Anticipated LOS: 30 days or less Rehab Potential: Good Rehab Prognosis: Good Wound/Incision Care: keep clean and dry May use Facility Protocol /SO: Yes May Have Flu Vaccine: Yes Evaluations/Treat: PT, OT Snf Certification I certify that SNF services are required to be given on an Inpatient basis because of the patients need for mcc care on a continuing basis for the condition(s) for which he/she received inpatient hospital services prior to his/her transfer to the SNF. SNF inpatient care is necessary for the following reasons Diabetic Assessment, Diabetic Education CHIDI MCALLISTER MD Jun 23, 2016 06:17
[2016-06-23] MEDS: OMEPRAZOLE 20 MG CAPSULE PO SCH (06:23)
[2016-06-23] MEDS: METOCLOPRAMIDE 5mg TABLET PO SCH ×2 (06:23→12:10)
--- NOTE | 2016-06-23 06:26 | DSPDOC ---
General Date Date DATE: 06/23/16 TIME: 06:18 Attending Physician Chidi Mcallister MD Admitting Physician Chidi Mcallister MD Consulting Physician Rocky Lopez MD Admitting Diagnosis fx right femur Discharge Diagnosis ORIF femur right, CABG, New onset DM Procedures ORIF right femur, CABG Laboratory Laboratory Tests Test 06/21/16 21:20 06/22/16 05:12 06/22/16 05:21 06/22/16 10:12 Glucometer 149mg/dL (65-110) 136mg/dL (65-110) 210mg/dL (65-110) White Blood Count 8.5T/MM3 (4.5-11.0) Red Blood Count 3.82M/MM3 (4.00-5.20) Hemoglobin 11.4GM/DL (12-16) Hematocrit 37.2% (36-46) Mean Corpuscular Volume 97.4UM3 (80-100) Mean Corpuscular Hemoglobin 29.8UUG (26-34) Mean Corpuscular Hemoglobin Concent 30.6GM/DL (31-37) RDW Standard Deviation 69.4FL (36.9-50.2) Platelet Count 154T/MM3 (130-400) Mean Platelet Volume 12.7UM3 (9.4-12.4) Immature Granulocyte % (Auto) 0.1% (0.0-0.5) Neutrophils (%) (Auto) 66.0% (33-66) Lymphocytes (%) (Auto) 17.3% (23-45) Monocytes (%) (Auto) 11.9% (0-9.0) Eosinophils (%) (Auto) 4.0% (0-4) Basophils (%) (Auto) 0.7% (0-2) Absolute Immature Granulocyte (auto 0.01T/MM3 (0.00-0.03) Absolute Neutrophils (auto) 5.6T/MM3 (1.8-7.7) Absolute Lymphocytes (auto) 1.5T/MM3 (1-4.8) Absolute Monocytes (auto) 1.0T/MM3 (0-0.8) Absolute Eosinophils (auto) 0.3T/MM3 (0-0.5) Absolute Basophils (auto) 0.1T/MM3 (0-0.2) Turbidity < 20 (0-20) Sodium Level 133MEQ/L (134-144) Potassium Level 4.6MEQ/L (3.6-5) Chloride Level 96MEQ/L (98-107) Carbon Dioxide Level 29MEQ/L (22-30) Anion Gap 8MEQ/L (5-15) Blood Urea Nitrogen 32.0MG/DL (7-17) Creatinine 1.2MG/DL (0.7-1.2) Glomerular Filtration Rate Calc 43 BUN/Creatinine Ratio 27RATIO (6-26) Glucose Level 144MG/DL (65-110) Calculated Osmolality 266MOSM/KG (261-280) Calcium Level 9.0MG/DL (8.4-10.2) Icterus Index < 2 (0-7) Chemistry Specimen Hemolysis < 15 (0-25) Test 06/22/16 14:11 06/22/16 21:18 Glucometer 123mg/dL (65-110) 111mg/dL (65-110) History of Present Illness 85 yo female admitted to IRU for strengthening post Femur fx with orif and subsequentMI with 5 vessel CABG. Pt was admitted initially to IRU on 05/20/16 s/ p ORIF of femur fx. She c/o mid epigastric pain and indigestion which tums and PPI were not covering. Labs drawn and elevated troponin noted with ST depression on EKG. Taken to [facility] and severe 5 vessel dz discovered. Pt then transferred to [place] for CABG x 5. She has recovered well, except for development of Afib. She is being admitted to IRU for strengthening and safety awareness with Hip fx and CABG surgery. She is eager to return to home if possible and is committed to at least 3 hours of PT and OT daily. Hospital Course 06/04/16 Spoke with Ayde Hughes with Dr. Lopez regarding patient's recent CABG procedure and ongoing treatment recommendations. She does recommend patient be on anticoagulation as she did have A-fib postoperatively. She would prefer Eliquis if not contraindicated. Given mild oozing from right hip incision will consult Dr Champagne for orthopedic evaluation of incision prior to starting anticoagulation. Patient does need postop anticoagulation for 30 days from right hemiarthroplasty performed on 05/16/16. Patient did have a right groin hematoma post heart catheter that was evaluated while at [place]. Overall this is improving. Continue with amiodarone given recent atrial fibrillation. She was noted to have elevated white count at 16.3. Will check a UA to rule out infection. Bumex 1 mg BID for ongoing diuresis. Oral Dilaudid and Ultram for pain control Continue SCDs to bilateral lower external for DVT prophylaxis Scheduled MiraLAX and Colace twice a day for ongoing bowel motivation. Encourage work with PT/OT for ongoing strengthening Will discuss case with attending Dr Hobson 06/05/16 Continue to monitor right hip dressing for oozing. Several more tl were placed by Dr Champagne Continue on ASA only at this time, Case discussed with Dr Lopez yesterday . Continue to monitor blood sugars. Fasting sugar this morning was 146. Will increase sliding scale to medium range dosing and continue to follow. Will recheck CBC and BMP tomorrow morning to follow leukocytosis 06/08/16 At this time, will recommend holding off on surgical procedure until cardiac rate control has been further evaluated and treated. Consultation was placed to Dr. Lopez for further recommendations. Patient has continued to receive her amiodarone, however, did have her beta rachelle held this morning due to Patient is to be monitored on cardiac telemetry. Current anticoagulation is aspirin. This may need to be discussed further with all providers involved including Dr. Lopez, Dr. Hobson and Dr. Champagne Will reevaluate patient later today, the hope is that she will be able to have her hip procedure tomorrow by Dr. Champagne. 06/09/[address] Lopez - pt is in sinus rhythm and has been cleared for surgery. I spoke with Dr. Champagne and updated him as well. Will need to discuss anticoagulation postop. Dr. Champagne prefers nothing stronger than ASA if possible; if needs anticoagulation would like to wait a week before starting, again if possible. However, he understands that if anticoagulation is necessary he would not argue it. Patient is complaining of nausea this morning - Zofran as needed. Repeat labs in am - pt has had leukocytosis. Encouraged pt to set small, achievable goals and let us know if she becomes too depressed. 06/11/16 Urinary retention (750mL) - UA neg. for UTI. Suspect retention may be combination of extensive hematoma and hx of uterine prolapse, along with hx of chronic retention. Continue post-void residuals. Pt does not want a catheter if possible. Suspected abdominal hematoma - will obtain ultrasound today. She is only on ASA for anticoagulation. Type 2 DM with hypoglycemia - she's not on antiglycemic agents other than SSI - continue to monitor. Leukocytosis - improving. Recheck in am. Situational depression - consider antidepressant or psych consult. 06/12/16 Hypomagnesemia - magnesium 1.4. Oral replacement ordered. Recheck in am. Leukocytosis - resolved Situational depression - patient refused to see psychiatrist. She is not interested in starting any antidepressants. Follow closely. Urinary retention - Mason catheter was placed on 06/11/16. Abdominal hematoma - she is only on aspirin for anticoagulation. Heating pad as needed. Type 2 diabetes - hemoglobin A1c was 8.3% in early May. She has had fasting and postprandial hyperglycemia yesterday, but on 06/10/16 she had hypoglycemia. If she continues to have hyperglycemia, could possibly introduce low-dose Metformin(cardiology approved Metformin). Consult adaptive physical educator. 06/16/16 Mason removed this am - monitor for retention. constipation - prn meds given hyperglycemia - improving since metformin was started on 06/15/16; frequently with hyperglycemia >200 after breakfast. Would probably increase metformin before starting insulin, but need to wait 1-2 weeks before increasing metformin dose. check bmp and mg on 06/18/16 06/18/16 Of asked nursing staff to change dressing on the right hip. Will continue to monitor for any evidence of bleeding. Patient is voiding, however, does report having urinary frequency since Mason catheter was removed. Will continue to monitor for evidence of infection. Continue to work on pain control with Lidoderm patch and oral Dilaudid Colace BID and Miralax for ongoing bowel motivation. Overall blood pressures appear to be well controlled on Lopressor, and lisinopril 10 milligrams daily. Continue to monitor blood sugars continue with metformin, Humalog Encourage ongoing work with PT and OT for strengthening 06/19/16 Given increase in dysuria will obtain UA today Site Administrator continues to increase today is up to 1.7. Metformin, Lisinopril and Bumex is all on hold. Will give 500 ML bolus of NS today. Monitor hyponatremia as NA today is 130. Continue to work on pain control with Lidoderm patch and oral Dilaudid Colace BID and Miralax for ongoing bowel motivation. Encourage ongoing work with PT and OT for strengthening 06/22/16 Urine culture is positive for Enterobacter. She was placed on Levaquin 250mg daily. Will discuss pen[facility]entiary treatment plan given recent MYRON. Have asked wound team to see and evaluate right foot today. Continue to work on pain control with Lidoderm patch and oral Dilaudid Colace BID and Miralax for ongoing bowel motivation. 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 PT and OT were involved and FIM scores increased. Pt is being discharged to Skilled, pending skilled nursing acceptance. (2) Displaced fracture of right femoral neck Status: Resolved Assessment & Plan: ORIF performed and PT and OT worked on recovery to strengthen and increase mobility. (3) Diabetes mellitus Onset Date: ~ 05/2016 Status: Chronic Assessment & Plan: New onset, diagnosed and treated with education, oral meds. Insulin sliding scale. Continue with education and medication adjustment in skilled. (4) S/P CABG (coronary artery bypass graft) Onset Date: ~ 05/20/2016 Status: Acute Assessment & Plan: Cont with HTN and post CABG monitoring by cardiology. DVT Prophylaxis: PADMINI Dimas Code Status Full Code Home Meds Active Scripts Cefpodoxime Proxetil (Cefpodoxime Proxetil) 200 Mg Tablet, 1 TAB PO BID, #14 TAB Prov:KRISTY SARABIA APRN 06/22/16 Amiodarone HCl (Pacerone) 200 Mg Tablet, 200 MG PO DAILY for 30 Days, #30 TAB Prov:KRISTY SARABIA APRN 06/22/16 Docusate Sodium (Colace) 100 Mg Capsule, 100 MG PO BID for 30 Days, #60 CAP Prov:KRISTY SARABIA APRN 06/22/16 Metoclopramide HCl (Metoclopramide HCl) 5 Mg Tablet, 5 MG PO ACHS for 30 Days, # 120 TAB Prov:KRISTY SARABIA APRN 06/22/16 Benzocaine (Americaine) 28 Gm Oint...g., 1 APPLIC TOP BID Y for HEMORRHOIDS for 30 Days, G Prov:KRISTY SARABIA APRN 06/22/16 Lidocaine (Lidoderm) 1 Each Adh..patch, 1 REMOVAL TOP 2100 for 30 Days Prov:KRISTY SARABIA V DIRECTOR OF DIGITAL TECHNOLOGY 06/22/16 Lidocaine (Lidoderm) 1 Each Adh..patch, 1 PATCH TD DAILY, #30 Prov:BLACKFEETKRISTY Pura DIRECTOR OF DIGITAL TECHNOLOGY 06/22/16 Metformin HCl (Glucophage) 500 Mg Tablet, 500 MG PO WB for 30 Days, #30 TAB Prov:BLACKFEETKRISTY Pura DIRECTOR OF DIGITAL TECHNOLOGY 06/22/16 Magnesium Oxide (Magnesium Oxide) 400 Mg Tablet, 800 MG PO DAILY for 30 Days, # 60 TAB Prov:BLACKFEETKRISTY V DIRECTOR OF DIGITAL TECHNOLOGY 06/22/16 Hydromorphone HCl (Dilaudid) 2 Mg Tablet, 1 MG PO [id number], #30 Prov:BLACKFEETKRISTY V DIRECTOR OF DIGITAL TECHNOLOGY 06/22/16 Tramadol HCl (Tramadol HCl) 50 Mg Tablet, 50 MG PO Q6HR Y for PAIN, #30 Prov:BLACKFEETKRISTY Pura SOLANO 06/22/16 Reported Medications Ascorbic Acid (Ascorbic Acid) 500 Mg Tablet, 1 TAB PO DAILY, TAB 06/03/16 Polyethylene Glycol 3350 (Miralax) 17 Gm Powd.pack, 17 G PO BID, Take 17 Grams (1 capful), by mouth, once a day. 06/03/16 Docusate Sodium (Docusate Sodium) 100 Mg Capsule, 1 CAP PO BID, CAP 06/03/16 Bumetanide (Bumetanide) 1 Mg Tablet, 1 TAB PO BID for 4 Days, #8 TAB 06/03/16 Potassium Chloride (Potassium Chloride) 20 Meq Tablet.er, 20 MEQ PO BIDWM, TAB Take 1 tablet, by mouth, two times a day with meals. 06/03/16 Acetaminophen (Tylenol) 325 Mg Tablet, 2 TAB PO Q4HPRN, 06/03/16 Aspirin (Aspirin) 81 Mg Tab.chew, 1 TAB PO DAILY, TAB 06/03/16 Metoprolol Tartrate (Metoprolol Tartrate) 25 Mg Tablet, 25 MG PO BID, TAB Take 1 tab, by mouth, two time a day with meals. 06/03/16 Atorvastatin Calcium (Atorvastatin Calcium) 40 Mg Tablet, 1 TAB PO HS, TAB 06/03/16 Ferrous Sulfate (Ferrous Sulfate) 325 Mg Tablet, 1 TAB PO TIDWM, TAB BEST WITH FOOD. 06/03/16 Omeprazole (Omeprazole) 40 Mg Capsule.dr, 1 CAP PO DAILY, CAP 05/15/16 Gabapentin (Gabapentin) 300 Mg Capsule, 300 MG PO HS 05/14/16 Discontinued Reported Medications [tylenol supp] No Conflict Check, 650 MG RECTALLY Q4HPRN 06/03/16 Amiodarone HCl (Amiodarone HCl) 200 Mg Tablet, 200 MG PO BID, TAB 06/03/16 Metoclopramide HCl (Metoclopramide HCl) 10 Mg Tablet, 10 MG PO DAILY 05/14/16 Face to Face Encounter I met with patient on the day of dismissal and discussed follow up appointments , medications, and safety plan. Discharge Disposition Pt had a very involved hospital stay with Femur Fx and repair, CABG x 5 vessels discovered by staff when she complained of heartburn, and new onset of DM type II. She has responded well to PT and OT and increased FIM scores. Please see hospital summary for more detailed description. She is being discharged to skilled. CHIDI MCALLISTER MD Jun 23, 2016 06:23
[2016-06-23 07:51] VITALS: BP 150/75; PULSE 90; RESP 18; TEMP 98.2; O2SAT 100
[2016-06-23 08:00] VITALS: PULSE 90; RESP 18
[2016-06-23] MEDS: DOCUSATE SODIUM 100 MG CAPSULE PO SCH (08:27)
[2016-06-23] MEDS: ASCORBIC ACID 500 MG TABLET PO SCH (08:27)
[2016-06-23] MEDS: FERROUS SULFATE 324 MG TABLET PO SCH ×2 (08:27→12:10)
[2016-06-23] MEDS: MAGNESIUM OXIDE 400 MG TABLET PO SCH (08:27)
[2016-06-23] MEDS: AMIODARONE 200 MG TABLET PO SCH (08:28)
[2016-06-23] MEDS: LIDOCAINE 5% PATCH TD SCH (08:28)
[2016-06-23] MEDS: ASPIRIN 81 MG CHEWABLE TABLET PO SCH (08:28)
[2016-06-23] MEDS: CEFPODOXIME 200 MG TABLET PO SCH (08:29)
--- NOTE | 2016-06-23 09:17 | NUR ---
CM CALLED TANYA AT [facility]; THINGS ARE STILL SET FOR DC TODAY, TRANSPORTATION TO [facility] AT 1 PM. CALLED PT'S SON, ELGIN/TANIA; UPDATED HIM. HE WAS AGREEABLE TO THE PLAN OF SNU AT [facility] AND STATED HE HAD SPOKE WITH THE PT ABOUT THIS. HE HAD NO QUESTIONS/CONCERNS FOR THIS WORKER.
[2016-06-23] MEDS: INSULIN LISPRO 100 UNIT/ML SQ PRN (10:23)
--- NOTE | 2016-06-23 11:58 | NUR ---
CM TRANSPORT TIME CHANGED TO 3 PM. CALLED TANYA AT [facility] ABOUT THIS; UPDATED PT, LEFT MESSAGE WITH SON/DPOA ELGIN.
[2016-06-23] MEDS: TRAMADOL 50 MG TABLET PO PRN (12:12)
--- NOTE | 2016-06-23 12:19 | NUR ---
CM TIME OUT COMPLETED WITH RN. CREATIVE ART DIRECTOR FAXED ORDERS. THIS WORKER CALLED TANYA AT [facility], ASKED HER TO CALL IF SHE NEEDS ANYTHING FURTHER FROM THIS WORKER. SHE HAD NO CURRENT NEEDS. [facility] DR[employer] RESEARCH SCIENTIST TIME REMAINS 3 PM.
--- NOTE | 2016-06-23 13:13 | NUR ---
DM f/u CDE visited with Talisha, who was sitting at dining table. The guidelines for DM diet were reviewed and she was given a copy of Healthy Eating 1-2-3. She was able to remember most of the points of the recommendations. She recognized that she will need to begin to eat vegetables for her evening meal, according to the Plate method. Contact information was given if she has questions when she returns home.
--- NOTE | 2016-06-23 14:09 | NUR ---
Report Report called to Nicolasa from [facility].
--- NOTE | 2016-06-23 14:10 | NUR ---
Status Pt. A/O and pleasant. VS's stable and pt. is on RA. She transfers well with assist x1, FWW and gait belt. She takes meds whole. Pt. has been continent. She has rated chronic back pain a 5-6/10 consistently. Lidoderm patch applied and PRN pain meds given. Please see eMAR. Right hip Mepilex dressing C/D/I. Bilateral pedal pulses palpable. BGM at 1000 noted to be 276. Humalog per SS orders administered. Please see eMAR. Pt. is currently sitting up in the recliner. Call light is within reach. Will continue to monitor.
--- NOTE | 2016-06-23 15:30 | NUR ---
Discharge Pt. is A/O. She consistently rates chronic back pain a 5-09/19. PRN Dilaudid given before discharge. Please see eMAR. Report previously called to [facility]. Discharge instructions reviewed with pt. and packet sent with her. Son is present at time of discharge. Pt. is wheeled out via wheelchair by MARIA ELENA Jenkins, and [facility] cab driver to front entrance
== END 2016-06-23 15:30 | DRG 559 ==
PROVIDERS: ADMIT Family Medicine; ATTEND Family Medicine
PROC: F07Z9FZ Gait Training/Functional Ambulation Treatment using Assistive, Adaptive, Supportive or Protective Equipment (ICD-10-PCS; principal; 2016-06-04)
PROC: F07M6ZZ Therapeutic Exercise Treatment of Musculoskeletal System - Whole Body (ICD-10-PCS; 2016-06-04)
PROC: F08Z4ZZ Home Management Treatment (ICD-10-PCS; 2016-06-04)
PROC: 0JCL0ZZ Extirpation of Matter from Right Upper Leg Subcutaneous Tissue and Fascia, Open Approach (ICD-10-PCS; 2016-06-09)
DX: S72.001D Fracture of unspecified part of neck of right femur, subsequent encounter for closed fracture with routine healing (principal); I21.3 ST elevation (STEMI) myocardial infarction of unspecified site; L76.32 Postprocedural hematoma of skin and subcutaneous tissue following other procedure; X58.XXXD Exposure to other specified factors, subsequent encounter; R53.1 Weakness; G72.9 Myopathy, unspecified; I25.10 Atherosclerotic heart disease of native coronary artery without angina pectoris; I12.9 Hypertensive chronic kidney disease with stage 1 through stage 4 chronic kidney disease, or unspecified chronic kidney disease; E11.22 Type 2 diabetes mellitus with diabetic chronic kidney disease; N18.9 Chronic kidney disease, unspecified; G62.9 Polyneuropathy, unspecified; Z96.641 Presence of right artificial hip joint; R11.0 Nausea; E78.5 Hyperlipidemia, unspecified; K21.9 Gastro-esophageal reflux disease without esophagitis; M19.91 Primary osteoarthritis, unspecified site; K27.7 Chronic peptic ulcer, site unspecified, without hemorrhage or perforation; Y83.8 Other surgical procedures as the cause of abnormal reaction of the patient, or of later complication, without mention of misadventure at the time of the procedure; E83.42 Hypomagnesemia; R33.9 Retention of urine, unspecified; Z79.82 Long term (current) use of aspirin; Z95.1 Presence of aortocoronary bypass graft
CPT/HCPCS: 36415; 36416; 80048; 80069; 81001; 81003; 82948; 83735; 85025; 85652; 86140; 87077; 87086; 87186; 93005

== ENCOUNTER 2016-07-17 09:25 | Observation (INO) | payer MEDICARE, BC ==
[~2016-07-17] VITALS: Ht 165.1 cm; Wt 71.0 kg
[~2016-07-17 09:25] MED LIST changes: +ACET-2321 PO; +AMIO200T7 PO; +ASCO500T10 PO; +ASPI81TA2 PO; +ATOR40TA64 PO; +BENZ30OI7 TOP; -CALC500T7 PO; +CEFP200T14 PO; -CEPH500C2 PO; -CHOL400T PO; +DOCU-168 PO; +DOCU-175 PO; -ENOX40DI SQ; +FERR-70 PO; -HYDR-4072 PO; -HYDR2TAB7 PO; -INSU100V SQ; +LIDO700A3 TD; +LIDO700A3 TOP; -LISI10TA7 PO; +MAGN400T6 PO; -METF500T4 PO; -METO10TA3 PO; +METO25TA6 PO; +METO5TAB2 PO; +POLY17PO6 PO
--- OUTSIDE RECORDS SUMMARY | 2016-07-17 09:34 | XMS REPORT | Continuity of Care Document ---
Author Author [facility] Organization [facility] Address Unknown Phone Unavailable Support Name Relationship Address Phone KELLIE OVIEDO Caregiver [address] [place] [address] Unavailable CHIDI MCALLISTER MD Caregiver [address] [place] [address] Unavailable CHIDI MCALLISTER MD Caregiver [address] [place] [address] Unavailable ELGIN ROBERT (DPOA) Next Of Kin [address] [place], [place] [id number] Insurance Providers Guarantor Talisha Robert Address [address] [place] [address] Email DENIED 06-03-16 Payer [employer] 65 Policy Number [id number] Subscriber's Name Talisha Robert Relationship 18 Self Group Number [id number] Payer Medicare Policy Number [id number] Subscriber's Name Talisha Robert Relationship 18 Self Advance Directives Directive Response Recorded Date/Time Ordered Resuscitation Status Full Code 06/03/16 2:28pm Resuscitation Documents on File No 06/03/16 12:30pm DPOA for Healthcare Only Yes 06/08/16 12:40pm Living Will Yes 06/03/16 12:30pm Problems Active Problems Medical Problem Onset Date Status Allergic rhinitis Unknown Chronic Anemia Unknown Acute Atrial fibrillation with rapid ventricular response Unknown Acute Basal cell carcinoma Unknown Chronic CAD (coronary artery disease) Unknown Chronic Cardiac dysrhythmia Unknown Chronic Chronic kidney disease Unknown Chronic Chronic pain Unknown Chronic DJD (degenerative joint disease) Unknown Chronic Debility Unknown Acute Diabetes mellitus ~05/2016 Chronic Displaced fracture of right femoral neck Unknown Resolved GERD (gastroesophageal reflux disease) Unknown Chronic HTN (hypertension) Unknown Chronic History of atrial fibrillation Unknown Chronic Hypercholesteremia Unknown Chronic Hypomagnesemia Unknown Acute Lumbar disc herniation Unknown Chronic Myopathic disease or syndrome Unknown Acute Neuropathy Unknown Chronic OA (osteoarthritis) Unknown Chronic Osteopenia Unknown Chronic Peptic ulcer disease Unknown Chronic Pseudoarthrosis Unknown Chronic Situational depression Unknown Acute UTI (urinary tract infection) Unknown Resolved Urinary retention Unknown Acute Surgical Problem Onset Date Status S/P CABG (coronary artery bypass graft) ~05/20/2016 Acute Status post hip surgery Unknown Acute Past Problems Medical Problem Onset Date Ankle pain Unknown Fall Unknown Hip pain Unknown Medications Current Home Medications Medication Dose Units Route Directions Days Qty Instructions Start Date Acetaminophen (Tylenol) 325 Mg Tablet 2 Tab Oral Every 4 Hours Prn 06/03/16 Amiodarone Hcl (Pacerone) 200 Mg Tablet 200 Mg Oral Daily 30 Days 30 Tablet 06/22/16 Ascorbic Acid 500 Mg Tablet 1 Tab Oral Daily 06/03/16 Aspirin 81 Mg Tab.chew 1 Tab Oral Daily 06/03/16 Atorvastatin Calcium 40 Mg Tablet 1 Tab Oral Bedtime 06/03/16 Benzocaine (Americaine) 28 Gm Oint...g. 1 Applic Topically Twice A Day as needed for Hemorrhoids 30 Days 06/22/16 Cefpodoxime Proxetil 200 Mg Tablet 1 Tab Oral Twice A Day 14 Tablet 06/22/16 Docusate Sodium 100 Mg Capsule 1 Cap Oral Twice A Day 06/03/16 Docusate Sodium (Colace) 100 Mg Capsule 100 Mg Oral Twice A Day 30 Days 60 Capsule 06/22/16 Ferrous Sulfate 325 Mg Tablet 1 Tab Oral Three Times Daily With Meals BEST WITH FOOD. 06/03/16 Gabapentin 300 Mg Capsule 300 Mg Oral Bedtime 05/14/16 Hydromorphone Hcl (Dilaudid) 2 Mg Tablet 1 Mg Oral Every 6 Hours Prn Prn 30 06/22/16 Lidocaine (Lidoderm) 1 Each Adh..patch 1 Patch Transderm Daily 30 06/22/16 Lidocaine (Lidoderm) 1 Each Adh..patch 1 Removal Topically 2100 30 Days 06/22/16 Magnesium Oxide 400 Mg Tablet 800 Mg Oral Daily 30 Days 60 Tablet Metoclopramide Hcl 5 Mg Tablet 5 Mg Oral Before Meals And At Bedtime 30 Days 120 Tablet 06/22/16 Metoprolol Tartrate 25 Mg Tablet 25 Mg Oral Twice A Day Take 1 tab, by mouth, two time a day with meals. 06/03/16 Omeprazole 40 Mg Capsule.dr 1 Cap Oral Daily 05/15/16 Polyethylene Glycol 3350 (Miralax) 17 Gm Powd.pack 17 G Oral Twice A Day Take 17 Grams (1 capful), by mouth, once a day. 06/03/16 Tramadol Hcl 50 Mg Tablet 50 Mg Oral Q6h/0300,0900,1500,2100 as needed for Pain 30 06/22/16 Past Home Medications Medication Directions Ordered Status Amiodarone Hcl 200 Mg Tablet, 200 Mg Oral Twice A Day 06/03/16 Discontinued Bumetanide 1 Mg Tablet, 1 Tab Oral Twice A Day 06/03/16 Discontinued Hydromorphone Hcl (Dilaudid) 2 Mg Tablet, 1 Mg Oral Every 6 Hours Prn Prn Discontinued Ibuprofen 200 Mg Tablet, 2 Tab Oral Every 4 Hours as needed for Pain Discontinued Metoclopramide Hcl 10 Mg Tablet, 10 Mg Oral Daily 05/14/16 Discontinued Potassium Chloride 20 Meq Tablet.er, 20 Meq Oral Twice Daily With Meals 06/03 Discontinued Tramadol Hcl 50 Mg Tablet, 50 Mg Oral Q6h/0300,0900,1500,2100 as needed for Pain 05/14/16 Discontinued Tylenol Supp , 650 Mg Rectally Every 4 Hours Prn 06/03/16 Discontinued Social History Social History Problem Response Recorded Date/Time Onset Date Status Reason for Hospitalization Myopathy, weakness 06/23/2016 11:51am Not Applicable Not Applicable Hx Substance Use No 05/20/2016 4:23pm Not Applicable Not Applicable Hx Alcohol Use No 05/20/2016 4:23pm Not Applicable Not Applicable Has the pt used tobacco in the last 12 months No 06/03/2016 6:13pm Not Applicable Not Applicable Query Response Start Date Stop Date Smoking Status Never smoker Hospital Discharge Instructions Instructions: Care Instructions: Reason for Hospitalization: Myopathy, weakness I was in the hospital because (patient own words): fell, then had heart surgery Discharge Diet: diabetic diet. Discharge Activity: up with assist Follow Up Appointments: Dr. Rock Oviedo on 07/02/16 at 11:15 am for Hosp. follow-up. Clinic [address], [place] [address]. . KWABENA Zamarripa on 07/06/16 at 10:30 am for Post-Op follow-up. [facility] [address] [place] [address] [place] [id number] Olmos on 07/08/16 at 9:30 am for follow-up. [address] Alvarenga [address] [place] [id number]. . Pending Lab / Results: No Pending Lab Patient Instructions: Take Vantin BID antiobiotic for 7 days hold metformin,bumex,lisinopril,potassium until BMP checked on 06/26 Wound/Incision Care: keep clean and dry Durable Medical Equipment: walker Pain Scale Utilized to Educate Patient: 0-10 Pain Scale Pain Management/Treatment: dilaudid oral, ultram, flexeril Expected Signs/Symptoms: fatigue, weakness Notify Physician If: fever, shortness of breath worsening During Business Hours:: Please call the physician's office at clinic number listed above. After Business Hours:: Please call [phone] and have the anodizing line operator page the physician. Condition at time of discharge: Fair Plan of Care Discharge Date 06/23/16 3:30pm Disposition 03 TO [facility] NOT [facility] (SNF) Instructions/Education Provided Hip Fracture (GEN) Prescriptions See Medication Section Care Plan and Goals See Discharge Instructions Section Functional Status Query Response Date Recorded Mobility Status Ambulatory June 23, 2016 11:51am Assistive Devices hemiwalker June 23, 2016 11:51am Activity Limitations Weakness Pain June 23, 2016 11:51am Feeding Ability Independent June 23, 2016 11:51am Toileting Ability Assist June 23, 2016 11:51am Grooming Ability Assist June 23, 2016 11:51am Dressing Ability Assist June 23, 2016 11:51am Driving Ability Dependent June 23, 2016 11:51am Housework Ability Dependent June 23, 2016 11:51am Meal Preparation Ability Dependent June 23, 2016 11:51am Stair Climbing Ability Dependent June 23, 2016 11:51am Ability to complete ADL's impeded by Impaired Mobility June 23, 2016 11:51am Cognitive/Perceptual Impairments None June 23, 2016 11:51am Preferred Method of Learning Demonstration June 21, 2016 12:41pm Allergies, Adverse Reactions, Alerts Allergen Type Severity Reaction Status Last Updated Egg. Allergy Unknown Active 06/03/16 Sulfa (Sulfonamide Antibiotics) Allergy Unknown Active 05/14/16 Iodine Allergy Unknown Active 05/14/16 Morphine Allergy Unknown Active 05/14/16 Clindamycin Allergy Intermediate RASH Active 05/18/16 Clavulanate Allergy Intermediate DIZZINESS Active 05/17/16 Amoxicillin Adverse Reaction Intermediate PALPITATION and rash Active Immunizations Query Response on File Recorded Date/Time Hx Influenza Vaccination No 06/03/16 6:13pm Hx Pneumococcal Vaccination Y 2016 06/03/16 6:13pm Hx Influenza Vaccination No 06/03/16 6:13pm Vital Signs Acute Vital Signs Vital Response Date/Time Temperature (Fahrenheit) 98.2 deg F (96.8 - 99.1) 06/23/2016 7:51am Temperature (Calculated Celsius) 36.10300 degrees C (36.0 - 37.3) 06/23/2016 7:51am Temperature Source Oral 06/10/2016 8:00am Pulse Rate (adult) 90 bpm (60 - 100) 06/23/2016 8:00am Respiratory Rate 18 breaths/min (10 - 20) 06/23/2016 8:00am O2 Sat by Pulse Oximetry 100 % (90 - 100) 06/23/2016 7:51am Oxygen Delivery Method Room Air 06/10/2016 8:00am Oxygen Delivery Method Room Air 06/23/2016 7:51am Oxygen Flow Rate 2.00 L/min 06/09/2016 9:56pm Blood Pressure 150/75 mm Hg 06/23/2016 7:51am Blood Pressure Source Automatic Cuff 06/23/2016 7:51am Height (Feet) 5 feet 06/22/2016 10:58pm Height (Inches) 5.00 inches 06/22/2016 10:58pm Weight (Kilograms) 68.900 kg 06/17/2016 2:34pm Body Mass Index (BMI) 28.1 06/03/2016 1:33pm Results Laboratory Results Test Name Result Units Flags Reference Collection Date/Time Result Date/ Time Comments XP-Wob-Z-Type Natriuretic Peptide 762 PG/ML H 0-175 05/14/2016 [...] 05/15/2016 10:56am < 6.0 NON-DIABETIC RANGE 6.1-7.9 EMIRATI DIABETES ASSOC TARGET RANGE >8.0 ACTION SUGGESTED Urine WBC Clumps FEW 05/14/2016 10:57pm 05/14/2016 11:09pm Urine Amorphous Urates MANY 05/14/2016 10:57pm 05/14/2016 11:09pm Prothromb Time International Ratio 1.13 H 0.76-1.04 05/20/2016 10:36am 05/20/2016 12:28pm THERAPUTIC RANGE=2.00-3.00 FOR ANTI-THROMBOSIS THERAPUTIC RANGE=2.50-3.50 FOR IMPLANTED VALVE Total Bilirubin 0.50 MG/DL 0.20-1.30 05/20/2016 10:36am 05/20/2016 12: 34pm Alkaline Phosphatase 112 U/L 38-126 05/20/2016 10:36am 05/20/2016 12: 34pm Total Protein 5.7 G/DL L 6.3-8.2 05/20/2016 10:36am 05/20/2016 12:34pm Globulin 2.6 G/DL 2.4-3.6 05/20/2016 10:36am 05/20/2016 12:34pm Albumin/Globulin Ratio 1.2 RATIO 1.1-2.2 05/20/2016 10:36am 05/20/2016 12:34pm Aspartate Amino Transf (AST/SGOT) 48 U/L H 14-36 05/20/2016 10:36am 11/2016 12:34pm Alanine Aminotransferase (ALT/SGPT) 25 U/L 9-52 05/20/2016 10:36am 11/2016 12:34pm Cholesterol Level 139 MG/DL 132-199 05/20/2016 10:36am 05/21/2016 12: 52am Triglycerides Level 174 MG/DL H 35-135 05/20/2016 10:36am 05/21/2016 12: 52am HDL Cholesterol Direct 39 MG/DL L 40-60 05/20/2016 10:36am 05/21/2016 12 :52am LDL Cholesterol, Calculated 65.2 L 66-159 05/20/2016 10:36am 2016 12:52am VLDL Cholesterol 34.8 MG/DL H 0-28 05/20/2016 10:36am 05/21/2016 12: 52am Cholesterol/HDL Ratio 3.6 RATIO 0-4.0 05/20/2016 10:36am 05/21/2016 12: 52am Troponin I 0.189 ng/ml H 0-0.12 05/20/2016 12:30pm 05/20/2016 1:08pm Troponin values greater than 0.120 ng/ml are considered a critical value. Troponin values with a difference of 55% increase from orginal troponin value represent a true biological DELTA value. (%increase Calc=Orginal Troponin value, divided by subsequent Troponin value, multiplied by 100) White Blood Count 8.5 T/MM3 4.5-11.0 06/22/2016 5:06/22/2016 5: 42am Red Blood Count 3.82 M/MM3 L 4.00-5.20 06/22/2016 5:06/22/2016 5: 42am Hemoglobin 11.4 GM/DL L 12-16 06/22/2016 5:06/22/2016 5:42am Hematocrit 37.2 % 36-46 06/22/2016 5:06/22/2016 5:42am Mean Corpuscular Volume 97.4 UM3 80-100 06/22/2016 5:06/22/2016 5: 42am Mean Corpuscular Hemoglobin 29.8 UUG 26-34 06/22/2016 5:2016 5:42am Mean Corpuscular Hemoglobin Concent 30.6 GM/DL L 31-37 06/22/2016 5:06/22/2016 5:42am RDW Standard Deviation 69.4 FL H 36.9-50.2 06/22/2016 5:06/22/2016 5:42am Platelet Count 154 T/MM3 130-400 06/22/2016 5:06/22/2016 5:42am Mean Platelet Volume 12.7 UM3 H 9.4-12.4 06/22/2016 5:06/22/2016 5: 42am Neutrophils (%) (Auto) 66.0 % 33-66 06/22/2016 5:06/22/2016 5: 42am Lymphocytes (%) (Auto) 17.3 % L 23-45 06/22/2016 5:06/22/2016 5: 42am Monocytes (%) (Auto) 11.9 % H 0-9.0 06/22/2016 5:06/22/2016 5:42am Eosinophils (%) (Auto) 4.0 % 0-4 06/22/2016 5:06/22/2016 5:42am Basophils (%) (Auto) 0.7 % 0-2 06/22/2016 5:06/22/2016 5:42am Immature Granulocyte % (Auto) 0.1 % 0.0-0.5 06/22/2016 5:2016 5:42am Absolute Neutrophils (auto) 5.6 T/MM3 1.8-7.7 06/22/2016 5:2016 5:42am Absolute Lymphocytes (auto) 1.5 T/MM3 1-4.8 06/22/2016 5:2016 5:42am Absolute Monocytes (auto) 1.0 T/MM3 H 0-0.8 06/22/2016 5:2016 5:42am Absolute Eosinophils (auto) 0.3 T/MM3 0-0.5 06/22/2016 5:2016 5:42am Absolute Basophils (auto) 0.1 T/MM3 0-0.2 06/22/2016 5:06/22/2016 5:42am Absolute Immature Granulocyte (auto 0.01 T/MM3 0.00-0.03 06/22/2016 5: 06/22/2016 5:42am Neutrophils % (Manual) 76.0 % H 33-66 06/08/2016 4:06/08/2016 6: 10am Lymphocytes % (Manual) 14.0 % L 23-45 06/08/2016 4:06/08/2016 6: 10am Monocytes % (Manual) 7.0 % 0-9.0 06/08/2016 4:06/08/2016 6:10am Eosinophils % (Manual) 3.0 % 0-4 06/08/2016 4:06/08/2016 6:10am Absolute Neutrophils (Manual) 12.8 T/MM3 H 1.8-7.7 06/08/2016 4:31 6:10am Lymphocytes # (Manual) 2.4 T/MM3 1-4.8 06/08/2016 4:3106/08/2016 6: 10am Monocytes # (Manual) 1.2 T/MM3 H 0-0.8 06/08/2016 4:3106/08/2016 6: 10am Eosinophils # (Manual) 0.5 T/MM3 0-0.5 06/08/2016 4:06/08/2016 6: 10am Red Cell Morphology Comment ABNORMAL 06/08/2016 4:06/08/2016 6 :10am Anisocytosis 1+ 06/08/2016 4:06/08/2016 6:10am Poikilocytosis 1+ 06/08/2016 4:06/08/2016 6:10am Icterus Index < 2 0-7 06/22/2016 5:1206/22/2016 5:56am Chemistry Specimen Hemolysis < 15 0-25 06/22/2016 5:06/22/2016 5 :56am 0-25: Specimen Exhibited No Hemolysis. Turbidity < 20 0-20 06/22/2016 5:06/22/2016 5:56am Sodium Level 133 MEQ/L L 134-144 06/22/2016 5:06/22/2016 5:56am Potassium Level 4.6 MEQ/L 3.6-5 06/22/2016 5:1206/22/2016 5:56am Chloride Level 96 MEQ/L L 98-107 06/22/2016 5:06/22/2016 5:56am Carbon Dioxide Level 29 MEQ/L 22-30 06/22/2016 5:1206/22/2016 5: 56am Anion Gap 8 MEQ/L 5-15 06/22/2016 5:1206/22/2016 5:56am Blood Urea Nitrogen 32.0 MG/DL H 7-17 06/22/2016 5:1206/22/2016 5: 56am Creatinine 1.2 MG/DL D 0.7-1.2 06/22/2016 5:1206/22/2016 5:58am BUN/Creatinine Ratio 27 RATIO H 6-06/22/2016 5:12am 06/22/2016 5: 56am Glomerular Filtration Rate Calc 43 06/22/2016 5:12am 06/22/2016 5: 56am Glucose Level 144 MG/DL H 65-110 06/22/2016 5:12am 06/22/2016 5:56am Calculated Osmolality 266 MOSM/KG 261-280 06/22/2016 5:12am 06/22/2016 5:56am Calcium Level 9.0 MG/DL 8.4-10.2 06/22/2016 5:12am 06/22/2016 5:56am Phosphorus Level 3.5 MG/DL 2.5-4.5 06/19/2016 4:47am 06/19/2016 5:29am Albumin 3.1 G/DL L 3.5-5.0 06/19/2016 4:47am 06/19/2016 5:29am C-Reactive Protein 64.5 MG/L H 0-9 06/08/2016 4:31am 06/08/2016 8:02am Magnesium Level 2.3 MG/DL 1.6-2.3 06/18/2016 4:43am 06/18/2016 5:48am Urine Collection Type CLEANCATCH-MIDSTREAM 06/19/2016 10:57am 06/19 11:31am Urine Color YELLOW YELLOW 06/19/2016 10:57am 06/19/2016 11:31am Urine Turbidity CLOUDY CLEAR 06/19/2016 10:57am 06/19/2016 11:31am Urine Specific [place] 1.010 L 1.015-1.025 06/19/2016 10:57am 2016 11:31am Urine pH 5.0 5.0-8.0 06/19/2016 10:57am 06/19/2016 11:31am Urine Leukocyte Esterase 3+ A NEGATIVE 06/19/2016 10:57am 06/19/2016 11:31am Urine Nitrite NEGATIVE NEGATIVE 06/19/2016 10:57am 06/19/2016 11: 31am Urine Protein NEGATIVE NEGATIVE 06/19/2016 10:57am 06/19/2016 11: 31am Urine Glucose (UA) NEGATIVE NEGATIVE 06/19/2016 10:57am 06/19/2016 11 :31am Urine Ketones NEGATIVE NEGATIVE 06/19/2016 10:57am 06/19/2016 11: 31am Urine Urobilinogen 0.2 EU/DL NORMAL 06/19/2016 10:57am 06/19/2016 11: 31am Urine Bilirubin NEGATIVE NEGATIVE 06/19/2016 10:57am 06/19/2016 11: 31am Urine Blood 1+ A NEGATIVE 06/19/2016 10:57am 06/19/2016 11:31am Urine WBC 50-200 /HPF H 0-5 06/19/2016 10:57am 06/19/2016 11:33am Urine RBC NONE SEEN /HPF 0-3 06/19/2016 10:57am 06/19/2016 11:33am Urine Squamous Epithelial Cells 0-5 06/11/2016 8:16am 06/11/2016 8: 48am Urine Bacteria 2+ H NEGATIVE 06/19/2016 10:57am 06/19/2016 11:33am Urine Mucus PRESENT 06/04/2016 6:09pm 06/04/2016 7:14pm Urine Culture Indicated CULT REFLEXED &SETUP 06/19/2016 10:57am 01/2017 11:33am Urinalysis Comment MICROSCOPIC NOT IND. 06/06/2016 2:01am 2016 4:29am Erythrocyte Sedimentation Rate 25 mm/h H 0-23 06/08/2016 8:03am 2016 5:31pm Sedimentation Rate performed at [facility], [address] [place] [address] Mba Intern Angy Borrero, DO Glucometer 143 mg/dL H 65-110 06/23/2016 2:06pm 06/23/2016 2:14pm Microbiology Results Procedure Source Organism/Result Collection Date/Time Result Date/Time Result Status Urine Culture Urine, Clean Catch-Midstream ENTEROBACTER CLOACAE 06/19/2016 11:33am 06/21/2016 7:31am Final Name: TALISHA ROBERT Unit #: [id number] : 1930 Sex: F DISCHARGE SUMMARY Admit Date: 06/03/16 Report #: [id number] [facility] General Date Date DATE: 06/23/16 TIME: 06:18 Attending Physician Chidi Mcallister MD Admitting Physician Chidi Mcallister MD Consulting Physician Bernie Olmos MD Admitting Diagnosis fx right femur Discharge Diagnosis ORIF femur right, CABG, New onset DM Procedures ORIF right femur, CABG Laboratory Laboratory Tests Test 06/21/16 21:20 06/22/16 05:12 06/22/16 05:21 06/22/16 10:12 Glucometer 149mg/dL (65-110) 136mg/dL (65-110) 210mg/dL (65-110) White Blood Count 8.5T/MM3 (4.5-11.0) Red Blood Count 3.82M/MM3 (4.00-5.20) Hemoglobin 11.4GM/DL (12-16) Hematocrit 37.2% (36-46) Mean Corpuscular Volume 97.4UM3 (80-100) Mean Corpuscular Hemoglobin 29.8UUG (26-34) Mean Corpuscular Hemoglobin Concent 30.6GM/DL (31-37) RDW Standard Deviation 69.4FL (36.9-50.2) Platelet Count 154T/MM3 (130-400) Mean Platelet Volume 12.7UM3 (9.4-12.4) Immature Granulocyte % (Auto) 0.1% (0.0-0.5) Neutrophils (%) (Auto) 66.0% (33-66) Lymphocytes (%) (Auto) 17.3% (23-45) Monocytes (%) (Auto) 11.9% (0-9.0) Eosinophils (%) (Auto) 4.0% (0-4) Basophils (%) (Auto) 0.7% (0-2) Absolute Immature Granulocyte (auto 0.01T/MM3 (0.00-0.03) Absolute Neutrophils (auto) 5.6T/MM3 (1.8-7.7) Absolute Lymphocytes (auto) 1.5T/MM3 (1-4.8) Absolute Monocytes (auto) 1.0T/MM3 (0-0.8) Absolute Eosinophils (auto) 0.3T/MM3 (0-0.5) Absolute Basophils (auto) 0.1T/MM3 (0-0.2) Turbidity < 20 (0-20) Sodium Level 133MEQ/L (134-144) Potassium Level 4.6MEQ/L (3.6-5) Chloride Level 96MEQ/L (98-107) Carbon Dioxide Level 29MEQ/L (22-30) Anion Gap 8MEQ/L (5-15) Blood Urea Nitrogen 32.0MG/DL (7-17) Creatinine 1.2MG/DL (0.7-1.2) Glomerular Filtration Rate Calc 43 BUN/Creatinine Ratio 27RATIO (6-26) Glucose Level 144MG/DL (65-110) Calculated Osmolality 266MOSM/KG (261-280) Calcium Level 9.0MG/DL (8.4-10.2) Icterus Index < 2 (0-7) Chemistry Specimen Hemolysis < 15 (0-25) Test 06/22/16 14:11 06/22/16 21:18 Glucometer 123mg/dL (65-110) 111mg/dL (65-110) History of Present Illness 85 yo female admitted to IRU for strengthening post Femur fx with orif and subsequentMI with 5 vessel CABG. Pt was admitted initially to IRU on 05/20/16 s/p ORIF of femur fx. She c/o mid epigastric pain and indigestion which tums and PPI were not covering. Labs drawn and elevated troponin noted with ST depression on EKG. Taken to [facility] and severe 5 vessel dz discovered. Pt then transferred to [facility] for CABG x 5. She has recovered well, except for development of Afib. She is being admitted to IRU for strengthening and safety awareness with Hip fx and CABG surgery. She is eager to return to home if possible and is committed to at least 3 hours of PT and OT daily. Hospital Course 06/04/16 Spoke with Ayde Hughes with Dr. Olmos regarding patient's recent CABG procedure and ongoing treatment recommendations. She does recommend patient be on anticoagulation as she did have A-fib postoperatively. She would prefer Eliquis if not contraindicated. Given mild oozing from right hip incision will consult Dr Champagne for orthopedic evaluation of incision prior to starting anticoagulation. Patient does need postop anticoagulation for 30 days from right hemiarthroplasty performed on 05/16/16. Patient did have a right groin hematoma post heart catheter that was evaluated while at [facility]. Overall this is improving. Continue with amiodarone given recent atrial fibrillation. She was noted to have elevated white count at 16.3. Will check a UA to rule out infection. Bumex 1 mg BID for ongoing diuresis. Oral Dilaudid and Ultram for pain control Continue SCDs to bilateral lower external for DVT prophylaxis Scheduled MiraLAX and Colace twice a day for ongoing bowel motivation. Encourage work with PT/OT for ongoing strengthening Will discuss case with attending Dr Hobson 06/05/16 Continue to monitor right hip dressing for oozing. Several more tl were placed by Dr Champagne Continue on ASA only at this time, Case discussed with Dr Olmos yesterday . Continue to monitor blood sugars. Fasting sugar this morning was 146. Will increase sliding scale to medium range dosing and continue to follow. Will recheck CBC and BMP tomorrow morning to follow leukocytosis 06/08/16 At this time, will recommend holding off on surgical procedure until cardiac rate control has been further evaluated and treated. Consultation was placed to Dr. Olmos for further recommendations. Patient has continued to receive her amiodarone, however, did have her beta rachelle held this morning due to Patient is to be monitored on cardiac telemetry. Current anticoagulation is aspirin. This may need to be discussed further with all providers involved including Dr. Olmos, Dr. Hobson and Dr. Champagne Will reevaluate patient later today, the hope is that she will be able to have her hip procedure tomorrow by Dr. Champagne. 06/09/[address] Olmos - pt is in sinus rhythm and has been cleared for surgery. I spoke with Dr. Champagne and updated him as well. Will need to discuss anticoagulation postop. Dr. Champagne prefers nothing stronger than ASA if possible; if needs anticoagulation would like to wait a week before starting, again if possible. However, he understands that if anticoagulation is necessary he would not argue it. Patient is complaining of nausea this morning - Zofran as needed. Repeat labs in am - pt has had leukocytosis. Encouraged pt to set small, achievable goals and let us know if she becomes too depressed. 06/11/16 Urinary retention (750mL) - UA neg. for UTI. Suspect retention may be combination of extensive hematoma and hx of uterine prolapse, along with hx of chronic retention. Continue post-void residuals. Pt does not want a catheter if possible. Suspected abdominal hematoma - will obtain ultrasound today. She is only on ASA for anticoagulation. Type 2 DM with hypoglycemia - she's not on antiglycemic agents other than SSI - continue to monitor. Leukocytosis - improving. Recheck in am. Situational depression - consider antidepressant or psych consult. 06/12/16 Hypomagnesemia - magnesium 1.4. Oral replacement ordered. Recheck in am. Leukocytosis - resolved Situational depression - patient refused to see psychiatrist. She is not interested in starting any antidepressants. Follow closely. Urinary retention - Mason catheter was placed on 06/11/16. Abdominal hematoma - she is only on aspirin for anticoagulation. Heating pad as needed. Type 2 diabetes - hemoglobin A1c was 8.3% in early May. She has had fasting and postprandial hyperglycemia yesterday, but on 06/10/16 she had hypoglycemia. If she continues to have hyperglycemia, could possibly introduce low-dose Metformin(cardiology approved Metformin). Consult certified adaptive physical educator. 06/16/16 Mason removed this am - monitor for retention. constipation - prn meds given hyperglycemia - improving since metformin was started on 06/15/16; frequently with hyperglycemia >200 after breakfast. Would probably increase metformin before starting insulin, but need to wait 1-2 weeks before increasing metformin dose. check bmp and mg on 06/18/16 06/18/16 Of asked nursing staff to change dressing on the right hip. Will continue to monitor for any evidence of bleeding. Patient is voiding, however, does report having urinary frequency since Mason catheter was removed. Will continue to monitor for evidence of infection. Continue to work on pain control with Lidoderm patch and oral Dilaudid Colace BID and Miralax for ongoing bowel motivation. Overall blood pressures appear to be well controlled on Lopressor, and lisinopril 10 milligrams daily. 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 Metformin, Lisinopril and Bumex is all on hold. Will give 500 ML bolus of NS today. Monitor hyponatremia as NA today is 130. Continue to work on pain control with Lidoderm patch and oral Dilaudid Colace BID and Miralax for ongoing bowel motivation. Encourage ongoing work with PT and OT for strengthening 06/22/16 Urine culture is positive for Enterobacter. She was placed on Levaquin 250mg daily. 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 Have asked wound team to see and evaluate right foot today. Continue to work on pain control with Lidoderm patch and oral Dilaudid Colace BID and Miralax for ongoing bowel motivation. 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 PT and OT were involved and FIM scores increased. Pt is being discharged to Skilled, pending snf acceptance. (2) Displaced fracture of right femoral neck Status: Resolved Assessment & Plan: ORIF performed and PT and OT worked on recovery to strengthen and increase mobility. (3) Diabetes mellitus Onset Date: ~ 05/2016 Status: Chronic Assessment & Plan: New onset, diagnosed and treated with education, oral meds. Insulin sliding scale. Continue with education and medication adjustment in skilled. (4) S/P CABG (coronary artery bypass graft) Onset Date: ~ 05/20/2016 Status: Acute Assessment & Plan: Cont with HTN and post CABG monitoring by cardiology. DVT Prophylaxis: PADMINI Dimas Code Status Full Code Home Meds Active Scripts Cefpodoxime Proxetil (Cefpodoxime Proxetil) 200 Mg Tablet, 1 TAB PO BID, #14 TAB Prov:KRISTY SARABIA APRN 06/22/16 Amiodarone HCl (Pacerone) 200 Mg Tablet, 200 MG PO DAILY for 30 Days, #30 TAB Prov:KRISTY SARABIA APRN 06/22/16 Docusate Sodium (Colace) 100 Mg Capsule, 100 MG PO BID for 30 Days, #60 CAP Prov:KRISTY SARABIA APRN 06/22/16 Metoclopramide HCl (Metoclopramide HCl) 5 Mg Tablet, 5 MG PO ACHS for 30 Days, # 120 TAB Prov:KRISTY SARABIA APRN 06/22/16 Benzocaine (Americaine) 28 Gm Oint...g., 1 APPLIC TOP BID Y for HEMORRHOIDS for 30 Days, G Prov:CORNELLKRISTY APRN 06/22/16 Lidocaine (Lidoderm) 1 Each Adh..patch, 1 REMOVAL TOP 2100 for 30 Days Prov:CORNELLKRISTY Pura SOLANO 06/22/16 Lidocaine (Lidoderm) 1 Each Adh..patch, 1 PATCH TD DAILY, #30 Prov:CORNELLKRISTY GRAY APRN 06/22/16 Metformin HCl (Glucophage) 500 Mg Tablet, 500 MG PO WB for 30 Days, #30 TAB Prov:CORNELLKRISTY APRN 06/22/16 Magnesium Oxide (Magnesium Oxide) 400 Mg Tablet, 800 MG PO DAILY for 30 Days, # 60 TAB Prov:CORNELLKRISTY APRN 06/22/16 Hydromorphone HCl (Dilaudid) 2 Mg Tablet, 1 MG PO [id number], #30 Prov:CORNELLKRISTY APRN 06/22/16 Tramadol HCl (Tramadol HCl) 50 Mg Tablet, 50 MG PO Q6HR Y for PAIN, #30 Prov:CORNELLKRISTY APRN 06/22/16 Reported Medications Ascorbic Acid (Ascorbic Acid) 500 Mg Tablet, 1 TAB PO DAILY, TAB 06/03/16 Polyethylene Glycol 3350 (Miralax) 17 Gm Powd.pack, 17 G PO BID, Take 17 Grams (1 capful), by mouth, once a day. 06/03/16 Docusate Sodium (Docusate Sodium) 100 Mg Capsule, 1 CAP PO BID, CAP 06/03/16 Bumetanide (Bumetanide) 1 Mg Tablet, 1 TAB PO BID for 4 Days, #8 TAB 06/03/16 Potassium Chloride (Potassium Chloride) 20 Meq Tablet.er, 20 MEQ PO BIDWM, TAB Take 1 tablet, by mouth, two times a day with meals. 06/03/16 Acetaminophen (Tylenol) 325 Mg Tablet, 2 TAB PO Q4HPRN, 06/03/16 Aspirin (Aspirin) 81 Mg Tab.chew, 1 TAB PO DAILY, TAB 06/03/16 Metoprolol Tartrate (Metoprolol Tartrate) 25 Mg Tablet, 25 MG PO BID, TAB Take 1 tab, by mouth, two time a day with meals. 06/03/16 Atorvastatin Calcium (Atorvastatin Calcium) 40 Mg Tablet, 1 TAB PO HS, TAB 06/03/16 Ferrous Sulfate (Ferrous Sulfate) 325 Mg Tablet, 1 TAB PO TIDWM, TAB BEST WITH FOOD. 06/03/16 Omeprazole (Omeprazole) 40 Mg Capsule.dr, 1 CAP PO DAILY, CAP 05/15/16 Gabapentin (Gabapentin) 300 Mg Capsule, 300 MG PO HS 05/14/16 Discontinued Reported Medications [tylenol supp] No Conflict Check, 650 MG RECTALLY Q4HPRN 06/03/16 Amiodarone HCl (Amiodarone HCl) 200 Mg Tablet, 200 MG PO BID, TAB 06/03/16 Metoclopramide HCl (Metoclopramide HCl) 10 Mg Tablet, 10 MG PO DAILY 05/14/16 Face to Face Encounter I met with patient on the day of dismissal and discussed follow up appointments , medications, and safety plan. Discharge Disposition Pt had a very involved hospital stay with Femur Fx and repair, CABG x 5 vessels discovered by staff when she complained of heartburn, and new onset of DM type II. She has responded well to PT and OT and increased FIM scores. Please see hospital summary for more detailed description. She is being discharged to skilled. CHIDI MCALLISTER MD Jun 23, 2016 06:23 Procedures Procedure Status Date Provider(s) Treat thigh fracture Completed 05/15/16 ANNE CHAMPAGNE MD REPLACE R HIP JT, FEMORAL W SYNTH SUB, CEMENT, OPEN Completed 05/16/16 ANNE CHAMPAGNE MD Gait training therapy Completed 05/18/16 CHIDI MCALLISTER MD Pt eval mod complex 30 min Completed 05/18/16 CHIDI MCALLISTER MD Therapeutic exercises Completed 05/18/16 CHIDI MCALLISTER MD Ot eval mod complex 45 min Completed 05/18/16 CHIDI MCALLISTER MD GAIT TRAINING/AMBULAT TREATMENT USING ASSIST EQUIPMENT Completed 05/18/16 CHIDI MCALLISTER MD THERAPEUTIC EXERCISE TREATMENT OF MUSCULOSK WHOLE Completed 05/18/16 CHIDI MCALLISTER MD HOME MANAGEMENT TREATMENT Completed 05/18/16 CHIDI MCALLISTER MD Reagent strip/blood glucose Completed 05/20/16 Electrocardiogram tracing Completed 05/20/16 L hrt artery/ventricle angio Completed 05/20/16 BERNIE OLMOS MD [id number] ITEM OR SERVICE Completed 05/20/16 [id number] ITEM OR SERVICE Completed 05/20/16 [id number] ITEM OR SERVICE Completed 05/20/16"CLOSURE DEVICE, VASCULAR (IMPLANTABLE/INSERTABLE)" Completed 05/20/16"CATHETER, GUIDING (MAY INCLUDE INFUSION/PERFUSION CAP Completed OTHER THAN PEEL-AWAY Completed 05/20/16"INJECTION, DIPHENHYDRAMINE HCL, UP TO 50 MG" Completed 05/20/16"INJECTION, HEPARIN SODIUM, PER 1000 UNITS" Completed 05/20/16"INJECTION, METHYLPREDNISOLONE SODIUM SUCCINATE, UP TO Completed "INJECTION, FENTANYL CITRATE, 0.1 MG" Completed 05/20/16"INFUSION, NORMAL SALINE SOLUTION , 1000 CC" Completed 05/20/16"LOW OSMOLAR CONTRAST MATERIAL, 300-399 MG/ML IODINE C Completed Incision and drainage of joint Completed 06/09/16 ANNE CHAMPAGNE MD Encounters Encounter Location Arrival/Admit Date Discharge/Depart Date Attending Provider Discharged Inpatient [facility] 06/03/16 11:42am 06/23/16 3:30pm CHIDI MCALLISTER MD Departed Clinic [facility] 05/20/16 1:29pm 05/20/16 6:40pm BERNIE OLMOS MD Discharged Inpatient [facility] 05/18/16 4:20pm 05/20/16 1:28pm CHIDI MCALLISTER MD Discharged Inpatient [facility] 05/15/16 5:04pm 05/18/16 4:22pm RAMOS PERSON MD
--- OUTSIDE RECORDS SUMMARY | 2016-07-17 09:36 | XMS REPORT | Referral Summary ---
Author Author [facility] Organization [facility] Address Unknown Phone Unavailable Care Team Providers Care Erector Operator Name Role Phone Teena Oviedo Primary Care Physician [phone] Encounter VC Date(s): 01/20/16 - 01/20/16 [facility] [address] [place] [address] Discharge Diagnosis: Rectal bleeding Discharge Diagnosis: HTN (hypertension) Discharge Diagnosis: Hyperlipidemia Discharge Disposition: 01-Home or Self Care Attending Physician: Vish Oviedo MD Vital Signs Most recent to 1 oldest [Reference Range]: Peripheral Pulse 104 bpm Rate [60-100 bpm] *HI* (01/20/16 4:04 PM) Blood Pressure 159/70 mmHg [90-140/60-90 mmHg] *HI* (01/20/16 4:04 PM) Problem List Condition Effective Dates Status Health Status Informant Allergic Active rhinitis/Hay fever(Confirmed) bilateral feet Resolved neuropathy(Confirmed ) Complications/infect Active ion(Confirmed)1 Cardiac Active dysrhythmia(Confirme d) DDD (degenerative Active disc disease), lumbar(Confirmed) Elbow Active disorder(Confirmed) Gastroesophageal Active reflux(Confirmed) H/O nonunion of Active fracture(Confirmed) History of peptic Active ulcer disease(Confirmed) high Resolved cholesterol(Confirme d) hypertension(Confirm Resolved ed) Dyspepsia(Confirmed) Active Lumbago(Confirmed) Active Lumbar Active post-laminectomy syndrome(Confirmed) Lumbar Active radiculopathy(Confir med) DJD (degenerative Active joint disease), lumbar(Confirmed) Skin cancer, basal Active cell(Confirmed) Onychomycosis(Confir Active med) S/P lumbar Active laminectomy(Confirme d) Lumbar disc Active herniation(Confirmed ) Pseudoarthrosis(Conf Active irmed) right elbow Resolved fracture(Confirmed) Lumbar Active spondylolysis(Confir med) 1orthopedic implant complication with post total elbow infection Allergies, Adverse Reactions, Alerts Substance Reaction Severity Status amoxicillin Hives Active Cipro Hives Mild Active clindamycin rash/hives Severe Active codeine Nausea Active morphine Stomach Pain Active sulfamethoxazole severe nausea,weakness,GI probl Severe Active vancomycin Rash Active Medications Dilaudid 2 mg oral tablet See Instructions, as needed for pain, 1 tab in AM; 2 tabs at bedtime OK TO FILL ON 2015, # 90 tabs, 0 Refill(s) Start Date: 01/20/16 Status: Ordered docusate sodium 100 mg oral tablet See Instructions, tabs mg Oral BID, 0 Refill(s) Start Date: 09/27/13 Status: Ordered gabapentin 300 mg oral capsule See Instructions, TAKE ONE CAPSULE BY MOUTH THREE TIMES A DAY, # 270 caps, 3 Refill(s), eRx: [facility] #[id number], TAKE ONE CAPSULE BY MOUTH THREE TIMES A DAY Start Date: 06/24/15 Status: Ordered ibuprofen 200 mg oral tablet 1 tabs, Oral, q4hr, as needed for pain, 0 Refill(s) Start Date: 09/27/13 Status: Ordered lisinopril 10 mg oral tablet See Instructions, TAKE ONE TABLET BY MOUTH EVERY DAY, # 30 tabs, 11 Refill(s), eRx: [facility] #[id number], TAKE ONE TABLET BY MOUTH EVERY DAY Start Date: 06/10/15 Status: Ordered metoclopramide 10 mg oral tablet See Instructions, TAKE 1 TABLET BY MOUTH 30 MINUTES BEFORE LUNCH AND EVENING MEAL, # 60 tabs, 10 Refill(s), eRx: [facility] #[id number], TAKE 1 TABLET BY MOUTH 30 MINUTES BEFORE LUNCH AND EVENING MEAL Start Date: 04/10/15 Status: Ordered omeprazole 40 mg oral delayed release capsule See Instructions, TAKE ONE CAPSULE BY MOUTH DAILY, # 90 caps, 3 Refill(s), eRx: [facility] #[id number], TAKE ONE CAPSULE BY MOUTH DAILY Start Date: 04/22/15 Status: Ordered traMADol 50 mg oral tablet 50 mg 1 tabs, Oral, q6hr, as needed for pain, # 120 tabs, 0 Refill(s), called to pharmacy (Rx) Start Date: 12/18/15 Status: Ordered Results No data available for this section Immunizations Vaccine Date Refusal Reason influenza virus vaccine, inactivated1 01/22/14 pneumococcal 13-valent conjugate vaccine 05/16/15 pneumococcal 23-polyvalent vaccine 09/09/11 1Result Comment: [01/22/2014] see scanned document Procedures Procedure Date Related Diagnosis Body Site Transforaminal epidural steroid injection, 07/27/14 L4-5, Right1 revision total elbow/bone grafting2 07/19/13 hernia repair 1993 [place]ker Modular total elbow appendectomy aseptic loosening right elbow with revision bilateral cataracts Cholecystectomy Hemilaminectomy L5 and Foraminotomy of L4-54 hysterectomy5 ORIF right humerus right total elbow [facility]. No Global. Dx: 722.52, 724.02, 724.2, 724.4. 2global end date: 10/17/2013 3Remove implant rt elbow 4CPT: 83529, 54016 (Add level). Dx: 722.52, 724.02, 724.2, 724.4. C. Global End Date: 11/06/14. 5Also had BSO for benign reasons. Social History Social History Type Response Smoking Status Never smoker Assessment and Plan Extracted from: Title: Office Visit Note Author: Vish Oviedo MD Date: 01/20/16 Assessment/Plan 1.HTN (hypertension) Blood pressure thinks adequately controlled and I' ll just reevaluate this in about 3 months. Ordered: Office Visit Level 3 Est 05191 Return to Clinic 2.Hyperlipidemia Lipid disorder stable and okay so no change in treatment. 3.Rectal bleeding For the rectal bleeding and I have instructed her to increase herstool softeners to 3 per day. I gave her written instructions regarding more liquids every day. Made her aware that her narcotics are aggravating the constipation problemin addition I think she would benefit from low-dose fiber supplement and written instructions were given regarding Metamucil use. For her rectal irritationand a small pressure store I've recommended she get a donut pad to sit on since she does a lot of sitting during the day. Finally I did recommend a flu shot but she declines. We did refill her narcotics today. Regarding her multiplecontusions from her fall she seems to be healing satisfactorily so no change in treatment for this. I' ll see her back in 3 months. Referrals to Other Providers Referred by: Vish Oviedo MD
--- OUTSIDE RECORDS SUMMARY | 2016-07-17 09:36 | XMS REPORT | Referral Summary ---
Author Author [facility] Organization [facility] Address Unknown Phone Unavailable Care Team Providers Care Underwriting Manager Name Role Phone Teena Oviedo Primary Care Physician [phone] Encounter VC Date(s): 05/11/16 - 05/11/16 [facility] [address] [place] [address] Discharge Diagnosis: Post-menopausal atrophic vaginitis Discharge Diagnosis: Frozen shoulder Discharge Diagnosis: Urine retention Discharge Diagnosis: Cardiac dysrhythmia Discharge Diagnosis: Hematuria Discharge Diagnosis: Lumbar post-laminectomy syndrome Discharge Diagnosis: UTI (urinary tract infection) Discharge Diagnosis: Neurogenic bladder disorder Discharge Disposition: 01-Home or Self Care Attending Physician: Elvia Yun MD Admitting Physician: Elvia Yun MD Vital Signs Most recent to 1 oldest [Reference Range]: Blood Pressure 122/80 mmHg [90-140/60-90 mmHg] (05/11/16 3:52 PM) Problem List Condition Effective Dates Status [...] probl Severe Active vancomycin Rash Active Medications Detrol 2 mg oral tablet 2 mg 1 tabs, Oral, BID, # 60 tabs, 0 Refill(s), Pharmacy: [facility] # [id number], 1 tabs Oral BID Start Date: 04/23/16 Status: Ordered Dilaudid 2 mg oral tablet See Instructions, as needed for pain, 1 tab in AM; 2 tabs at bedtime; ok to repeat x 1 during night if needed OK TO FILL ON 03/23/2016, # 100 tabs, 0 Refill(s) Start Date: 04/23/16 Status: Ordered docusate sodium 100 mg oral tablet See Instructions, tabs mg Oral BID, 0 Refill(s) Start Date: 09/27/13 Status: Ordered gabapentin 300 mg oral capsule See Instructions, TAKE ONE CAPSULE BY MOUTH THREE TIMES A DAY, # 270 caps, 3 Refill(s), eRx: [facility] #[id number], TAKE ONE CAPSULE BY MOUTH THREE TIMES A DAY Start Date: 06/24/15 Status: Ordered ibuprofen 200 mg oral tablet 1 tabs, Oral, q4hr, as needed for pain, 0 Refill(s) Start Date: 09/27/13 Status: Ordered lisinopril 10 mg oral tablet See Instructions, TAKE ONE TABLET BY MOUTH EVERY DAY, # 30 tabs, 11 Refill(s), eRx: [facility] #[id number], TAKE ONE TABLET BY MOUTH EVERY DAY Start Date: 06/10/15 Status: Ordered metoclopramide 10 mg oral tablet See Instructions, TAKE 1 TABLET BY MOUTH 30 MINUTES BEFORE LUNCH AND EVENING MEAL, # 60 tabs, 10 Refill(s), eRx: [facility] #[id number], TAKE 1 TABLET BY MOUTH 30 MINUTES BEFORE LUNCH AND EVENING MEAL Start Date: 04/10/15 Status: Ordered omeprazole 40 mg oral delayed release capsule See Instructions, TAKE ONE CAPSULE BY MOUTH DAILY, # 90 caps, 2 Refill(s), eRx: [facility] #[id number] Start Date: 04/14/16 Status: Ordered traMADol 50 mg oral tablet 50 mg 1 tabs, Oral, q6hr, as needed for pain, # 120 tabs, 0 Refill(s), called to pharmacy (Rx) Start Date: 03/13/16 Status: Ordered Results No data available for this section Immunizations Given and Recorded Vaccine Date Status Refusal Reason influenza virus vaccine, inactivated1 01/22/14 Recorded pneumococcal 13-valent conjugate vaccine 05/16/15 Given pneumococcal 23-polyvalent vaccine 09/09/11 Recorded 1Result Comment: [01/22/2014] see scanned document Procedures Procedure Date Related Diagnosis Body Site Cystourethroscopy (separate procedure).. 05/11/16 Measurement of post-voiding residual urine 05/11/16 and/or bladder capacity by ultrasound, non-imaging Transforaminal epidural steroid injection, 07/27/14 L4-5, Right1 revision total elbow/bone grafting2 07/19/13 hernia repair 1993 [place]ker Modular total elbow appendectomy aseptic loosening right elbow with revision bilateral cataracts Cholecystectomy Hemilaminectomy L5 and Foraminotomy of L4-54 hysterectomy5 ORIF right humerus right total elbow [address] [place] [address] [facility] Center. No Global. Dx: 722.52, 724.02, 724.2, 724.4. 2global end date: 10/17/2013 3Remove implant rt elbow 4CPT: 45215, 60792 (Add level). Dx: 722.52, 724.02, 724.2, 724.4. [facility]. Global End Date: 11/06/14. 5Also had BSO for benign reasons. Social History Social History Type Response Smoking Status Never smoker Assessment and Plan Extracted from: Title: Ambulatory Patient Education Author: Elvia Yun MD Date: Obstetrics and Gynecology Vaginitis Vaginitis is an inflammation of the vagina. It is most often caused by a change in the normal balance of the bacteria and yeast that live in the vagina. This change in balance causes an overgrowth of certain bacteria or yeast, which causes the inflammation. There are different types of vaginitis, but the most common types are: Bacterial vaginosis. Yeast infection (candidiasis). Trichomoniasis vaginitis. This is a sexually transmitted infection (STI) . Viral vaginitis. Atrophic vaginitis. Allergic vaginitis. CAUSES The cause depends on the type of vaginitis. Vaginitis can be caused by: Bacteria (bacterial vaginosis). Yeast (yeast infection). A parasite (trichomoniasis vaginitis) A virus (viral vaginitis). Low hormone levels (atrophic vaginitis). Low hormone levels can occur during , , or after menopause. Irritants, such as bubble baths, scented tampons, and feminine sprays ( allergic vaginitis). Other factors can change the normal balance of the yeast and bacteria that live in the vagina. These include: Antibiotic medicines. Poor hygiene. Diaphragms, vaginal sponges, spermicides, control pills, and intrauterine devices (IUD). Sexual intercourse. Infection. Uncontrolled diabetes. A weakened immune system. SYMPTOMS Symptoms can vary depending on the cause of the vaginitis. Common symptoms include: Abnormal vaginal discharge. The discharge is white, gallegos, or yellow with bacterial vaginosis. The discharge is thick, white, and cheesy with a yeast infection. The discharge is frothy and yellow or greenish with trichomoniasis. A bad vaginal odor. The odor is fishy with bacterial vaginosis. Vaginal itching, pain, or swelling. Painful intercourse. Pain or burning when urinating. Sometimes, there are no symptoms. TREATMENT Treatment will vary depending on the type of infection. Bacterial vaginosis and trichomoniasis are often treated with antibiotic creams or pills. Yeast infections are often treated with antifungal medicines, such as vaginal creams or suppositories. Viral vaginitis has no cure, but symptoms can be treated with medicines that relieve discomfort. Your sexual partner should be treated as well. Atrophic vaginitis may be treated with an estrogen cream, pill, suppository, or vaginal ring. If vaginal dryness occurs, lubricants and moisturizing creams may help. You may be told to avoid scented soaps, sprays, or douches. Allergic vaginitis treatment involves quitting the use of the product that is causing the problem. Vaginal creams can be used to treat the symptoms. HOME CARE INSTRUCTIONS Take all medicines as directed by your caregiver. Keep your genital area clean and dry. Avoid soap and only rinse the area with water. Avoid douching. It can remove the healthy bacteria in the vagina. Do not use tampons or have sexual intercourse until your vaginitis has been treated. Use sanitary pads while you have vaginitis. Wipe from front to back. This avoids the spread of bacteria from the rectum to the vagina. Let air reach your genital area. Wear cotton underwear to decrease moisture buildup. Avoid wearing underwear while you sleep until your vaginitis is gone. Avoid tight pants and underwear or nylons without a cotton panel. Take off wet clothing (especially bathing suits) as soon as possible. Use mild, non-scented products. Avoid using irritants, such as: Scented feminine sprays. Fabric softeners. Scented detergents. Scented tampons. Scented soaps or bubble baths. Practice safe sex and use condoms. Condoms may prevent the spread of trichomoniasis and viral vaginitis. SEEK MEDICAL CARE IF: You have abdominal pain. You have a fever or persistent symptoms for more than 23 days. You have a fever and your symptoms suddenly get worse. This information is not intended to replace advice given to you by your health care provider. Make sure you discuss any questions you have with your health care provider. Document Released: 01/24/2008 Document Revised: 08/13/2015 Document Reviewed: [employer] Patient Education 2016 [employer] No follow up information was provided.
--- OUTSIDE RECORDS SUMMARY | 2016-07-17 09:37 | XMS REPORT | Referral Summary ---
Author Author [facility] Organization [facility] Address Unknown Phone Unavailable Care Team Providers Care Feed Crusher Operator Name Role Phone Teena Oviedo Primary Care Physician [phone] Encounter VC Date(s): 04/23/16 - 04/23/16 [facility] [address] [place], [place] [address] Discharge Diagnosis: HTN (hypertension) Discharge Diagnosis: Hyperlipemia, mixed Discharge Diagnosis: Urinary frequency Discharge Disposition: 01-Home or Self Care Attending Physician: Vish Oviedo MD Admitting Physician: Vish Oviedo MD Vital Signs Most recent to 1 oldest [Reference Range]: Peripheral Pulse 76 bpm Rate [60-100 bpm] (04/23/16 4:00 PM) Blood Pressure 162/90 mmHg [90-140/60-90 mmHg] *HI* (04/23/16 4:00 PM) Problem List Condition Effective Dates Status [...] BID, # 60 tabs, 0 Refill(s), Pharmacy: [facility] # [id number], 1 tabs Oral BID Start Date: 04/23/16 [...] DAY, # 270 caps, 3 Refill(s), eRx: [facility] #[id number], TAKE ONE CAPSULE BY MOUTH THREE TIMES A DAY Start Date: 06/24/15 Status: Ordered ibuprofen 200 mg oral tablet 1 tabs, Oral, q4hr, as needed for pain, 0 Refill(s) Start Date: 09/27/13 Status: Ordered lisinopril 10 mg oral tablet See Instructions, TAKE ONE TABLET BY MOUTH EVERY DAY, # 30 tabs, 11 Refill(s), eRx: [facility] #[id number], TAKE ONE TABLET BY MOUTH EVERY DAY Start Date: 06/10/15 Status: Ordered metoclopramide 10 mg oral tablet See Instructions, TAKE 1 TABLET BY MOUTH 30 MINUTES BEFORE LUNCH AND EVENING MEAL, # 60 tabs, 10 Refill(s), eRx: [facility] #[id number], TAKE 1 TABLET BY MOUTH 30 MINUTES BEFORE LUNCH AND EVENING MEAL Start Date: 04/10/15 Status: Ordered omeprazole 40 mg oral delayed release capsule See Instructions, TAKE ONE CAPSULE BY MOUTH DAILY, # 90 caps, 2 Refill(s), eRx: [facility] #[id number] Start Date: 04/14/16 Status: Ordered traMADol 50 mg oral tablet 50 mg 1 tabs, Oral, q6hr, as needed for pain, # 120 tabs, 0 Refill(s), called to pharmacy (Rx) Start Date: 03/13/16 Status: Ordered Results Urinalysis Most recent to 1 oldest [Reference Range]: UA Color Yellow (04/23/16 4:50 PM) UA Appear Clear (04/23/16 4:50 PM) UA pH [5.0-8.0] 6.5 (04/23/16 4:50 PM) UA Leuk Est Pos 3+ [Negative] *ABN* (04/23/16 4:50 PM) UA Nitrite Negative [Negative] (04/23/16 4:50 PM) UA Protein Negative [Negative] (04/23/16 4:50 PM) UA Glucose Negative [Negative] (04/23/16 4:50 PM) UA Ketones Negative [Negative] (04/23/16 4:50 PM) UA Urobilinogen 0.2 mg/dL [<1.0 mg/dL] (04/23/16 4:50 PM) UA Bili [Negative] Negative (04/23/16 4:50 PM) UA Blood [Negative] Negative (04/23/16 4:50 PM) UA Spec Grav 1.015 [1.003-1.030] (04/23/16 4:50 PM) Type Clean Catch (04/23/16 4:50 PM) UA WBC [0-4] 5-10 *ABN* (04/23/16 4:50 PM) UA RBC [0-4] 0-4 (04/23/16 4:50 PM) Epithelial Cells 10-20 (04/23/16 4:50 PM) UA Bacteria Occasional *ABN* (04/23/16 4:50 PM) UA Hyal Cast [0-3] 1-3 (04/23/16 4:50 PM) Immunizations Given and Recorded Vaccine Date Status [...] hysterectomy5 ORIF right humerus right total elbow [facility]. No Global. Dx: 722.52, 724.02, 724.2, 724.4. 2global end date: 10/17/2013 3Remove implant rt elbow 4CPT: 96622, 10384 (Add level). Dx: 722.52, 724.02, 724.2, 724.4. [facility]. Global End Date: 11/06/14. 5Also had BSO for benign reasons. Social History Social History Type Response Smoking Status Never smoker Assessment and Plan Extracted from: Title: Office Visit Note Author: Vish Oviedo MD Date: 04/23/16 Assessment/Plan 1.HTN (hypertension) Blood pressure appears suboptimally controlled. However she did not want me to add more medications today. I'll reevaluate this in 6 months. Ordered: Office Visit Level 3 Est 14852 Return to Clinic 2.Hyperlipemia, mixed Lipid profile to be done later date. Fortunately she hasn't had any chest symptoms suggestive of a problem. Ordered: Office Visit Level 3 Est 72303 Return to Clinic 3.Urinary frequency For her urinary frequency I'll try generic Detrol 2 mg twice a day. If it helps she can stay on. I'll also check a urine specimen today for infection let her know the results. I also talked her about the possibility of seeingsomeone like . However She Does Not like the Idea and Is Not Open to the Idea Today and Any Surgical Correctionor Attempt at Fixing This Problem Surgically. I'll Plan to See Her Back Here in 6 Months for an Annual History and Physical Exam. Ordered: Office Visit Level 3 Est 56207 Return to Clinic Urinalysis with Culture if Indicated Referrals to Other Providers Referred by: Vish Oviedo MD
--- NOTE | 2016-07-17 09:43 | ERPDOC ---
Departure Disposition Decision Date: Jul 17, 2016 Disposition Decision Time: 10:45 Disposition: 02 TO [facility] Impression Impression Impression: Primary Impression: Chest pain Chest pain type: unspecified Qualified Codes: R07.9 - Chest pain, unspecified Severity: Moderate Condition: Improved Seen By: Physician only Referrals: KELLIE PATEL (Family) Problems/Meds/Labs Reviewed?: Yes Medications reviewed and manag: Yes Follow up care ordered?: Yes Mental Status: Alert, Oriented HPI - General Medical General Stated Complaint: CP Time Seen by Provider: 09:38 Source: patient Exam Limitations: no limitations HPI - General Medical Initial Comments 85-year-old female presents to the emergency department with a chief complaint of chest pain. Patient noted onset of symptoms at approximately 6 PM in the evening 1 day ago. Patient states that her symptoms began gradually worsening in nature. Pain is dull. Pain is described as a pressure. No radiation. Pain is moderate in nature. She notes that the pain improved with fentanyl that was given by EMS. Patient denies any other complaints or associated symptoms. Patient was at her care facility when her symptoms began. Symptoms have been persistent in nature since onset. Occurred At: other (Care Facility) Onset: Gradual Allergies: Coded Allergies: clavulanic acid (Verified Allergy, Intermediate, DIZZINESS, 07/17/16) clindamycin (Verified Allergy, Intermediate, RASH, 07/17/16) Egg. 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 Champagne Lumbar laminectomy with decompression of nerve roots, including partial facetectomy, foraminotomy and excision of herniated intravertebral disc, 2014 - Dr. Ruiz Hx of epidural injections. 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 In all, she's had 7 surgeries on her right arm Hernia repair 1993 Appendectomy Bilateral cataracts Cholecystectomy Hysterectomy, 1993 ORIF right humerus Surgical History Cardiac: cardiac bypass Family History Family History: Negative Vaccines Hx Influenza Vaccination: No Hx Pneumococcal Vaccination: Yes (2015) Social History Smoking Status: Never smoker Does patient use chewing tobac: No Second Hand Exposure: No Substance Use Type: does not use Alcohol Intake: none Marital Status: Housing: house Household Members: children Current Occupational Status: retired Review of Systems Constitutional Constitutional: DENIES: chills, fever Eyes General: DENIES: erythema, exudate Lids/Accessories: DENIES: erythema, swelling Vision: DENIES: acuity, blurring ENMT Ears: DENIES: drainage, erythema Hearing: DENIES: hearing loss Balance: DENIES: ataxia, falling to one side Sinuses: DENIES: congestion, pain Nose: DENIES: nosebleeds, pain Mouth/Throat: DENIES: sore throat Teeth: DENIES: pain Jaw: DENIES: pain Cardiovascular Cardiac: chest pain, DENIES: dyspnea on exertion Rhythm/Rate: DENIES: irregular beat, palpitations Vascular: DENIES: pedal edema, unilateral swelling Pulmonary Respiratory: DENIES: cough, dyspnea, pleuritic chest pain, sputum GI Upper Abdomen: DENIES: nausea, pain, vomiting Lower Abdomen: DENIES: diarrhea, pain General: DENIES: dysuria, frequency Musculoskeletal General: DENIES: joint pain, pain, tenderness Integumentary Skin: DENIES: itching, rash Neurological General: DENIES: headache, numbness, weakness Psychiatric Psychiatric: DENIES: emotional instability, suicidal ideation/attempt Endocrine Endocrine: DENIES: polydipsia, polyphagia Hematologic/Lymphatic Hematologic/Lymphatic: DENIES: frequent nosebleeds, lymphadenopathy Allergic/Immunological Allergic/Immunoligical: DENIES: allergic reactions, hives Physical Exam General General Nourishment: well nourished, well developed, appears stated age, no acute distress, adult General Body Habitus: well groomed Vitals and Pain First Documented Vital Signs Date Time Temp Pulse Resp B/P Pulse Ox O2 Delivery O2 Flow Rate FiO2 07/17/16 09:27 98.5 82 16 149/70 97 Room Air Weight: Kilograms: Height (feet): 5 Height (inches): 5.00 Triage Pain Scale: RN VS reviewed by Provider: Yes Normal Exams: Head: Normocephalic w/o trauma Eyes: Pupils are PERRLA w/ EOMI, No scleral icterus, irritation, or foreign bodies noted ENMT: No facial trauma, nasal exudates, pharyngeal erythema, or exudates are noted Dental: No fractured, loose, or missing teeth noted Neck: Full range of motion, without adenopathy, JVD, bruits or thyromegaly Chest/Resp: Clear all anaya, with good airflow, and symmetry bilaterally CV: Regular rate and rhythm, without murmur or gallop, Pulses 2+ all extremities, capillary refill, <2 seconds all ext., no pedal edema noted Abdomen: Bowel sounds positive, soft, non-tender, non-distended, no hepatosplenomegaly, masses or bruits noted Lymphatic: No lymphadenopathy, or lymphedema noted Musculoskeletal: No tenderness, or deformity noted, good range of motion, all extremities Integumentary: No rashes, hives, or bruising noted, hair and nails, without abnormality Neurologic: Patient is alert, and oriented, cranial nerves, motor/sensory/ cerebellar, exams w/o gross deficits, to observation Psychiatric: Patient exhibits, appropriate attention, emotion and affect Differential Diagnoses Considering: Acute NC, Hypo/Hyperglycemia, Medication Effect, Metabolic Progress Results/Orders Orders Procedure Category Date Status Time Cbc W/Auto LAB 07/17/16 Complete Diff-Reflex Manual Cmp - Comprehensive LAB 07/17/16 Complete Metabolic Troponin I W LAB 07/17/16 Complete Hemolysis Index EKG EKG 07/17/16 Taken Chest 1 View RAD 07/17/16 Resulted 09:38 Lab Results Laboratory Tests Test 07/17/16 09:02 White Blood Count 11.6T/MM3 Red Blood Count 4.10M/MM3 Hemoglobin 12.2GM/DL Hematocrit 39.6% Mean Corpuscular Volume 96.6UM3 Mean Corpuscular Hemoglobin 29.8UUG Mean Corpuscular Hemoglobin Concent 30.8GM/DL RDW Standard Deviation 61.6FL Platelet Count 212T/MM3 Mean Platelet Volume 12.6UM3 Immature Granulocyte % (Auto) 0.1% Neutrophils (%) (Auto) 77.5% Lymphocytes (%) (Auto) 12.3% Monocytes (%) (Auto) 8.4% Eosinophils (%) (Auto) 1.3% Basophils (%) (Auto) 0.4% Absolute Immature Granulocyte (auto 0.01T/MM3 Absolute Neutrophils (auto) 9.0T/MM3 Absolute Lymphocytes (auto) 1.4T/MM3 Absolute Monocytes (auto) 1.0T/MM3 Absolute Eosinophils (auto) 0.2T/MM3 Absolute Basophils (auto) 0.1T/MM3 Turbidity < 20 Sodium Level 140MEQ/L Potassium Level 4.4MEQ/L Chloride Level 94MEQ/L Carbon Dioxide Level 31MEQ/L Anion Gap 15MEQ/L Blood Urea Nitrogen 17.0MG/DL Creatinine 0.9MG/DL Glomerular Filtration Rate Calc 60 BUN/Creatinine Ratio 19RATIO Glucose Level 181MG/DL Calculated Osmolality 276MOSM/KG Calcium Level 9.3MG/DL Total Bilirubin 0.60MG/DL Icterus Index < 2 Aspartate Amino Transf (AST/SGOT) 25U/L Alanine Aminotransferase (ALT/SGPT) 29U/L Alkaline Phosphatase 131U/L Troponin I < 0.012ng/ml Total Protein 6.6G/DL Albumin 3.4G/DL Globulin 3.2G/DL Albumin/Globulin Ratio 1.1RATIO Chemistry Specimen Hemolysis < 15 Progress Progress Labs/imaging were discussed in detail with the patient and family and questions are answered. Patient was given 324 mg of aspirin by mouth 1 today prior to arrival to the emergency Department. Patient declined further analgesic pain medication when offered. Patient is discussed with her securities analyst Dr. Lopez and admitted to his service in improved condition. Patient is in agreement with the current plan of management. No further orders from accepting physician who is in agreement with the current plan of management. Patient is admitted to the hospital in improved condition. EKG EKG : Rate: 60-100 Rhythm: sinus [place]: normal QRS: normal Intervals: normal ST/T: normal Interpreted by: signing physician Xray Xray : Xray: CXR Portable Interpretation: Normal, Reviewed Written Report SAMANTHA QUACH DO Jul 17, 2016 09:43
--- NOTE | 2016-07-17 09:51 | NUR ---
PROVIDER DR. QUACH AT BEDSIDE FOR EXAM.
[2016-07-17] MEDS ORDERED: AMIO200T2 PO (09:52)
[2016-07-17] MEDS ORDERED: METO5TAB2 PO (09:56)
[2016-07-17] MEDS ORDERED: MAGN400T6 PO (09:56)
[2016-07-17 09:58] LABS: BASOPHILS # (AUTO) 0.1 T/MM3 (0-0.2); BASOPHILS % (AUTO) 0.4 % (0-2); EOSINOPHILS # (AUTO) 0.2 T/MM3 (0-0.5); EOSINOPHILS % (AUTO) 1.3 % (0-4); HCT - HEMATOCRIT 39.6 % (36-46); HGB - HEMOGLOBIN 12.2 GM/DL (12-16); IMMATURE GRANULOCYTE # (AUTO) 0.01 T/MM3 (0.00-0.03); IMMATURE GRANULOCYTE % (AUTO) 0.1 % (0.0-0.5); LYMPHOCYTES # (AUTO) 1.4 T/MM3 (1-4.8); LYMPHOCYTES % (AUTO) 12.3 % (23-45); MEAN CORPUSCULAR HGB 29.8 UUG (26-34); MEAN CORPUSCULAR HGB CONC(MCHC 30.8 GM/DL (31-37); MEAN CORPUSCULAR VOLUME 96.6 UM3 (80-100); MEAN PLATELET VOLUME 12.6 UM3 (9.4-12.4); MONOCYTES % (AUTO) 8.4 % (0-9.0); NEUTROPHILS % (AUTO) 77.5 % (33-66); WBC - WHITE BLOOD COUNT 11.6 T/MM3 (4.5-11.0)
[2016-07-17] MEDS ORDERED: FURO20TA4 PO (10:00)
[2016-07-17] MEDS ORDERED: CHOL200024 PO (10:00)
[2016-07-17] MEDS ORDERED: MULT-933 PO (10:00)
[2016-07-17] MEDS ORDERED: METF500T4 PO (10:03)
[2016-07-17] MEDS ORDERED: LIDO700A3 TD (10:03)
[2016-07-17] MEDS ORDERED: POTA-12 PO (10:03)
[2016-07-17 10:06] LABS: ALBUMIN 3.4 G/DL (3.5-5.0); ALBUMIN/GLOBULIN RATIO 1.1 RATIO (1.1-2.2); ALKALINE PHOSPHATASE 131 U/L (38-126); ALT (SGPT) 29 U/L (9-52); ANION GAP 15 MEQ/L (5-15); AST (SGOT) 25 U/L (14-36); BUN/CREATININE RATIO 19 RATIO (6-26); CALCIUM 9.3 MG/DL (8.4-10.2); CHLORIDE 94 MEQ/L (98-107); CO2 - CARBON DIOXIDE 31 MEQ/L (22-30); CREATININE 0.9 MG/DL (0.7-1.2); GLOMERULAR FILTRATION RATE 60; GLUCOSE 181 MG/DL (65-110); POTASSIUM 4.4 MEQ/L (3.6-5); SODIUM 140 MEQ/L (134-144); TOTAL PROTEIN 6.6 G/DL (6.3-8.2)
--- NOTE | 2016-07-17 10:07 | DI ---
Indication: ITS.REASON: Chest pain and pressure since yesterday PROCEDURE: CHEST 1 VIEW: Encounter: Initial Comparison: May 15, 2016 Findings: The lungs are stable in appearance without new focal airspace consolidation. There is no pleural effusion or pneumothorax. The heart size, pulmonary vascularity and mediastinal contours are unchanged. Interval CABG. Intrathoracic stomach. IMPRESSION: Interval CABG without acute cardiopulmonary disease. .
[2016-07-17] MEDS ORDERED: EUCERIN TOP (10:09)
[2016-07-17] MEDS ORDERED: FENT1PAT65 TOP (10:09)
[2016-07-17] MEDS ORDERED: HYDR2TAB7 PO (10:09)
[2016-07-17] MEDS ORDERED: KENALOG TOP (10:09)
[2016-07-17] MEDS ORDERED: CYCL-375 PO (10:13)
[2016-07-17] MEDS ORDERED: MAGN30OR PO (10:13)
--- NOTE | 2016-07-17 10:37 | NUR ---
STATUS PT APPEARS TO BE RESTING COMFORTABLY IN CART. DENIES NEEDS AT THIS TIME. REPORTS CHEST DISCOMFORT STILL 08/19. PROVIDER NOTIFIED. NO NEW ORDERS REC'D.
--- NOTE | 2016-07-17 11:09 | NUR ---
REPORT CALLED TO [facility] COMBS ON MEDICAL UNIT. DENIES QUESTIONS.
--- NOTE | 2016-07-17 11:15 | NUR ---
Admit Patient is admitted to room 135. Arrives on W/C from ER. Family accompanies patient from ER. Patient is on RA. Denies pain or any other concerns.
--- NOTE | 2016-07-17 11:15 | NUR ---
ADMIT PT TAKEN TO MEDICAL UNIT, RM 135 BY CART PER THIS RN. PT TRANSFERS TO BATHROOM X1 ASSIST STEADILY. CONTINUES TO REPORT CHEST DISCOMFORT /.
[2016-07-17 11:34] VITALS: BP 124/65; PULSE 83; RESP 18; TEMP 97.5; O2SAT 97
[2016-07-17 11:35] VITALS: PULSE 83
[2016-07-17 11:41] VITALS: Ht 165.1 cm; Wt 71.0 kg
[2016-07-17] MEDS ORDERED: ACETAMINOPHEN 325 MG TABLET PO PRN (12:00)
[2016-07-17] MEDS ORDERED: FERROUS SULFATE 324 MG TABLET PO SCH (12:00)
[2016-07-17] MEDS ORDERED: HYDROMORPHONE 2 MG TABLET PO PRN (12:00)
[2016-07-17] MEDS ORDERED: CYCLOBENZAPRINE 10 MG TABLET PO PRN (12:00)
[2016-07-17] MEDS ORDERED: MAG-AL + SIM LIQUID 30 ML UDC PO PRN (12:00)
--- NOTE | 2016-07-17 12:00 | NUR ---
Dr. Lopez at bedside Patient to discharge this evening bending lab to be ordered.
--- NOTE | 2016-07-17 12:58 | HPPDOC ---
TANYA MONROE METHODS ANALYST 07/17/16 1237: HPI - Adult Date DATE: 07/17/16 TIME: 12:33 General Date of Admission Date of Admission: Jul 17, 2016 at 10:50 Chief Complaint: chest pain History of Present Illness Talisha is a 85 year old female who is well known to Dr. Olmos who has a known history of CAD with Bypass surgery on 05/20/16, HTN, HLD and DM.She had some post op atrial fibrillation while on the inpatient rehab unit and was started on Amiodarone. She was given only Aspirin for anticoagulation due to hip surgery on 05/15 which later required I&D to evacuate a hematoma. She has been having sternal chest pressure and tightness at rest the past day. She has no radiation or accompanying symptoms. She states nothing made it better until she came to the ED. Her chest is tender to palpation of the sternum. Past Medical History Past Medical History Metabolic: diabetes, hypercholesterolemia, hypertension Cardiac: A-fib, CAD GI: GERD Musculoskeletal: back pain, osteoarthritis Psychological: anxiety, depression Surgical History General: neck (laminectomy) Cardiac: cardiac bypass, cardiac cath Joint: elbow (R), hip (R) Current Medications Home Meds Active Scripts Benzocaine (Americaine) 28 Gm Oint...g., 1 APPLIC TOP BID Y for HEMORRHOIDS for 30 Days, G Prov:KRISTY SARABIA V METHODS ANALYST 06/22/16 Reported Medications Magnesium Hydroxide/Al Hydrox (Mag-Al Liquid) 30 Ml Suspension, 30 ML PO Q4H Y for INDIGESTION 07/17/16 Cyclobenzaprine HCl (Cyclobenzaprine HCl) 10 Mg Tablet, 10 MG PO TID Y for MUSCLE SPASM 07/17/16 Hydromorphone HCl (Hydromorphone HCl) 2 Mg Tablet, 2 MG PO Q3H Y for PAIN 07/17/16 Fentanyl (Fentanyl 25 mcg/hr) 1 Each Patch.td72, 1 PATCH TOP Q72H 07/17/16 [Kenalog/Eucerin] No Conflict Check, 1 APPLIC TOP BID 07/17/16 Lidocaine (Lidoderm) 1 Each Adh..patch, 1 PATCH TD DAILY 07/17/16 Metformin HCl (Metformin HCl) 500 Mg Tablet, 500 MG PO BIDWM 07/17/16 Potassium Chloride (Potassium Chloride) 10 Meq Tab.er.prt, 10 MEQ PO BID 07/17/16 Cholecalciferol (Vitamin D3) (Vitamin D-3) 2,000 Unit Tablet, 2000 UNIT PO DAILY 07/17/16 Multivitamin (Multi-Day Vitamins) 1 Each Tablet, 1 TAB PO DAILY 07/17/16 Furosemide (Furosemide) 20 Mg Tablet, 20 MG PO BID 07/17/16 Magnesium Oxide (Magnesium Oxide) 400 Mg Tablet, 800 MG PO HS 07/17/16 Metoclopramide HCl (Metoclopramide HCl) 5 Mg Tablet, 5 MG PO HS 07/17/16 Amiodarone HCl (Amiodarone HCl) 200 Mg Tablet, 200 MG PO DAILY 07/17/16 Ascorbic Acid (Ascorbic Acid) 500 Mg Tablet, 500 MG PO DAILY 06/03/16 Polyethylene Glycol 3350 (Miralax) 17 Gm Powd.pack, 17 G PO BID, 06/03/16 Docusate Sodium (Docusate Sodium) 100 Mg Capsule, 100 MG PO BID 06/03/16 Acetaminophen (Tylenol) 325 Mg Tablet, 650 MG PO Q4HPRN, 06/03/16 Aspirin (Aspirin) 81 Mg Tab.chew, 81 MG PO DAILY 06/03/16 Metoprolol Tartrate (Metoprolol Tartrate) 25 Mg Tablet, 25 MG PO BID 06/03/16 Atorvastatin Calcium (Atorvastatin Calcium) 40 Mg Tablet, 40 MG PO HS 06/03/16 Ferrous Sulfate (Ferrous Sulfate) 325 Mg Tablet, 325 MG PO TIDWM 06/03/16 Omeprazole (Omeprazole) 40 Mg Capsule.dr, 40 MG PO DAILY 05/15/16 Gabapentin (Gabapentin) 300 Mg Capsule, 300 MG PO HS 05/14/16 Allergies: Coded Allergies: clavulanic acid (Verified Allergy, Intermediate, DIZZINESS, 07/17/16) clindamycin (Verified Allergy, Intermediate, RASH, 07/17/16) Egg. (Verified Allergy, Unknown, 07/17/16) Sulfa (Sulfonamide Antibiotics) (Verified Allergy, Unknown, 07/17/16) codeine (Verified Allergy, Unknown, 07/17/16) hydrocodone (Verified Allergy, Unknown, 07/17/16) iodine (Verified Allergy, Unknown, 07/17/16) morphine (Verified Allergy, Unknown, 07/17/16) oxycodone (Verified Allergy, Unknown, 07/17/16) amoxicillin (Verified Adverse Reaction, Intermediate, PALPITATION and rash , 07/17/16) Family History FOUND: [place] (father) Vaccines 2016 fall 2015 Social History Smoking Status: Never smoker Does patient use chewing tobac: No Second Hand Exposure: No Substance Use Type: does not use Marital Status: Housing: care home Household Members: children Current Occupational Status: retired Advance Directives: Yes DPOA for Healthcare Only ([employer]) Review of Systems Constitutional: DENIES: chills, dizziness, fever, weakness Eyes Vision: DENIES: double vision ENMT Hearing: DENIES: tinnitus Balance: DENIES: vertigo Sinuses: NOT FOUND: rhinorrhea Mouth/Throat: DENIES: sore throat Cardiovascular chest pain, dyspnea on exertion, DENIES: murmur, orthopnea, paroxysmal nocturnal dysp Rhythm/Rate: DENIES: irregular beat, palpitations Vascular: DENIES: pedal edema Pulmonary Respiratory: DENIES: cough, sputum GI Upper Abdomen: DENIES: nausea, vomiting Lower Abdomen: DENIES: diarrhea General: DENIES: dysuria Integumentary Skin: DENIES: rash, sores Neurological General: DENIES: headache, numbness, seizures, syncope, weakness All Other Systems All Other Systems: Reviewed (remainder of 10-point ROS Neg.) Physical Exam General General Nourishment: well nourished, well developed, apparent age General Body Habitus: well groomed Vital Signs Vital Signs Date Time Temp Pulse Resp B/P Pulse Ox O2 Delivery O2 Flow Rate FiO2 07/17/16 11:35 83 07/17/16 11:34 97.5 18 124/65 97 Room Air Height (Feet): 5 Height (Inches): 5.00 ENMT Brief: FOUND: mucosa moist Neck Brief: NOT FOUND: JVD, carotid bruits Respiratory Brief: FOUND: clear all [place], equal bilaterally, NOT FOUND: rales , wheezes Cardiovascular (brief) Cardiac Brief: FOUND: regular rate, regular rhythm, NOT FOUND: click, gallop, murmur, pedal edema Abdomen (brief) Abdominal Brief: FOUND: BS normo active x4, soft Integumentary (brief) Integumentary Brief: FOUND: dry, pink, warm Neurologic RN Documented GCS Eye Opening: Verbal: Motor: Total: Psychiatric (brief) FOUND: alert, attentive, oriented Laboratory Laboratory Tests Test 07/17/16 09:02 07/17/16 12:20 White Blood Count 11.6T/MM3 Red Blood Count 4.10M/MM3 Hemoglobin 12.2GM/DL Hematocrit 39.6% Mean Corpuscular Volume 96.6UM3 Mean Corpuscular Hemoglobin 29.8UUG Mean Corpuscular Hemoglobin Concent 30.8GM/DL RDW Standard Deviation 61.6FL Platelet Count 212T/MM3 Mean Platelet Volume 12.6UM3 Immature Granulocyte % (Auto) 0.1% Neutrophils (%) (Auto) 77.5% Lymphocytes (%) (Auto) 12.3% Monocytes (%) (Auto) 8.4% Eosinophils (%) (Auto) 1.3% Basophils (%) (Auto) 0.4% Absolute Immature Granulocyte (auto 0.01T/MM3 Absolute Neutrophils (auto) 9.0T/MM3 Absolute Lymphocytes (auto) 1.4T/MM3 Absolute Monocytes (auto) 1.0T/MM3 Absolute Eosinophils (auto) 0.2T/MM3 Absolute Basophils (auto) 0.1T/MM3 Turbidity < 20 Sodium Level 140MEQ/L Potassium Level 4.4MEQ/L Chloride Level 94MEQ/L Carbon Dioxide Level 31MEQ/L Anion Gap 15MEQ/L Blood Urea Nitrogen 17.0MG/DL Creatinine 0.9MG/DL Glomerular Filtration Rate Calc 60 BUN/Creatinine Ratio 19RATIO Glucose Level 181MG/DL Calculated Osmolality 276MOSM/KG Calcium Level 9.3MG/DL Total Bilirubin 0.60MG/DL Icterus Index < 2 Aspartate Amino Transf (AST/SGOT) 25U/L Alanine Aminotransferase (ALT/SGPT) 29U/L Alkaline Phosphatase 131U/L Troponin I < 0.012ng/ml Total Protein 6.6G/DL Albumin 3.4G/DL Globulin 3.2G/DL Albumin/Globulin Ratio 1.1RATIO Chemistry Specimen Hemolysis < 15 Laboratory Tests Test 07/17/16 09:02 07/17/16 12:20 White Blood Count 11.6T/MM3 Red Blood Count 4.10M/MM3 Hemoglobin 12.2GM/DL Hematocrit 39.6% Mean Corpuscular Volume 96.6UM3 Mean Corpuscular Hemoglobin 29.8UUG Mean Corpuscular Hemoglobin Concent 30.8GM/DL RDW Standard Deviation 61.6FL Platelet Count 212T/MM3 Mean Platelet Volume 12.6UM3 Immature Granulocyte % (Auto) 0.1% Neutrophils (%) (Auto) 77.5% Lymphocytes (%) (Auto) 12.3% Monocytes (%) (Auto) 8.4% Eosinophils (%) (Auto) 1.3% Basophils (%) (Auto) 0.4% Absolute Immature Granulocyte (auto 0.01T/MM3 Absolute Neutrophils (auto) 9.0T/MM3 Absolute Lymphocytes (auto) 1.4T/MM3 Absolute Monocytes (auto) 1.0T/MM3 Absolute Eosinophils (auto) 0.2T/MM3 Absolute Basophils (auto) 0.1T/MM3 Turbidity < 20 Sodium Level 140MEQ/L Potassium Level 4.4MEQ/L Chloride Level 94MEQ/L Carbon Dioxide Level 31MEQ/L Anion Gap 15MEQ/L Blood Urea Nitrogen 17.0MG/DL Creatinine 0.9MG/DL Glomerular Filtration Rate Calc 60 BUN/Creatinine Ratio 19RATIO Glucose Level 181MG/DL Calculated Osmolality 276MOSM/KG Calcium Level 9.3MG/DL Total Bilirubin 0.60MG/DL Icterus Index < 2 Aspartate Amino Transf (AST/SGOT) 25U/L Alanine Aminotransferase (ALT/SGPT) 29U/L Alkaline Phosphatase 131U/L Troponin I < 0.012ng/ml Total Protein 6.6G/DL Albumin 3.4G/DL Globulin 3.2G/DL Albumin/Globulin Ratio 1.1RATIO Chemistry Specimen Hemolysis < 15 Radiology DATE OF EXAM: 07/17/16 ORDERING DOCTOR: SAMANTHA QUACH DO TYPE OF EXAM: CHEST 1 VIEW REASON FOR EXAM: pain Indication: ITS.REASON: Chest pain and pressure since yesterday PROCEDURE: CHEST 1 VIEW: Encounter: Initial Comparison: May 15, 2016 Findings: The lungs are stable in appearance without new focal airspace consolidation. There is no pleural effusion or pneumothorax. The heart size, pulmonary vascularity and mediastinal contours are unchanged. Interval CABG. Intrathoracic stomach. IMPRESSION: Interval CABG without acute cardiopulmonary disease. Assessment & Plan Problems: (1) Mid sternal chest pain Status: Chronic Assessment & Plan: C/O chest pressure and has reproducible sternal pain that is not Cardiac but rather musculoskeletal. Negative troponin levels and EKG without ischemic changes. (2) CAD (coronary artery disease) Status: Chronic Qualifiers: Coronary Disease-Associated Artery/Lesion type: [place] artery [place] vs. transplanted heart: [place] heart Associated angina: angina presence unspecified Qualified Codes: I25.10 - Atherosclerotic heart disease of [place] coronary artery without angina pectoris Assessment & Plan: C/O chest pressure and has reproducible sternal pain that is not Cardiac but rather musculoskeletal, Continue BB, statin and Aspirin (3) S/P CABG (coronary artery bypass graft) Onset Date: ~ 05/20/2016 Status: Acute (4) Atrial fibrillation Status: Resolved Qualifiers: Atrial fibrillation type: paroxysmal Qualified Codes: I48.0 - Paroxysmal atrial fibrillation Assessment & Plan: Only A Fib every captured happen directly S/P CABG. Anticoagulation with Aspirin only at this time as S/P hip surgery. Will revaluate stroke risk in the future (5) HTN (hypertension) Status: Chronic Qualifiers: Hypertension type: essential hypertension Qualified Codes: I10 - Essential (primary) hypertension Assessment & Plan: continue current therapy (6) Hypercholesteremia Status: Chronic Assessment & Plan: Continue Atorvastatin (7) Diabetes mellitus Onset Date: ~ 05/2016 Status: Chronic Qualifiers: Diabetes mellitus type: type 2 Diabetes mellitus senior care insulin use: without terminal make up operator use Assessment & Plan: continue Metformin Plan/Intensity of Service C/O chest pressure and has reproducible sternal pain that is not Cardiac but rather musculoskeletal. Negative troponin levels and EKG without ischemic changes. Discharge to [facility]. Code Status Full Code Hospital Course Summary Disclaimer The hospital course summary below is not to be considered part of the above Progress Note. BERNIE OLMOS MD 07/17/16 1539: Past Medical History Current Medications Home Meds Active Scripts Benzocaine (Americaine) 28 Gm Oint...g., 1 APPLIC TOP BID Y for HEMORRHOIDS for 30 Days, G Prov:KRISTY SARABIA V METHODS ANALYST 06/22/16 Reported Medications Magnesium Hydroxide/Al Hydrox (Mag-Al Liquid) 30 Ml Suspension, 30 ML PO Q4H Y for INDIGESTION 07/17/16 Cyclobenzaprine HCl (Cyclobenzaprine HCl) 10 Mg Tablet, 10 MG PO TID Y for MUSCLE SPASM 07/17/16 Hydromorphone HCl (Hydromorphone HCl) 2 Mg Tablet, 2 MG PO Q3H Y for PAIN 07/17/16 Fentanyl (Fentanyl 25 mcg/hr) 1 Each Patch.td72, 1 PATCH TOP Q72H 07/17/16 [Kenalog/Eucerin] No Conflict Check, 1 APPLIC TOP BID 07/17/16 Lidocaine (Lidoderm) 1 Each Adh..patch, 1 PATCH TD DAILY 07/17/16 Metformin HCl (Metformin HCl) 500 Mg Tablet, 500 MG PO BIDWM 07/17/16 Potassium Chloride (Potassium Chloride) 10 Meq Tab.er.prt, 10 MEQ PO BID 07/17/16 Cholecalciferol (Vitamin D3) (Vitamin D-3) 2,000 Unit Tablet, 2000 UNIT PO DAILY 07/17/16 Multivitamin (Multi-Day Vitamins) 1 Each Tablet, 1 TAB PO DAILY 07/17/16 Furosemide (Furosemide) 20 Mg Tablet, 20 MG PO BID 07/17/16 Magnesium Oxide (Magnesium Oxide) 400 Mg Tablet, 800 MG PO HS 07/17/16 Metoclopramide HCl (Metoclopramide HCl) 5 Mg Tablet, 5 MG PO HS 07/17/16 Amiodarone HCl (Amiodarone HCl) 200 Mg Tablet, 200 MG PO DAILY 07/17/16 Ascorbic Acid (Ascorbic Acid) 500 Mg Tablet, 500 MG PO DAILY 06/03/16 Polyethylene Glycol 3350 (Miralax) 17 Gm Powd.pack, 17 G PO BID, 06/03/16 Docusate Sodium (Docusate Sodium) 100 Mg Capsule, 100 MG PO BID 06/03/16 Acetaminophen (Tylenol) 325 Mg Tablet, 650 MG PO Q4HPRN, 06/03/16 Aspirin (Aspirin) 81 Mg Tab.chew, 81 MG PO DAILY 06/03/16 Metoprolol Tartrate (Metoprolol Tartrate) 25 Mg Tablet, 25 MG PO BID 06/03/16 Atorvastatin Calcium (Atorvastatin Calcium) 40 Mg Tablet, 40 MG PO HS 06/03/16 Ferrous Sulfate (Ferrous Sulfate) 325 Mg Tablet, 325 MG PO TIDWM 06/03/16 Omeprazole (Omeprazole) 40 Mg Capsule.dr, 40 MG PO DAILY 05/15/16 Gabapentin (Gabapentin) 300 Mg Capsule, 300 MG PO HS 05/14/16 Allergies: Coded Allergies: clavulanic acid (Verified Allergy, Intermediate, DIZZINESS, 07/17/16) clindamycin (Verified Allergy, Intermediate, RASH, 07/17/16) Egg. (Verified Allergy, Unknown, 07/17/16) Sulfa (Sulfonamide Antibiotics) (Verified Allergy, Unknown, 07/17/16) codeine (Verified Allergy, Unknown, 07/17/16) hydrocodone (Verified Allergy, Unknown, 07/17/16) iodine (Verified Allergy, Unknown, 07/17/16) morphine (Verified Allergy, Unknown, 07/17/16) oxycodone (Verified Allergy, Unknown, 07/17/16) amoxicillin (Verified Adverse Reaction, Intermediate, PALPITATION and rash , 07/17/16) Assessment & Plan Plan/Intensity of Service After examining the patient I agree with the above assessment. I am involved in the formulation of the patient's plan of care. TANYA MONROE APRN Jul 17, 2016 12:37 BERNIE OLMOS MD Jul 17, 2016 15:39
--- NOTE | 2016-07-17 14:37 | NUR ---
JAYA LAKE SPOKE WITH TANYA AT [facility] TO LET HER KNOW THAT PT WILL BE DC'D THIS AFTERNOON. SHE WILL CALL JAYA WITH TRANSPORTATION TIME.
--- NOTE | 2016-07-17 14:39 | DSPDOC ---
TANYA MONROE GARNETT FIXER 07/17/16 1429: General Date Date DATE: 07/17/16 TIME: 14:25 Attending Physician Rocky Olmos MD Admitting Physician Rocky Olmos MD Consulting Physician Admitting Diagnosis Chest Pain Discharge Diagnosis mid sternal chest pain Laboratory Laboratory Tests Test 07/17/16 09:02 07/17/16 12:20 White Blood Count 11.6T/MM3 (4.5-11.0) Red Blood Count 4.10M/MM3 (4.00-5.20) Hemoglobin 12.2GM/DL (12-16) Hematocrit 39.6% (36-46) Mean Corpuscular Volume 96.6UM3 (80-100) Mean Corpuscular Hemoglobin 29.8UUG (26-34) Mean Corpuscular Hemoglobin Concent 30.8GM/DL (31-37) RDW Standard Deviation 61.6FL (36.9-50.2) Platelet Count 212T/MM3 (130-400) Mean Platelet Volume 12.6UM3 (9.4-12.4) Immature Granulocyte % (Auto) 0.1% (0.0-0.5) Neutrophils (%) (Auto) 77.5% (33-66) Lymphocytes (%) (Auto) 12.3% (23-45) Monocytes (%) (Auto) 8.4% (0-9.0) Eosinophils (%) (Auto) 1.3% (0-4) Basophils (%) (Auto) 0.4% (0-2) Absolute Immature Granulocyte (auto 0.01T/MM3 (0.00-0.03) Absolute Neutrophils (auto) 9.0T/MM3 (1.8-7.7) Absolute Lymphocytes (auto) 1.4T/MM3 (1-4.8) Absolute Monocytes (auto) 1.0T/MM3 (0-0.8) Absolute Eosinophils (auto) 0.2T/MM3 (0-0.5) Absolute Basophils (auto) 0.1T/MM3 (0-0.2) Turbidity < 20 (0-20) Sodium Level 140MEQ/L (134-144) Potassium Level 4.4MEQ/L (3.6-5) Chloride Level 94MEQ/L (98-107) Carbon Dioxide Level 31MEQ/L (22-30) Anion Gap 15MEQ/L (5-15) Blood Urea Nitrogen 17.0MG/DL (7-17) Creatinine 0.9MG/DL (0.7-1.2) Glomerular Filtration Rate Calc 60 BUN/Creatinine Ratio 19RATIO (6-26) Glucose Level 181MG/DL (65-110) Calculated Osmolality 276MOSM/KG (261-280) Calcium Level 9.3MG/DL (8.4-10.2) Total Bilirubin 0.60MG/DL (0.20-1.30) Icterus Index < 2 (0-7) Aspartate Amino Transf (AST/SGOT) 25U/L (14-36) Alanine Aminotransferase (ALT/SGPT) 29U/L (9-52) Alkaline Phosphatase 131U/L (38-126) Troponin I < 0.012ng/ml (0-0.12) < 0.012ng/ml (0-0.12) Total Protein 6.6G/DL (6.3-8.2) Albumin 3.4G/DL (3.5-5.0) Globulin 3.2G/DL (2.4-3.6) Albumin/Globulin Ratio 1.1RATIO (1.1-2.2) Chemistry Specimen Hemolysis < 15 (0-25) < 15 (0-25) History of Present Illness Talisha is a 85 year old female who is well known to Dr. Olmos who has a known history of CAD with Bypass surgery on 05/20/16, HTN, HLD and DM.She had some post op atrial fibrillation while on the inpatient rehab unit and was started on Amiodarone. She was given only Aspirin for anticoagulation due to hip surgery on 05/15 which later required I&D to evacuate a hematoma. She has been having sternal chest pressure and tightness at rest the past day. She has no radiation or accompanying symptoms. She states nothing made it better until she came to the ED. Her chest is tender to palpation of the sternum. Objective Vital Signs Vital signs Vital Signs 07/17/16 07/17/16 07/17/16 07/17/16 09:27 10:40 10:45 10:55 Temp 98.5 Pulse 82 83 81 Resp 16 16 11 B/P 149/70 123/59 Pulse Ox 97 97 92 O2 Delivery Room Air Room Air Room Air 07/17/16 07/17/16 07/17/16 07/17/16 11:00 11:10 11:34 11:35 Temp 97.5 Pulse 83 83 83 Resp 16 18 B/P 120/65 124/65 Pulse Ox 94 97 O2 Delivery Room Air Room Air Height (Feet): 5 Height (Inches): 5.00 Weight (Kilograms): 71.000 General Alert, Orientated x 3, Cooperative ENMT (Brief) mucosa moist Neck (Brief) NOT FOUND: JVD, carotid bruits Respiratory (Brief) clear all anaya, equal bilaterally, NOT FOUND: rales, wheezes Cardiovascular (Brief) regular rate, regular rhythm, NOT FOUND: click, gallop, murmur, pedal edema, rub Abdomen (Brief) BS normo active x4, soft, NOT FOUND: tender Integumentary (Brief) dry, pink, warm Psychiatric (Brief) alert, attentive, oriented Laboratory Laboratory Laboratory Tests Test 07/17/16 09:02 07/17/16 12:20 White Blood Count 11.6T/MM3 Red Blood Count 4.10M/MM3 Hemoglobin 12.2GM/DL Hematocrit 39.6% Mean Corpuscular Volume 96.6UM3 Mean Corpuscular Hemoglobin 29.8UUG Mean Corpuscular Hemoglobin Concent 30.8GM/DL RDW Standard Deviation 61.6FL Platelet Count 212T/MM3 Mean Platelet Volume 12.6UM3 Immature Granulocyte % (Auto) 0.1% Neutrophils (%) (Auto) 77.5% Lymphocytes (%) (Auto) 12.3% Monocytes (%) (Auto) 8.4% Eosinophils (%) (Auto) 1.3% Basophils (%) (Auto) 0.4% Absolute Immature Granulocyte (auto 0.01T/MM3 Absolute Neutrophils (auto) 9.0T/MM3 Absolute Lymphocytes (auto) 1.4T/MM3 Absolute Monocytes (auto) 1.0T/MM3 Absolute Eosinophils (auto) 0.2T/MM3 Absolute Basophils (auto) 0.1T/MM3 Turbidity < 20 Sodium Level 140MEQ/L Potassium Level 4.4MEQ/L Chloride Level 94MEQ/L Carbon Dioxide Level 31MEQ/L Anion Gap 15MEQ/L Blood Urea Nitrogen 17.0MG/DL Creatinine 0.9MG/DL Glomerular Filtration Rate Calc 60 BUN/Creatinine Ratio 19RATIO Glucose Level 181MG/DL Calculated Osmolality 276MOSM/KG Calcium Level 9.3MG/DL Total Bilirubin 0.60MG/DL Icterus Index < 2 Aspartate Amino Transf (AST/SGOT) 25U/L Alanine Aminotransferase (ALT/SGPT) 29U/L Alkaline Phosphatase 131U/L Troponin I < 0.012ng/ml < 0.012ng/ml Total Protein 6.6G/DL Albumin 3.4G/DL Globulin 3.2G/DL Albumin/Globulin Ratio 1.1RATIO Chemistry Specimen Hemolysis < 15 < 15 Laboratory Tests 07/17/16 09:02 Laboratory Tests 07/17/16 09:02 EKG SR, HR 82 Medications Current Medications Medications (Trade) Dose Ordered Sig/Silver Start Time Stop Time Status Last Admin Dose Admin Acetaminophen (Tylenol Regular Strength) 650 mg Q4H PRN 07/17/16 12:00 Amiodarone HCl (Pacerone) 200 mg DAILY 07/18/16 09:00 Ascorbic Acid (VITAMIN C 500 mg Tablet) 500 mg DAILY 07/18/16 09:00 Aspirin (ASA) 81 mg DAILY 07/18/16 09:00 Atorvastatin Calcium (LIPITOR 40 mg) 40 mg HS 07/17/16 22:00 Benzocaine (Americaine Hemorr. Oint.) 1 applic BID PRN 07/17/16 12:00 Cyclobenzaprine HCl (Flexeril) 10 mg TID PRN 07/17/16 12:00 Docusate Sodium (Colace) 100 mg BID 07/17/16 21:00 Fentanyl (Duragesic 25 Mcg) 1 patch Q72H 07/19/16 08:00 Ferrous Sulfate (Feosol) 324 mg TIDWM 07/17/16 12:00 07/17/16 13:23 324 MG Furosemide (Lasix) 20 mg BID. 07/17/16 17:00 Gabapentin (Neurontin) 300 mg HS 07/17/16 22:00 Hydromorphone HCl (Dilaudid) 2 mg Q3H PRN 07/17/16 12:00 Lidocaine (Lidoderm) 1 patch DAILY 07/18/16 09:00 Al Hydroxide/Mg Hydroxide (Maalox) 30 ml Q4H PRN 07/17/16 12:00 Magnesium Oxide (Magox) 800 mg HS 07/17/16 22:00 Metformin HCl (Glucophage) 500 mg BIDWM 07/17/16 17:30 Metoclopramide HCl (Reglan) 5 mg HS 07/17/16 22:00 Metoprolol Tartrate (Lopressor) 25 mg BIDWM 07/17/16 17:30 Omeprazole (Prilosec) 40 mg ACB 07/18/16 06:30 Polyethylene Glycol (Miralax) 17 g BID 07/17/16 21:00 Potassium Chloride (Kdur) 10 meq BIDWM 07/17/16 17:30 Lidocaine (Lidoderm Patch Removal) 1 removal 2100 07/17/16 21:00 Fentanyl (Duragesic Patch Removal) 1 removal Q3D 07/19/16 08:00 Fentanyl (Duragesic Patch Removal) 1 removal Q3D 07/19/16 09:00 Cancel Lidocaine (Lidoderm) 1 patch DAILY 07/18/16 09:00 Cancel Radiology DATE OF EXAM: 07/17/16 ORDERING DOCTOR: SAMANTHA QUACH DO TYPE OF EXAM: CHEST 1 VIEW REASON FOR EXAM: pain Indication: ITS.REASON: Chest pain and pressure since yesterday PROCEDURE: CHEST 1 VIEW: Encounter: Initial Comparison: May 15, 2016 Findings: The lungs are stable in appearance without new focal airspace consolidation. There is no pleural effusion or pneumothorax. The heart size, pulmonary vascularity and mediastinal contours are unchanged. Interval CABG. Intrathoracic stomach. IMPRESSION: Interval CABG without acute cardiopulmonary disease. Hospital Course Patient was admitted to the Medical unit, seen and examined by me as well as Dr. Olmos and we agree her chest pain is expected during the recovery of CABG surgery and no likely due to ischemia. Serial troponin levels are negative and EKG is without ischemic changes. Problems: (1) Mid sternal chest pain Status: Chronic (2) CAD (coronary artery disease) Status: Chronic (3) S/P CABG (coronary artery bypass graft) Onset Date: ~ 05/20/2016 Status: Acute (4) Atrial fibrillation Status: Resolved (5) HTN (hypertension) Status: Chronic (6) Hypercholesteremia Status: Chronic (7) Diabetes mellitus Onset Date: ~ 05/2016 Status: Chronic Code Status Full Code Home Meds Active Scripts Benzocaine (Americaine) 28 Gm Oint...g., 1 APPLIC TOP BID Y for HEMORRHOIDS for 30 Days, G Prov:KRISTY SARABIA V GARNETT FIXER 06/22/16 Reported Medications Magnesium Hydroxide/Al Hydrox (Mag-Al Liquid) 30 Ml Suspension, 30 ML PO Q4H Y for INDIGESTION 07/17/16 Cyclobenzaprine HCl (Cyclobenzaprine HCl) 10 Mg Tablet, 10 MG PO TID Y for MUSCLE SPASM 07/17/16 Hydromorphone HCl (Hydromorphone HCl) 2 Mg Tablet, 2 MG PO Q3H Y for PAIN 07/17/16 Fentanyl (Fentanyl 25 mcg/hr) 1 Each Patch.td72, 1 PATCH TOP Q72H 07/17/16 [Kenalog/Eucerin] No Conflict Check, 1 APPLIC TOP BID 07/17/16 Lidocaine (Lidoderm) 1 Each Adh..patch, 1 PATCH TD DAILY 07/17/16 Metformin HCl (Metformin HCl) 500 Mg Tablet, 500 MG PO BIDWM 07/17/16 Potassium Chloride (Potassium Chloride) 10 Meq Tab.er.prt, 10 MEQ PO BID 07/17/16 Cholecalciferol (Vitamin D3) (Vitamin D-3) 2,000 Unit Tablet, 2000 UNIT PO DAILY 07/17/16 Multivitamin (Multi-Day Vitamins) 1 Each Tablet, 1 TAB PO DAILY 07/17/16 Furosemide (Furosemide) 20 Mg Tablet, 20 MG PO BID 07/17/16 Magnesium Oxide (Magnesium Oxide) 400 Mg Tablet, 800 MG PO HS 07/17/16 Metoclopramide HCl (Metoclopramide HCl) 5 Mg Tablet, 5 MG PO HS 07/17/16 Amiodarone HCl (Amiodarone HCl) 200 Mg Tablet, 200 MG PO DAILY 07/17/16 Ascorbic Acid (Ascorbic Acid) 500 Mg Tablet, 500 MG PO DAILY 06/03/16 Polyethylene Glycol 3350 (Miralax) 17 Gm Powd.pack, 17 G PO BID, 06/03/16 Docusate Sodium (Docusate Sodium) 100 Mg Capsule, 100 MG PO BID 06/03/16 Acetaminophen (Tylenol) 325 Mg Tablet, 650 MG PO Q4HPRN, 06/03/16 Aspirin (Aspirin) 81 Mg Tab.chew, 81 MG PO DAILY 06/03/16 Metoprolol Tartrate (Metoprolol Tartrate) 25 Mg Tablet, 25 MG PO BID 06/03/16 Atorvastatin Calcium (Atorvastatin Calcium) 40 Mg Tablet, 40 MG PO HS 06/03/16 Ferrous Sulfate (Ferrous Sulfate) 325 Mg Tablet, 325 MG PO TIDWM 06/03/16 Omeprazole (Omeprazole) 40 Mg Capsule.dr, 40 MG PO DAILY 05/15/16 Gabapentin (Gabapentin) 300 Mg Capsule, 300 MG PO HS 05/14/16 Discharge Disposition Discharged to [facility] to resume assisted services in good and stable condition. No changes made to medications or plan of care. ROCKY OLMOS MD 07/17/16 1540: Hospital Course Home Meds Active Scripts Benzocaine (Americaine) 28 Gm Oint...g., 1 APPLIC TOP BID Y for HEMORRHOIDS for 30 Days, G Prov:KRISTY SARABIA APRN 06/22/16 Reported Medications Magnesium Hydroxide/Al Hydrox (Mag-Al Liquid) 30 Ml Suspension, 30 ML PO Q4H Y for INDIGESTION 07/17/16 Cyclobenzaprine HCl (Cyclobenzaprine HCl) 10 Mg Tablet, 10 MG PO TID Y for MUSCLE SPASM 07/17/16 Hydromorphone HCl (Hydromorphone HCl) 2 Mg Tablet, 2 MG PO Q3H Y for PAIN 07/17/16 Fentanyl (Fentanyl 25 mcg/hr) 1 Each Patch.td72, 1 PATCH TOP Q72H 07/17/16 [Kenalog/Eucerin] No Conflict Check, 1 APPLIC TOP BID 07/17/16 Lidocaine (Lidoderm) 1 Each Adh..patch, 1 PATCH TD DAILY 07/17/16 Metformin HCl (Metformin HCl) 500 Mg Tablet, 500 MG PO BIDWM 07/17/16 Potassium Chloride (Potassium Chloride) 10 Meq Tab.er.prt, 10 MEQ PO BID 07/17/16 Cholecalciferol (Vitamin D3) (Vitamin D-3) 2,000 Unit Tablet, 2000 UNIT PO DAILY 07/17/16 Multivitamin (Multi-Day Vitamins) 1 Each Tablet, 1 TAB PO DAILY 07/17/16 Furosemide (Furosemide) 20 Mg Tablet, 20 MG PO BID 07/17/16 Magnesium Oxide (Magnesium Oxide) 400 Mg Tablet, 800 MG PO HS 07/17/16 Metoclopramide HCl (Metoclopramide HCl) 5 Mg Tablet, 5 MG PO HS 07/17/16 Amiodarone HCl (Amiodarone HCl) 200 Mg Tablet, 200 MG PO DAILY 07/17/16 Ascorbic Acid (Ascorbic Acid) 500 Mg Tablet, 500 MG PO DAILY 06/03/16 Polyethylene Glycol 3350 (Miralax) 17 Gm Powd.pack, 17 G PO BID, 06/03/16 Docusate Sodium (Docusate Sodium) 100 Mg Capsule, 100 MG PO BID 06/03/16 Acetaminophen (Tylenol) 325 Mg Tablet, 650 MG PO Q4HPRN, 06/03/16 Aspirin (Aspirin) 81 Mg Tab.chew, 81 MG PO DAILY 06/03/16 Metoprolol Tartrate (Metoprolol Tartrate) 25 Mg Tablet, 25 MG PO BID 06/03/16 Atorvastatin Calcium (Atorvastatin Calcium) 40 Mg Tablet, 40 MG PO HS 06/03/16 Ferrous Sulfate (Ferrous Sulfate) 325 Mg Tablet, 325 MG PO TIDWM 06/03/16 Omeprazole (Omeprazole) 40 Mg Capsule.dr, 40 MG PO DAILY 05/15/16 Gabapentin (Gabapentin) 300 Mg Capsule, 300 MG PO HS 05/14/16 Discharge Disposition After examining the patient I agree with the above assessment. I am involved in the formulation of the patient's plan of care. TANYA MONROE APRN Jul 17, 2016 14:29 ROCKY OLMOS MD Jul 17, 2016 15:40
--- NOTE | 2016-07-17 15:14 | NUR ---
JAYA LAKE SPOKE WITH PT. SHE IS ALERT AND ORIENTED. SHE PLANS TO RETURN TO [facility] SNF. HER SON WILL TRANSPORT. JAYA UPDATES TANYA AT [facility] ON TRANPORTATION PLAN AND CONFIRMS THAT PT IS CURRENTLY THERE ON SNF SERVICES. DC TIMEOUT COMPLETED WITH KASSANDRA COMBS. Addendum: 07/17/16 at 1515 by ANDREA DAILY RN Amended: Links added.
--- NOTE | 2016-07-17 15:30 | NUR ---
Discharged Patient is discharged to [facility]. Report called to Sarah Reynolds RN. Son at bedside transports patient to [facility] per private vehicle. Patient is wheeled out to private vehicle at this time.
[2016-07-17] MEDS ORDERED: FUROSEMIDE 20 MG TABLET PO SCH (17:00)
[2016-07-17] MEDS ORDERED: POTASSIUM CHLORIDE 10 MEQ TABLET PO SCH (17:30)
[2016-07-17] MEDS ORDERED: METFORMIN 500 MG TABLET PO SCH (17:30)
[2016-07-17] MEDS ORDERED: POLYETHYL.GLYCOL 3350 PACKET 17gm PO SCH (21:00)
[2016-07-17] MEDS ORDERED: LIDOCAINE PATCH REMOVAL TOP SCH (21:00)
[2016-07-17] MEDS ORDERED: DOCUSATE SODIUM 100 MG CAPSULE PO SCH (21:00)
[2016-07-17] MEDS ORDERED: ATORVASTATIN 40 MG TABLET PO SCH (22:00)
[2016-07-17] MEDS ORDERED: GABAPENTIN 300 MG CAPSULE PO SCH (22:00)
[2016-07-17] MEDS ORDERED: METOCLOPRAMIDE 5mg TABLET PO SCH (22:00)
[2016-07-17] MEDS ORDERED: MAGNESIUM OXIDE 400 MG TABLET PO SCH (22:00)
[2016-07-18] MEDS ORDERED: OMEPRAZOLE 20 MG CAPSULE PO SCH (06:30)
[2016-07-18] MEDS ORDERED: ASCORBIC ACID 500 MG TABLET PO SCH (09:00)
[2016-07-18] MEDS ORDERED: LIDOCAINE 5% PATCH TD SCH ×2 (09:00)
[2016-07-18] MEDS ORDERED: ASPIRIN 81 MG CHEWABLE TABLET PO SCH (09:00)
[2016-07-18] MEDS ORDERED: AMIODARONE 200 MG TABLET PO SCH (09:00)
[2016-07-19] MEDS ORDERED: FENTANYL 25MCG/HR PATCH TOP SCH (08:00)
[2016-07-19] MEDS ORDERED: FENTANYL PATCH REMOVAL TD SCH ×2 (08:00→09:00)
== END 2016-07-17 15:30 ==
LOC: ED 09:25 → EDHOLD 10:50 → MED 11:15 → UNDODISOB 15:30
PROVIDERS: ADMIT Internal Medicine Cardiovascular Disease; ATTEND Internal Medicine Cardiovascular Disease
DX: R07.2 Precordial pain (principal); I25.10 Atherosclerotic heart disease of native coronary artery without angina pectoris; Z95.1 Presence of aortocoronary bypass graft; I48.0 Paroxysmal atrial fibrillation; I10 Essential (primary) hypertension; E78.00 Pure hypercholesterolemia, unspecified; E11.9 Type 2 diabetes mellitus without complications; K21.9 Gastro-esophageal reflux disease without esophagitis; F41.9 Anxiety disorder, unspecified; F32.9 Major depressive disorder, single episode, unspecified; Z79.84 Long term (current) use of oral hypoglycemic drugs; Z79.82 Long term (current) use of aspirin; Z79.899 Other long term (current) drug therapy
CPT/HCPCS: 36415; 71010; 80053; 84443; 84484; 85025; 93005; 99284; A9270; G0378; 99218

== ENCOUNTER → 2016-08-04 | Outpatient (CLI) | payer MEDICARE, BC ==
[~2016-08-04] MED LIST changes: +AMIO200T2 PO; -AMIO200T7 PO; -CEFP200T14 PO; +CHOL200024 PO; +CYCL-375 PO; -DOCU-168 PO; +EUCERIN TOP; +FENT1PAT65 TOP; +FURO20TA4 PO; -HYDR2TAB56 PO; +HYDR2TAB7 PO; +KENALOG TOP; -LIDO700A3 TOP; +MAGN30OR PO; +METF500T4 PO; +MULT-933 PO; +POTA-12 PO; -TRAM50TA4 PO
--- NOTE | 2016-08-04 15:01 | ECHOF ---
DATE OF PROCEDURE August 04, 2016 Left atrial dimension is normal. Left ventricle end-diastolic dimension is normal. Left ventricle wall thickness is normal. LV systolic function is normal with ejection fraction of 63%. Right atrium is normal. Right ventricle is normal. Aortic root dimension is normal. Mitral valve is morphologically normal with mild mitral regurgitation. Aortic valve is normal. Tricuspid valve shows mild tricuspid regurgitation with estimated pulmonary artery systolic pressure of 33. Pulmonary valve shows no pulmonary insufficiency. There is no pericardial effusion. IMPRESSION 1. Normal LV systolic function with ejection fraction of 63%. 2. Mild mitral regurgitation. 3. Mild tricuspid regurgitation with estimated pulmonary artery systolic pressure of 33. MTDD
== END ==
LOC: IMA 10:12
PROVIDERS: ATTEND Internal Medicine Cardiovascular Disease
DX: I08.1 Rheumatic disorders of both mitral and tricuspid valves (principal); I48.0 Paroxysmal atrial fibrillation
CPT/HCPCS: 93306